=== PATIENT | female | born 1945 | race Caucasian/White ===

== ENCOUNTER 2020-06-12 13:46 | Outpatient (CLI) | payer MEDICARE, SELFPAY ==
--- NOTE | ~2020-06-12 | PE_ITS ---
EXAMINATION: PET skull to mid thigh DATE: 06/12/2020 15:42 INDICATION: Multiple pulmonary nodules. TECHNIQUE: Blood glucose level was 80 mg/dL. 9.329 mCi of 18-fluorodeoxyglucose (18-FDG) was administ ered i.v. Low dose computed tomography (CT) images were acquired from the base of the brain to the pr oximal thighs for attenuation correction and anatomic localization. Automated exposure control was em ployed. Dose-length product (DLP) was 234 mGy-cm. Positron emission tomography (PET) images were acqu ired in the same distribution. COMPARISON: None FINDINGS: Head/neck: There are no pathologically enlarged lymph nodes. Chest: There is severe emphysema. There is mild scarring at the lung apices without increased activit y. Calcified left lung nodules and calcified left hilar lymph nodes are consistent with old granuloma tous disease. There is a 7 mm nodule in right middle lobe without increased activity. There is a 5 mm nodule in right middle lobe without increased activity. There are two 5 mm nodules in right lower lo be without increased activity. There are nodules measuring up to 6 mm in left lower lobe without incr eased activity. No pleural effusion. The heart size is normal. There are coronary artery calcificatio ns. No pericardial effusion. There is mild chronic anterior wedging of multiple thoracic vertebral lucho dies. Abdomen/pelvis/proximal thighs: The liver, gallbladder, spleen, pancreas, adrenal glands, and kidneys are normal. There are no dilated loops of bowel. There is diverticulosis of the colon without eviden ce of diverticulitis. There is prominent fat in the inguinal canals that may be hernias. There are no pathologically enlarged lymph nodes. There is no free intraperitoneal fluid. There is internal fixat ion of proximal left femur. There is no osseous malignancy. IMPRESSION: 1. Pulmonary nodules measuring up to 7 mm without increased activity, probably benign. Noncontrast lo w-dose chest CT is recommended in 6 months. Reviewed, dictated and finalized at location A. [facility] IMPRESSION: 1. Pulmonary nodules measuring up to 7 mm without increased activity, probably benign. Noncontrast low-dose chest CT is recommended in 6 months.
[2020-06-12 14:23] LABS: Glucose Point of Care 80 (65-105)
== END 2020-06-12 13:47 | disposition home or self-care (01) ==
PROVIDERS: PCP Internal Medicine; Visit Provider Nurse Practitioner
DX: R91.8 Other nonspecific abnormal finding of lung field (principal)
CPT/HCPCS: 78815; A9552

== ENCOUNTER 2023-07-13 18:47 | Emergency (ER) | payer MEDICARE, SELFPAY ==
[2023-07-13] VITALS (7 sets, daily range): BP systolic 98–128; BP diastolic 54–86; PULSE 60–77; RESP 13–18; TEMP 37.3; O2SAT 92–97
[2023-07-13] MEDS: HYDROmorphone HCL INJ (*CRX) 1 MG/ML SYR IV PUSH (23:10)
[2023-07-13] MEDS: MAGNESIUM SULF 2 GM/WATER 50ML 2 GM/50 ML BAG IVPB (23:10)
--- NOTE | 2023-07-14 00:14 | ED.GENADULT ---
HPI - General Adult General Chief complaint: Unspecified Stated complaint: trigenimal neuralgia Time Seen by Provider: 07/13/23 22:40 History of Present Illness HPI narrative: Patient is a 8-year-old female presents emergency department chief complaint of right-sided facial pain. Patient reports she has prior history of trigeminal neuralgia and is currently on gabapentin as an outpatient. The patient states over the last several days she has had worsening pain and reports that she is followed by the [facility] Neurology group. Patient denies fever denies any other triggers Related Data Home Medications Medication Instructions Recorded Confirmed brimonidine 0.2 % eye drops 1 drp EACH EYE Q8H 08/29/22 carbamazepine 100 mg 100 mg PO Q12H 08/29/22 capsule,extended release [id number] dorzolamide 2 % eye drops 1 drp EACH EYE TID 08/29/22 furosemide 20 mg tablet 20 mg PO QAM 08/29/22 metoprolol succinate 25 mg 25 mg PO DAILY 08/29/22 tablet,extended release 24 hr omeprazole 20 mg capsule,delayed 20 mg PO DAILY 08/29/22 release ropinirole 0.5 mg tablet 0.5 mg PO BID 08/29/22 sacubitril 24 mg-valsartan 26 mg 1 tablet PO BID 08/29/22 tablet (Entresto) tramadol 50 mg tablet 50 mg PO Q6H PRN 08/29/22 trazodone 50 mg tablet 50 mg PO QHS PRN 08/29/22 Allergies Allergy/AdvReac Type Severity Reaction Status Date / Time [id number] Reductase Allergy Joint Pain Verified 08/29/22 09:03 Inhibitor Review of Systems Review of Systems: A 10 system review of systems was completed on the patient and is negative except for what is stated in the HPI. Nursing and ancillary documentation was reviewed. [facility] Social History Social History Smoking status: Never smoker Exam Narrative: GENERAL: Well-appearing, well-nourished, and in no acute distress. HEAD: Normocephalic, atraumatic. EYES: PERRLA and EOMI. ENT: Nares clear, no rhinorrhea or epistaxis. Mucous membranes moist. NECK: Supple. CHEST: Clear to auscultation. No respiratory distress. HEART: Regular rate and rhythm. No murmur heard. Normal peripheral pulses. ABDOMEN: Soft, nontender, nondistended, normal active bowel sounds. EXTREMITIES: Normal range of motion. No edema. SKIN: Warm, dry, no rash. NEURO: No focal deficits. Alert and oriented x3. PSYCH: Normal mood and affect. Course Vital Signs Vital signs: Vital Signs Temperature 37.3 C 07/13/23 18:49 Pulse Rate 77 07/13/23 18:49 Respiratory Rate 18 07/13/23 18:49 Blood Pressure 98/83 L 07/13/23 18:49 Pulse Oximetry 95 07/13/23 18:49 Oxygen Delivery Room Air 07/13/23 18:49 Temperature 37.3 C 07/13/23 18:49 Pulse Rate 68 07/13/23 23:58 Respiratory Rate 18 07/13/23 18:49 Blood Pressure 116/64 07/13/23 23:58 Pulse Oximetry 95 07/13/23 18:49 Oxygen Delivery Room Air 07/13/23 18:49 Medical Decision Making MDM Narrative Medical decision making narrative: Differential diagnosis includes chronic pain syndrome, trigeminal neuralgia pain, neuropathic pain The patient's pain was controlled in the emergency department as we discharged home to follow-up with her neurologist. Vital Signs Vital Signs: Vital Signs Temperature 37.3 C 07/13/23 18:49 Pulse Rate 77 07/13/23 18:49 Respiratory Rate 18 07/13/23 18:49 Blood Pressure 98/83 L 07/13/23 18:49 Pulse Oximetry 95 07/13/23 18:49 Oxygen Delivery Room Air 07/13/23 18:49 Temperature 37.3 C 07/13/23 18:49 Pulse Rate 68 07/13/23 23:58 Respiratory Rate 18 07/13/23 18:49 Blood Pressure 116/64 07/13/23 23:58 Pulse Oximetry 95 07/13/23 18:49 Oxygen Delivery Room Air 07/13/23 18:49 Discharge Plan Discharge Clinical Impression: Acute facial pain, [place] (trigeminal neuralgia) Patient Disposition: Home, Self-Care Condition: Stable Instructions: Antibiotic Form, Trigeminal Neuralgi
[2023-07-14 00:47] VITALS: BP 123/64; PULSE 69; RESP 15; O2SAT 92
[2023-07-14 00:53] VITALS: BP 112/78; PULSE 69
== END 2023-07-14 00:53 | disposition home or self-care (01) ==
PROVIDERS: Emergency Provider Emergency Medicine; PCP Internal Medicine
DX: G50.0 Trigeminal neuralgia (principal)
CPT/HCPCS: 96365; 96375; 99284; J1170; J2001; J3475

== ENCOUNTER 2024-10-18 14:13 | Outpatient (CLI) | payer MEDICARE, SELFPAY ==
--- NOTE | ~2024-10-18 | XR_ITS ---
Left Hand Technique: PA, oblique, and lateral views were obtained. Clinical History: Second MCP sprain Findings: No acute fracture or dislocation is seen. Osseous alignment is anatomic. There is mild dege nerative change of the first MCP joint. There is moderate degenerative change of the PIP joints. Ther e is mild degenerative change of the DIP joints.. Soft tissues are unremarkable. Impression: Polyarticular osteoarthritis, as detailed above. Reviewed, dictated and finalized at location M. Impression: Polyarticular osteoarthritis, as detailed above.
--- OUTSIDE RECORDS SUMMARY | 2024-10-18 15:30 | XMS_ITS | Continuity of Care Document ---
Author Organization [facility] Address [address] [place] [address] Phone Care Team Providers Care Import Clerk Name Role Phone Gabriel Cheng Unavailable Unavailable Procedures Procedure Date Eye Exam Established Pt Ophthalmoscopy, Subsequent Eye Exam Established Pt Ophthalmoscopy, Subsequent Fundus Photography W/ Report Eye Exam & Treatment Office/outpatient Visit, Est Eye Exam, New Patient Refraction Advance Directives Directive Yes / No Effective Date File Name No Information Encounters Encounter Description Practice Location Reason(s) For Visit Diagnoses Date Provider Providers Copied on Encounter [facility], [address] [place] [address] [address], [place], [place], [id number], [place] tel:[phone] [facility] [place][note 2] No Information 6-201 0 Skylar Rios. [address] [place], [address], [place]. tel:[phone] [facility], [address] [place] [address] [address], [place], [place], [id number], [place] tel:[phone] [facility] [place][note 2] No Information 2-201 0 Skylar Rios. [address] [place], [address], [place]. tel:[phone] Referring Provider: Gabriel Correia, [address] [place], [place], [facility]. tel:[phone] [facility], [address], [place], [place], [id number], [place] tel:[phone] [facility] [place][note 2] No Information Sep-0 8-201 0 Skylar Rios. [address] [place], [place], [facility], [place]. tel:[phone] Referring Provider: Wally rivas, [address] [place] [address], [facility]. tel:[phone] Office/outpat ient Visit, [facility] [place], [id number] [place] [address] [address], [place], [place], [id number], tel:[phone] [facility] [place][note 2] No Information Sep-0 5-201 0 Dakota Wally. [address] [place] [address], [facility], [place]. tel:[phone] [facility], [address] [place] [address] [address], [place], [place], [id number], [place] tel:[phone] [facility] [place][note 2] No Information -201 0 Krstannasamy Wally. [address] [place] [address], [facility], [place]. tel:[phone] Family History Family Member Type Diagnosis Age At Onset No Information Payers Payer name Insurance type Covered libertarian ID Authoriza [id number](s) Medicare [facility] [id number] Commercial [id number] Social History Type Description Quantity Date Captured Comments Sex Female Smoking Status No Information Chief Complaint And Reason For Visit No Information Reason For Referral Reason For Referral No Information History Of Present Illness Encounter Date Complaint History Of Prese nt Illness No Information Functional Status Date Functional Assessmen t No Information Instructions Date Instruction Additional Infor mation No Information Assessments Type Assessment Date No Information Patient Care Teams Name Effective Dates (start - stop) Status Members No Information
--- OUTSIDE RECORDS SUMMARY | 2024-10-18 15:31 | XMS_ITS | Encounter Summary ---
Author Organization [facility] Address [address] [facility] [place] [address] Phone Care Team Providers Care Carriage Setter Name Role Phone Yanet Felder MD Primary Care Provider [phone] Reason for Visit * Reason Onset Date Comments Med Refill 08/02/2024 Encounter Details Date Type Department Care Team (Late st Contact Info) Description 08/02/2024 Refill [place] [facility] [address] [facility] [address] [place] [address] Nichole Bolaños CMA [address] [facility] [address] [place] [address] Social History Tobacco Use Types Packs/Day Years Used Date Smoking Tobacco: Never Assessed Comments Unknown Sex and Gender Information Value Date Recorded Sex Assigned at Not on file Legal Sex Female 1:55 PM EDT Gender Identity Not on file Sexual Orientation Not on file documented as of this encounter Plan of Treatment Upcoming Encounters Date Type Department Care Team (Late st Contact Info) Description 01/31/2025 2:00 PM CDT Office Visit [place] [facility] [address] [facility] [address] [place] [id number] Steffen Alfredo DO [address] [place] [address] documented as of this encounter Visit Diagnoses Not on filedocumented in this encounter Care Teams Carriage Setter Relationship Specialty Start Date End Date Yanet Felder MD [address] [facility], [address] [place] [address] PCP - General Internal Medicine 03/06/23 documented as of this encounter
--- OUTSIDE RECORDS SUMMARY | 2024-10-18 15:31 | XMS_ITS | Clinical Summary ---
Author Organization [facility] Address [address] [place] [address] Care Team Providers Care Craft Artist Name Role Phone Thaddeus Felder MD Primary Care Provide r Eleonora Sparks MD Unavailable [phone] Aren Hayes MD Unavailable [phone] Allergies Active Allergy Reactions Criticality Noted Date Comments Rosuvastatin Hives Medium 01/04/2020 Medications traZODone (DESYREL) 50 mg tablet TK 1 T PO QHS. NO ALCOHOL OR DRIVING WHILE ON MEDICATION, for sleep 0 07/09/19 19 Active timolol (BETIMOL) 0.5 % ophthalmic solution Administer 1 drop into the right eye disassembler before breakfast Active latanoprost (XALATAN) 0.005 % ophthalmic solutionIndic ations:open angle glaucoma Administer 1 drop into the right eye nightly Active brimonidine (ALPHAGAN) 0.2 % ophthalmic solution brimonidine 0.2 % eye drops INSTILL 1 DROP INTO THE RIGHT EYE BID 12/09/19 20 Active clobetasoL (TEMOVATE) 0.05 % cream Active dorzolamide (TRUSOPT) 2 % ophthalmic solution INSTILL 1 DROP INTO THE RIGHT EYE TWICE DAILY 10/30/19 21 Active omeprazole (PriLOSEC) 20 mg capsule Active metoprolol XL (TOPROL-XL) 25 mg extended release tablet Take 0.5 tablets (12.5 mg total) by mouth daily 15 tablet 11/20/19 22 Active rOPINIRole (REQUIP) 0.5 mg tablet Take 1 tablet (0.5 mg total) by mouth nightly at bedtime 11/23/19 22 Active albuterol HFA (PROVENTIL HFA,VENTOLIN HFA,PROAIR HFA) 90 mcg/actuation inhaler Inhale 2 puffs every 6 (six) hours as needed for wheezing Active neomycin-poly myxin B-dexAMETHaso ne (MAXITROL) 3.5 mg/g-10,000 unit/g-0.1 % ointment 03/08/20 24 Active montelukast (SINGULAIR) 10 mg tablet Take 1 tablet (10 mg total) by mouth nightly 30 tablet 11 03/22/20 24 Active furosemide (LASIX) 20 mg tablet Take 1 tablet (20 mg total) by mouth daily for 3 days 3 tablet 04/21/20 24 Active oxyCODONE (ROXICODONE) 5 mg immediate release tablet TAKE 1 TABLET BY MOUTH EVERY DAY FOR 10 DAYS NEEDED 05/03/20 24 Active fexofenadine (GONZALEZ) 60 mg tablet Take 1 tablet (60 mg total) by mouth daily Active meloxicam (MOBIC) 7.5 mg tablet Take 1 tablet (7.5 mg total) by mouth daily 09/28/19 25 Active albuterol 2.5 mg /3 mL (0.083 %) nebulizer solutionIndic ations:Centri lobular emphysema (HCC) Take 3 mL by nebulization every 4 (four) hours as needed for wheezing or shortness of breath 75 mL 10/18/19 25 Active arformoteroL (Brovana) 15 mcg/2 mL nebulizer solutionIndic ations:Centri lobular emphysema (HCC) Take 2 mL (15 mcg total) by nebulization 2 (two) times a day 360 mL 10/18/19 25 026 Active revefenacin (Yupelri) 175 mcg/3 mL solution for nebulizationI ndications:Ce ntrilobular emphysema (HCC) Inhale 3 mL daily 90 mL 3 10/18/19 25 026 Active albuterol (PROVENTIL,VE NTOLIN) 2.5 mg /3 mL (0.083 %) nebulizer solution Inhale 3 mL every 4 (four) hours as needed 02/16/20 18 025 Discontinued(R eorder) ipratropium-a lbuteroL (DUO-NEB) 0.5-2.5 mg/3 mL nebulizer solution 025 Discontinued revefenacin (Yupelri) 175 mcg/3 mL solution for nebulizationI ndications:Ce ntrilobular emphysema (HCC) Inhale 3 mL daily 90 mL 3 09/30/19 25 025 Discontinued(R eorder) arformoteroL (Brovana) 15 mcg/2 mL nebulizer solutionIndic ations:Centri lobular emphysema (HCC) Take 2 mL (15 mcg total) by nebulization 2 (two) times a day 360 mL 3 09/30/19 025 Discontinued(R eorder) Active Problems Problem Noted Date Diagnosed Date Sensorineural hearing loss (SNHL) of both ears 1 07/30/2023 Assessment & Plan (05/29/2024 12:28 PM GAME SHOW HOST): Severe Hearing loss, hearing aids recommended Pneumonia of both lower lobes due to infectious organism 03/22/2024 Assessment & Plan (03/22/2024 3:29 PM CDT): There are concerns for aspiration pneumonia, clinically she has improved. I will follow her CT chest to resolution, ordered today Dysphagia 03/22/2024 Assessment & Plan (05/29/2024 12:28 PM GAME SHOW HOST): EGD referral placed Assessment & Plan (05/27/2024 1:40 PM GAME SHOW HOST): Recent chest imaging reveals concerns for aspiration. In addition she reports difficulty swallowing over the last several months MBS with no evidence of aspiration Unfortunately she did have some esophageal dysmotility as reported by SENIOR MECHANICAL ENGINEER. This could be a result of esophageal stricture. In addition it could be caused by her goiter. I have encouraged her to follow-up with primary and/or GI Assessment & Plan (03/22/2024 3:30 PM CDT): Recent chest imaging reveals concerns for aspiration. In addition she reports difficulty swallowing over the last several months I will check a modified barium swallow study Nicotine dependence, cigarettes, uncomplicated 1 Assessment & Plan (09/29/2024 3:44 PM CDT): - Smoking cessation counseling and techniques reviewed at length - Avoid triggers and use distraction techniques - Participate in support groups - Information given regarding [place] Tobacco Quit line: 2-567-MUCF-YES for free services - 5 minutes spent discussing cessation She declines NRT today She is not a candidate for LDCT screening Assessment & Plan (05/27/2024 1:39 PM GAME SHOW HOST): - Smoking cessation counseling and techniques reviewed at length - Avoid triggers and use distraction techniques - Participate in support groups - Information given regarding [place] Tobacco Quit line: 0-124-PPQV-YES for free services - 4 minutes spent discussing cessation She remains pre-contemplative at present. I have encouraged her to cut down Assessment & Plan (03/22/2024 3:32 PM CDT): - Smoking cessation counseling and techniques reviewed at length - Avoid triggers and use distraction techniques - Participate in support groups - Information given regarding [place] Tobacco Quit line: 1-717-NPVQ-YES for free services - 5 minutes spent discussing cessation She is pre-contemplative at present. Neuralgia 12/19/2021 Takotsubo cardiomyopathy 11/18/2021 Acute respiratory failure with hypoxia Chronic obstructive pulmonary disease 11/17/2021 Shortness of breath 11/17/2021 Trochanteric bursitis of left hip 09/24/2021 Low back pain 08/09/2021 Pain of left sacroiliac joint 08/09/2021 Coronavirus infection 06/28/2021 Myalgia 05/21/2021 Spinal enthesopathy 05/21/2021 Trigeminal neuralgia 11/22/2020 Assessment & Plan (05/21/2021 11:31 AM GAME SHOW HOST): Patient has had recent exacerbation and trigeminal nerve pain despite continued use of carbamazepine 100 mg t.i.d. with otherwise good tolerability and symptomatic efficacy. I will maintain her carbamazepine as dosed at 100 mg t.i.d. and has supplemental tramadol 50 mg t.i.d. p.r.n. for symptomatic exacerbation as it has historically worked well for her in past. She will follow-up in neurology clinic in 6 months. Assessment & Plan (11/22/2020 10:48 AM CDT): Patient presents with a 10+ day history of right iris facial lancinating pain in the distribution of the ophthalmic and maxillary divisions of the right trigeminal nerve. She has been placed on carbamazepine 100 mg b.i.d. with some lessening but not resolution of her symptoms. Carbamazepine increased to 200 mg t.i.d. led to untoward drowsiness and adverse effects. She reportedly has had a CT scan and MRI of the brain performed through [facility] which she was told both were normal. A request for those record reports will be pursued. I will increase her baseline carbamazepine 200 mg t.i.d. an effort to further reduce her nerve pain and hopefully not produce untoward sedation or adverse effects. I will see her back in 6 months time for reassessment on the adjusted dose. Bleeding into the skin 03/16/2020 Dizziness 06/29/2019 Glaucoma 06/29/2019 Leg edema 06/29/2019 Allergic rhinitis 12/07/2018 Bradycardia 12/03/2018 Atherosclerosis of aorta 11/17/2018 Hyperlipidemia 11/17/2018 Arteriosclerosis of coronary artery 10/29/2018 Chronic obstructive pulmonary disease 10/29/2018 Assessment & Plan (09/29/2024 3:43 PM CDT): Maintenance inhaled dual bronchodilator therapy has been largely unaffordable She filled out the paperwork for financial assistance but was denied She has tried and failed Spiriva, Anoro, and Bevespi. She has the best clinical benefit from Stiolto We have discussed nebulized dual bronchodilation and she agrees I have sent for a new nebulizer as versus greater than 5 years old I have also sent for Yupelri to be used once daily via nebulizer and Brovana to be used twice daily via nebulizer Albuterol as needed only, we have discussed indications for use We have discussed signs and symptoms that would require earlier evaluation or change to her plan of care Assessment & Plan (05/27/2024 1:38 PM GAME SHOW HOST): She will continue Stiolto 2 puffs daily I have given her weeks of samples and instructed her on use She filled out the paperwork for financial assistance but was denied She has tried and failed Spiriva, Anoro, and Bevespi. She has the best clinical benefit from Stiolto I will send an additional RX and anticipate that we may need to [place] Albuterol as needed only, we have discussed indications for use I will check old records for previous alpha-1 testing I have sent an order for an new nebulizer today We have discussed signs and symptoms that would require earlier evaluation or change to her plan of care Assessment & Plan (03/22/2024 3:30 PM CDT): She will continue Stiolto 2 puffs daily I have given her 6 weeks of samples and instructed her on use She was filled out the paperwork for financial assistance Albuterol as needed only, we have discussed indications for use I will check old records for previous alpha-1 testing Closed fracture of right distal radius 9 Overview (08/03/2018): Added automatically from request for surgery [id number] Thyroid nodule 03/31/2017 Encounters Date Type Department Care Team Description 09/29/2024 11:00 AM CDT Office Visit [facility] Pul[facility] at [address] [place] [address] Ann Lala, SPORTS ATTORNEY Centrilobular emphysema (HCC) (Primary Dx); Nicotine dependence, cigarettes, uncomplicated from Last 3 Months Immunizations Immunization Administration Dates Next Due Hep A, Adult 01/22/2000,07/17/1999 Influenza, Quadrivalent, Spl it, Preservative Free, Intramuscular 04/14/2019 Influenza, Trivalent, High D ose, Split, Preservative Free, Intramuscular 03/14/2020,04/07/2018,03/31/2017,04/09,03/27/2015 Influenza, Trivalent, IM (MDV) 04/11/2014,2012 Influenza, Unspecified 04/04/2021 Moderna SARS-CoV-2 Monovalen t Vaccination (12+ YRS) 09/04/2020,07/26/2020 Pneumococcal Conjugate PCV 13 05/07/2016 Pneumococcal Polysaccharide PPV23 06/24/2018 Surgical History Surgery Date Site/Laterality Comments HIP SURGERY Left 2015 EYE SURGERY 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 EYE SURGERY Right 2013 cataract CARDIAC CATHETERIZATION HERNIA REPAIR WRIST SURGERY Right fracture surgery, plate Medical History Medical History Date Comments Malignant neoplasm of unknown origin (HCC) Cancer, unknown Trigeminal neuralgia Thyroid nodule Glaucoma Nicotine dependence, cigarettes, uncomplicated 1 HLD (hyperlipidemia) DDD (degenerative disc disease), lumbar Takotsubo cardiomyopathy HFrEF (heart failure with reduced ejection fract ion) (HCC) CAD (coronary artery disease) Goiter COPD (chronic obstructive pulmonary disease) (HC C) Family History Medical History Relation Name Comments Heart attack Father Lung cancer Mother Relation Name Status Comments Father Mother Social History Tobacco Use Types Packs/Day Years Used Date Smoking Tobacco: Every Day Cigarettes 0.5 61.3 Started: 1964 Smokeless Tobacco: Never Alcohol Use Standard Drinks/Week Comments Yes 1 (1 standard drink = 0.6 oz pur e alcohol) AUDIT-C Answer Date Recorded Q1: How often do you have a drink containing alcohol? Never 06/13/2024 Q2: How many drinks containi ng alcohol do you have on a typical day when you are drinking? Patient does not drink Q3: How often do you have si x or more drinks on one occasion? Never 06/13/2024 Personal Safety Answer Date Recorded Have you ever been in or are you currently in a harmful physical or emotional relationship or is someone making you feel afraid or unsafe? Denies 06/17/2024 Comments No Sex and Gender Information Value Date Recorded Sex Assigned at Not on file Legal Sex Female 3:45 AM GAME SHOW HOST Gender Identity Not on file Sexual Orientation Not on file Obstetrics History Last Filed Vital Signs Vital Sign Reading Time Taken Comments Blood Pressure 101/62 09/29/2024 10:53 AM CDT Pulse 63 09/29/2024 10:53 AM CDT Temperature 36.4 C (97.5 F) 09/29/2024 10:53 AM CDT Respiratory Rate 18 09/29/2024 10:53 AM CDT Oxygen Saturation 91% 09/29/2024 10:53 AM CDT Inhaled Oxygen Concentration - - Weight 40.2 kg (88 lb 9.6 oz) 09/29/2024 10:53 A M CDT Height 162.6 cm (5' 4 ) 09/29/2024 10:53 AM CDT Body Mass Index 15.21 09/29/2024 10:53 AM CDT Plan of Treatment Health Maintenance Due Date Last Done Comments Depression Screening 1945 Osteoporosis Screening-Bone Density Scan 1944 DTaP/Tdap/Td Vaccine (1 - Tdap) 1955 Hepatitis B Screening 1962 Lung Cancer Screening 1994 Well Visit 65+ 2009 Fall Risk Assessment 11/18/2022 11/18/2021 Covid-19 Vaccine (2023-2 5 season) 2024 09/04/2020, 07/26/2020 Pneumococcal vaccine 65+ Completed 06/24/2018, 04/22 Zoster Vaccine Completed 06/27/2020, 03/14/2020 Influenza Vaccine Completed 05/04/2024, , 03/14/2020, Additional history exists Medical Devices Implanted Type Area Weekend Anchor Device Identifier Shelf Expiration Date Model / Serial / Lot Other - See Comments Other - see comments Left: Eye Description:Left eye prosthe sis [employer] A-5700.16/1 Aptus 2.5mm 16mm Hexadrive 7 Adaptive Wrist Radius Cortical - S0 - [id number] Implanted:Qty: 2 on 08/05/2018 by Peter Shipley MD at [facility] Screw Right: Radius [employer] A-5700.16 /1 / 0 / [employer] A-5400.15 Aptus 2mm 15mm Hand Cortical Screw Bone Titanium Blue - S0 - [id number] Implanted:Qty: 1 on 08/05/2018 by Peter Shipley MD at [facility] Screw Right: Radius [employer] A-5400.15 / 0 / [employer] A-5750.16 2.5mm 16mm Lock Cortical Screw Bone - S0 - [id number] Implanted:Qty: 3 on 08/05/2018 by Peter Shipley MD at [facility] Screw Right: Radius [employer] A-5750.16 / 0 / [employer] A-5750.12/1 Aptus Trilock 2.5mm 12mm Hexadrive 7 Adaptive Wrist Radius - S0 - [id number] Implanted:Qty: 2 on 08/05/2018 by Peter Shipley MD at [facility] Screw Right: Radius [employer] A-5750.12 /1 / 0 / [employer] A-5700.12 Aptus 2.5mm 12mm Cortical Screw Bone - S0 - [id number] Implanted:Qty: 3 on 08/05/2018 by Peter Shipley MD at [facility] Screw Right: Radius [employer] A-5700.12 / 0 / Angio-Seal Vip 6fr Closere Device [id number] - [id number] Implanted:Qty: 1 on 11/16/2021 by Terence Gray MD at [facility] [facility] 09/19/2022 [id number] / / [id number] Explanted Type Area Weekend Anchor Device Identifier Shelf Expiration Date Model / Serial / Lot [employer] A-5040.41/1 Aptus Mandeep 1.6mm 150mm Trocar Wire Fixation Nonsterile - S0 - [id number] Implanted:Qty: 1 Explanted:Qty: 1 on 08/05/2018 by Peter Shipley MD at [facility] Advanced Medicine Wire Right: Radius [employer] A-5040.41/1 / 0 / Insurance MEDICARE [facility] [place] [address] MEDICARE [facility] MEDICARE [facility] MEDICARE SUPPLEMENT Advance Directives For more information, please contact: [phone] * Full Code (Latest Code Status on File) Date Activated Date Inactivated Comments 06/17/2024 7:02 AM 06/17/2024 12:34 PM * Full Code Date Activated Date Inactivated Comments 06/17/2024 7:02 AM 06/17/2024 7:02 AM * Full Code Date Activated Date Inactivated Comments 11/16/2021 3:46 PM 11/18/2021 8:12 PM Care Teams Craft Artist Relationship Specialty Start Date End Date Thaddeus Felder MD [address] [facility] [address] [place] [address] PCP - General Internal Medicine 08/18/18 Eleonora Sparks MD [address] [place] [address] Fellow General Surgery 11/16/21 Aren Hayes MD [address] [place] [address] Consulting Physician Interventional Cardiology 11/18/21
--- OUTSIDE RECORDS SUMMARY | 2024-10-18 15:31 | XMS_ITS | Clinical Summary ---
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 Gender Identity Not on file Sexual Orientation Not on file Plan of Treatment Upcoming Encounters Date Type Department Care Team (Late st Contact Info) Description 10/26/2024 8:40 AM CDT Office Visit [facility] - [address], [address] [place] [address] Kerrie Martinez MD [address] [place] [address] Health Maintenance Due Date Last Done Comments DTaP, Tdap and Td Vaccines ( 1 - Tdap) 1964 Pneumococcal Vaccine: 50+ Ye ars (1 of 1 - PCV) 1994 Zoster Vaccines (1 of 2) 1994 Annual Medicare Wellness Visit 2009 Dexa Scan (General) 2009 RSV Immunization or 60+ Years (1 - 1-dose 75+ series) 2019 COVID-19 Vaccine (2023-2 5 season) 2024 Meningococcal B Vaccine Aged Out No l onger eligible based on patient's age to complete this topic Meningococcal Vaccine Aged Out No avi lloyd eligible based on patient's age to complete this topic RSV Immunizations Under 20 Months Aged Out No longer eligible based on patient's age to complete this topic Insurance MEDICARE
--- OUTSIDE RECORDS SUMMARY | 2024-10-18 15:31 | XMS_ITS | CONTINUITY OF CARE DOCUMENT ---
Author Name nyla redmond Address Unknown Organization [facility] Address [id number] [address] [place] [address] Phone [phone] Care Team Providers Care Gold Reclaimer Name Role Phone Deep Bauman MD Unavailable [phone] VERNON MORTENSEN MD Unavailable VERNON MORTENSEN MD Unavailable PROBLEMS Condition Status Date Provider Notes Abnormal electrocardiogram active Soila Philip MD CAD active Terence Gray MD Family history of sudden cardiac [SCD] active Soila Philip MD Tobacco use, quit active Yury Pickens COPD active Soila Philip MD Leg edema active Terence Gray MD Glaucoma active Terence Gray MD Bradycardia active Terence Gray MD Aortic atherosclerosis active Terence Mark D Dizziness active Terence Gray MD Hyperlipidemia active Yury Pickens Ecchymoses completed - Deep Bauman MD PAD - BLE with rest pain completed - Deep Bauman MD PAD - RLE with rest pain completed - Deep Bauman MD SARS-associated coronavirus active Soila Philip MD Trigeminal neuralgia active Soila tamayo MD Abnormal electrocardiogram active Soila Philip MD CHF, diastolic active Miguel Ahmedzai Hypotension active Soila Philip MD Headache, mixed active Bradley Aggarwal NP Cardiology examination completed 5 - Deep Bauman MD Neuropathy active Miguel Regan ENCOUNTERS Date Type Provider Location Encounter Diag nosis - In-person encounter Office Visit Deep Bauman MD [facility] EcchymosesPAD - BLE with rest painPAD - RLE with rest painCardiology examinationNeuropathy - In-person encounter Office Visit Deep Bauman MD [facility] - In-person encounter Office Visit Deep Bauman MD [facility] CHF, diastolic - In-person encounter Office Visit Soila Philip MD [facility] - In-person encounter Office Visit Soila Philip MD [facility] Headache, mixed - In-person encounter Office Visit Soila Philip MD [facility] - In-person encounter Office Visit Soila Philip MD [facility] - In-person encounter Office Visit Soila Philip MD [facility] - In-person encounter Office Visit Soila Philip MD [facility] - In-person encounter Office Visit Soila Philip MD [facility] - In-person encounter Office Visit Soila Philip MD [facility] - In-person encounter Office Visit Soila Philip MD [facility] Hypotension - In-person encounter Office Visit Soila Philip MD [facility] - In-person encounter Office Visit Soila Philip MD [facility] - In-person encounter Office Visit Soila Philip MD [facility] - In-person encounter Office Visit Soila Philip MD [facility] - In-person encounter Office Visit Soila Philip MD [facility] Abnormal electrocardiogramCHF, diastolic - In-person encounter Office Visit Soila Philip MD [facility] Trigeminal neuralgia - In-person encounter Office Visit Soila Philip MD [facility] SARS-associated coronavirus - In-person encounter Office Visit Soila Philip MD [facility] - In-person encounter Office Visit Soila Philip MD [facility] - In-person encounter Office Visit Soila Philip MD [facility] - In-person encounter Office Visit Soila Philip MD [facility] - In-person encounter Office Visit Terence Gray MD [facility] CADTobacco use, quitLeg edemaGlaucomaBradycardiaAortic atherosclerosisDizzinessHyperlipidemia - In-person encounter Office Visit Soila Philip MD [facility] - In-person encounter Office Visit Soila Philip MD [facility] Abnormal electrocardiogramFamily history of sudden cardiac [SCD]Tobacco use, quitCOPD VITAL SIGNS Date Observation Value Provider Body Mass Index (Ratio) 15.79 kg/m2 Jason Bauman MD blood pressure, diastolic 70 mm[Hg] An iyah Huslia blood pressure, systolic 104 mm[Hg] Cadence aguilera Huslia oxygen saturation, oximetry 94 % [facility] respiratory rate E&M 12 /min [facility] weight E&M 92 [lb_av] [facility] height E&M 64 [in_i] [facility] blood pressure, cuff size regular Jeni [facility] Body Mass Index (Ratio) 15.62 kg/m2 Jason Bauman MD pulse rate 60 /min Nile [facility] oxygen saturation, oximetry 95 % [facility] weight E&M 91 [lb_av] [facility] blood pressure, diastolic 71 mm[Hg] Jeni [facility]Four [facility] blood pressure, systolic 110 mm[Hg] Cadence bejaranoFour [facility] respiratory rate E&M 12 /min [facility] height E&M 64 [in_i] [facility] blood pressure, cuff size regular [facility] Body Mass Index (Ratio) 15.62 kg/m2 Jason Bauman MD blood pressure, diastolic 85 mm[Hg] Teresa rangela [facility] blood pressure, systolic 149 mm[Hg] Ary la [facility] oxygen saturation, oximetry 95 % Joi [facility] pulse rate 57 /min Joi [facility] blood pressure, cuff size regular Teresa yla [facility] weight E&M 91 [lb_av] Joi [facility] height E&M 64 [in_i] Joi [facility] Body Mass Index (Ratio) 16.13 kg/m2 Adore Philip MD blood pressure, diastolic -1 mm[Hg] Li nkLogic blood pressure, systolic 127 mm[Hg] Enedina kLogic blood pressure, diastolic 77 mm[Hg] Teresa awan Ruple blood pressure, systolic 127 mm[Hg] Ary ocampo Ruple blood pressure, cuff size regular Teresa awan Ruple oxygen saturation, oximetry 94 % Joi Ruple pulse rate 54 /min Joi Ruple weight E&M 94 [lb_av] Joi Ruple height E&M 64 [in_i] Joi [facility] Body Mass Index (Ratio) 15.10 kg/m2 Adore Philip MD blood pressure, cuff size regular Ke rri Gruenenfelder blood pressure, diastolic 60 mm[Hg] Ke rri Gruenenfelder blood pressure, systolic 114 mm[Hg] Gwendolyn ri Gruenenfelder oxygen saturation, oximetry 93 % Giselle Gruenenfelder respiratory rate E&M 12 /min Giselle G chetenenfelder pulse rate 67 /min Giselle Gruenenfe lder weight E&M 88 [lb_av] Giselle Gruenenfe lder height E&M 64 [in_i] Giselle Gruenenfe er Body Mass Index (Ratio) 16.30 kg/m2 Mp Long oxygen saturation, oximetry 96 % Guerita Shaw pulse rate 57 /min Guerita Shaw blood pressure, cuff size regular Fa nicky Shaw blood pressure, diastolic 75 mm[Hg] Fa ith Colin blood pressure, systolic 120 mm[Hg] Niels Colin respiratory rate E&M 18 /min Guerita Mark iller weight E&M 95 [lb_av] Guerita Blackwood height E&M 64 [in_i] Guerita Blackwood Body Mass Index (Ratio) 17.68 kg/m2 Adore Philip MD blood pressure, diastolic -1 mm[Hg] Sandra nkLog blood pressure, systolic 129 mm[Hg] Enedina og blood pressure, diastolic 75 mm[Hg] An carlee Reddy blood pressure, systolic 129 mm[Hg] Any belkis Reddy pulse rate 68 /min Marisela Reddy oxygen saturation, oximetry 90 % Marisela Reddy weight E&M 103 [lb_av] Marisela Reddy blood pressure, cuff size large An carlee Reddy height E&M 64 [in_i] Marisela Reddy Body Mass Index (Ratio) 17.51 kg/m2 Adore Philip MD blood pressure, cuff size regular Fa [facility] blood pressure, diastolic 69 mm[Hg] Fa [facility] blood pressure, systolic 101 mm[Hg] Niels [facility] oxygen saturation, oximetry 95 % [facility] respiratory rate E&M 15 /min Guerita Mark iller pulse rate 61 /min [facility] weight E&M 102 [lb_av] [facility] height E&M 64 [in_i] [facility] Body Mass Index (Ratio) 18.02 kg/m2 Grah am Yudith blood pressure, diastolic 66 mm[Hg] Li nkLogic blood pressure, systolic 111 mm[Hg] Enedina og oxygen saturation, oximetry 93 % Brittany Mitchell pulse rate 65 /min Brittany Mitchell respiratory rate E&M 18 /min Brittany Mitchell blood pressure, diastolic 66 mm[Hg] Teresa Mitchell blood pressure, systolic 111 mm[Hg] She pj Mitchell weight E&M 105 [lb_av] Brittany Mitchell blood pressure, cuff size regular kirit Mitchell height E&M 64 [in_i] Brittany Mitchell Body Mass Index (Ratio) 18.36 kg/m2 Adore Philip MD pulse rate 57 /min Brittany Mitchell respiratory rate E&M 20 /min Brittany Mitchell blood pressure, diastolic 57 mm[Hg] kirit Mitchell blood pressure, systolic 87 mm[Hg] She pj Mitchell weight E&M 107 [lb_av] Brittany Mitchell blood pressure, cuff size regular kirit Mitchell height E&M 64 [in_i] Brittany Mitchell Body Mass Index (Ratio) 18.71 kg/m2 Adore Philip MD blood pressure, diastolic 56 mm[Hg] Sandra nkLogcatracho blood pressure, systolic 93 mm[Hg] Enedina Merrillogcatracho blood pressure, diastolic 56 mm[Hg] St poncho Apple blood pressure, systolic 93 mm[Hg] Angel Apple oxygen saturation, oximetry 95 % Pamela Apple respiratory rate E&M 18 /min Pamela gale pulse rate 63 /min Pamela Apple weight E&M 109 [lb_av] Pameladaphne Apple height E&M 64 [in_i] Pamela Apple Body Mass Index (Ratio) 19.57 kg/m2 Adore Philip MD blood pressure, diastolic 60 mm[Hg] Sandra gudinoLogcatracho blood pressure, systolic 102 mm[Hg] Enedina Merrillogcatracho oxygen saturation, oximetry 95 % Giselle Torres respiratory rate E&M 14 /min Giselle mendozaelder pulse rate 65 /min Giselle Mary lder blood pressure, cuff size regular Ke rri Dougieuenejorgeelder blood pressure, diastolic 60 mm[Hg] Ke rri Dougieuenenfelder blood pressure, systolic 102 mm[Hg] Gwendolyn ri Johnathoner weight E&M 114 [lb_av] Giselle Jefferynejorgee lder height E&M 64 [in_i] Giselle Mary lder Body Mass Index (Ratio) 19.22 kg/m2 Adore Philip MD blood pressure, diastolic 72 mm[Hg] Ri aliza Simental blood pressure, systolic 99 mm[Hg] Bobby cris Simental blood pressure, cuff size regular Ri aliza Simental oxygen saturation, oximetry 91 % Chandni Simental respiratory rate E&M 14 /min Boogie Simental pulse rate 68 /min Chandni Bell son weight E&M 112 [lb_av] Chandni Bell son height E&M 64 [in_i] Chandni Bell son Body Mass Index (Ratio) 20.08 kg/m2 Kamaljit Wong blood pressure, cuff size small Mi aliza White blood pressure, diastolic 53 mm[Hg] Mi aliza White blood pressure, systolic 93 mm[Hg] Jeffry cris White Inhaled O2 2 L/min Marilee larry oxygen saturation, oximetry 96 % Marilee hWite pulse rate 70 /min Marilee larry respiratory rate E&M 16 /min Cherri White weight E&M 117 [lb_av] Marilee larry height E&M 64 [in_i] Marilee larry Body Mass Index (Ratio) 20.60 kg/m2 Adore Philip MD blood pressure, diastolic 60 mm[Hg] Ke rri Gruenenfelder blood pressure, systolic 120 mm[Hg] Ker ri Gruenenfelder blood pressure, cuff size regular Ke rri Gruenenfelder Inhaled O2 2 L/min Giselle Grdiananenfe lder oxygen saturation, oximetry 95 % Giselle Pinedanfelderendira respiratory rate E&M 16 /min Giselle G ruenenfelder pulse rate 48 /min Giselle Gruenenfe lder weight E&M 120 [lb_av] Giselle Gruenenfe lder height E&M 64 [in_i] Giselle Gruenenfe lder Body Mass Index (Ratio) 20.42 kg/m2 Adore Philip MD blood pressure, diastolic 54 mm[Hg] nkLogic blood pressure, systolic 92 mm[Hg] Enedina kLogic blood pressure, diastolic 54 mm[Hg] Sa ra Son blood pressure, systolic 92 mm[Hg] Wilder a Son oxygen saturation, oximetry 92 % Deena Son respiratory rate E&M 17 /min Deena Si ms pulse rate 71 /min Deena Son Inhaled O2 2 L/min Deena Son blood pressure, cuff size regular Sa ra Son weight E&M 119 [lb_av] Deena Son height E&M 64 [in_i] Deena Son Body Mass Index (Ratio) 20.42 kg/m2 Adore Philip MD blood pressure, diastolic 74 mm[Hg] Sandra nkLogcatracho blood pressure, systolic 133 mm[Hg] Enedina Merrillogcatracho blood pressure, diastolic 74 mm[Hg] Kay Chandler blood pressure, systolic 133 mm[Hg] Lacy Chandler respiratory rate E&M 16 /min Barby Chandler pulse rate 68 /min Carrie whyte weight E&M 119 [lb_av] Carrie whyte blood pressure, cuff size regular Kay Chandler height E&M 64 [in_i] Carrie whyte Body Mass Index (Ratio) 20.25 kg/m2 Adore Philip MD blood pressure, cuff size large Tr jhoana Smith blood pressure, diastolic 70 mm[Hg] Tr jhoana Smith blood pressure, systolic 118 mm[Hg] Try elida Smith oxygen saturation, oximetry 90 % Dwayne Smith respiratory rate E&M 16 /min Dwayne Smith pulse rate 78 /min Dwayne Smith weight E&M 118 [lb_av] Dwayne Smith height E&M 64 [in_i] Dwayne Smith Body Mass Index (Ratio) 19.91 kg/m2 Adore Philip MD blood pressure, diastolic 70 mm[Hg] Sandra gudinoLogcatracho blood pressure, systolic 110 mm[Hg] Enedina Merrillogcatracho blood pressure, cuff size regular Mack isty [place] blood pressure, diastolic 70 mm[Hg] Kr isty [place] blood pressure, systolic 110 mm[Hg] Macki strob Vadim weight E&M 116 [lb_av] Evelyn [place] pulse rate 67 /min Evelyn [place] oxygen saturation, oximetry 98 % Evelyn Fierro respiratory rate E&M 19 /min Evelyn Kohliby height E&M 64 [in_i] Evelyn Fierro Body Mass Index (Ratio) 20.25 kg/m2 Adore Philip MD blood pressure, cuff size regular Cy sindi Portillo blood pressure, diastolic 76 mm[Hg] Cy sindi Portillo blood pressure, systolic 122 mm[Hg] Cecille derrick Portillo pulse rate 66 /min Skyla jason oxygen saturation, oximetry 99 % Skyla Portillo respiratory rate E&M 16 /min Skyla Portillo weight E&M 118 [lb_av] Skyla Markelbel l height E&M 64 [in_i] Skyla Campbel l Body Mass Index (Ratio) 19.74 kg/m2 Adore Philip MD blood pressure, diastolic 66 mm[Hg] To nsha Fall blood pressure, systolic 126 mm[Hg] Ton sha Fall oxygen saturation, oximetry 96 % Tons Fall respiratory rate E&M 16 /min Tonsha Fall pulse rate 73 /min Tonsha Fall weight E&M 115 [lb_av] Tonsha Afll height E&M 64 [in_i] Tonsha Fall Body Mass Index (Ratio) 19.57 kg/m2 Adore Philip MD blood pressure, diastolic 66 mm[Hg] To nsha Fall blood pressure, systolic 121 mm[Hg] Ton sha Fall oxygen saturation, oximetry 96 % Tonsha Fall respiratory rate E&M 16 /min Tonsha Flal pulse rate 76 /min Tonsha Fall weight E&M 114 [lb_av] Tonsha Fall height E&M 64 [in_i] Tonsha Fall temperature site temporal Angeles Tank sley temperature E&M 97.7 [degF] Angeles Tanks jayro Body Mass Index (Ratio) 19.57 kg/m2 Abelardo Pickens pulse rate 62 /min Skyladerrick Patel l respiratory rate E&M 16 /min Skyladerrick Portillo oxygen saturation, oximetry 98 % Skyladerrick Portillo blood pressure, cuff size regular Cy nteliasa Portillo blood pressure, diastolic 70 mm[Hg] Cy nthia Portillo blood pressure, systolic 120 mm[Hg] Cecille derrick Portillo weight E&M 114 [lb_av] Skyla Markelbel l height E&M 64 [in_i] Skyla Campbel l Body Mass Index (Ratio) 16.99 kg/m2 dAore Philip MD blood pressure, diastolic 60 mm[Hg] Er ica Jose F-Francisco blood pressure, systolic 110 mm[Hg] Sita santosh Matson oxygen saturation, oximetry 94 % Wanda Matson pulse rate 48 /min Wandaalejandra Singh blood pressure, resting No Dawson a Dano weight E&M 99 [lb_av] Wandaalejandra Kohler- Francisco height E&M 64 [in_i] Wanda Jose F- Francisco Body Mass Index (Ratio) 16.03 kg/m2 Abelardo Brar blood pressure, diastolic 68 mm[Hg] Catarina Awad blood pressure, systolic 110 mm[Hg] eC Awad oxygen saturation, oximetry 95 % Sam Awad respiratory rate E&M 18 /min Kristy Awad pulse rate 55 /min Sam gerardo weight E&M 93.4 [lb_av] Sam gerardo height E&M 64 [in_i] Sam gerardo ALLERGIES No Known Drug Allergies RESULTS Date Observation Value Provider Reference Range Interpretation Location 9 triglyceride, serum, fasting 66 mg/dL [facility] 9 HDL cholesterol, serum 91 mg/dL [facility] 9 LDL cholesterol, serum 131 mg/dL [facility] 9 cholesterol, serum 235 mg/dL [facility] HISTORY OF MEDICATION USE Medication Status Instructions Dates Provider Indications Com ments metoprolol succinate 25 mg tablet extended release 24 hr active TAKE 1 TABLET BY MOUTH EVERY DAY 6 Joi Richards lovastatin 20 mg tablet completed Take 1 tablet by mouth once a day 3 - 1 Miguel Rioszagrisel furosemide 20 mg tablet active Take 1 tablet by mouth once a day 0 Miguel Rioszai Crestor 5 mg tablet completed Take 1 tablet by mouth once a day 7 - 0 Miguel Regan oxycodone-acetami nophen 5-325 mg tablet completed - 0 Joi Richards ropinirole 1 mg tablet active one tab at night Miguel Regan cephalexin 500 mg capsule completed 1 capsule by mouth four times a day - 0 Miguel Regan trazodone 50 mg tablet active 1 tablet by mouth every night at bedtime Bradley Aggarwal NP losartan 25 mg tablet completed TAKE 1 TABLET BY MOUTH EVERY DAY 4 - 0 Bradley Aggarwal NP metoprolol succinate 25 mg tablet extended release 24 hr completed TAKE 1 TABLET BY MOUTH EVERY DAY 6 - 3 Nile Bravo Nicorette 2 mg gum completed Chew 1 piece in mouth four times a day 9 - 0 Bradley Aggarwal NP furosemide 20 mg tablet completed TAKE 1 TABLET BY MOUTH TWICE DAILY 2 - 0 Bradley Aggarwal NP Entresto 24-26 mg tablet completed Take 1 tablet by mouth twice a day 7 - 4 Soila Philip MD metoprolol succinate 25 mg tablet extended release 24 hr completed Take 1 tablet by mouth once a day - 6 Zuleyka Meehan celecoxib 100 mg capsule completed - 0 Bradley Aggarwal NP carbamazepine 100 mg tablet extended release 12 hr completed TAKE 1 TABLET BY MOUTH EVERY 12 HOURS - 0 Bradley Aggarwal NP albuterol sulfate 90 mcg/actuation HFA aerosol inhaler active Evelyn Fierro tramadol 50 mg tablet completed Take 1 tablet by mouth once a day as needed 1 - 0 Joi Richards dorzolamide 2% drops active Use in eye twice a day 9 Tawanna Jackson RN brimonidine 0.2% drops active Use in eye twice a day 9 Tawanna Jackson RN ASPIRIN EC 81 MG ORAL TABLET DELAYED RELEASE completed ONE TAB. DAILY 4 - 8 Skyla Portillo ipratropium bromide 0.02% solution active twice a day Sam Awad Sudhir-Polycin HC 3.5-400-10,000 mg-unit/g-1% ointment active as directed Sam Awad TIMOLOL MALEATE 0.25 % OPHTHALMIC SOLUTION completed as directed - 7 Soila Philip MD latanoprost 0.005% drops active as directed Sam Awad montelukast 10 mg tablet active 1 tablet by mouth once a day Sam Awad TRAZODONE HCL TABLET completed 50 mg tab once daily - 1 Skyla Portillo OMEPRAZOLE 20 MG ORAL CAPSULE DELAYED RELEASE completed ONE TAB. DAILY - 4 Wanda Matson SOCIAL HISTORY Date Observation Value Provider Underweight yes Deep Bauman MD personal history of marijuana use no Miguel Regan drug use no Miguel Regan alcohol use no Miguel Regan smoking/tobacco cess ation, patient education and counseling yes Miguel Regan smoking, year quit 2018 Miguel floyd number of years as a smoker 39 a Miguel Regan smoking history, tot al pack/year 34 Miguel Pendletoni smoking history, tot al pack/day 1/2 pkg cigs a day Miguel Regan cigarette use yes Miguel Regan smoking status Current every day smoker R bennett Pendletongrisel Underweight yes Deep Bauman MD personal history of marijuana use no Nile Nacht drug use no Nile Nacht alcohol use no Nile Nacht smoking/tobacco cess ation, patient education and counseling yes Nile Nacht smoking, year quit 2018 Nile Nac ht number of years as a smoker 40 a Nile Nacht smoking history, tot al pack/year 35 Nile Nacht smoking history, tot al pack/day 1/2 pkg cigs a day Nile Nacht cigarette use yes Nile Nacht smoking status Current every day smoker J acob Nacht Underweight yes Deep Bauman MD personal history of marijuana use no Miguel Pendletongrisel drug use no Miguel Pendletongrisel alcohol use no Miguel Rioszagrisel smoking/tobacco cess ation, patient education and counseling yes Miguel Pendletongrisel smoking, year quit 2018 Miguel floyd number of years as a smoker 40 a Miguel Pendletongrisel smoking history, tot al pack/year 35 Miguel Pendletongrisel smoking history, tot al pack/day 1/2 pkg cigs a day Miguel Pendletongrisel cigarette use yes Miguel Pendletongrisel smoking status Current every day smoker Jyoti Regan Underweight yes Soila tamayo MD personal history of marijuana use no Soila Philip MD drug use no Soila tamayo MD alcohol use no Soila tamayo MD smoking/tobacco cess ation, patient education and counseling yes Soila Philip MD smoking, year quit 2018 Soila Philip MD number of years as a smoker 40 a Soila Philip MD smoking history, tot al pack/year 34 Soila Philip MD smoking history, tot al pack/day 1/2 pkg cigs a day Soila Philip MD cigarette use yes Soila magdaleno MD smoking status Current every day smoker S daniel Philip MD Underweight yes Soila tamayo MD personal history of marijuana use no Bradley Rayoreri SILVIA drug use no Veryana Bonareri POWDER CARRIER alcohol use no Veryana Bonareri POWDER CARRIER smoking/tobacco cess ation, patient education and counseling yes Lucitayana Bonareri POWDER CARRIER smoking, year quit 2018 Lucitayana Reciori POWDER CARRIER number of years as a smoker 40 a Lucitayana Bonareri POWDER CARRIER smoking history, tot al pack/year 34 Veryana Bonareri POWDER CARRIER smoking history, tot al pack/day 1/2 pkg cigs a day Verah Bonareri POWDER CARRIER cigarette use yes Verah Bonareri POWDER CARRIER smoking status Current every day smoker V boogie Femiri POWDER CARRIER Underweight yes Gabriel Long smoking/tobacco cess ation, patient education and counseling yes Guerita Shaw smoking, year quit 2019 Guerita jennings number of years as a smoker 39 a [facility] smoking history, tot al pack/year 35 [facility] smoking history, tot al pack/day 1/2 pkg cigs a day [facility] cigarette use yes [facility] smoking status Current every day smoker F titi Shaw Underweight yes Soila tamayo MD smoking/tobacco cess ation, patient education and counseling yes Marisela Blakely smoking, year quit 2018 Marisela Will iams number of years as a smoker 40 a Marisela Blakely smoking history, tot al pack/year 35 Marisela Blakely smoking history, tot al pack/day 1/2 pkg cigs a day Marisela Blakely cigarette use yes Marisela Blakely smoking status Current every day smoker A iraida Reddy Underweight yes Soila tamayo MD smoking/tobacco cess ation, patient education and counseling yes [facility] smoking, year quit 2018 [facility] number of years as a smoker 40 a [facility] smoking history, tot al pack/year 35 [facility] smoking history, tot al pack/day 1/2 pkg cigs a day [facility] cigarette use yes [facility] smoking status [facility] Tim Zurita Underweight yes Soila tamayo MD social history E&M S moking History: P atient currently smokes every day. Soila Philip MD social history reviewed E&M revi ewed - no changes required Soila Philip MD smoking history, tot al pack/day 1/2 pkg cigs a day Brittany Mitchell cigarette use yes Brittany Mitchell smoking status Current every day smoker S nataly Mitchell Underweight yes Soila tamayo MD social history E&M S moking History: P atient currently smokes every day. P atient has been counseled to quit. Soila Philip MD social history reviewed E&M revi ewed - no changes required Soila Philip MD smoking/tobacco cess ation, patient education and counseling yes Pamela Apple smoking, year quit 2019 Pamela Lit oh number of years as a smoker 40 a Pamela Zechariah smoking history, tot al pack/year 34 Pamela Apple smoking history, tot al pack/day 10 Pamela Zechariah cigarette use yes Pamela Zechariah smoking status Current every day smoker Josette feng Zechariah social history E&M S moking History: P atient currently smokes every day. P atient has been counseled to quit. Soila Philip MD social history reviewed E&M revi ewed - no changes required Soila Philip MD smoking/tobacco cess ation, patient education and counseling yes Soila Philip MD smoking, year quit 2018 Soila Philip MD number of years as a smoker 39 a Soila Philip MD smoking history, tot al pack/year 34 Soila Philip MD smoking history, tot al pack/day 10 Soila Philip MD cigarette use yes Soila magdaleno MD smoking status Current every day smoker S daniel Philip MD social history E&M S moking History: P atient currently smokes every day. P atient has been counseled to quit. Soila Philip MD social history reviewed E&M revi ewed - no changes required Soila Philip MD smoking/tobacco cess ation, patient education and counseling yes Chandni Simental smoking, year quit 2019 Chandni Simental number of years as a smoker 39 a Chandni Simental smoking history, tot al pack/year 35 Chandni Simental smoking history, tot al pack/day 10 Chandni Simental cigarette use yes Chandni johnson smoking status Current every day smoker R patty Simental social history E&M S moking History: P atariel currently smokes every day. P atariel has been counseled to quit. Soila Philip MD social history reviewed E&M revi ewed - no changes required Soila Philip MD smoking/tobacco cess ation, patient education and counseling yes Marilee White smoking, year quit 2018 Mariele White number of years as a smoker 40 a Marilee White smoking history, tot al pack/year 35 Marilee White smoking history, tot al pack/day 10 Marilee White cigarette use yes Marilee Mendoza diana smoking status Current every day smoker Jas White social history reviewed E&M revi ewed - no changes required Soila Philip MD social history reviewed E&M revi ewed - no changes required Soila Philip MD social history reviewed E&M revi ewed - no changes required Soila Philip MD smoking/tobacco cess ation, patient education and counseling yes Soila Philip MD social history E&M S moking History: P atariel currently smokes every day. P atariel has been counseled to quit. Soila Philip MD social history reviewed E&M revi ewed - no changes required Soila Philip MD smoking history, tot al pack/day 10 Dwayne Smith cigarette use yes Dwayne trejo smoking status Current every day smoker Hema Smith social history E&M S moking History: Chris mcgraw is a former smoker. Soila Philip MD social history reviewed E&M revi ewed - no changes required Soila Philip MD smoking, year quit 2018 Evelyn Bu sby number of years as a smoker 40 a Evelyn [place] smoking history, tot al pack/year 35 Evelyn [place] cigarette use yes Evelyn [place] smoking status Former smoker Evelyn Vadim social history E&M S moking History: Chris mcgraw is a former smoker. Soila Philip MD social history reviewed E&M revi ewed - no changes required Soila Philip MD smoking, year quit 2018 Skyla [place] number of years as a smoker 40 a Skyla Portillo smoking history, tot al pack/year 35 Skyla Bandar cigarette use yes Skyla padron smoking status Former smoker Skyla Markel ibanez smoking status Former smoker Soila blancas MD social history E&M S moking History: Chris mcgraw is a former smoker. Soila Philip MD social history reviewed E&M revi ewed - no changes required Soila Philip MD smoking, year quit 2019 Tonsha Mo ss number of years as a smoker 40 a Tonsha Fall smoking history, tot al pack/year 35 Tonsha Fall cigarette use yes Tonsha Fall social history E&M S moking History: Chris mcgraw is a former smoker. Soila Philip MD social history reviewed E&M revi ewed - no changes required Soila Philip MD smoking status Former smoker Soila blancas MD smoking, year quit 2019 Tonsha Mo ss number of years as a smoker 40 a Tonsha Fall smoking history, tot al pack/year 35 Tonsha Fall cigarette use yes Tonsha Fall Underweight no Yury Lundb erg smoking history, tot al pack/year 35 Yury Celio social history reviewed E&M revi ewed - no changes required Terence Gray MD social history E&M Smoking Histo ry: Chris mcgraw is a former smoker. Terence Gray MD smoking, year quit 2018 Skyla [place] number of years as a smoker 40 a Yury Celio cigarette use yes Skyla Pardeep padron smoking status Former smoker Skyla Markel ibanez Underweight yes Soila tamayo MD social history E&M S moking History: Chris mcgraw is a former smoker. Soila Philip MD smoking, year quit 2019 Wanda lundberg-Francisco number of years as a smoker 60 a Wanda Matson cigarette use yes Wanda Hooker smoking status Former smoker Wanda Ashwin on-Francisco social history reviewed E&M revi ewed - no changes required Wanda Matson Underweight yes Abelardo Plurad number of grandchildren Soila Philip MD social history reviewed E&M revi ewed - no changes required Soila Philip MD social history E&M S moking History: Chris mcgraw is a former smoker. Soila Philip MD number of years as a smoker 60 a Sam Awad smoking, year quit 2019 Sam Awad cigarette use yes Sam nicholas smoking status Former smoker Sam [facility] FUNCTIONAL STATUS Date Observation Value Provider HRA, CV Assess/Plan, Angina (inactive) Management Plan continue current therapy Nile Kimblehema HRA, CV Assess/Plan, Angina (inactive) Management Plan continue current therapy Miguel Pendletongrisel HRA, CV Assess/Plan, Angina (inactive) Management Plan continue current therapy Bradley Aggarwal NP HRA, CV Assess/Plan, Angina (inactive) Management Plan continue current therapy Soila Philip MD HRA, CV Assess/Plan, Angina (inactive) Management Plan continue current therapy Soila Philip MD HRA, CV Assess/Plan, Angina (inactive) Management Plan continue current therapy Soila Philip MD HRA, CV Assess/Plan, Angina (inactive) Management Plan continue current therapy Soila Philip MD HRA, CV Assess/Plan, Angina (inactive) Management Plan continue current therapy Soila Philip MD HRA, CV Assess/Plan, Angina (inactive) Management Plan continue current therapy Soila Philip MD HRA, CV Assess/Plan, Angina (inactive) Management Plan continue current therapy Soila Philip MD HRA, CV Assess/Plan, Angina (inactive) Management Plan continue current therapy Soila Philip MD HRA, CV Assess/Plan, Angina (inactive) Management Plan continue current therapy Soila Philip MD HRA, CV Assess/Plan, Angina (inactive) Management Plan continue current therapy Soila Philip MD HRA, CV Assess/Plan, Angina (inactive) Management Plan continue current therapy Soila Philip MD HRA, CV Assess/Plan, Angina (inactive) Management Plan continue current therapy Soila Philip MD HRA, CV Assess/Plan, Angina (inactive) Management Plan continue current therapy Soila Philip MD HRA, CV Assess/Plan, Angina (inactive) Management Plan continue current therapy Soila Philip MD HRA, CV Assess/Plan, Angina (inactive) Management Plan continue current therapy Soila Philip MD HRA, CV Assess/Plan, Angina (inactive) Management Plan continue current therapy Yury Pickens HRA, CV Assess/Plan, Angina (inactive) Management Plan continue current therapy Soila Philip MD FAMILY HISTORY Family Member Condition Father Family History of Co ronary Artery Disease: INSURANCE PROVIDERS Payer name Policy type / Coverage type [place] [employer] party ID [facility] [id number] [place] Medicare [id number] ADVANCE DIRECTIVES Name Date DISCUSSED - NO DECISION MADE TREATMENT PLAN Date Name Performer [id number],C, N EEDS TO BE ON A BB DESPITE BRADYCARDIA KUN Horner une 2019 H as seen optho with change but does not know the name of her new meds. Last EKG showed bradycardia. She states from time to time she is dizzy. This may be secondary to the Timolol and she will discuss alternative medications with her opthalmologist. February 27, 2023 dizziness may be realted to low BP, currently off entresto and losartan Soila Philip MD [id number],C, C heck PFTs. Conclusions: Although there is moderately severe airway obstruction and a diffusion defect suggesting emphysema, the absence of o verinflation indicates a concurrent restrictive process which may account for the diffusion defect. A clinical trial of bronchodilators may b e beneficial in view of the airway obstruction. P ulmonary Function Diagnosis: M oderately severe Obstructive Airways Disease S evere Diffusion Defect Soila Philip MD [id number],S,m ay be having issues with wound healing due to smoking 1/2 ppd Soila Philip MD [id number],C, H ad abnormal sensilase, has no open ulcers, will continue medical therapy October 24, 2022 L eft leg is healing, don't think she needs an angiogram. Soila Philip MD [id number],C, C onclusions: 1 . Normal left ventricular systolic function. Normal left ventricular size. Normal left ventricular wall t hickness. Normal left ventricular diastolic function. Normal E/E` 9.7. Left ventricular ejection f raction is estimated at 65 %. 2 . Normal right ventricular size. Normal right ventricular systolic function. 3 . There is non-specific thickening of the mitral valve leaflets. Mild mitral valve regurgitation. 4 . Normal appearing tricuspid valve leaflets. There is mild eccentric tricuspid regurgitation. IVC is d ilated with partial respiratory response, consistent with moderately elevated right atrial pressures. T he RA pressure is estimated at 10.0 mmHg. Estimated peak pulmonary artery systolic pressure is 3 9. November 20, 2021 H TAKATSUBO BASED ON CATH WILL NEED LIFEVEST PUT ON AND RECHECK ECHO IN A MONTH December 06, 2021 A dd entresto and lasix. January 17, 2022 C [place] echo for improvement of LVEF to d/c lifevest April 04, 2022 n o new issues, LVEF 55%, from echo 01/17/22 July 04, 2022 S he had an EF 0f 15% on EV gram that has now improved to 55% October 24, 2022 E KG unchanged compared to 07/04/22 February 27, 2023 n o new CP Soila Philip MD [id number],C,o ff of keeley arb, have to check EF in a few months Soila Philip MD [id number],C, M ed rx with abnormal sensilase. Conclusions: 11/2019 Sensilase R LE has moderately reduced PVR's and mildly reduced perfusion which should be adequate for wound healing L LE has moderately reduced PVR's and moderate to severely reduced perfusion which is inadequate for w ound healing J formerly [facility] 2019 06:20 PM EDT Cole Finch MD [facility] CONCLUSIONS: 1 . Mild atherosclerosis with normal arterial flow is noted in the lower extremities bilaterally above the level of the knee. 2 . 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 3 . Unable to obtain WILMER due to uncompressable arteries. E lectronically signed by Soila Philip MD on 07/14/2019 at 9:16 AM Soila Philip MD [id number],C,L ikely related to low BP 87/57 STOP Intresto switch to Losartan. Continue with RPM monitor daily. Soila Philip MD [id number],C, C onclusions: 1 . Normal left ventricular systolic function. Normal left ventricular size. Normal left ventricular wall t hickness. Normal left ventricular diastolic function. Normal E/E` 9.7. Left ventricular ejection f raction is estimated at 65 %. 2 . Normal right ventricular size. Normal right ventricular systolic function. 3 . There is non-specific thickening of the mitral valve leaflets. Mild mitral valve regurgitation. 4 . Normal appearing tricuspid valve leaflets. There is mild eccentric tricuspid regurgitation. IVC is d ilated with partial respiratory response, consistent with moderately elevated right atrial pressures. T he RA pressure is estimated at 10.0 mmHg. Estimated peak pulmonary artery systolic pressure is 3 9. November 20, 2021 H TAKATSUBO BASED ON CATH WILL NEED LIFEVEST PUT ON AND RECHECK ECHO IN A MONTH December 06, 2021 A dd entresto and lasix. January 17, 2022 C [place] echo for improvement of LVEF to d/c lifevest April 04, 2022 n o new issues, LVEF 55%, from echo 01/17/22 July 04, 2022 S he had an EF 0f 15% on EV gram that has now improved to 55% October 24, 2022 E KG unchanged compared to 07/04/22 Soila Philip MD [id number],C,S top Intresto switch to Losartan 25 daily Soila Philip MD [id number],C, P ending echo 01/03/22. Will see how she does with Entresto. January 17, 2022 T olerating entresto, echo showed EF 50%. OK to discontinue lifevest April 04, 2022 t olerating entresto, no CHF sxs. January 23, 2023 S witch back to Losartan 25 daily Soila Philip MD [id number],C, T he Patient was reencouraged to stop smoking. October 24, 2022 C ontinues to smoke. Soila Philip MD [id number],C, C onclusions: 1 . Normal left ventricular systolic function. Normal left ventricular size. Normal left ventricular wall t hickness. Normal left ventricular diastolic function. Normal E/E` 9.7. Left ventricular ejection f raction is estimated at 65 %. 2 . Normal right ventricular size. Normal right ventricular systolic function. 3 . There is non-specific thickening of the mitral valve leaflets. Mild mitral valve regurgitation. 4 . Normal appearing tricuspid valve leaflets. There is mild eccentric tricuspid regurgitation. IVC is d ilated with partial respiratory response, consistent with moderately elevated right atrial pressures. T he RA pressure is estimated at 10.0 mmHg. Estimated peak pulmonary artery systolic pressure is 3 9. November 20, 2021 H TAKATSUBO BASED ON CATH WILL NEED LIFEVEST PUT ON AND RECHECK ECHO IN A MONTH December 06, 2021 A dd entresto and lasix. January 17, 2022 C heck echo for improvement of LVEF to d/c lifevest April 04, 2022 n o new issues, LVEF 55%, from echo 01/17/22 July 04, 2022 S he had an EF 0f 15% on EV gram that has now improved to 55% October 24, 2022 E KG unchanged compared to 07/04/22 Soila Philip MD [id number],C, S epteer 2019 W ill check home sleep study. suspect R sided pressures elevated due to ALBERTO. December 07, 2019 S till has intermittent swelling; however, improved. Reviewed with her echo findings. PAP was 39 and there was no venous insufficiency noted. 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 Pt complains of leg swelling, worse at the end of the day and worse in the L leg. On exam, she has skin discoloration consistent with venous insufficiency (CEAP C4a). No open sores however she is tender. Pedal pulses are not palpable. Will obtain arterial and venous duplex and proceed according to the results. She could not tolerate support stockings. C EAP Clinical Classification C 0 : No visible or palpable signs of venous disease C1 : Telangiectasies or reticular veins C 2 : Varicose veins C 3 : Edema C 4a: Pigmentation or eczema C 4b: Lipodermatosclerosis or atrophie majo C 5 : Healed venous ulcer C 6 : Active venous ulcer March 22, 2021 n o new changes Soila Philip MD [id number],C, H ad abnormal sensilase, has no open ulcers, will continue medical therapy October 24, 2022 L eft leg is healing, don't think she needs an angiogram. Soila Philip MD [id number],C,D iscussion of benefits for remote patient monitoring took place. Patient gives consent for remote monitoring of physiologic parameters including, but not limited to, weight, blood pressure, pulse oximetry, respiratory flow rate. She has been running low BPs need to see where it is for med adjustment. Soila Philip MD [id number],S,T he Patient was reencouraged to stop smoking. Soila Philip MD [id number],C, N EEDS TO BE ON A BB DESPITE BRADYCARDIA KUN Horner une 2019 H as seen optho with change but does not know the name of her new meds. Last EKG showed bradycardia. She states from time to time she is dizzy. This may be secondary to the Timolol and she will discuss alternative medications with her opthalmologist. Soila Philip MD [id number],C, C onclusions: 1 . Normal left ventricular systolic function. Normal left ventricular size. Normal left ventricular wall t hickness. Normal left ventricular diastolic function. Normal E/E` 9.7. Left ventricular ejection f raction is estimated at 65 %. 2 . Normal right ventricular size. Normal right ventricular systolic function. 3 . There is non-specific thickening of the mitral valve leaflets. Mild mitral valve regurgitation. 4 . Normal appearing tricuspid valve leaflets. There is mild eccentric tricuspid regurgitation. IVC is d ilated with partial respiratory response, consistent with moderately elevated right atrial pressures. T he RA pressure is estimated at 10.0 mmHg. Estimated peak pulmonary artery systolic pressure is 3 9. November 20, 2021 H TAKATSUBO BASED ON CATH WILL NEED LIFEVEST PUT ON AND RECHECK ECHO IN A MONTH December 06, 2021 A dd entresto and lasix. January 17, 2022 C heck echo for improvement of LVEF to d/c lifevest April 04, 2022 n o new issues, LVEF 55%, from echo 01/17/22 July 04, 2022 S he had an EF 0f 15% on EV gram that has now improved to 55% Soila Philip MD [id number],C, C heck PFTs. Conclusions: Although there is moderately severe airway obstruction and a diffusion defect suggesting emphysema, the absence of o verinflation indicates a concurrent restrictive process which may account for the diffusion defect. A clinical trial of bronchodilators may b e beneficial in view of the airway obstruction. P ulmonary Function Diagnosis: M oderately severe Obstructive Airways Disease S evere Diffusion Defect Soila Philip MD [id number],C, H RANDOM BRUISING. NOT EXACTLY CLEAR WHY. ADVISED HER TO GET SEEN BY BREEDING MANAGER. POSSIBLY MAY HAVE DYSFUNCTIONAL PLATELETS OR HAS PENITENTIARY EFFECTS OF STEROID USAGE FROM PRIOR CORNEAL TRASNPLANT. June 28, 2021 N o new issues with bruising. Soila Philip MD [id number],C, C heck PFTs. Conclusions: Although there is moderately severe airway obstruction and a diffusion defect suggesting emphysema, the absence of o verinflation indicates a concurrent restrictive process which may account for the diffusion defect. A clinical trial of bronchodilators may b e beneficial in view of the airway obstruction. P ulmonary Function Diagnosis: M oderately severe Obstructive Airways Disease S evere Diffusion Defect Soila Philip MD [id number],C, P ending echo 01/03/22. Will see how she does with Entresto. January 17, 2022 T olerating entresto, echo showed EF 50%. OK to discontinue lifevest April 04, 2022 t olerating entresto, no CHF sxs. Soila Philip MD [id number],C, C onclusions: 1 . Normal left ventricular systolic function. Normal left ventricular size. Normal left ventricular wall t hickness. Normal left ventricular diastolic function. Normal E/E` 9.7. Left ventricular ejection f raction is estimated at 65 %. 2 . Normal right ventricular size. Normal right ventricular systolic function. 3 . There is non-specific thickening of the mitral valve leaflets. Mild mitral valve regurgitation. 4 . Normal appearing tricuspid valve leaflets. There is mild eccentric tricuspid regurgitation. IVC is d ilated with partial respiratory response, consistent with moderately elevated right atrial pressures. T he RA pressure is estimated at 10.0 mmHg. Estimated peak pulmonary artery systolic pressure is 3 9. November 20, 2021 H TAKATSUBO BASED ON CATH WILL NEED LIFEVEST PUT ON AND RECHECK ECHO IN A MONTH December 06, 2021 A dd entresto and lasix. January 17, 2022 C maria echo for improvement of LVEF to d/c lifevest April 04, 2022 n o new issues, LVEF 55%, from echo 01/17/22 Soila Philip MD [id number],C, S eptember 2019 W ill check home sleep study. suspect R sided pressures elevated due to ALBERTO. December 07, 2019 S [place] has intermittent swelling; however, improved. Reviewed with her echo findings. PAP was 39 and there was no venous insufficiency noted. 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 Pt complains of leg swelling, worse at the end of the day and worse in the L leg. On exam, she has skin discoloration consistent with venous insufficiency (CEAP C4a). No open sores however she is tender. Pedal pulses are not palpable. Will obtain arterial and venous duplex and proceed according to the results. She could not tolerate support stockings. C EAP Clinical Classification C 0 : No visible or palpable signs of venous disease C1 : Telangiectasies or reticular veins C 2 : Varicose veins C 3 : Edema C 4a: Pigmentation or eczema C 4b: Lipodermatosclerosis or atrophie majo C 5 : Healed venous ulcer C 6 : Active venous ulcer March 22, 2021 n o new changes Soila Philip MD [id number],S, h detention ppd. The Patient was reencouraged to stop smoking. Try nicorette gum Soila Philip MD [id number],C, P ending echo 01/03/22. Will see how she does with Entresto. January 17, 2022 T olerating entresto, echo showed EF 50%. OK to discontinue lifevest Soila Philip MD [id number],C, C onclusions: 1 . Normal left ventricular systolic function. Normal left ventricular size. Normal left ventricular wall t hickness. Normal left ventricular diastolic function. Normal E/E` 9.7. Left ventricular ejection f raction is estimated at 65 %. 2 . Normal right ventricular size. Normal right ventricular systolic function. 3 . There is non-specific thickening of the mitral valve leaflets. Mild mitral valve regurgitation. 4 . Normal appearing tricuspid valve leaflets. There is mild eccentric tricuspid regurgitation. IVC is d ilated with partial respiratory response, consistent with moderately elevated right atrial pressures. T he RA pressure is estimated at 10.0 mmHg. Estimated peak pulmonary artery systolic pressure is 3 9. November 20, 2021 H ELENA BASED ON CATH WILL NEED LIFEVEST PUT ON AND RECHECK ECHO IN A MONTH December 06, 2021 A dd entresto and lasix. January 17, 2022 C heck echo for improvement of LVEF to d/c lifevest Soila Philip MD [id number],C,P ending echo 01/03/22. Will see how she does with Entresto. Soila Philip MD [id number],C, C onclusions: 1 . Normal left ventricular systolic function. Normal left ventricular size. Normal left ventricular wall t hickness. Normal left ventricular diastolic function. Normal E/E` 9.7. Left ventricular ejection f raction is estimated at 65 %. 2 . Normal right ventricular size. Normal right ventricular systolic function. 3 . There is non-specific thickening of the mitral valve leaflets. Mild mitral valve regurgitation. 4 . Normal appearing tricuspid valve leaflets. There is mild eccentric tricuspid regurgitation. IVC is d ilated with partial respiratory response, consistent with moderately elevated right atrial pressures. T he RA pressure is estimated at 10.0 mmHg. Estimated peak pulmonary artery systolic pressure is 3 9. November 20, 2021 H TAKATSUBO BASED ON CATH WILL NEED LIFEVEST PUT ON AND RECHECK ECHO IN A MONTH December 06, 2021 A dd entresto and lasix. Soila Philip MD [id number],C,H ST CHANGES SUGGESTIVE OF DE AND HAD CATH DONE A TCNE ON 11/16 WITH STEPHAN Philip MD [id number],C,N EEDS TO BE ON A BB DESPITE BRADYCARDIA WIROMELIA Horner une 2019 H as seen optho with change but does not know the name of her new meds. Last EKG showed bradycardia. She states from time to time she is dizzy. This may be secondary to the Timolol and she will discuss alternative medications with her opthalmologist. Soila Philip MD [id number],C, C onclusions: 1 . Normal left ventricular systolic function. Normal left ventricular size. Normal left ventricular wall t hickness. Normal left ventricular diastolic function. Normal E/E` 9.7. Left ventricular ejection f raction is estimated at 65 %. 2 . Normal right ventricular size. Normal right ventricular systolic function. 3 . There is non-specific thickening of the mitral valve leaflets. Mild mitral valve regurgitation. 4 . Normal appearing tricuspid valve leaflets. There is mild eccentric tricuspid regurgitation. IVC is d ilated with partial respiratory response, consistent with moderately elevated right atrial pressures. T he RA pressure is estimated at 10.0 mmHg. Estimated peak pulmonary artery systolic pressure is 3 9. November 20, 2021 H TAKATSUBO BASED ON CATH WILL NEED LIFEVEST PUT ON AND RECHECK ECHO IN A MONTH Soila Philip MD [id number],C,O n gabapentin for her headaches, takes requip for her legs Soila Philip MD [id number],C, C onclusions: 1 . Normal left ventricular systolic function. Normal left ventricular size. Normal left ventricular wall t hickness. Normal left ventricular diastolic function. Normal E/E` 9.7. Left ventricular ejection f raction is estimated at 65 %. 2 . Normal right ventricular size. Normal right ventricular systolic function. 3 . There is non-specific thickening of the mitral valve leaflets. Mild mitral valve regurgitation. 4 . Normal appearing tricuspid valve leaflets. There is mild eccentric tricuspid regurgitation. IVC is d ilated with partial respiratory response, consistent with moderately elevated right atrial pressures. T he RA pressure is estimated at 10.0 mmHg. Estimated peak pulmonary artery systolic pressure is 3 9. Soila Philip MD [id number],C, S he had COVID in May. Incidental finding when she had showed up for headache. Will check echo to evaluate for any cardiac association. Echo 06/2021 C ONCLUSIONS: 1 . Normal left ventricular systolic function. Normal left ventricular size. Normal left ventricular wall thickness. There is E to A w ave reversal consistent with impaired LV relaxation. E/E': 8.0. Left ventricular ejection fraction is measured at 60 %. 2 . Normal right ventricular size. Normal right ventricular systolic function. 3 . There is trace physiologic mitral valve regurgitation. 4 . There is trace physiologic tricuspid valve regurgitation. 5 . There is mild pulmonic regurgitation. E lectronically Signed By: Soila Philip MD [id number],C,M ed rx with abnormal sensilase. Conclusions: 11/2019 Sensilase R LE has moderately reduced PVR's and mildly reduced perfusion which should be adequate for wound h ealing L LE has moderately reduced PVR's and moderate to severely reduced perfusion which is inadequate for w ound healing J formerly [facility] 2019 06:20 PM EDT Cole Finch MD [facility] CONCLUSIONS: 1 . Mild atherosclerosis with normal arterial flow is noted in the lower extremities bilaterally above the level of the knee. 2 . 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 3 . Unable to obtain WILMER due to uncompressable arteries. E lectronically signed by Soial Philip MD on 07/14/2019 at 9:16 AM Soila Philip MD [id number],C, C [facility] PFT[facility]. Conclusions: Although there is moderately severe airway obstruction and a diffusion defect suggesting emphysema, the absence of o verinflation indicates a concurrent restrictive process which may account for the diffusion defect. A clinical trial of bronchodilators may b e beneficial in view of the airway obstruction. P ulmonary Function Diagnosis: M oderately severe Obstructive Airways Disease S evere Diffusion Defect Soila Philip MD [id number],C, o n carbamazepine. Remains on tegretol for trigeminal neuralgia. Soila Philip MD [id number],C, C HOL: 235 (11/17/2018) LDL: 131 (11/17/2018) HDL: 91 (11/17/2018) T (11/17/2018) Currently not on any meds. Soila Philip MD [id number],C, H RANDOM BRUISING. NOT EXACTLY CLEAR WHY. ADVISED HER TO GET SEEN BY BREEDING MANAGER. POSSIBLY MAY HAVE DYSFUNCTIONAL PLATELETS OR HAS ON SITE PROPERTY MANAGER EFFECTS OF STEROID USAGE FROM PRIOR CORNEAL TRASNPLANT. June 28, 2021 N o new issues with bruising. Soila Philip MD [id number],C, C onclusions: 1 . Normal left ventricular systolic function. Normal left ventricular size. Normal left ventricular wall t hickness. Normal left ventricular diastolic function. Normal E/E` 9.7. Left ventricular ejection f raction is estimated at 65 %. 2 . Normal right ventricular size. Normal right ventricular systolic function. 3 . There is non-specific thickening of the mitral valve leaflets. Mild mitral valve regurgitation. 4 . Normal appearing tricuspid valve leaflets. There is mild eccentric tricuspid regurgitation. IVC is d ilated with partial respiratory response, consistent with moderately elevated right atrial pressures. T he RA pressure is estimated at 10.0 mmHg. Estimated peak pulmonary artery systolic pressure is 3 9. Soila Philip MD [id number],C, J une 2019 H as seen optho with change but does not know the name of her new meds. Last EKG showed bradycardia. She states from time to time she is dizzy. This may be secondary to the Timolol and she will discuss alternative medications with her opthalmologist. Soila Philip MD [id number],C,S he had COVID in May. Incidental finding when she had showed up for headache. Will check echo to evaluate for any cardiac association. Soila Philip MD [id number],C, C ONCLUSIONS: 1 . Mild atherosclerosis with normal arterial flow is noted in the lower extremities bilaterally above the level of the knee. 2 . 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 3 . Unable to obtain WILMER due to uncompressable arteries. E lectronically signed by Soila Philip MD on 07/14/2019 at 9:16 AM Soila Philip MD [id number],C, S eptember 2019 W ill check home sleep study. suspect R sided pressures elevated due to ALBERTO. December 07, 2019 S till has intermittent swelling; however, improved. Reviewed with her echo findings. PAP was 39 and there was no venous insufficiency noted. 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 Pt complains of leg swelling, worse at the end of the day and worse in the L leg. On exam, she has skin discoloration consistent with venous insufficiency (CEAP C4a). No open sores however she is tender. Pedal pulses are not palpable. Will obtain arterial and venous duplex and proceed according to the results. She could not tolerate support stockings. C EAP Clinical Classification C 0 : No visible or palpable signs of venous disease C1 : Telangiectasies or reticular veins C 2 : Varicose veins C 3 : Edema C 4a: Pigmentation or eczema C 4b: Lipodermatosclerosis or atrophie majo C 5 : Healed venous ulcer C 6 : Active venous ulcer March 22, 2021 n o new changes Soila Philip MD [id number],C,h bernardino ppd. The Patient was reencouraged to stop smoking. Soila Philip MD [id number],C,on carbamazep ine Soila Philip MD [id number],S, C onclusions: 1 . Normal left ventricular systolic function. Normal left ventricular size. Normal left ventricular wall t hickness. Normal left ventricular diastolic function. Normal E/E` 9.7. Left ventricular ejection f raction is estimated at 65 %. 2 . Normal right ventricular size. Normal right ventricular systolic function. 3 . There is non-specific thickening of the mitral valve leaflets. Mild mitral valve regurgitation. 4 . Normal appearing tricuspid valve leaflets. There is mild eccentric tricuspid regurgitation. IVC is d ilated with partial respiratory response, consistent with moderately elevated right atrial pressures. T he RA pressure is estimated at 10.0 mmHg. Estimated peak pulmonary artery systolic pressure is 3 9. Soila Philip MD [id number],C,H ad abnormal sensilase, has no open ulcers, will continue medical therapy Soila Philip MD [id number],S,C ONCLUSIONS: 1 . Mild atherosclerosis with normal arterial flow is noted in the lower extremities bilaterally above the level of the knee. 2 . 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 3 . Unable to obtain WILMER due to uncompressable arteries. E lectronically signed by Soila Philip MD on 07/14/2019 at 9:16 AM Soila Philip MD Cardiology:This visi t has been a part of the consistent, comprehensive, and ongoing management of the chronic medical condition(s) listed above for the patient. Deep Bauman MD Cardiology Deep Bauman MD Cardiology Deep Bauman MD Cardiology: T he following medications were removed from the medication list: Lovastatin 20 Mg Tablet (Lovastatin) ..... Take 1 tablet by mouth once a day Deep Bauman MD Cardiology Deep Bauman MD Cardiology:This visi t has been a part of the consistent, comprehensive, and ongoing management of the chronic medical condition(s) listed above for the patient. Deep Bauman MD Cardiology Nlie Bravo Cardiology Nile Bravo Cardiology Nile Bravo Cardiology:This visi t has been a part of the consistent, comprehensive, and ongoing management of the chronic medical condition(s) listed above for the patient. Nile Bravo Cardiology Nile Bravo Cardiology Nile Bravo Cardiology Miguel Pendleton Cardiology: H er updated medication list for this problem includes: Montelukast 10 Mg Tablet (Montelukast) ..... 1 tablet by mouth once a day Ipratropium Cheney 0.02% Solution (Ipratropium bromide) ..... Twice a day Albuterol Sulfate 90 Mcg/actuation Hfa Aerosol Inhaler (Albuterol sulfate) [facility]: H er updated medication list for this problem includes: Metoprolol Succinate 25 Mg Tablet Extended Release 24 Hr (Metoprolol succinate) ..... Take 1 tablet by mouth every day [facility] Cardiology: T he following medications were removed from the medication list: Crestor 5 Mg Tablet (Rosuvastatin) ..... Take 1 tablet by mouth once a day [facility] Cardiology: H er updated medication list for this problem includes: Furosemide 20 Mg Tablet (Furosemide) ..... Take 1 tablet by mouth once a day Metoprolol Succinate 25 Mg Tablet Extended Release 24 Hr (Metoprolol succinate) ..... Take 1 tablet by mouth every day [facility] Cardiology: E cho 05/29/23 C ONCLUSIONS: 1 . Normal left ventricular systolic function. Normal left ventricular size. Normal left ventricular wall thickness. There is E to A w ave reversal consistent with impaired LV relaxation. E/E': 7.7 Left ventricular ejection fraction is measured at 55 %. 2 . Normal right ventricular size. Normal right ventricular systolic function. 3 . The pulmonic valve is not well visualized. Normal pulmonic valve velocities by Doppler. There is mild pulmonic r egurgitation. 4 . No significant valvular abnormalities. Soila Philip MD Cardiology: Ling sifuentes PFTs. Conclusions: Although there is moderately severe airway obstruction and a diffusion defect suggesting emphysema, the absence of o verinflation indicates a concurrent restrictive process which may account for the diffusion defect. A clinical trial of bronchodilators may b e beneficial in view of the airway obstruction. P ulmonary Function Diagnosis: Moderately severe Obstructive Airways Disease Josette gonsalez Diffusion Defect Soila Philip MD Cardiology Soila Philip MD Cardiology: N EEDS TO BE ON A BB DESPITE BRADYCARDIA KUN ojeda 2019 H as seen optho with change but does not know the name of her new meds. Last EKG showed bradycardia. She states from time to time she is dizzy. This may be secondary to the Timolol and she will discuss alternative medications with her opthalmologist. February 27, 2023 d izziness may be realted to low BP, currently off entresto and losartan Soila Philip MD Cardiology: S ayantejayne 2019 W ill check home sleep study. suspect R sided pressures elevated due to ALBERTO. December 07, 2019 S till has intermittent swelling; however, improved. Reviewed with her echo findings. PAP was 39 and there was no venous insufficiency noted. 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 Pt complains of leg swelling, worse at the end of the day and worse in the L leg. On exam, she has skin discoloration consistent with venous insufficiency (CEAP C4a). No open sores however she is tender. Pedal pulses are not palpable. Will obtain arterial and venous duplex and proceed according to the results. She could not tolerate support stockings. C EAP Clinical Classification C 0 : No visible or palpable signs of venous disease C 1 : Telangiectasies or reticular veins C 2 : Varicose veins C 3 : Edema C 4a: Pigmentation or eczema C 4b: Lipodermatosclerosis or atrophie majo C 5 : Healed venous ulcer C 6 : Active venous ulcer March 22, 2021 n o new changes April 15, 2024 s he has pedal edema dorsem of foot bilateral, recommend she get compression stockings that covers her feet and toes, leg elevation recommended. Soila Philip MD Cardiology: C onclusions: 1 . Normal left ventricular systolic function. Normal left ventricular size. Normal left ventricular wall t hickness. Normal left ventricular diastolic function. Normal E/E` 9.7. Left ventricular ejection f raction is estimated at 65 %. 2 . Normal right ventricular size. Normal right ventricular systolic function. 3 . There is non-specific thickening of the mitral valve leaflets. Mild mitral valve regurgitation. 4 . Normal appearing tricuspid valve leaflets. There is mild eccentric tricuspid regurgitation. IVC is d ilated with partial respiratory response, consistent with moderately elevated right atrial pressures. T he RA pressure is estimated at 10.0 mmHg. Estimated peak pulmonary artery systolic pressure is 3 9. November 20, 2021 H TAKATSUBO BASED ON CATH WILL NEED LIFEVEST PUT ON AND RECHECK ECHO IN A MONTH December 06, 2021 A dd entresto and lasix. January 17, 2022 C heck echo for improvement of LVEF to d/c lifevest April 04, 2022 n o new issues, LVEF 55%, from echo 01/17/22 D ecember 2022 c heck echo for lvef w/ prior hx of chf systolic J anuary 2022 S he had an EF 0f 15% on EV gram that has now improved to 55% October 24, 2022 E KG unchanged compared to 07/04/22 February 27, 2023 n o new CP February 19, 2024 n o angina Sanjaya Bren Philip MD Cardiology:WAS SEEN BY CHRISTOPHER MAY BE HAVING NEUROPATHIC PAIN ON THE SCALP F ELT TO HAVE trigeminal neuralgia. She got flare up of neuralgic pain over the head but not typical for [place]. - d/c tegretol - will get CTH w/o 1 . No acute intracranial hemorrhage or midline shift. 2. Chronic microvascular ischemic type white-matter changes and additional f indings as above. -start venlafaxine 25 mg bid for neuropathic pain and headache - short course medrol dose isai - tramadol 50 mg tid for acute flare up of neuropathic pain Bradley Aggarwal NP Cardiology: s ymptoms have imprved w as seen by neurologist Robbie newman related to low BP 87/57 STOP Intresto switch to Losartan. Continue with RPM monitor daily. M arch 2023 B P today was 120/75. Currently only on metoprolol February 19, 2024 N o current symptoms. Bradley Aggarwal NP Cardiology: H as been getting meds for restless leg Bradley Aggarwal NP Cardiology: H x of aortic atherosclerosis and nonpalpable pedal pulses. Scheduling arterial duplex. T here are no open ulcers. Her concern regarding getting an ingrown toe nail removed, WOULD AVOID NAIL EVULSION IF FEASIBLE. SHE HAS COMPROMISED FLOW. WILL GET A SENSILASE DONE. CONCLUSIONS: 1 . Mild atherosclerosis with normal arterial flow is noted in the lower extremities bilaterally above the level of the knee. 2 . 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 3 . Unable to obtain WILMER due to uncompressable arteries. Bradley Jasen VEGA Cardiology: C urrently not on any meds. Bradley Rayoaaron VEGA Cardiology: C onclusions: 1 . Normal left ventricular systolic function. Normal left ventricular size. Normal left ventricular wall t hickness. Normal left ventricular diastolic function. Normal E/E` 9.7. Left ventricular ejection f raction is estimated at 65 %. 2 . Normal right ventricular size. Normal right ventricular systolic function. 3 . There is non-specific thickening of the mitral valve leaflets. Mild mitral valve regurgitation. 4 . Normal appearing tricuspid valve leaflets. There is mild eccentric tricuspid regurgitation. IVC is d ilated with partial respiratory response, consistent with moderately elevated right atrial pressures. T he RA pressure is estimated at 10.0 mmHg. Estimated peak pulmonary artery systolic pressure is 3 9. November 20, 2021 H TAKATSUBO BASED ON CATH WILL NEED LIFEVEST PUT ON AND RECHECK ECHO IN A MONTH December 06, 2021 A dd entresto and lasix. January 17, 2022 C heck echo for improvement of LVEF to d/c lifevest April 04, 2022 n o new issues, LVEF 55%, from echo 01/17/22 D ecember 2022 c heck echo for lvef w/ prior hx of chf systolic J anuary 2022 S he had an EF 0f 15% on EV gram that has now improved to 55% October 24, 2022 E KG unchanged compared to 07/04/22 February 27, 2023 n o new CP February 19, 2024 n o angina Bradley Rayoaaron VEGA Cardiology: E cho 05/29/23 C ONCLUSIONS: 1 . Normal left ventricular systolic function. Normal left ventricular size. Normal left ventricular wall thickness. There is E to A w ave reversal consistent with impaired LV relaxation. E/E': 7.7 Left ventricular ejection fraction is measured at 55 %. 2 . Normal right ventricular size. Normal right ventricular systolic function. 3 . The pulmonic valve is not well visualized. Normal pulmonic valve velocities by Doppler. There is mild pulmonic r egurgitation. 4 . No significant valvular abnormalities. Bradley Aggarwal POWDER CARRIER Cardiology: C onclusions: 1 . Normal left ventricular systolic function. Normal left ventricular size. Normal left ventricular wall t hickness. Normal left ventricular diastolic function. Normal E/E` 9.7. Left ventricular ejection f raction is estimated at 65 %. 2 . Normal right ventricular size. Normal right ventricular systolic function. 3 . There is non-specific thickening of the mitral valve leaflets. Mild mitral valve regurgitation. 4 . Normal appearing tricuspid valve leaflets. There is mild eccentric tricuspid regurgitation. IVC is d ilated with partial respiratory response, consistent with moderately elevated right atrial pressures. T he RA pressure is estimated at 10.0 mmHg. Estimated peak pulmonary artery systolic pressure is 3 9. November 20, 2021 H TAKATSUBO BASED ON CATH WILL NEED LIFEVEST PUT ON AND RECHECK ECHO IN A MONTH December 06, 2021 A dd entresto and lasix. January 17, 2022 C heck echo for improvement of LVEF to d/c lifevest April 04, 2022 n o new issues, LVEF 55%, from echo 01/17/22 D ecember 2022 c heck echo for lvef w/ prior hx of chf systolic J anuary 2022 S he had an EF 0f 15% on EV gram that has now improved to 55% October 24, 2022 E KG unchanged compared to 07/04/22 February 27, 2023 n o new CP Soila Philip MD Cardiology:Echo 05/29 CONCLUSIONS: 1 . Normal left ventricular systolic function. Normal left ventricular size. Normal left ventricular wall thickness. There is E to A w ave reversal consistent with impaired LV relaxation. E/E': 7.7 Left ventricular ejection fraction is measured at 55 %. 2 . Normal right ventricular size. Normal right ventricular systolic function. 3 . The pulmonic valve is not well visualized. Normal pulmonic valve velocities by Doppler. There is mild pulmonic r egurgitation. 4 . No significant valvular abnormalities. Soila Philip MD Cardiology:symptoms have imprved w as seen by neurologist Robbie newman related to low BP 87/57 STOP Intresto switch to Losartan. Continue with RPM monitor daily. M arch 2023 B P today was 120/75. Currently only on metoprolol Soila Philip MD Cardiology: O n gabapentin for her headaches, takes requip for her legs. Needs to see Neurologist. Recommend Dr. Alok Canales at [facility]. Suspect that there is interaction with these meds causing her sx M arch [address] scan at [facility], no acute findings. Seeing neuro Soila Philip MD Cardiology: Ling sifuentes PFTs. Conclusions: Although there is moderately severe airway obstruction and a diffusion defect suggesting emphysema, the absence of o verinflation indicates a concurrent restrictive process which may account for the diffusion defect. A clinical trial of bronchodilators may b e beneficial in view of the airway obstruction. P ulmonary Function Diagnosis: Moderately severe Obstructive Airways Disease S evere Diffusion Defect Soila Philip MD Cardiology: C onclusions: 1 . Normal left ventricular systolic function. Normal left ventricular size. Normal left ventricular wall t hickness. Normal left ventricular diastolic function. Normal E/E` 9.7. Left ventricular ejection f raction is estimated at 65 %. 2 . Normal right ventricular size. Normal right ventricular systolic function. 3 . There is non-specific thickening of the mitral valve leaflets. Mild mitral valve regurgitation. 4 . Normal appearing tricuspid valve leaflets. There is mild eccentric tricuspid regurgitation. IVC is d ilated with partial respiratory response, consistent with moderately elevated right atrial pressures. T he RA pressure is estimated at 10.0 mmHg. Estimated peak pulmonary artery systolic pressure is 3 9. November 20, 2021 H TAKATSUBO BASED ON CATH WILL NEED LIFEVEST PUT ON AND RECHECK ECHO IN A MONTH December 06, 2021 A dd entresto and lasix. January 17, 2022 Ling sifuentes echo for improvement of LVEF to d/c lifevest April 04, 2022 n o new issues, LVEF 55%, from echo 01/17/22 D ecember 2022 c heck echo for lvef w/ prior hx of chf systolic J anuary 2022 S he had an EF 0f 15% on EV gram that has now improved to 55% October 24, 2022 E KG unchanged compared to 07/04/22 February 27, 2023 n o new CP Soila Philip MD Cardiology:Has been getting meds for restless leg Soila Philip MD Cardiology: O n gabapentin for her headaches, takes requip for her legs. Needs to see Neurologist. Recommend Dr. Alok Canales at [facility]. Suspect that there is interaction with these meds causing her sx Soila Philip MD Cardiology: C onclusions: 1 . Normal left ventricular systolic function. Normal left ventricular size. Normal left ventricular wall t hickness. Normal left ventricular diastolic function. Normal E/E` 9.7. Left ventricular ejection f raction is estimated at 65 %. 2 . Normal right ventricular size. Normal right ventricular systolic function. 3 . There is non-specific thickening of the mitral valve leaflets. Mild mitral valve regurgitation. 4 . Normal appearing tricuspid valve leaflets. There is mild eccentric tricuspid regurgitation. IVC is d ilated with partial respiratory response, consistent with moderately elevated right atrial pressures. T he RA pressure is estimated at 10.0 mmHg. Estimated peak pulmonary artery systolic pressure is 3 9. November 20, 2021 H TAKATSUBO BASED ON CATH WILL NEED LIFEVEST PUT ON AND RECHECK ECHO IN A MONTH December 06, 2021 A dd entresto and lasix. January 17, 2022 C heck echo for improvement of LVEF to d/c lifevest April 04, 2022 n o new issues, LVEF 55%, from echo 01/17/22 D ecember 2022 c heck echo for lvef w/ prior hx of chf systolic J anuary 2022 S he had an EF 0f 15% on EV gram that has now improved to 55% October 24, 2022 E KG unchanged compared to 07/04/22 February 27, 2023 n o new CP Soila Philip MD Cardiology:bp 101/69 has RPM Edgar Philip MD Cardiology: o ff of keeley arb, have to check EF in a few months May 29, 2023 w iht loss of will get echo done to eval for takatsubo cmp Soila Philip MD Cardiology: N EEDS TO BE ON A BB DESPITE BRADYCARDIA WIROMELIA Horner une 2019 H as seen optho with change but does not know the name of her new meds. Last EKG showed bradycardia. She states from time to time she is dizzy. This may be secondary to the Timolol and she will discuss alternative medications with her opthalmologist. February 27, 2023 d izziness may be realted to low BP, currently off entresto and losartan Soila Philip MD Cardiology: C maria PFTs. Conclusions: Although there is moderately severe airway obstruction and a diffusion defect suggesting emphysema, the absence of o verinflation indicates a concurrent restrictive process which may account for the diffusion defect. A clinical trial of bronchodilators may b e beneficial in view of the airway obstruction. P ulmonary Function Diagnosis: Moderately severe Obstructive Airways Disease S evere Diffusion Defect Soila Philip MD Cardiology:may be calvillo ving issues with wound healing due to smoking 1/2 ppd Soila Philip MD Cardiology: H ad abnormal sensilase, has no open ulcers, will continue medical therapy October 24, 2022 L eft leg is healing, don't think she needs an angiogram. Soila Philip MD Cardiology: C onclusions: 1 . Normal left ventricular systolic function. Normal left ventricular size. Normal left ventricular wall t hickness. Normal left ventricular diastolic function. Normal E/E` 9.7. Left ventricular ejection f raction is estimated at 65 %. 2 . Normal right ventricular size. Normal right ventricular systolic function. 3 . There is non-specific thickening of the mitral valve leaflets. Mild mitral valve regurgitation. 4 . Normal appearing tricuspid valve leaflets. There is mild eccentric tricuspid regurgitation. IVC is d ilated with partial respiratory response, consistent with moderately elevated right atrial pressures. T he RA pressure is estimated at 10.0 mmHg. Estimated peak pulmonary artery systolic pressure is 3 9. November 20, 2021 H TAKATSUBO BASED ON CATH WILL NEED LIFEVEST PUT ON AND RECHECK ECHO IN A MONTH December 06, 2021 A dd entresto and lasix. January 17, 2022 C maria echo for improvement of LVEF to d/c lifevest April 04, 2022 n o new issues, LVEF 55%, from echo 01/17/22 July 04, 2022 S he had an EF 0f 15% on EV gram that has now improved to 55% October 24, 2022 E KG unchanged compared to 07/04/22 February 27, 2023 n o new CP Soila Philip MD Cardiology:off of ac e arb, have to check EF in a few months Soila Philip MD Cardiology: M ed rx with abnormal sensilase. Conclusions: 11/2019 Sensilase R LE has moderately reduced PVR's and mildly reduced perfusion which should be adequate for wound h ealing L LE has moderately reduced PVR's and moderate to severely reduced perfusion which is inadequate for w ound healing J formerly [facility] 2019 06:20 PM EDT Cole Finch MD [facility] CONCLUSIONS: 1 . Mild atherosclerosis with normal arterial flow is noted in the lower extremities bilaterally above the level of the knee. 2 . 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 3 . Unable to obtain WILMER due to uncompressable arteries. E lectronically signed by Soila Philpi MD on 07/14/2019 at 9:16 AM Soila Philip MD Cardiology:Likely re lated to low BP 87/57 STOP Intresto switch to Losartan. Continue with RPM monitor daily. Soila Philip MD Cardiology: C onclusions: 1 . Normal left ventricular systolic function. Normal left ventricular size. Normal left ventricular wall t hickness. Normal left ventricular diastolic function. Normal E/E` 9.7. Left ventricular ejection f raction is estimated at 65 %. 2 . Normal right ventricular size. Normal right ventricular systolic function. 3 . There is non-specific thickening of the mitral valve leaflets. Mild mitral valve regurgitation. 4 . Normal appearing tricuspid valve leaflets. There is mild eccentric tricuspid regurgitation. IVC is d ilated with partial respiratory response, consistent with moderately elevated right atrial pressures. T he RA pressure is estimated at 10.0 mmHg. Estimated peak pulmonary artery systolic pressure is 3 9. November 20, 2021 H TAKATSUBO BASED ON CATH WILL NEED LIFEVEST PUT ON AND RECHECK ECHO IN A MONTH December 06, 2021 A dd entresto and lasix. January 17, 2022 C heck echo for improvement of LVEF to d/c lifevest April 04, 2022 n o new issues, LVEF 55%, from echo 01/17/22 July 04, 2022 S he had an EF 0f 15% on EV gram that has now improved to 55% October 24, 2022 E KG unchanged compared to 07/04/22 Soila Philip MD Cardiology:Stop Intresto switch to Losartan 25 daily Soila Philip MD Cardiology: P ending echo 01/03/22. Will see how she does with Entresto. January 17, 2022 T olerating entresto, echo showed EF 50%. OK to discontinue lifevest April 04, 2022 tolerating entresto, no CHF sxs. January 23, 2023 S witch back to Losartan 25 daily Soila Philip MD Cardiology: T he Patient was reencouraged to stop smoking. October 24, 2022 C ontinues to smoke. Soila Philip MD Cardiology: C onclusions: 1 . Normal left ventricular systolic function. Normal left ventricular size. Normal left ventricular wall t hickness. Normal left ventricular diastolic function. Normal E/E` 9.7. Left ventricular ejection f raction is estimated at 65 %. 2 . Normal right ventricular size. Normal right ventricular systolic function. 3 . There is non-specific thickening of the mitral valve leaflets. Mild mitral valve regurgitation. 4 . Normal appearing tricuspid valve leaflets. There is mild eccentric tricuspid regurgitation. IVC is d ilated with partial respiratory response, consistent with moderately elevated right atrial pressures. T he RA pressure is estimated at 10.0 mmHg. Estimated peak pulmonary artery systolic pressure is 3 9. November 20, 2021 H TAKATSUBO BASED ON CATH WILL NEED LIFEVEST PUT ON AND RECHECK ECHO IN A MONTH December 06, 2021 A dd entresto and lasix. January 17, 2022 C heck echo for improvement of LVEF to d/c lifevest April 04, 2022 n o new issues, LVEF 55%, from echo 01/17/22 July 04, 2022 S he had an EF 0f 15% on EV gram that has now improved to 55% October 24, 2022 E KG unchanged compared to 07/04/22 Soila Philip MD Cardiology: S ayantejayne 2019 W ill check home sleep study. suspect R sided pressures elevated due to ALBERTO. December 07, 2019 S till has intermittent swelling; however, improved. Reviewed with her echo findings. PAP was 39 and there was no venous insufficiency noted. 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 Pt complains of leg swelling, worse at the end of the day and worse in the L leg. On exam, she has skin discoloration consistent with venous insufficiency (CEAP C4a). No open sores however she is tender. Pedal pulses are not palpable. Will obtain arterial and venous duplex and proceed according to the results. She could not tolerate support stockings. C EAP Clinical Classification C 0 : No visible or palpable signs of venous disease C 1 : Telangiectasies or reticular veins C 2 : Varicose veins C 3 : Edema C 4a: Pigmentation or eczema C 4b: Lipodermatosclerosis or atrophie majo C 5 : Healed venous ulcer C 6 : Active venous ulcer March 22, 2021 n o new changes Soila Philip MD Cardiology: H ad abnormal sensilase, has no open ulcers, will continue medical therapy October 24, 2022 L eft leg is healing, don't think she needs an angiogram. Soila Philip MD Cardiology:Discussio n of benefits for remote patient monitoring took place. Patient gives consent for remote monitoring of physiologic parameters including, but not limited to, weight, blood pressure, pulse oximetry, respiratory flow rate. She has been running low BPs need to see where it is for med adjustment. Soila Philip MD Cardiology:The Patie nt was reencouraged to stop smoking. Soila Philip MD Cardiology: N EEDS TO BE ON A BB DESPITE BRADYCARDIA KUN ojeda 2019 H as seen optho with change but does not know the name of her new meds. Last EKG showed bradycardia. She states from time to time she is dizzy. This may be secondary to the Timolol and she will discuss alternative medications with her opthalmologist. Soila Philip MD Cardiology: C onclusions: 1 . Normal left ventricular systolic function. Normal left ventricular size. Normal left ventricular wall t hickness. Normal left ventricular diastolic function. Normal E/E` 9.7. Left ventricular ejection f raction is estimated at 65 %. 2 . Normal right ventricular size. Normal right ventricular systolic function. 3 . There is non-specific thickening of the mitral valve leaflets. Mild mitral valve regurgitation. 4 . Normal appearing tricuspid valve leaflets. There is mild eccentric tricuspid regurgitation. IVC is d ilated with partial respiratory response, consistent with moderately elevated right atrial pressures. T he RA pressure is estimated at 10.0 mmHg. Estimated peak pulmonary artery systolic pressure is 3 9. November 20, 2021 H TAKATSUBO BASED ON CATH WILL NEED LIFEVEST PUT ON AND RECHECK ECHO IN A MONTH December 06, 2021 A dd entresto and lasix. January 17, 2022 C maria echo for improvement of LVEF to d/c lifevest April 04, 2022 n o new issues, LVEF 55%, from echo 01/17/22 July 04, 2022 S he had an EF 0f 15% on EV gram that has now improved to 55% Soila Philip MD Cardiology: C maria PFTs. Conclusions: Although there is moderately severe airway obstruction and a diffusion defect suggesting emphysema, the absence of o verinflation indicates a concurrent restrictive process which may account for the diffusion defect. A clinical trial of bronchodilators may b e beneficial in view of the airway obstruction. P ulmonary Function Diagnosis: Moderately severe Obstructive Airways Disease S evere Diffusion Defect Soila Philip MD Cardiology: H RANDOM BRUISING. NOT EXACTLY CLEAR WHY. ADVISED HER TO GET SEEN BY BREEDING MANAGER. POSSIBLY MAY HAVE DYSFUNCTIONAL PLATELETS OR HAS ON SITE PROPERTY MANAGER EFFECTS OF STEROID USAGE FROM PRIOR CORNEAL TRASNPLANT. June 28, 2021 N o new issues with bruising. Soila Philip MD Cardiology: C heck PFTs. Conclusions: Although there is moderately severe airway obstruction and a diffusion defect suggesting emphysema, the absence of o verinflation indicates a concurrent restrictive process which may account for the diffusion defect. A clinical trial of bronchodilators may b e beneficial in view of the airway obstruction. P ulmonary Function Diagnosis: Moderately severe Obstructive Airways Disease S evere Diffusion Defect Soila Philip MD Cardiology: P ending echo 01/03/22. Will see how she does with Entresto. January 17, 2022 T olerating entresto, echo showed EF 50%. OK to discontinue lifevest April 04, 2022 t olerating entresto, no CHF sxs. Soila Philip MD Cardiology: C onclusions: 1 . Normal left ventricular systolic function. Normal left ventricular size. Normal left ventricular wall t hickness. Normal left ventricular diastolic function. Normal E/E` 9.7. Left ventricular ejection f raction is estimated at 65 %. 2 . Normal right ventricular size. Normal right ventricular systolic function. 3 . There is non-specific thickening of the mitral valve leaflets. Mild mitral valve regurgitation. 4 . Normal appearing tricuspid valve leaflets. There is mild eccentric tricuspid regurgitation. IVC is d ilated with partial respiratory response, consistent with moderately elevated right atrial pressures. T he RA pressure is estimated at 10.0 mmHg. Estimated peak pulmonary artery systolic pressure is 3 9. November 20, 2021 H TAKATSUBO BASED ON CATH WILL NEED LIFEVEST PUT ON AND RECHECK ECHO IN A MONTH December 06, 2021 A dd entresto and lasix. January 17, 2022 C heck echo for improvement of LVEF to d/c lifevest April 04, 2022 n o new issues, LVEF 55%, from echo 01/17/22 Soila Philip MD Cardiology: S eptemberendira 2019 W ill check home sleep study. suspect R sided pressures elevated due to ALBERTO. December 07, 2019 S jamaica has intermittent swelling; however, improved. Reviewed with her echo findings. PAP was 39 and there was no venous insufficiency noted. 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 Pt complains of leg swelling, worse at the end of the day and worse in the L leg. On exam, she has skin discoloration consistent with venous insufficiency (CEAP C4a). No open sores however she is tender. Pedal pulses are not palpable. Will obtain arterial and venous duplex and proceed according to the results. She could not tolerate support stockings. C EAP Clinical Classification C 0 : No visible or palpable signs of venous disease C 1 : Telangiectasies or reticular veins C 2 : Varicose veins C 3 : Edema C 4a: Pigmentation or eczema C 4b: Lipodermatosclerosis or atrophie majo C 5 : Healed venous ulcer C 6 : Active venous ulcer March 22, 2021 n o new changes Soila Philip MD Cardiology: h bernardino ppd. The Patient was reencouraged to stop smoking. Try nicorette gum Soila Philip MD Cardiology: P ending echo 01/03/22. Will see how she does with Entresto. January 17, 2022 T olerating entresto, echo showed EF 50%. OK to discontinue lifevest Soila Philip MD Cardiology: C onclusions: 1 . Normal left ventricular systolic function. Normal left ventricular size. Normal left ventricular wall t hickness. Normal left ventricular diastolic function. Normal E/E` 9.7. Left ventricular ejection f raction is estimated at 65 %. 2 . Normal right ventricular size. Normal right ventricular systolic function. 3 . There is non-specific thickening of the mitral valve leaflets. Mild mitral valve regurgitation. 4 . Normal appearing tricuspid valve leaflets. There is mild eccentric tricuspid regurgitation. IVC is d ilated with partial respiratory response, consistent with moderately elevated right atrial pressures. T he RA pressure is estimated at 10.0 mmHg. Estimated peak pulmonary artery systolic pressure is 3 9. November 20, 2021 H TAKATSUBO BASED ON CATH WILL NEED LIFEVEST PUT ON AND RECHECK ECHO IN A MONTH December 06, 2021 A dd entresto and lasix. January 17, 2022 C maria echo for improvement of LVEF to d/c lifevest Soila Philip MD Cardiology:Pending e cho 01/03/22. Will see how she does with Entresto. Soila Philip MD Cardiology: C onclusions: 1 . Normal left ventricular systolic function. Normal left ventricular size. Normal left ventricular wall t hickness. Normal left ventricular diastolic function. Normal E/E` 9.7. Left ventricular ejection f raction is estimated at 65 %. 2 . Normal right ventricular size. Normal right ventricular systolic function. 3 . There is non-specific thickening of the mitral valve leaflets. Mild mitral valve regurgitation. 4 . Normal appearing tricuspid valve leaflets. There is mild eccentric tricuspid regurgitation. IVC is d ilated with partial respiratory response, consistent with moderately elevated right atrial pressures. T he RA pressure is estimated at 10.0 mmHg. Estimated peak pulmonary artery systolic pressure is 3 9. November 20, 2021 H TAKATSUBO BASED ON CATH WILL NEED LIFEVEST PUT ON AND RECHECK ECHO IN A MONTH December 06, 2021 A rose willetto and kim. Soila Philip MD Cardiology:HAS [facility] ANGES SUGGESTIVE OF DE AND HAD CATH DONE A TCNE ON 11/16 WITH STEPHAN Philip MD Cardiology:NEEDS TO BE ON A BB DESPITE BRADYCARDIA KUN Horner une 2019 H as seen optho with change but does not know the name of her new meds. Last EKG showed bradycardia. She states from time to time she is dizzy. This may be secondary to the Timolol and she will discuss alternative medications with her opthalmologist. Soila Philip MD Cardiology: C onclusions: 1 . Normal left ventricular systolic function. Normal left ventricular size. Normal left ventricular wall t hickness. Normal left ventricular diastolic function. Normal E/E` 9.7. Left ventricular ejection f raction is estimated at 65 %. 2 . Normal right ventricular size. Normal right ventricular systolic function. 3 . There is non-specific thickening of the mitral valve leaflets. Mild mitral valve regurgitation. 4 . Normal appearing tricuspid valve leaflets. There is mild eccentric tricuspid regurgitation. IVC is d ilated with partial respiratory response, consistent with moderately elevated right atrial pressures. T he RA pressure is estimated at 10.0 mmHg. Estimated peak pulmonary artery systolic pressure is 3 9. November 20, 2021 H TAKATSUBO BASED ON CATH WILL NEED LIFEVEST PUT ON AND RECHECK ECHO IN A MONTH Soila Philip MD Cardiology:On gabape ntin for her headaches, takes requip for her legs Soila Philip MD Cardiology: C onclusions: 1 . Normal left ventricular systolic function. Normal left ventricular size. Normal left ventricular wall t hickness. Normal left ventricular diastolic function. Normal E/E` 9.7. Left ventricular ejection f raction is estimated at 65 %. 2 . Normal right ventricular size. Normal right ventricular systolic function. 3 . There is non-specific thickening of the mitral valve leaflets. Mild mitral valve regurgitation. 4 . Normal appearing tricuspid valve leaflets. There is mild eccentric tricuspid regurgitation. IVC is d ilated with partial respiratory response, consistent with moderately elevated right atrial pressures. T he RA pressure is estimated at 10.0 mmHg. Estimated peak pulmonary artery systolic pressure is 3 9. Soila Philip MD Cardiology: S erlinda had COVID in May. Incidental finding when she had showed up for headache. Will check echo to evaluate for any cardiac association. Echo 06/2021 C ONCLUSIONS: 1 . Normal left ventricular systolic function. Normal left ventricular size. Normal left ventricular wall thickness. There is E to A w ave reversal consistent with impaired LV relaxation. E/E': 8.0. Left ventricular ejection fraction is measured at 60 %. 2 . Normal right ventricular size. Normal right ventricular systolic function. 3 . There is trace physiologic mitral valve regurgitation. 4. There is trace physiologic tricuspid valve regurgitation. 5 . There is mild pulmonic regurgitation. E lectronically Signed By: Soila Philip MD Cardiology:Med rx wi th abnormal sensilase. Conclusions: 11/2019 Sensilase R LE has moderately reduced PVR's and mildly reduced perfusion which should be adequate for wound h ealing LLE has moderately reduced PVR's and moderate to severely reduced perfusion which is inadequate for w ound healing J formerly [facility] 2019 06:20 PM EDT Cole Finch MD [facility] CONCLUSIONS: 1. Mild atherosclerosis with normal arterial flow is noted in the lower extremities bilaterally above the level of the knee. 2 . 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 3 . Unable to obtain WILMER due to uncompressable arteries. E lectronically signed by Soila Philip MD on 07/14/2019 at 9:16 AM Soila Philip MD Cardiology: C maria PFTs. Conclusions: Although there is moderately severe airway obstruction and a diffusion defect suggesting emphysema, the absence of o verinflation indicates a concurrent restrictive process which may account for the diffusion defect. A clinical trial of bronchodilators may b e beneficial in view of the airway obstruction. P ulmonary Function Diagnosis: Moderately severe Obstructive Airways Disease S evere Diffusion Defect Soila Philip MD Cardiology: o n carbamazepine. Remains on tegretol for trigeminal neuralgia. Soila Philip MD Cardiology: C HOL: 235 (11/17/2018) LDL: 131 (11/17/2018) HDL: 91 (11/17/2018) T (11/17/2018) Currently not on any meds. Soila Philip MD Cardiology: H RANDOM BRUISING. NOT EXACTLY CLEAR WHY. ADVISED HER TO GET SEEN BY BREEDING MANAGER. POSSIBLY MAY HAVE DYSFUNCTIONAL PLATELETS OR HAS ON SITE PROPERTY MANAGER EFFECTS OF STEROID USAGE FROM PRIOR CORNEAL TRASNPLANT. June 28, 2021 N o new issues with bruising. Soila Philip MD Cardiology: C onclusions: 1 . Normal left ventricular systolic function. Normal left ventricular size. Normal left ventricular wall t hickness. Normal left ventricular diastolic function. Normal E/E` 9.7. Left ventricular ejection f raction is estimated at 65 %. 2 . Normal right ventricular size. Normal right ventricular systolic function. 3 . There is non-specific thickening of the mitral valve leaflets. Mild mitral valve regurgitation. 4 . Normal appearing tricuspid valve leaflets. There is mild eccentric tricuspid regurgitation. IVC is d ilated with partial respiratory response, consistent with moderately elevated right atrial pressures. T he RA pressure is estimated at 10.0 mmHg. Estimated peak pulmonary artery systolic pressure is 3 9. Soila Philip MD Cardiology: J formerly [facility] 2019 H as seen optho with change but does not know the name of her new meds. Last EKG showed bradycardia. She states from time to time she is dizzy. This may be secondary to the Timolol and she will discuss alternative medications with her opthalmologist. Soila Philip MD Cardiology:She had C OVID in May. Incidental finding when she had showed up for headache. Will check echo to evaluate for any cardiac association. Soila Philip MD Cardiology: C ONCLUSIONS: 1 . Mild atherosclerosis with normal arterial flow is noted in the lower extremities bilaterally above the level of the knee. 2 . 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 3 . Unable to obtain WILMER due to uncompressable arteries. E lectronically signed by Soila Philip MD on 07/14/2019 at 9:16 AM Soila Philip MD Cardiology: S eptember 2019 W ill check home sleep study. suspect R sided pressures elevated due to ALBERTO. December 07, 2019 S till has intermittent swelling; however, improved. Reviewed with her echo findings. PAP was 39 and there was no venous insufficiency noted. 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 Pt complains of leg swelling, worse at the end of the day and worse in the L leg. On exam, she has skin discoloration consistent with venous insufficiency (CEAP C4a). No open sores however she is tender. Pedal pulses are not palpable. Will obtain arterial and venous duplex and proceed according to the results. She could not tolerate support stockings. C EAP Clinical Classification C 0 : No visible or palpable signs of venous disease C 1 : Telangiectasies or reticular veins C 2 : Varicose veins C 3 : Edema C 4a: Pigmentation or eczema C 4b: Lipodermatosclerosis or atrophie majo C 5 : Healed venous ulcer C 6 : Active venous ulcer March 22, 2021 n o new changes Soila Philip MD Cardiology:half ppd. The Patient was reencouraged to stop smoking. Soila Philip MD Cardiology:on carbamazepine Adore Philip MD Cardiology: C onclusions: 1 . Normal left ventricular systolic function. Normal left ventricular size. Normal left ventricular wall t hickness. Normal left ventricular diastolic function. Normal E/E` 9.7. Left ventricular ejection f raction is estimated at 65 %. 2 . Normal right ventricular size. Normal right ventricular systolic function. 3 . There is non-specific thickening of the mitral valve leaflets. Mild mitral valve regurgitation. 4 . Normal appearing tricuspid valve leaflets. There is mild eccentric tricuspid regurgitation. IVC is d ilated with partial respiratory response, consistent with moderately elevated right atrial pressures. T he RA pressure is estimated at 10.0 mmHg. Estimated peak pulmonary artery systolic pressure is 3 9. Soila Philip MD Cardiology:Had abnor mal sensilase, has no open ulcers, will continue medical therapy Soila Philip MD Cardiology:CONCLUSIO NS: 1 . Mild atherosclerosis with normal arterial flow is noted in the lower extremities bilaterally above the level of the knee. 2 . 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 3 . Unable to obtain WILMER due to uncompressable arteries. E lectronically signed by Soila Philip MD on 07/14/2019 at 9:16 AM Soila Philip MD Cardiology follow up : C HOL: 235 (11/17/2018) LDL: 131 (11/17/2018) HDL: 91 (11/17/2018) T (11/17/2018) started on cholesterol medicine by pcp Her updated medication list for this problem includes: Fenofibrate 145 Mg Oral Tablet (Fenofibrate) ..... Take 1 tab daily Soila Philip MD Cardiology follow up : H x of aortic atherosclerosis and nonpalpable pedal pulses. Scheduling arterial duplex. T here are no open ulcers. Her concern regarding getting an ingrown toe nail removed, WOULD AVOID NAIL EVULSION IF FEASIBLE. SHE HAS COMPROMISED FLOW. WILL GET A SENSILASE DONE. CONCLUSIONS: 1 . Mild atherosclerosis with normal arterial flow is noted in the lower extremities bilaterally above the level of the knee. 2 . 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 3 . Unable to obtain WILMER due to uncompressable arteries. Soila Philip MD Cardiology follow up :The Patient was reencouraged to stop smoking. Soila Philip MD Cardiology follow up :Conclusions: 1 . Normal left ventricular systolic function. Normal left ventricular size. Normal left ventricular wall t hickness. Normal left ventricular diastolic function. Normal E/E` 9.7. Left ventricular ejection f raction is estimated at 65 %. 2 . Normal right ventricular size. Normal right ventricular systolic function. 3 . There is non-specific thickening of the mitral valve leaflets. Mild mitral valve regurgitation. 4 . Normal appearing tricuspid valve leaflets. There is mild eccentric tricuspid regurgitation. IVC is d ilated with partial respiratory response, consistent with moderately elevated right atrial pressures. T he RA pressure is estimated at 10.0 mmHg. Estimated peak pulmonary artery systolic pressure is 3 9. Soila Philip MD Cardiology follow up : S nhi 2019 W ill check home sleep study. suspect R sided pressures elevated due to ALBERTO. December 07, 2019 S jamaica has intermittent swelling; however, improved. Reviewed with her echo findings. PAP was 39 and there was no venous insufficiency noted. 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 Pt complains of leg swelling, worse at the end of the day and worse in the L leg. On exam, she has skin discoloration consistent with venous insufficiency (CEAP C4a). No open sores however she is tender. Pedal pulses are not palpable. Will obtain arterial and venous duplex and proceed according to the results. She could not tolerate support stockings. C EAP Clinical Classification C 0 : No visible or palpable signs of venous disease C1 : Telangiectasies or reticular veins C 2 : Varicose veins C 3 : Edema C 4a: Pigmentation or eczema C 4b: Lipodermatosclerosis or atrophie majo C 5 : Healed venous ulcer C 6 : Active venous ulcer Soila Philip MD Cardiology follow up :Conclusions: R LE has moderately reduced PVR's and mildly reduced perfusion which should be adequate for wound h ealing L LE has moderately reduced PVR's and moderate to severely reduced perfusion which is inadequate for w ound healing J une 2019 06:20 PM EDT Cole Finch MD [facility] Soila Philip MD Cardiology:HAS RANDO M BRUISING. NOT EXACTLY CLEAR WHY. ADVISED HER TO GET SEEN BY BREEDING MANAGER. POSSIBLY MAY HAVE DYSFUNCTIONAL PLATELETS OR HAS PENITENTIARY EFFECTS OF STEROID USAGE FROM PRIOR CORNEAL TRASNPLANT. Soila Philip MD Cardiology:CHOL: 235 (11/17/2018) LDL: 131 (11/17/2018) HDL: 91 (11/17/2018) T (11/17/2018) Soila Philip MD Cardiology:Check PFT s. H er updated medication list for this problem includes: Ipratropium Cheney 0.02 % Inhalation Solution (Ipratropium bromide) ..... Twice daily Montelukast Sodium 10 Mg Oral Tablet (Montelukast sodium) ..... 1 tab once daily Soila Philip MD Cardiology:Still smokes. Solia Philip MD Cardiology:On multiple meds. Edgar Philip MD Cardiology: N o chest pain or SOB. Summary 1 . Normal myocardial perfusion imaging after vasodilator stress with Regadenoson. 2 . Normal left ventricular systolic function with a calculated ejection fraction of 79 (QGS)%. 3 . No obvious significant scintigraphic evidence of myocardial ischemia or scar. . ...................................................... ............Soila Philip MD November 17, 2018 5: Soila Philip MD Cardiology: S nhi 2019 W ill check home sleep study. suspect R sided pressures elevated due to ALBERTO. December 07, 2019 S till has intermittent swelling; however, improved. Reviewed with her echo findings. PAP was 39 and there was no venous insufficiency noted. 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 Pt complains of leg swelling, worse at the end of the day and worse in the L leg. On exam, she has skin discoloration consistent with venous insufficiency (CEAP C4a). No open sores however she is tender. Pedal pulses are not palpable. Will obtain arterial and venous duplex and proceed according to the results. She could not tolerate support stockings. C EAP Clinical Classification C 0 : No visible or palpable signs of venous disease C 1 : Telangiectasies or reticular veins C 2 : Varicose veins C 3 : Edema C 4a: Pigmentation or eczema C 4b: Lipodermatosclerosis or atrophie majo C 5 : Healed venous ulcer C 6 : Active venous ulcer Soila Philip MD Cardiology: H x of aortic atherosclerosis and nonpalpable pedal pulses. Scheduling arterial duplex. T here are no open ulcers. Her concern regarding getting an ingrown toe nail removed, WOULD AVOID NAIL EVULSION IF FEASIBLE. SHE HAS COMPROMISED FLOW. WILL GET A SENSILASE DONE. CONCLUSIONS: 1 . Mild atherosclerosis with normal arterial flow is noted in the lower extremities bilaterally above the level of the knee. 2 . 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 3 . Unable to obtain WILMER due to uncompressable arteries. Soila Philip MD Cardiology:December 07, 2019 H as seen optho with change but does not know the name of her new meds. Last EKG showed bradycardia. She states from time to time she is dizzy. This may be secondary to the Timolol and she will discuss alternative medications with her opthalmologist. Soila Philip MD Cardiology:<.5 ppd. A AA study 1 . No evidence of an aneurysm of the abdominal aorta and common iliac arteries. Plaque is d emonstrated throughout. C arotid C onclusions: 1 . Mild plaque with less than 50% stenosis of the internal carotid arteries bilaterally. 2 . Vertebral flow is antegrade bilaterally. Soila Philip MD Cardiology:December 07, 2019 S till has intermittent swelling; however, improved. Reviewed with her echo findings. PAP was 39 and there was no venous insufficiency noted. 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 Pt complains of leg swelling, worse at the end of the day and worse in the L leg. On exam, she has skin discoloration consistent with venous insufficiency (CEAP C4a). No open sores however she is tender. Pedal pulses are not palpable. Will obtain arterial and venous duplex and proceed according to the results. She could not tolerate support stockings. C EAP Clinical Classification C 0 : No visible or palpable signs of venous disease C 1 : Telangiectasies or reticular veins C 2 : Varicose veins C 3 : Edema C 4a: Pigmentation or eczema C 4b: Lipodermatosclerosis or atrophie majo C 5 : Healed venous ulcer C 6 : Active venous ulcer Soila Philip MD Cardiology: N o chest pain or SOB. Soila Philip MD Cardiology follow up :No chest p ain or SOB. Y[facility] Cardiology follow up :Last EKG showed bradycardia. She states from time to time she is dizzy. This may be secondary to the Timolol and she will discuss alternative medications with her opthalmologist. [facility] Cardiology follow up :Last EKG showed bradycardia. She states from time to time she is dizzy. This may be secondary to the Timolol and she will discuss alternative medications with her opthalmologist. [facility] Cardiology follow up :Hx of aortic atherosclerosis and nonpalpable pedal pulses. Scheduling arterial duplex. [facility] Cardiology follow up :Pt complains of leg swelling, worse at the end of the day and worse in the L leg. On exam, she has skin discoloration consistent with venous insufficiency (CEAP C4a). No open sores however she is tender. Pedal pulses are not palpable. Will obtain arterial and venous duplex and proceed according to the results. She could not tolerate support stockings. CEAP Clinical Classification C 0 : No visible or palpable signs of venous disease C 1 : Telangiectasies or reticular veins C 2 : Varicose veins C 3 : Edema C 4a: Pigmentation or eczema C 4b: Lipodermatosclerosis or atrophie majo C 5 : Healed venous ulcer C 6 : Active venous ulcer [facility] Cardiology:HDL: 91 T riglycerides: 66 L DL: 131 C holesterol: 235 Soila Philip MD Cardiology:Stress te st was negative. No need to pursue further workup. Soila Philip MD Cardiology:AAA study 1 . No evidence of an aneurysm of the abdominal aorta and common iliac arteries. Plaque is d emonstrated throughout. C arotid C onclusions: 1 . Mild plaque with less than 50% stenosis of the internal carotid arteries bilaterally. 2 . Vertebral flow is antegrade bilaterally. Soila Philip MD Cardiology:Stress nu clear Summary 1 . Normal myocardial perfusion imaging after vasodilator stress with Regadenoson. 2 . Normal left ventricular systolic function with a calculated ejection fraction of 79 (QGS)%. 3 . No obvious significant scintigraphic evidence of myocardial ischemia or scar. . ...................................................... ............Soila Philip MD November 17, 2018 5:16 PM Conclusions: 1 . Normal left ventricular systolic function. Normal left ventricular size. Normal left ventricular wall t hickness. Normal left ventricular diastolic function. Normal E/E` 9.7. Left ventricular ejection f raction is estimated at 65 %. 2 . Normal right ventricular size. Normal right ventricular systolic function. 3 . There is non-specific thickening of the mitral valve leaflets. Mild mitral valve regurgitation. 4 . Normal appearing tricuspid valve leaflets. There is mild eccentric tricuspid regurgitation. IVC is d ilated with partial respiratory response, consistent with moderately elevated right atrial pressures. T he RA pressure is estimated at 10.0 mmHg. Estimated peak pulmonary artery systolic pressure is 3 9. Soila Philip MD Cardiology:(see above> Soila Philip MD Cardiology:Abn. EKG. Plan for noninvasive risk stratification. L exiscan nuc, echo to eval LV function. A AA scan & carotid U/S. Soila Philip MD Date Name Arterial Duplex Bi-L ower EX LIPID PANEL COMPREHENSIVE METABO LIC PANEL, W/EGFR LIPID PANEL BASIC METABOLIC PANE L W/EGFR LIPID PANEL COMPREHENSIVE METABO LIC PANEL, W/EGFR Monitor - Telemetry (Mobile Cardiac) Carotid Duplex Bilat eral EKG Complete Echo EKG Complete Echo RPM (remote patient monitoring) Wearable Defibrillat or- LifeVest Complete Echo Complete Echo Complete Echo Sleep Study Home DLCO - 39904 FRC - 56029 FVC - 95726 Venous Doppler Bilat eral LE - Reflux Arterial Duplex Bi-L ower EX Carotid Duplex Bilat eral LIPID PANEL Aorta Duplex Ultraso und (AAA) Stress Regadenoson Complete Echo 57026 MOD 30-39min HISTORY OF PROCEDURES Procedure Date Procedure Name Provider Procedure Notes S tatus Complex e/m visit add on eDep Bauman MD completed Complex e/m visit add on Deep Bauman MD completed Complex e/m visit add on Deep Bauman MD completed Complex e/m visit add on Soila Philip MD completed EKG Soila Philip MD compl eted EKG Soila Philip MD compl eted EKG Soila Philip MD compl eted EKG Soila Philip MD compl eted EKG Soila Philip MD compl eted EKG Soila Philip MD compl eted EKG Soila Philip MD compl eted EKG Soila Philip MD compl eted EKG Soila Philip MD compl eted EKG Soila Philip MD compl eted EKG Soila Philip MD compl eted EKG Soila Philip MD compl eted EKG Soila Philip MD compl eted EKG Soila Philip MD compl eted EKG Soila Philip MD compl eted FVC / MVV with bronchodilator - 00687 Soila Philip MD completed BLOOD COUNT HEMOGLOBIN Soila Philip MD completed FRC - 95603 Soila Philip MD comp leted SpO2 w/o 6min walk/titration Soila Philip MD completed DLCO - 99341 Soila Philip MD com pleted FVC / MVV with bronchodilator - 51378 Soila Philip MD completed BLOOD COUNT HEMOGLOBIN Soila Philip MD completed FRC - 52898 Soila Philip MD comp leted SpO2 w/o 6min walk/titration Soila Philip MD completed DLCO - 83852 Soila Philip MD com pleted EKG Soila Philip MD compl eted EKG Soila Philip MD compl eted EKG Soila Philip MD compl eted Regadenoson, 4 units Soila Philip MD completed Cardiolite, 2 units Soila Philip MD completed SPECT Images Soila Philip MD com pleted Stress EKG Terence Gray MD completed
--- OUTSIDE RECORDS SUMMARY | 2024-10-18 15:31 | XMS_ITS | Referral Summary ---
Author Organization [facility] Address [address] [place] [address] Care Team Providers Care Funeral Location Manager Name Role Phone Thaddeus Felder MD Primary Care Provide r Eleonora Sparks MD Unavailable [phone] Aren Hayes MD Unavailable [phone] Encounters Date Type Department Care Team Description 09/29/2024 11:00 AM CDT Office Visit [facility] Pulmonary at [address] [place] [address] Ann Lala NP Centrilobular emphysema (HCC) (Primary Dx); Nicotine dependence, cigarettes, uncomplicated from Last 3 Months Allergies Active Allergy Reactions Criticality Noted Date Comments Rosuvastatin Hives Medium 01/04/2020 Medications traZODone (DESYREL) 50 mg tablet TK 1 T PO QHS. NO ALCOHOL OR DRIVING WHILE ON MEDICATION, for sleep 0 07/09/19 19 Active timolol (BETIMOL) 0.5 % ophthalmic solution Administer 1 drop into the right eye flexographic press plate setter before breakfast Active latanoprost (XALATAN) 0.005 % [...] wheezing or shortness of breath 75 mL 11 10/18/19 25 Active arformoteroL (Brovana) 15 mcg/2 mL nebulizer solutionIndic ations:Centri lobular emphysema (HCC) Take 2 mL (15 mcg total) by nebulization 2 (two) times a day 360 mL 3 10/18/19 25 026 Active revefenacin (Yupelri) 175 [...] times a day 360 mL 3 09/30/19 25 025 Discontinued(R eorder) Active Problems Problem Noted Date Diagnosed Date Sensorineural hearing loss (SNHL) of both ears 1 07/30/2023 Assessment & Plan (05/29/2024 12:28 PM WARDROBE MANAGER): Severe Hearing loss, hearing aids recommended Pneumonia of both lower lobes due to infectious organism 03/22/2024 Assessment & Plan (03/22/2024 3:29 PM CDT): There are concerns for aspiration pneumonia, clinically she has improved. I will follow her CT chest to resolution, ordered today Dysphagia 03/22/2024 Assessment & Plan (05/29/2024 12:28 PM WARDROBE MANAGER): EGD referral placed Assessment & Plan (05/27/2024 1:40 PM WARDROBE MANAGER): Recent chest imaging reveals concerns for aspiration. In addition she reports difficulty swallowing over the last several months MBS with no evidence of aspiration Unfortunately she did have some esophageal dysmotility as reported by CIGARETTE MAKING EXAMINER. This could be a result of esophageal [...] in support groups - Information given regarding [place] Tobacco Quit line: 0-572-BICN-YES for free services - 5 minutes spent discussing cessation She declines NRT today She is not a candidate for LDCT screening Assessment & Plan (05/27/2024 1:39 PM WARDROBE MANAGER): - Smoking cessation counseling and techniques reviewed at length - Avoid triggers and use distraction techniques - Participate in support groups - Information given regarding [place] Tobacco Quit line: 4-428-WRWN-YES for free services - 4 minutes spent discussing cessation She remains pre-contemplative at present. I have encouraged her to cut down Assessment & Plan (03/22/2024 3:32 PM CDT): - Smoking cessation counseling and techniques reviewed at length - Avoid triggers and use distraction techniques - Participate in support groups - Information given regarding [place] Tobacco Quit line: 9-462-MGZT-YES for free services - 5 minutes spent [...] 11/22/2020 Assessment & Plan (05/21/2021 11:31 AM WARDROBE MANAGER): Patient has had recent exacerbation and trigeminal [...] and MRI of the brain performed through [facility] which she was told both were normal. [...] care Assessment & Plan (05/27/2024 1:38 PM WARDROBE MANAGER): She will continue Stiolto 2 puffs daily [...] (08/03/2018): Added automatically from request for surgery [id number] Thyroid nodule 03/31/2017 Immunizations Immunization Administration Dates Next Due Hep A, Adult 01/22/2000,07/17/1999 Influenza, Quadrivalent, Spl it, Preservative Free, Intramuscular 04/14/2019 Influenza, Trivalent, High D ose, Split, Preservative Free, Intramuscular 03/14/2020,04/07/2018,03/31/2017,04/09,03/27/2015 Influenza, Trivalent, IM (MDV) 04/11/2014,2012 Influenza, Unspecified 04/04/2021 Moderna SARS-CoV-2 Monovalen t Vaccination (12+ YRS) 09/04/2020,07/26/2020 Pneumococcal Conjugate PCV 13 05/07/2016 Pneumococcal Polysaccharide PPV23 06/24/2018 Social History Tobacco Use Types Packs/Day Years [...] on file Legal Sex Female 3:45 AM WARDROBE MANAGER Gender Identity Not on file Sexual Orientation Not on file Last Filed Vital Signs Vital Sign Reading [...] 09/29/2024 10:53 AM CDT Plan of Treatment Not on file Medical Devices Implanted Type Area Post Acute Care Nurse Device Identifier Shelf Expiration Date Model / Serial / Lot Other - See Comments Other - see comments Left: Eye Description:Left eye prosthe sis [employer] A-5700.16/1 Aptus 2.5mm 16mm Hexadrive 7 Adaptive Wrist Radius Cortical - S0 - [id number] Implanted:Qty: 2 on 08/05/2018 by Peter Shipley MD at [facility] Screw Right: Radius [employer] A-5700.16 /1 / 0 / [employer] A-5400.15 Aptus 2mm 15mm Hand Cortical Screw Bone Titanium Blue - S0 - [id number] Implanted:Qty: 1 on 08/05/2018 by Peter Shipley MD at [facility] Screw Right: Radius [employer] A-5400.15 / 0 / [employer] A-5750.16 2.5mm 16mm Lock Cortical Screw Bone - S0 - [id number] Implanted:Qty: 3 on 08/05/2018 by Peter Shipley MD at [facility] Screw Right: Radius [employer] A-5750.16 / 0 / [employer] A-5750.12/1 Aptus Trilock 2.5mm 12mm Hexadrive 7 Adaptive Wrist Radius - S0 - [id number] Implanted:Qty: 2 on 08/05/2018 by Peter Shipley MD at [facility] Screw Right: Radius [employer] A-5750.12 /1 / 0 / [employer] A-5700.12 Aptus 2.5mm 12mm Cortical Screw Bone - S0 - [id number] Implanted:Qty: 3 on 08/05/2018 by Peter Shipley MD at [facility] Screw Right: Radius [employer] A-5700.12 / 0 / Angio-Seal Vip 6fr Closere Device [id number] - [id number] Implanted:Qty: 1 on 11/16/2021 by Terence Gray MD at [facility] 09/19/2022 [id number] / / [id number] Explanted Type Area Post Acute Care Nurse Device Identifier Shelf Expiration Date Model / Serial / Lot [employer] A-5040.41/1 Aptus Mandeep 1.6mm 150mm Trocar Wire Fixation Nonsterile - S0 - [id number] Implanted:Qty: 1 Explanted:Qty: 1 on 08/05/2018 by Peter Shipley MD at [facility] Wire Right: Radius [employer] A-5040.41/ 0 / Insurance MEDICARE [facility] MEDICARE [facility] MEDICARE [facility] MEDICARE SUPPLEMENT Advance Directives For more information, please contact: [phone] * Full Code (Latest Code Status on File) Date Activated Date Inactivated Comments 06/17/2024 7:02 AM 06/17/2024 12:34 PM * Full Code Date Activated Date Inactivated Comments 06/17/2024 7:02 AM 06/17/2024 7:02 AM * Full Code Date Activated Date Inactivated Comments 11/16/2021 3:46 PM 11/18/2021 8:12 PM Care Teams Funeral Location Manager Relationship Specialty Start Date End Date Thaddeus Felder MD [address] [facility] [address] [place] [id number] PCP - General Internal Medicine 08/18/18 Eleonora Sparks MD [address] [place] [address] Fellow General Surgery 11/16/21 Aren Hayes MD [address] [place] [address] Consulting Physician Interventional Cardiology 11/18/21
--- OUTSIDE RECORDS SUMMARY | 2024-10-18 15:31 | XMS_ITS | Clinical Summary ---
Author Organization [facility] Address [address] [place] [address] Care Team Providers Care Ela Teacher Name Role Phone Yanet Felder MD Primary Care Provider Dawson Mayer MD Unavailable [phone] Source Comments [facility],non-owned Affiliates and Associated Physician Practices is amultiple site organization consisting of ambulatory clinics and hospital sitesin [place], [place], [place] and [place]. This disclosure is being madepursuant to the Care Everywhere program and may not contain all information available regarding this patient. Last updated 18.[facility] Allergies No known active allergies Medications * Be aware that medications may not be up to date on this document. Alwaysverify current medications with the patient. albuterol (PROVENTIL;VENTOLIN ) (2.5 MG/3ML) 0.083% nebulizer solution Inhale 3 mL by mouth every 4 hours as needed 0 8 Active PROAIR HFA 108 (90 BASE) MCG/ACT inhaler Inhale 2 puffs by mouth 4 times daily as needed 3 8 Active fluticasone propionate (FLONASE) 50 MCG/ACT nasal spray Hamilton 1 spray into each nostril once daily 0 8 Active montelukast (SINGULAIR) 10 MG tablet Take 1 tablet by mouth once daily 3 8 Active timolol maleate (TIMOPTIC) 0.5 % ophthalmic solution Instill 1 drop into right eye once daily 9 8 Active traZODone (DESYREL) 50 MG tablet Take 1 tablet by mouth once daily 0 8 Active latanoprost (XALATAN) 0.005 % ophthalmic solution Instill 1 drop into right eye at bedtime Active neomycin-polymyxin- dexameth (MAXITROL) ophthalmic ointmentIndications :Simple chronic conjunctivitis of left eye APPLY 1/4 INCH IN LEFT EYE AT BEDTIME 3.5 g 9 Active Active Problems Problem Noted Date Diagnosed Date Blepharitis of lower eyelids of 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 Resolved Problems Problem Noted Date Diagnosed Date Resolved Date Simple chronic conjunctivitis 03/25/2018 04/23/2018 Social History Tobacco Use Types Packs/Day Years Used Date Smoking Tobacco: Every Day Cigarettes Smokeless Tobacco: Never Alcohol Use Standard Drinks/Week Comments No 0 (1 standard drink = 0.6 oz pur e alcohol) Comments Unknown Sex and Gender Information Value Date Recorded Sex Assigned at Not on file Legal Sex Female 2:23 PM CDT Gender Identity Not on file Sexual Orientation Not on file Plan of Treatment Health Maintenance Due Date Last Done Comments BONE DENSITY TESTING 1944 DTAP/TDAP/TD VACCINES (1 - Tdap) 1963 PNEUMOCOCCAL VACCINE 50+ (1 of 1 - PCV) 1994 ZOSTER VACCINE (1 of 2) 1994 Respiratory Syncytial Virus (RSV) Vaccine Pt: or over 60 yrs (1 - 1-dose 75+ series) 2019 COVID-19 VACCINE ( - 2023-2 5 season) 2024 DEPRESSION SCREENING 06/22/2024 INFLUENZA VACCINE (Season Ended) 2025 HEPATITIS B VACCINE Aged Out No longe r eligible based on patient's age to complete this topic HIB VACCINE Aged Out No longer eligi ble based on patient's age to complete this topic HPV VACCINE Aged Out No longer eligi ble based on patient's age to complete this topic MENINGOCOCCAL (Group B) VACC INE SHARED DECISION-MAKING Aged Out No longer eligibl e based on patient's age to complete this topic MENINGOCOCCAL GROUPS A/C/Y/W VACCINE Aged Out No longer eligible b ased on patient's age to complete this topic Insurance MEDICARE ANTH Care Teams Ela Teacher Relationship Specialty Start Date End Date Yanet Felder MD [address] [facility] [address] [place] [id number] PCP - General 03/25/18 Dawson Mayer MD [address] [place] [id number] Physician 04/23/18
--- OUTSIDE RECORDS SUMMARY | 2024-10-18 15:31 | XMS_ITS | Data Portability ---
Author Organization [place] [facility] [employer], Main Office Address [address] [place] [address] Care Team Providers Care Social Media Manager Name Role Phone VERNON FELDER Primary Care Provider [phone] VERNON FELDER Referring Provider LUCIO LOUIS Explosive Ordnance Disposal Manager CHRISTELLE LEE Explosive Ordnance Disposal Manager RADHA CEE Quality Facilitator [facility] Lab Asst COLLIN THORNE Orthopedic Surgeon ELEANOR DORADO Gallery Or Museum Technician JENNIFERHOMER SI Neurologist STEFFEN ALFREDO Boiler Repairman LEAH TRUONG Assurance Manager JONA MORALES Staff Certified Nurse Midwife Assessment Encounter Date Assessment Date Assessment LastModified by Organization Details LastModified Time 06/28/2024 06/28/2024 08/20/2022: Folate: WNL A1C 5.4 VIT D WNL B12 WNL TSH: WNL CMP: Gluc 64, GFR 55, TP 6.0, Glob 2.3 LDL 115 CBC: WNL 08/25/2022: Urine micro alb 60.5H 11/14/2022: A1C 5.7 Cr 1.30, GFR 40, TP 6.0, Glob 2.3 Chol 221, LDL 144 02/27/2023: A1C 5.7 Cr 1.14, GFR 46, TP 6.2L, Glob 2.4L<- more protein in diet with f/u with nephrology also LDL 129 H/H 11.3/34.8 07/01/2023: A1C 5.6 IPTH 96.2 Gluc 103, GFR 54, TP 6.2, Alb 2.3 Chol 219, LDL 132 WBC 4.1 07/08/2023: A1C 5.5 TP 6.2 09/25/2023: Chol 221, TG 447 12/30/2023: A1C 5.7 WBC 3.7L Na 127, Gluc 100, Ca 8.2, TP 5.7, glob 2.1 LDL 101 06/24/2024: Na 133 A1C 5.4 TSH <0.015L ALT/AST 40/48 WBC 3.4L 45 minutes spent with the patient, ER notes reviewed, chart updated, referrals provided alycia Not available 06/28/2024 14:56:36 08/23/2024 08/23/2024 08/20/2022: Folate: WNL A1C 5.4 VIT D WNL B12 WNL TSH: WNL CMP: Gluc 64, GFR 55, TP 6.0, Glob 2.3 LDL 115 CBC: WNL 08/25/2022: Urine micro alb 60.5H 11/14/2022: A1C 5.7 Cr 1.30, GFR 40, TP 6.0, Glob 2.3 Chol 221, LDL 144 02/27/2023: A1C 5.7 Cr 1.14, GFR 46, TP 6.2L, Glob 2.4L<- more protein in diet with f/u with nephrology also LDL 129 H/H 11.3/34.8 07/01/2023: A1C 5.6 IPTH 96.2 Gluc 103, GFR 54, TP 6.2, Alb 2.3 Chol 219, LDL 132 WBC 4.1 07/08/2023: A1C 5.5 TP 6.2 09/25/2023: Chol 221, TG 447 12/30/2023: A1C 5.7 WBC 3.7L Na 127, Gluc 100, Ca 8.2, TP 5.7, glob 2.1 LDL 101 06/24/2024: Na 133 A1C 5.4 TSH <0.015L ALT/AST 40/48 WBC 3.4L 08/18/2024: A1C 5.8 TSH <0.015L Hep panel : Neg WBC 3.5 GFR 57 US liver: 07/15/2024: neg 45 minutes spent with the patient, ER notes reviewed, chart updated, referrals provided alycia Not available 08/23/2024 12:11:53 Plan of Treatment Reminders Order Date Submit Date Provider Last Modified By Organization Details Last Modified Time Details Appointments Any 15 2024 01:15P Jas ocampo MD Not available Not available Not available Lab magnesium , serum or plasma [address] (Lab), [address] [place], [address], 08/23/2024 14:57:35 CMP, serum or plasma [address] (Lab), [address] [place], [address], 08/23/2024 14:58:12 vitamin B12 + folate, serum or blood [address] (Lab), [address] [place], [address], 08/23/2024 14:57:35 lipid panel, serum [address] (Lab), [address] [place], [address], 08/23/2024 14:57:34 CBC w/ auto diff [address] (Lab), [address] [place], [address], 08/23/2024 14:57:34 T4, free, serum [address] (Lab), [address] [place], [address], 08/23/2024 14:57:34 CMP, serum or plasma [address] (Lab), [address] [place], [address], 08/23/2024 14:57:35 TSH, serum or plasma [address] (Lab), [address] [place], [address], 08/23/2024 14:57:35 glycohemo globin, total, blood [address] (Lab), [address] [place], [address], 08/23/2024 14:57:33 microalbu min, urine [address] (Lab), [address] [place], [address], 08/23/2024 14:57:34 CBC w/ auto diff [address] (Lab), [address] [place], [address], 08/23/2024 14:58:11 vitamin B12 + folate, serum or blood [email or web address] (Lab), [address] [place], [address], 06/29/2024 09:40:56 magnesium , serum or plasma 2023 025 [facility] (Lab), [address] [place], [address], 08/18/2024 13:40:02 lipid panel, serum 2023 025 [facility] (Lab), [address] [place], [address], 08/18/2024 13:39:52 CBC w/ auto diff 2023 025 [facility] (Lab), [address] [place], [address], 08/18/2024 14:07:18 TSH, serum or plasma 2023 025 [facility] (Lab), [address] [place], [address], 08/18/2024 15:13:46 T4, free, serum 2023 025 [facility] (Lab), [address] [place], [address], 08/18/2024 15:13:56 CMP, serum or plasma 2023 025 [facility] (Lab), [address] [place], [address], 08/20/2024 16:22:04 glycohemo globin, total, blood 2023 025 [facility] (Lab), [address] [place], [address], 08/18/2024 14:31:35 microalbu min, urine 2023 025 [facility] (Lab), [address] [place], [address], 06/28/2024 16:42:56 CMP, serum or plasma 2023 025 [facility] (Lab), [address] [place], [address], 08/18/2024 13:39:57 CBC w/ auto diff 2023 025 [email or web address] (Lab), [address] [place], [address], 06/29/2024 09:40:56 hepatitis panel (A+B+C), acute, serum 2024 025 [facility] (Lab), [address] [place], [address], 08/18/2024 15:03:22 gamma-glu tamyl transfera se (ggt), serum 2024 025 [facility] (Lab), [address] [place], [address], 08/18/2024 13:45:12 Referral hand surgeon referral - Please call patient to schedule an appointme nt. Thank you. 2024 025 PATRIC Robertson MD, [address] [facility] [address], [place], [address], 10/04/2024 14:35:28 otolaryng ologist referral - Please call patient to schedule an appointme nt. Thank you 2024 025 [email or web address] Radha Cee MD, [address], [place], [address], 08/25/2024 15:23:03 nephrolog ist referral - Please call patient to schedule an appointme nt. Thank you. 2024 025 [place], [address], [address], [place], [address], 08/25/2024 15:44:52 cardiolog ist referral - Please call pt to schedule appt. Thank you 2024 025 [place], [address], [address], [place], [address], 08/25/2024 16:18:38 dermatolo gist referral - Please call patient to schedule an appointme nt. Thank you. 2024 025 [facility] ([facility]ermatology) , [address], [address], [place], [address], 08/25/2024 15:38:28 dermatolo gist referral - Please call patient to schedule. 2023 025 [email or web address] Lorena Aranda MD (Dermatology) , [address], [address], [place], [address], 06/29/2024 08:51:00 nephrolog ist referral 2023 025 [email or web address] [place], [address], [address], [place], [address], 06/29/2024 08:49:19 cardiolog ist referral - Please call pt to schedule appt. Thank you 2023 025 [email or web address] [place], [address], [address], [place], [address], 06/29/2024 08:49:18 Procedures None recorded. Surgeries None recorded. Imaging US, thyroid - Please call patient to schedule. 2024 025 [facility] ([facility]), [address] [place], [address], 09/02/2024 14:31:37 DEXA, axial skeleton - Please call patient to schedule. 2024 025 [facility] ([facility]), [address] [place], [address], 07/15/2024 14:09:32 US, liver - Please call patient to schedule. 2024 025 [facility] ([facility]), [address] [place], [address], 07/15/2024 14:24:49 Medication Orders meloxicam 7.5 mg tablet 2024 025 [id number], [address] [place], [place], [id number], 09/27/2024 14:49:10 tramadol 50 mg tablet 2024 025 [facility] #[id number], [address] [place], [place], [id number], 09/06/2024 18:52:57 Fosamax 70 mg tablet 2024 025 [facility] #10630, [address] [place], [place], [id number], 08/23/2024 14:58:56 Lyrica 25 mg capsule 2024 [facility]25 [facility] [facility], [address] [place], [place], [id number], 09/27/2024 10:26:49 tramadol 50 mg tablet 2024 025 [facility] #55665, [address] [place], [place], [id number], 06/30/2024 15:24:17 gabapenti n 100 mg capsule 2023 024 [facility]74, [address], [place], [id number], 08/23/2024 14:48:40 Patient TargetsNo targets recorded. Patient InstructionsNo instructions recorded. Reason for Referral Lab Asst Referral for Co ronary arteriosclerosis Please call pt to schedule appt. Thank you Referring Physician: Vernon Felder Internal Medicine, Encounter Date: 06/28/2024 Boiler Repairman Referral for Ch ronic kidney disease Referring Physician: Vernon Felder Internal Medicine, Encounter Date: 06/28/2024 School Superintendent Referral for E ruption Please call patient to schedule. Referring Physician: Vernon Felder Internal Medicine, Encounter Date: 06/28/2024 Lab Asst Referral for Co ronary arteriosclerosis Please call pt to schedule appt. Thank you Referring Physician: Vernon Felder Internal Medicine, Encounter Date: 08/23/2024 Boiler Repairman Referral for Ch ronic kidney disease Please call patient to schedule an appointment. Thank you. Referring Physician: Vernon Felder [facility] Medicine, Encounter Date: 08/23/2024 School Superintendent Referral for E ruption Please call patient to schedule an appointment. Thank you. Referring Physician: Reba Schwartz Medicine, Encounter Date: 08/23/2024 Quality Facilitator Referral fo r Mass of thyroid gland Please call patient to schedule an appointment. Thank you Referring Physician: Reba Schwartz Medicine, Encounter Date: 08/23/2024 Hand Surgeon Referral for Pa in of left hand Please call patient to schedule an appointment. Thank you. Referring Physician: Reba Schwartz Medicine, Encounter Date: 09/27/2024 Results Created Date Observation Date Name Description Value Unit Range Abnormal Flag Note LastModifiedBy Organization Detail LastModifiedTime 04/26/20 24 04/26/2024 CBC/C OMPLE TE BLD COUNT W/DIF F white blood cells 4.2 x10'3 /uL 4.2-10 .8 Not Available [facility] (Lab) [address] [place], [address], 04/26/2024 14:32:27 04/26/20 24 04/26/2024 CBC/C OMPLE TE BLD COUNT W/DIF F red blood cells 4.10 x10'6 /uL 3.80-5 .20 Not Available [facility] (Lab) [address] [place], [address], 04/26/2024 14:32:27 04/26/20 24 04/26/2024 CBC/C OMPLE TE BLD COUNT W/DIF F hemoglobin 13.1 g/dL 12.0-1 5.6 Not Available [facility] (Lab) [address] [place], [address], 04/26/2024 14:32:27 04/26/20 24 04/26/2024 CBC/C OMPLE TE BLD COUNT W/DIF F hematocrit 40.0 % 35.7-4 5.7 Not Available [facility] (Lab) [address] [place], [address], 04/26/2024 14:32:27 04/26/20 24 04/26/2024 CBC/C OMPLE TE BLD COUNT W/DIF F mean red cell volume 97.6 fL 82.0-9 9.0 Not Available [facility] (Lab) [address] [place], [address], 04/26/2024 14:32:27 04/26/20 24 04/26/2024 CBC/C OMPLE TE BLD COUNT W/DIF F mean red cell hemoglobin 32.0 pg 27.0-3 3.0 Not Available [facility] (Lab) [address] [place], [address], 04/26/2024 14:32:27 04/26/20 24 04/26/2024 CBC/C OMPLE TE BLD COUNT W/DIF F mean RBC HGB concentratio n 32.8 g/dL 31.0-3 6.0 Not Available [facility] (Lab) [address] [place], [address], 04/26/2024 14:32:27 04/26/20 24 04/26/2024 CBC/C OMPLE TE BLD COUNT W/DIF F red cell distribution width 14.0 % 11.8-1 5.5 Not Available [facility] (Lab) [address] [place], [address], 04/26/2024 14:32:27 04/26/20 24 04/26/2024 CBC/C OMPLE TE BLD COUNT W/DIF F platelets 165 x10'3 /uL 150-40 0 Not Available [facility] (Lab) [address] [place], [address], 04/26/2024 14:32:27 04/26/20 24 04/26/2024 CBC/C OMPLE TE BLD COUNT W/DIF F mean platelet volume 10.5 fL 9.0-12 .4 Not Available [facility] (Lab) [address] [place], [address], 04/26/2024 14:32:27 04/26/20 24 04/26/2024 CBC/C OMPLE TE BLD COUNT W/DIF F neutrophils 69.5 % 39.0-7 2.0 Not Available [facility] (Lab) [address] [place], [address], 04/26/2024 14:32:27 04/26/20 24 04/26/2024 CBC/C OMPLE TE BLD COUNT W/DIF F lymphocytes 17.5 % 16.0-4 7.0 Not Available [facility] (Lab) [address] [place], [address], 04/26/2024 14:32:27 04/26/20 24 04/26/2024 CBC/C OMPLE TE BLD COUNT W/DIF F monocytes 8.2 % 5.0-12 .0 Not Available [facility] (Lab) [address] [place], [address], 04/26/2024 14:32:27 04/26/20 24 04/26/2024 CBC/C OMPLE TE BLD COUNT W/DIF F eosinophils 3.4 % 1.0-7. 0 Not Available [facility] (Lab) [address] [place], [address], 04/26/2024 14:32:27 04/26/20 24 04/26/2024 CBC/C OMPLE TE BLD COUNT W/DIF F basophils 1.2 % 0.0-2. 0 Not Available [facility] (Lab) [address] [place], [address], 04/26/2024 14:32:27 04/26/20 24 04/26/2024 CBC/C OMPLE TE BLD COUNT W/DIF F immature granulocytes 0.2 % 0.00-0 .50 Not Available [facility] (Lab) [address] [place], [address], 04/26/2024 14:32:27 04/26/20 24 04/26/2024 CBC/C OMPLE TE BLD COUNT W/DIF F neutrophils, absolute count 2.90 x10'3 /uL 1.5-8. 0 Not Available [facility] (Lab) [address] [place], [address], 04/26/2024 14:32:27 04/26/20 24 04/26/2024 CBC/C OMPLE TE BLD COUNT W/DIF F lymphocytes, absolute count 0.73 x10'3 /uL 1.07-3 .43 low Not Available [facility] (Lab) [address] [place], [address], 04/26/2024 14:32:27 04/26/20 24 04/26/2024 CBC/C OMPLE TE BLD COUNT W/DIF F monocytes, absolute count 0.34 x10'3 /uL 0.29-0 .99 Not Available [facility] (Lab) [address] [place], [address], 04/26/2024 14:32:27 04/26/20 24 04/26/2024 CBC/C OMPLE TE BLD COUNT W/DIF F eosinophils, absolute count 0.14 x10'3 /uL 0.02-0 .53 Not Available [facility] (Lab) [address] [place], [address], 04/26/2024 14:32:27 04/26/20 24 04/26/2024 CBC/C OMPLE TE BLD COUNT W/DIF F basophils, absolute count 0.05 x10'3 /uL 0.01-0 .08 Not Available [facility] (Lab) [address] [place], [address], 04/26/2024 14:32:27 04/26/20 24 04/26/2024 CBC/C OMPLE TE BLD COUNT W/DIF F immature granulocytes ,absolute 0.01 x10'3 /uL 0.00-0 .05 Not Available [facility] (Lab) [address] [place], [address], 04/26/2024 14:32:27 04/26/20 24 04/26/2024 CBC/C OMPLE TE BLD COUNT W/DIF F nucleated red blood cells 0.0 % -0 Not Available [facility] (Lab) [address] [place], [address], 04/26/2024 14:32:27 04/26/20 24 04/26/2024 CBC/C OMPLE TE BLD COUNT W/DIF F NRBC# 0.00 x10'3 /uL Not Available [facility] (Lab) [address] [place], [address], 04/26/2024 14:32:27 04/26/20 24 04/26/2024 LIPID PANEL cholesterol 189 mg/dL 140-19 9 NIH RIGOBERTO NSUS RECOM MENDA TION FOR ELENA STERO L: ADULT CHILD LOW RISK: <200 <170 BORDE RLINE : <200- 239 ----- HIGH RISK: >240 >200 Not Available [facility] (Lab) [address] [place], [address], 04/26/2024 15:03:49 04/26/20 24 04/26/2024 LIPID PANEL triglyceride s 84 mg/dL 0-150 NIH RIGOBERTO NSUS REPOR T RECOM MENDA TION FOR TRIGL YCERI MARIELOS: ADULT CHILD LOW RISK: <150 ----- BODER LINE: 150-1 99 ----- HIGH RISK: >200 ----- Not Available [facility] (Lab) [address] [place], [address], 04/26/2024 15:03:49 04/26/20 24 04/26/2024 LIPID PANEL HDL cholesterol 83 mg/dL 40- Not Available [facility] (Lab) [address] [place], [address], 04/26/2024 15:03:49 04/26/20 24 04/26/2024 LIPID PANEL LDL cholesterol, calculated 89 mg/dL 0-130 NIH RIGOBERTO NSUS REPOR T RECOM MENDA TIONS FOR LDL: ADULT CHILD LOW RISK <130 <110 (OPTI MAL LDL) <100 ----- BORDE RLINE : 130-1 59 ----- HIGH RISK: >160 >130 A TRIGL YCERI DE RESUL T >400 INVAL IDATE S THE CALCU LATIO N FOR LDL FRACT IONAT ION - THE LDL RESUL T WILL NOT BE REPOR BISHOP. Not Available [facility] (Lab) [address] [place], [address], 04/26/2024 15:03:49 04/26/20 24 04/26/2024 MAGNE SIUM magnesium 2.0 mg/dL 1.6-2. 3 Not Available [facility] (Lab) [address] [place], [address], 04/26/2024 15:03:54 04/26/20 24 04/26/2024 COMPR EHENS HERMINIO METAB OLIC PANEL sodium 136 mmol/ L 137-14 5 low Not Available [facility] (Lab) [address] [place], [address], 04/26/2024 15:03:59 04/26/20 24 04/26/2024 COMPR EHENS HERMINIO METAB OLIC PANEL potassium 4.7 mmol/ L 3.5-5. 1 Not Available [facility] (Lab) [address] [place], [address], 04/26/2024 15:03:59 04/26/20 24 04/26/2024 COMPR EHENS HERMINIO METAB OLIC PANEL chloride 101 mmol/ L 98-107 Not Available [facility] (Lab) [address] [place], [address], 04/26/2024 15:03:59 04/26/20 24 04/26/2024 COMPR EHENS HERMINIO METAB OLIC PANEL carbon dioxide 30 mmol/ L 22-30 Not Available [facility] (Lab) [address] [place], [address], 04/26/2024 15:03:59 04/26/20 24 04/26/2024 COMPR EHENS HERMINIO METAB OLIC PANEL anion gap 9.7 mmol/ L 14-22 low Not Available [facility] (Lab) [address] [place], [address], 04/26/2024 15:03:59 04/26/20 24 04/26/2024 COMPR EHENS HERMINIO METAB OLIC PANEL glucose 90 mg/dL 70-99 Not Available [facility] (Lab) [address] [place], [address], 04/26/2024 15:03:59 04/26/20 24 04/26/2024 COMPR EHENS HERMINIO METAB OLIC PANEL BUN 15 mg/dL 8-19 Not Available [facility] (Lab) [address] [place], [address], 04/26/2024 15:03:59 04/26/20 24 04/26/2024 COMPR EHENS HERMINIO METAB OLIC PANEL creatinine 0.88 mg/dL 0.66-1 .25 Not Available [facility] (Lab) [address] [place], [address], 04/26/2024 15:03:59 04/26/20 24 04/26/2024 COMPR EHENS HERMINIO METAB OLIC PANEL GFR >60 Refer ence Range : [place] ge GFR Healt hy Adult : >60 mL/mi n/1.7 3 m2 Chron ic Kidne y Disea se: 15-60 mL/mi n/1.7 3 m2 Kidne y Failu re: <15/m L/min /1.73 m2 www.n iddk. nih.g ov The MDRD study equat ion has not been valid ated in child savana <18 years of age; pregn ant women ; the elder ly >85 years of age; or in some racia l or ethni c subgr oups, such as [facility] nics. Outsi de the valid ated irma eters , estim ated GFR is less accur ate, requi ring clini manny judgm ent on a case- by-ca se basis . Clini manny inter preta tion for other races and ages must be made by the clini maddie. The MDRD study equat ion has not been valid ated for the evalu ation of serum creat inine relat ed to nutri brooks l statu s or medic ation usage . For perso ns <18 years of age, a pedia tric GFR calcu lator is avail able on the NKF websi te: https ://cheo jackson.khanh hand.o tony/pr ofess ional s/kdo qi/gf r_cal culat or Not Available [facility] (Lab) [address] [place], [address], 04/26/2024 15:03:59 04/26/20 24 04/26/2024 COMPR EHENS HERMINIO METAB OLIC PANEL alkaline phosphatase 69 U/L 38-126 Not Available [facility] (Lab) [address] [place], [address], 04/26/2024 15:03:59 04/26/20 24 04/26/2024 COMPR EHENS HERMINIO METAB OLIC PANEL alanine aminotransfe rase 27 U/L 0-35 Not Available [facility] (Lab) [address] [place], [address], 04/26/2024 15:03:59 04/26/20 24 04/26/2024 COMPR EHENS HERMINIO METAB OLIC PANEL aspartate aminotransfe rase 40 U/L 15-37 high Not Available [facility] (Lab) [address] [place], [address], 04/26/2024 15:03:59 04/26/20 24 04/26/2024 COMPR EHENS HERMINIO METAB OLIC PANEL bilirubin, total 0.60 mg/dL 0.20-1 .30 Not Available [facility] (Lab) [address] [place], [address], 04/26/2024 15:03:59 04/26/20 24 04/26/2024 COMPR EHENS HERMINIO METAB OLIC PANEL calcium 8.9 mg/dL 8.4-10 .2 Not Available [facility] (Lab) [address] [place], [address], 04/26/2024 15:03:59 04/26/20 24 04/26/2024 COMPR EHENS HERMINIO METAB OLIC PANEL total protein 6.0 g/dL 6.3-8. 2 low Not Available [facility] (Lab) [address] [place], [address], 04/26/2024 15:03:59 04/26/20 24 04/26/2024 COMPR EHENS HERMINIO METAB OLIC PANEL albumin 4.0 g/dL 3.0-4. 4 Not Available [facility] (Lab) [address] [place], [address], 04/26/2024 15:03:59 04/26/20 24 04/26/2024 COMPR EHENS HERMINIO METAB OLIC PANEL globulin 2.0 g/dL 2.6-4. 2 low Not Available [facility] (Lab) [address] [place], [address], 04/26/2024 15:03:59 04/26/20 24 04/26/2024 COMPR EHENS HERMINIO METAB OLIC PANEL A/G ratio 2.0 ratio 1.0-2. 0 Not Available [facility] (Lab) [address] [place], [address], 04/26/2024 15:03:59 04/26/20 24 04/26/2024 T4 FREE free T4 1.11 NG/dL 0.78-2 .19 Not Available [facility] (Lab) [address] [place], [address], 04/26/2024 15:11:15 04/26/20 24 04/26/2024 TSH thyroid-stim ulating hormone 0.055 uIU/m L 0.465- 4.680 low Not Available [facility] (Lab) [address] [place], [address], 04/26/2024 15:33:25 04/26/20 24 04/26/2024 VITAM IN B12 (OLI JOANN ) vb12 509 pg/mL 239-93 1 Not Available [facility] (Lab) [address] [place], [address], 04/26/2024 16:07:32 04/26/20 24 04/26/2024 FOLAT E, SERUM /PLAS MA folate >20.0 NG/mL 2.76-2 0.0 Not Available [facility] (Lab) [address] [place], [address], 04/26/2024 16:07:38 04/26/20 24 04/26/2024 HEMOG LOBIN A1C HA1C 5.5 % 4.0-6. 0 Diabe kojo Scree lilliana Crite riana: <5.7% Consi stent with absen ce of diabe kojo 5.7-6 .4% Consi stent with incre ased risk for diabe kojo (pred iabet es) >OR=6 .5% Consi stent with diabe kojo REFER ENCE: Diabe kojo Care 2015, 39( ppl.1 ):s13 -s22 Not Available [facility] (Lab) [address] [place], [address], 04/26/2024 21:55:06 04/28/20 24 04/28/2024 MICRO ALBUM IN RANDO M URINE microalbumin , urine <6.0 mg/L 0.0-16 .6 DO NOT REPOR T Not Available [facility] (Lab) [address] [place], [address], 04/28/2024 13:43:17 06/24/19 25 06/24/2024 CBC/C OMPLE TE BLD COUNT W/DIF F white blood cells 3.4 x10'3 /uL 4.2-10 .8 low Not Available [facility] (Lab) [address] [place], [address], 06/24/2024 13:43:32 06/24/19 25 06/24/2024 CBC/C OMPLE TE BLD COUNT W/DIF F red blood cells 4.43 x10'6 /uL 3.80-5 .20 Not Available [facility] (Lab) [address] [place], [address], 06/24/2024 13:43:32 06/24/19 25 06/24/2024 CBC/C OMPLE TE BLD COUNT W/DIF F hemoglobin 14.2 g/dL 12.0-1 5.6 Not Available [facility] (Lab) [address] [place], [address], 06/24/2024 13:43:32 06/24/19 25 06/24/2024 CBC/C OMPLE TE BLD COUNT W/DIF F hematocrit 42.0 % 35.7-4 5.7 Not Available [facility] (Lab) [address] [place], [address], 06/24/2024 13:43:32 06/24/19 25 06/24/2024 CBC/C OMPLE TE BLD COUNT W/DIF F mean red cell volume 94.8 fL 82.0-9 9.0 Not Available [facility] (Lab) [address] [place], [address], 06/24/2024 13:43:32 06/24/19 25 06/24/2024 CBC/C OMPLE TE BLD COUNT W/DIF F mean red cell hemoglobin 32.1 pg 27.0-3 3.0 Not Available [facility] (Lab) [address] [place], [address], 06/24/2024 13:43:32 06/24/19 25 06/24/2024 CBC/C OMPLE TE BLD COUNT W/DIF F mean RBC HGB concentratio n 33.8 g/dL 31.0-3 6.0 Not Available [facility] (Lab) [address] [place], [address], 06/24/2024 13:43:32 06/24/19 25 06/24/2024 CBC/C OMPLE TE BLD COUNT W/DIF F red cell distribution width 12.8 % 11.8-1 5.5 Not Available [facility] (Lab) [address] [place], [address], 06/24/2024 13:43:32 06/24/19 25 06/24/2024 CBC/C OMPLE TE BLD COUNT W/DIF F platelets 170 x10'3 /uL 150-40 0 Not Available [facility] (Lab) [address] [place], [address], 06/24/2024 13:43:32 06/24/19 25 06/24/2024 CBC/C OMPLE TE BLD COUNT W/DIF F mean platelet volume 10.6 fL 9.0-12 .4 Not Available [facility] (Lab) [address] [place], [address], 06/24/2024 13:43:32 06/24/19 25 06/24/2024 CBC/C OMPLE TE BLD COUNT W/DIF F neutrophils, absolute count 2.33 x10'3 /uL 1.5-8. 0 Not Available [facility] (Lab) [address] [place], [address], 06/24/2024 13:43:32 06/24/19 25 06/24/2024 LIPID PANEL cholesterol 161 mg/dL 140-19 9 [facility] RIGOBERTO NSUS RECOM MENDA TION FOR ELENA STERO L: ADULT CHILD LOW RISK: <200 <170 BORDE RLINE : <200- 239 ----- HIGH RISK: >240 >200 Not Available [facility] (Lab) [address] [place], [address], 06/24/2024 14:01:32 06/24/19 25 06/24/2024 LIPID PANEL triglyceride s 68 mg/dL 0-150 [facility] RIGOBERTO NSUS REPOR T RECOM MENDA TION FOR TRIGL YCERI MARIELOS: ADULT CHILD LOW RISK: <150 ----- BODER LINE: 150-1 99 ----- HIGH RISK: >200 ----- Not Available [facility] (Lab) [address] [place], [address], 06/24/2024 14:01:32 06/24/19 25 06/24/2024 LIPID PANEL HDL cholesterol 102 mg/dL 40- Not Available [facility] (Lab) [address] [place], [address], 06/24/2024 14:01:32 06/24/19 25 06/24/2024 LIPID PANEL LDL cholesterol, calculated 45 mg/dL 0-130 NIH RIGOBERTO NSUS REPOR T RECOM MENDA TIONS FOR LDL: ADULT CHILD LOW RISK <130 <110 (OPTI MAL LDL) <100 ----- BORDE RLINE : 130-1 59 ----- HIGH RISK: >160 >130 A TRIGL YCERI DE RESUL T >400 INVAL IDATE S THE CALCU LATIO N FOR LDL FRACT IONAT ION - THE LDL RESUL T WILL NOT BE REPOR BISHOP. Not Available [facility] (Lab) [address] [place], [address], 06/24/2024 14:01:32 06/24/19 25 06/24/2024 COMP MET PANEL /LIVE R sodium 133 mmol/ L 137-14 5 low Not Available [facility] (Lab) [address] [place], [address], 06/24/2024 14:01:38 06/24/19 25 06/24/2024 COMP MET PANEL /LIVE R potassium 3.5 mmol/ L 3.5-5. 1 Not Available [facility] (Lab) [address] [place], [address], 06/24/2024 14:01:38 06/24/19 25 06/24/2024 COMP MET PANEL /LIVE R chloride 100 mmol/ L 98-107 Not Available [facility] (Lab) [address] [place], [address], 06/24/2024 14:01:38 06/24/19 25 06/24/2024 COMP MET PANEL /LIVE R carbon dioxide 31 mmol/ L 22-30 high Not Available [facility] (Lab) [address] [place], [address], 06/24/2024 14:01:38 06/24/19 25 06/24/2024 COMP MET PANEL /LIVE R anion gap 5.5 mmol/ L 14-22 low Not Available [facility] (Lab) [address] [place], [address], 06/24/2024 14:01:38 06/24/19 25 06/24/2024 COMP MET PANEL /LIVE R glucose 86 mg/dL 70-99 Not Available [facility] (Lab) [address] [place], [address], 06/24/2024 14:01:38 06/24/19 25 06/24/2024 COMP MET PANEL /LIVE R BUN 10 mg/dL 8-19 Not Available [facility] (Lab) [address] [place], [address], 06/24/2024 14:01:38 06/24/19 25 06/24/2024 COMP MET PANEL /LIVE R creatinine 0.83 mg/dL 0.66-1 .25 Not Available [facility] (Lab) [address] [place], [address], 06/24/2024 14:01:38 06/24/19 25 06/24/2024 COMP MET PANEL /LIVE R GFR >60 Refer ence Range : [place] ge GFR Healt hy Adult : >60 mL/mi n/1.7 3 m2 Chron ic Kidne y Disea se: 15-60 mL/mi n/1.7 3 m2 Kidne y Failu re: <15/m L/min /1.73 m2 www.n iddk. nih.g ov The MDRD study equat ion has not been valid ated in child savana <18 years of age; pregn ant women ; the elder ly >85 years of age; or in some racia l or ethni c subgr oups, such as Hispa nics. Outsi de the valid ated irma eters , estim ated GFR is less accur ate, requi ring clini manny judgm ent on a case- by-ca se basis . Clini manny inter preta tion for other races and ages must be made by the clini maddie. The MDRD study equat ion has not been valid ated for the evalu ation of serum creat inine relat ed to nutri brooks l statu s or medic ation usage . For perso ns <18 years of age, a pedia tric GFR calcu lator is avail able on the [facility] websi te: https ://cheo jackson.khanh hand.o rg/pr ofess ional s/kdo qi/gf r_cal culat or Not Available [facility] (Lab) [address] [place], [address], 06/24/2024 14:01:38 06/24/19 25 06/24/2024 COMP MET PANEL /LIVE R alkaline phosphatase 72 U/L 38-126 Not Available [facility] (Lab) [address] [place], [address], 06/24/2024 14:01:38 06/24/19 25 06/24/2024 COMP MET PANEL /LIVE R alanine aminotransfe rase 40 U/L 0-35 high Not Available [facility] (Lab) [address] [place], [address], 06/24/2024 14:01:38 06/24/19 25 06/24/2024 COMP MET PANEL /LIVE R aspartate aminotransfe rase 48 U/L 15-37 high Not Available [facility] (Lab) [address] [place], [address], 06/24/2024 14:01:38 06/24/19 25 06/24/2024 COMP MET PANEL /LIVE R bilirubin, total 0.80 mg/dL 0.20-1 .30 Not Available [facility] (Lab) [address] [place], [address], 06/24/2024 14:01:38 06/24/19 25 06/24/2024 COMP MET PANEL /LIVE R bilirubin, conjugated (direct) 0.00 mg/dL 0.00-0 .30 Not Available [facility] (Lab) [address] [place], [address], 06/24/2024 14:01:38 06/24/19 25 06/24/2024 COMP MET PANEL /LIVE R erasto farrarng. (indirect) 0.30 mg/dL 0.00-1 .1 Not Available [facility] (Lab) [address] [place], [address], 06/24/2024 14:01:38 06/24/19 25 06/24/2024 COMP MET PANEL /LIVE R calcium 8.9 mg/dL 8.4-10 .2 Not Available [facility] (Lab) [address] [place], [address], 06/24/2024 14:01:38 06/24/19 25 06/24/2024 COMP MET PANEL /LIVE R total protein 6.3 g/dL 6.3-8. 2 Not Available [facility] (Lab) [address] [place], [address], 06/24/2024 14:01:38 06/24/19 25 06/24/2024 COMP MET PANEL /LIVE R albumin 4.3 g/dL 3.0-4. 4 Not Available [facility] (Lab) [address] [place], [address], 06/24/2024 14:01:38 06/24/19 25 06/24/2024 COMP MET PANEL /LIVE R globulin 2.0 g/dL 2.6-4. 2 low Not Available [facility] (Lab) [address] [place], [address], 06/24/2024 14:01:38 06/24/19 25 06/24/2024 COMP MET PANEL /LIVE R A/G ratio 2.2 ratio 1.0-2. 0 high Not Available [facility] (Lab) [address] [place], [address], 06/24/2024 14:01:38 06/24/19 25 06/24/2024 MAGNE SIUM magnesium 2.0 mg/dL 1.6-2. 3 Not Available [facility] (Lab) [address] [place], [address], 06/24/2024 14:01:41 06/24/19 25 06/24/2024 HEMOG LOBIN A1C HA1C 5.4 % 4.0-6. 0 Diabe kojo Scree lilliana Crite riana: <5.7% Consi stent with absen ce of diabe kojo 5.7-6 .4% Consi stent with incre ased risk for diabe kojo (pred iabet es) >OR=6 .5% Consi stent with diabe kojo REFER ENCE: Diabe kojo Care 2015, 39(Elizabeth ppl.1 ):s13 -s22 Not Available [facility] (Lab) [address] [place], [address], 06/24/2024 14:02:17 06/24/19 25 06/24/2024 T4 FREE free T4 1.24 NG/dL 0.78-2 .19 Not Available [facility] (Lab) [address] [place], [address], 06/24/2024 14:15:47 06/24/19 25 06/24/2024 TSH W/REF GUDELIA FT4 TSH with reflex free T4 <0.015 uIU/m L 0.465- 4.680 low Not Available [facility] (Lab) [address] [place], [address], 06/24/2024 14:25:11 06/24/19 25 06/24/2024 VITAM IN B12 (OLI JOANN ) vb12 903 pg/mL 239-93 1 Not Available [facility] (Lab) [address] [place], [address], 06/24/2024 15:05:50 06/24/19 25 06/24/2024 FOLAT E, SERUM /PLAS MA folate >20.0 NG/mL 2.76-2 0.0 Not Available [facility] (Lab) [address] [place], [address], 06/24/2024 15:05:52 06/24/19 25 06/29/2024 TSH thyroid-stim ulating hormone <0.015 uIU/m L 0.465- 4.680 low Not Available [facility] (Lab) [address] [place], [address], 06/29/2024 08:54:25 06/28/1906/28/2024 MICRO ALBUM IN RANDO M URINE microalbumin , urine 17.0 mg/L 0.0-16 .6 high Not Available [facility] (Lab) [address] [place], [address], 06/28/2024 16:42:56 08/18/19 25 08/18/2024 LIPID PANEL cholesterol 188 mg/dL 140-19 9 NIH RIGOBERTO NSUS RECOM MENDA TION FOR ELENA STERO L: ADULT CHILD LOW RISK: <200 <170 BORDE RLINE : <200- 239 ----- HIGH RISK: >240 >200 Not Available [facility] (Lab) [address] [place], [address], 08/18/2024 13:39:52 08/18/19 25 08/18/2024 LIPID PANEL triglyceride s 86 mg/dL 0-150 NIH RIGOBERTO NSUS REPOR T RECOM MENDA TION FOR TRIGL YCERI AMRIELOS: ADULT CHILD LOW RISK: <150 ----- BODER LINE: 150-1 99 ----- HIGH RISK: >200 ----- Not Available [facility] (Lab) [address] [place], [address], 08/18/2024 13:39:52 08/18/19 25 08/18/2024 LIPID PANEL HDL cholesterol 84 mg/dL 40- Not Available [facility] (Lab) [address] [place], [address], 08/18/2024 13:39:52 08/18/1908/18/2024 LIPID PANEL LDL cholesterol, calculated 87 mg/dL 0-130 NIH RIGOBERTO NSUS REPOR T RECOM MENDA TIONS FOR LDL: ADULT CHILD LOW RISK <130 <110 (OPTI MAL LDL) <100 ----- BORDE RLINE : 130-1 59 ----- HIGH RISK: >160 >130 A TRIGL YCERI DE RESUL T >400 INVAL IDATE S THE CALCU LATIO N FOR LDL FRACT IONAT ION - THE LDL RESUL T WILL NOT BE REPOR BISHOP. Not Available [facility] (Lab) [address] [place], [address], 08/18/2024 13:39:52 08/18/19 25 08/18/2024 COMPR EHENS HERMINIO METAB OLIC PANEL sodium 136 mmol/ L 137-14 5 low Not Available [facility] (Lab) [address] [place], [address], 08/18/2024 13:39:57 08/18/19 25 08/18/2024 COMPR EHENS HERMINIO METAB OLIC PANEL potassium 3.6 mmol/ L 3.5-5. 1 Not Available [facility] (Lab) [address] [place], [address], 08/18/2024 13:39:57 08/18/19 25 08/18/2024 COMPR EHENS HERMINIO METAB OLIC PANEL chloride 106 mmol/ L 98-107 Not Available [facility] (Lab) [address] [place], [address], 08/18/2024 13:39:57 08/18/19 25 08/18/2024 COMPR EHENS HERMINIO METAB OLIC PANEL carbon dioxide 30 mmol/ L 22-30 Not Available [facility] (Lab) [address] [place], [address], 08/18/2024 13:39:57 08/18/19 25 08/18/2024 COMPR EHENS HERMINIO METAB OLIC PANEL anion gap 3.6 mmol/ L 14-22 low Not Available [facility] (Lab) [address] [place], [address], 08/18/2024 13:39:57 08/18/19 25 08/18/2024 COMPR EHENS HERMINIO METAB OLIC PANEL glucose 97 mg/dL 70-99 Not Available [facility] (Lab) [address] [place], [address], 08/18/2024 13:39:57 08/18/19 25 08/18/2024 COMPR EHENS HERMINIO METAB OLIC PANEL BUN 14 mg/dL 8-19 Not Available [facility] (Lab) [address] [place], [address], 08/18/2024 13:39:57 08/18/19 25 08/18/2024 COMPR EHENS HERMINIO METAB OLIC PANEL creatinine 0.94 mg/dL 0.66-1 .25 Not Available [facility] (Lab) [address] [place], [address], 08/18/2024 13:39:57 08/18/19 25 08/18/2024 COMPR EHENS HERMINIO METAB OLIC PANEL GFR 57 Refer ence Range : [place] ge GFR Healt hy Adult : >60 mL/mi n/1.7 3 m2 Chron ic Kidne y Disea se: 15-60 mL/mi n/1.7 3 m2 Kidne y Failu re: <15/m L/min /1.73 m2 www.n iddk. nih.g ov The MDRD study equat ion has not been valid ated in child savana <18 years of age; pregn ant women ; the elder ly >85 years of age; or in some racia l or ethni c subgr oups, such as Hispa nics. Outsi de the valid ated irma eters , estim ated GFR is less accur ate, requi ring clini manny judgm ent on a case- by-ca se basis . Clini manny inter preta tion for other races and ages must be made by the clini maddie. The MDRD study equat ion has not been valid ated for the evalu ation of serum creat inine relat ed to nutri brooks l statu s or medic ation usage . For perso ns <18 years of age, a pedia tric GFR calcu lator is avail able on the [facility] websi te: https :[email or web address] w.khanh soody.o rg/pr ofess ional s/kdo qi/gf r_cal culat or Not Available [facility] (Lab) [address] [place], [address], 08/18/2024 13:39:57 08/18/19 25 08/18/2024 COMPR EHENS HERMINIO METAB OLIC PANEL alkaline phosphatase 83 U/L 38-126 Not Available [facility] (Lab) [address] [place], [address], 08/18/2024 13:39:57 08/18/19 25 08/18/2024 COMPR EHENS HERMINIO METAB OLIC PANEL alanine aminotransfe rase 23 U/L 0-35 Not Available [facility] (Lab) [address] [place], [address], 08/18/2024 13:39:57 08/18/19 25 08/18/2024 COMPR EHENS HERMINIO METAB OLIC PANEL aspartate aminotransfe rase 36 U/L 15-37 Not Available [facility] (Lab) [address] [place], [address], 08/18/2024 13:39:57 08/18/19 25 08/18/2024 COMPR EHENS HERMINIO METAB OLIC PANEL bilirubin, total 0.50 mg/dL 0.20-1 .30 Not Available [facility] (Lab) [address] [place], [address], 08/18/2024 13:39:57 08/18/19 25 08/18/2024 COMPR EHENS HERMINIO METAB OLIC PANEL calcium 8.7 mg/dL 8.4-10 .2 Not Available [facility] (Lab) [address] [place], [address], 08/18/2024 13:39:57 08/18/19 25 08/18/2024 COMPR EHENS HERMINIO METAB OLIC PANEL total protein 5.9 g/dL 6.3-8. 2 low Not Available [facility] (Lab) [address] [place], [address], 08/18/2024 13:39:57 08/18/19 25 08/18/2024 COMPR EHENS HERMINIO METAB OLIC PANEL albumin 4.0 g/dL 3.0-4. 4 Not Available [facility] (Lab) [address] [place], [address], 08/18/2024 13:39:57 08/18/19 25 08/18/2024 COMPR EHENS HERMINIO METAB OLIC PANEL globulin 1.9 g/dL 2.6-4. 2 low Not Available [facility] (Lab) [address] [place], [address], 08/18/2024 13:39:57 08/18/19 25 08/18/2024 COMPR EHENS HERMINIO METAB OLIC PANEL A/G ratio 2.1 ratio 1.0-2. 0 high Not Available [facility] (Lab) [address] [place], [address], 08/18/2024 13:39:57 08/18/19 25 08/18/2024 MAGNE SIUM magnesium 1.7 mg/dL 1.6-2. 3 Not Available [facility] (Lab) [address] [place], [address], 08/18/2024 13:40:02 08/18/19 25 08/18/2024 GGT/G -GLUT AMYL TRANS FERAS E gamma-glutam yl transferase 36 U/L 12-43 Not Available [facility] (Lab) [address] [place], [address], 08/18/2024 13:45:12 08/18/19 25 08/18/2024 CBC/C OMPLE TE BLD COUNT W/DIF F white blood cells 3.5 x10'3 /uL 4.2-10 .8 low Not Available [facility] (Lab) [address] [facility], [address], 08/18/2024 14:07:18 08/18/19 25 08/18/2024 CBC/C OMPLE TE BLD COUNT W/DIF F red blood cells 4.06 x10'6 /uL 3.80-5 .20 Not Available [facility] (Lab) [address] [place], [address], 08/18/2024 14:07:18 08/18/19 25 08/18/2024 CBC/C OMPLE TE BLD COUNT W/DIF F hemoglobin 12.8 g/dL 12.0-1 5.6 Not Available [facility] (Lab) [address] [place], [address], 08/18/2024 14:07:18 08/18/19 25 08/18/2024 CBC/C OMPLE TE BLD COUNT W/DIF F hematocrit 39.2 % 35.7-4 5.7 Not Available [facility] (Lab) [address] [place], [address], 08/18/2024 14:07:18 08/18/19 25 08/18/2024 CBC/C OMPLE TE BLD COUNT W/DIF F mean red cell volume 96.6 fL 82.0-9 9.0 Not Available [facility] (Lab) [address] [place], [address], 08/18/2024 14:07:18 08/18/19 08/18/2024 CBC/C OMPLE TE BLD COUNT W/DIF F mean red cell hemoglobin 31.5 pg 27.0-3 3.0 Not Available [facility] (Lab) [address] [place], [address], 08/18/2024 14:07:18 08/18/19 25 08/18/2024 CBC/C OMPLE TE BLD COUNT W/DIF F mean RBC HGB concentratio n 32.7 g/dL 31.0-3 6.0 Not Available [facility] (Lab) [address] [facility], [address], 08/18/2024 14:07:18 08/18/1908/18/2024 CBC/C OMPLE TE BLD COUNT W/DIF F red cell distribution width 12.4 % 11.8-1 5.5 Not Available [facility] (Lab) [address] [place], [address], 08/18/2024 14:07:18 08/18/1908/18/2024 CBC/C OMPLE TE BLD COUNT W/DIF F platelets 165 x10'3 /uL 150-40 0 Not Available [facility] (Lab) [address] [place], [address], 08/18/2024 14:07:18 08/18/1908/18/2024 CBC/C OMPLE TE BLD COUNT W/DIF F mean platelet volume 10.5 fL 9.0-12 .4 Not Available [facility] (Lab) [address] [place], [address], 08/18/2024 14:07:18 08/18/1908/18/2024 CBC/C OMPLE TE BLD COUNT W/DIF F neutrophils 69.6 % 39.0-7 2.0 Not Available [facility] (Lab) [address] [place], [address], 08/18/2024 14:07:18 08/18/19 25 08/18/2024 CBC/C OMPLE TE BLD COUNT W/DIF F lymphocytes 15.6 % 16.0-4 7.0 low Not Available [facility] (Lab) [address] [place], [address], 08/18/2024 14:07:18 08/18/19 25 08/18/2024 CBC/C OMPLE TE BLD COUNT W/DIF F monocytes 8.8 % 5.0-12 .0 Not Available [facility] (Lab) [address] [place], [address], 08/18/2024 14:07:18 08/18/19 25 08/18/2024 CBC/C OMPLE TE BLD COUNT W/DIF F eosinophils 4.3 % 1.0-7. 0 Not Available [facility] (Lab) [address] [place], [address], 08/18/2024 14:07:18 08/18/19 25 08/18/2024 CBC/C OMPLE TE BLD COUNT W/DIF F basophils 1.4 % 0.0-2. 0 Not Available [facility] (Lab) [address] [place], [address], 08/18/2024 14:07:18 08/18/19 25 08/18/2024 CBC/C OMPLE TE BLD COUNT W/DIF F immature granulocytes 0.3 % 0.00-0 .50 Not Available [facility] (Lab) [address] [place], [address], 08/18/2024 14:07:18 08/18/1908/18/2024 CBC/C OMPLE TE BLD COUNT W/DIF F neutrophils, absolute count 2.45 x10'3 /uL 1.5-8. 0 Not Available [facility] (Lab) [address] [place], [address], 08/18/2024 14:07:18 08/18/19 25 08/18/2024 CBC/C OMPLE TE BLD COUNT W/DIF F lymphocytes, absolute count 0.55 x10'3 /uL 1.07-3 .43 low Not Available [facility] (Lab) [address] [place], [address], 08/18/2024 14:07:18 08/18/19 25 08/18/2024 CBC/C OMPLE TE BLD COUNT W/DIF F monocytes, absolute count 0.31 x10'3 /uL 0.29-0 .99 Not Available [facility] (Lab) [address] [place], [address], 08/18/2024 14:07:18 08/18/19 25 08/18/2024 CBC/C OMPLE TE BLD COUNT W/DIF F eosinophils, absolute count 0.15 x10'3 /uL 0.02-0 .53 Not Available [facility] (Lab) [address] [place], [address], 08/18/2024 14:07:18 08/18/19 25 08/18/2024 CBC/C OMPLE TE BLD COUNT W/DIF F basophils, absolute count 0.05 x10'3 /uL 0.01-0 .08 Not Available [facility] (Lab) [address] [place], [address], 08/18/2024 14:07:18 08/18/19 25 08/18/2024 CBC/C OMPLE TE BLD COUNT W/DIF F immature granulocytes ,absolute 0.01 x10'3 /uL 0.00-0 .05 Not Available [facility] (Lab) [address] [place], [address], 08/18/2024 14:07:18 08/18/19 25 08/18/2024 CBC/C OMPLE TE BLD COUNT W/DIF F nucleated red blood cells 0.0 % -0 Not Available [facility] (Lab) [address] [place], [address], 08/18/2024 14:07:18 08/18/19 25 08/18/2024 CBC/C OMPLE TE BLD COUNT W/DIF F NRBC# 0.00 x10'3 /uL Not Available [facility] (Lab) [address] [place], [address], 08/18/2024 14:07:18 08/18/19 25 08/18/2024 HEMOG LOBIN A1C HA1C 5.8 % 4.0-6. 0 Diabe kojo Scree lilliana Crite riana: <5.7% Consi stent with absen ce of diabe kojo 5.7-6 .4% Consi stent with incre ased risk for diabe kojo (pred iabet es) >OR=6 .5% Consi stent with diabe kojo REFER ENCE: Diabe kojo Care 2016, 39(Elizabeth ppl.1 ):s13 -s22 Not Available [facility] (Lab) [address] [place], [address], 08/18/2024 14:31:35 08/18/19 25 08/18/2024 HEPAT ITIS ACUTE PANEL hepatitis A IgM antibody NON-RE ACTIVE non-re active For sampl es repor bishop as Borde rline React herminio for HAV IgM, it is recom tien d a new speci men be obtai dalia in 2 weeks and retes bishop. Not Available [facility] (Lab) [address] [place], [address], 08/18/2024 15:03:48 08/18/19 25 08/18/2024 HEPAT ITIS ACUTE PANEL hepatitis A virus signal/cutof 0.01 0.00-0 .79 Not Available [facility] (Lab) [address] [place], [address], 08/18/2024 15:03:48 08/18/19 25 08/18/2024 HEPAT ITIS ACUTE PANEL hepatitis B core IgM antibody NON-RE ACTIVE non-re active Not Available [facility] (Lab) [address] [place], [address], 08/18/2024 15:03:48 08/18/19 25 08/18/2024 HEPAT ITIS ACUTE PANEL HBV core IgM signal/cutof f 0.05 0.00-1 .10 Not Available [facility] (Lab) [address] [place], [address], 08/18/2024 15:03:48 08/18/19 25 08/18/2024 HEPAT ITIS ACUTE PANEL hepatitis B surface antigen NON-RE ACTIVE non-re active All speci mens react herminio for Hepat itis B Surfa ce Antig en will refle x to refer ral lab confi rmato ry testi ng. Not Available [facility] (Lab) [address] [place], [address], 08/18/2024 15:03:48 08/18/19 25 08/18/2024 HEPAT ITIS ACUTE PANEL HBV surf.antigen signal/cutof f 0.10 0.00-0 .99 Not Available [facility] (Lab) [address] [place], [address], 08/18/2024 15:03:48 08/18/19 25 08/18/2024 HEPAT ITIS ACUTE PANEL hepatitis C antibody NON-RE ACTIVE non-re active All speci mens react herminio for Hepat itis C Virus antib dolly will refle x to PCR confi rmato ry testi ng. Pleas e allow 48-72 hours for resul ts. Not Available [facility] (Lab) [address] [place], [address], 08/18/2024 15:03:48 08/18/19 25 08/18/2024 HEPAT ITIS ACUTE PANEL hepatitis C virus signal/cutof 0.01 0.00-0 .99 Not Available [facility] (Lab) [address] [place], [address], 08/18/2024 15:03:48 08/18/19 25 08/18/2024 MICRO ALBUM IN RANDO M URINE microalbumin , urine 7.9 mg/L 0.0-16 .6 Not Available [facility] (Lab) [address] [place], [address], 08/18/2024 15:05:55 08/18/19 25 08/18/2024 TSH thyroid-stim ulating hormone <0.015 uIU/m L 0.465- 4.680 low Not Available [facility] (Lab) [address] [place], [address], 08/18/2024 15:13:46 08/18/19 25 08/18/2024 T4 FREE free T4 1.21 NG/dL 0.78-2 .19 Not Available [facility] (Lab) [address] [place], [address], 08/18/2024 15:13:56 08/18/19 25 08/19/2024 VITAM IN B12 (OLI JOANN ) vb12 840 pg/mL 239-93 1 Not Available [facility] (Lab) [address] [place], [address], 08/19/2024 15:26:04 08/18/19 25 08/19/2024 FOLAT E, SERUM /PLAS MA folate >20.0 NG/mL 2.76-2 0.0 Not Available [facility] (Lab) [address] [place], [address], 08/19/2024 21:08:55 07/10/19 25 07/08/2024 , deepak rodriguez, [facility] mity No observ ation record ed. [email or web address] [facility] [address], [place], [address], 07/11/2024 09:55:07 0107/08/2024 imagi ng/di rutos tic resul t No observ ation record ed. [facility] [address], [place], [address], 07/10/2024 15:53:18 07/15/19 25 07/15/2024 DEXA, axial skele ton [facility] [address] [id number] Patien t Name: JULIETTE SHEN Access ion #: [id number] Sex: F : 1944 9 Dictat ed By: Colin wall Attend ing Physic kristy: MYRON MERAZ Physic kristy: MYRON MERAZ Exam Date: 2024 11:19 AM Exam Name: XR DEXA-H IPS PELVIS SPINE Admitt ing Diagno sis(es ): INDICA TION: Screen ing for osteop orosis DEXA SCAN: BONE DENSIT Y REPORT : AP SPINE (L1-L4 ) : T Score: -1.3 RT FEMORA L NECK : T Score: -3.3 RT HIP TOTAL : T Score: -3.8 IMPRES ERIKA: 1. 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 It should be noted that the BMD at L1 is consis tent with osteop orosis . 2. Osteop orosis of the right hip. ------ ------ ------ ------ ------ ------ ------ ------ ----- *FRAX versio n 3.08. Fractu re probab ility calcul ated for an untrea bishop patien t. Fractu re probab ility may be lower if the patien t has receiv ed treatm ent. T-scor e: compar sandoval by bernardino butterfield deviat ion (SD) to a young adult popula tion, anna larry for sex and ethnic ity (used for postme nopaus al women and men >50 years) and classi fied by WHO criter ia. -1.0: normal <-1.0 to >-2.5: osteop enia Page 1 [facility] [address] [place] [address] [phone] Patien t Name: NARENDRA MONROE JULIETTE Access ion #: [id number] Sex: F : 1944 9 Dictat ed By: Colin wall Attend ing Physic kristy: MYRON Raymundo NAVYASMIN MCCRAY Ordergrisel ng Physic kristy: NAVMYRON CROWDER A Exam Date: 2024 11:19 AM Exam Name: XR DEXA-H IPS PELVIS SPINE Admitt ing Diagno sis(es ): -2.5: osteop orosis -2.5 plus fragil ity fractu re: severe osteop orosis Z-scor e: compar ed by SD to an age, sex, and ethnic ity popula tion (used for premen opausa l women, men <50 years, and childr en instea d of T-scor e WHO criter ia 4) <-2.0: below expect ed range/ low bone densit y for age, and a cause should be sought Electr onical ly Signed by: Colin wall at 2024 13:07: 02 PM Page 2 [email or web address] ([facility]) [address] [place], [address], 10/12/2024 08:48:33 07/15/19 25 07/15/2024 imagi ng/di agnos tic resul t No observ ation record ed. [facility] [address] [place], [address], 07/15/2024 14:12:00 07/15/19 25 07/15/2024 US, abdom en, [facility] ed [facility] [address] [place] [address] [phone] Patien t Name: VITALY SHENEN Access ion #: [id number] Sex: F : 1944 9 Dictat ed By: Colin wall Attend ing Physic kristy: AKHIL MYRON MCCRAY Orderi ng Physic kristy: AKHIL REYESMYRON LO Exam Date: 2024 10:31 AM Exam Name: US ABDOME N SINGLE ORGAN Admitt ing Diagno sis(es ): INDICA TION: elevat ed liver enzyme s TECHNI QUE: Multip le real-t owen sonogr aphic images were obtain ed of the right upper quadra nt. COMPAR SANDOVAL: None FINDIN GS: The liver demons trates homoge neous echote xture withou t focal mass lesion s. The liver measur es 12.9 cm longit udinal . There is no intrah epatic or extrah epatic ductal dilata tion. The common duct measur es 4.7 cm. The gallbl adder is withou t eviden ce of stone or sludge . The gallbl adder wall measur es 1.3 cm and is within normal limits . The right kidney measur es 10.1 cm. The right kidney is normal in contou r, size, and shape. The echoge nicity is normal . There is no hydron ephros is. The pancre as is not well visual ized due to overly ing bowel gas. IMPRES ERIKA: Unrema rkable right upper quadra nt ultras ound. Electr onical ly Signed by: Colin wall at 2024 13:09: 35 PM Page [email or web address] (Imaging) [address] [place], [address], 10/12/2024 08:48:34 07/15/1907/15/2024 US, liver No observ ation record ed. [email or web address] [place], [address], 10/12/2024 08:48:34 09/03/19 25 09/01/2024 US, head + neck, soft tissu e [facility] [address] [place], [place] [phone] Slivia garrido Name: JULITETE SHEN Access ion #: [id number] Sex: F : 1944 8 Locati on: RAD Attend ing Physic kristy: MYRON MERAZ Orderi ng Physic kristy: MYRON MERAZ A Exam Date: 025 12:07 PM Exam Name: US NECK HEAD SOFT TISSUE Admitt ing Diagno sis(es ): RADIOL OGY REPORT - FINAL EXAM: US NECK HEAD SOFT TISSUE HISTOR Y: nodule s 79-yea r-old female with thyroi d nodule s, follow -up. The patien hema has a histor y of right thyroi d FNA Novemb er 2017 with benign histop atholo gy. COMPAR SANDOVAL: Thyroi d ultras ound examin ation dated 2023. TECHNI QUE: Ultras ound examin ation of the thyroi d was perfor med. FINDIN GS: The right lobe of the thyroi d measur es 4.4 x 2.2 x 1.6 cm. The left lobe of the thyroi d measur es 3.3 x 1.2 x 1.0 cm. The thyroi d isthmu s measur es 2 mm AP. There is a 3 cm hetero geneou s isoech oic nodule in the right mid to lower thyroi d with a few small cystic areas, smooth margin s, wider than tall on all images , slight ly smalle r than that seen on the previo us ultras ound Page 1 of 2 [facility] Silvia garrido Name: JULIETTE SHEN Access ion #: [id number] Sex: F : 1944 8 Exam Date: 025 12:07 PM Exam Name: US NECK HEAD SOFT TISSUE Admitt ing Diagno sis(es ): examin ation. There is a solid hypoec hoic nodule in the left superi or to mid thyroi d, smooth margin s, wider than tall on all images , measur ing up to 6.[address] dimens ion. No suspic ious calcif icatio ns or abnorm al color Dopple r blood flow. There are athero sclero tic calcif icatio ns of the left CCA. 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 If contin ued ultras ound follow -up is clinic ally desire d, recomm end follow -up thyroi d ultras ound examin ation in 2-3 years. Create d and electr onical ly signed by: Colin wall MD Signed Date: 1:26 PM (CT) Dictat ed by: Colin wall MD DD: 1:26 PM (CT) DT: 1:26 PM (CT) Page 2 of [address] (Imaging) [address] [place], [address], 10/12/2024 08:48:35 09/03/1909/01/2024 US, thyro id No observ ation record ed. [email or web address] [place], [address], 10/12/2024 08:48:35 Result Notes None recorded. Problems Name Problem SNOMED Code Status Onset Date Resolution Date Notes Provider Name and Address Organization Details Recorded Time Inactive tuberculos is 19414467 Active 2020 Not Available [facility] 3 21:10:19 Spinal stenosis of lumbar region 78691879 Active 2021 Not Available [facility] 3 21:10:19 Herpes zoster 5977398 Active Not Available [facility] 3 21:10:20 Nicotine dependence 74017052 Active 2020 Not Available [facility] 3 21:10:20 Allergic rhinitis 82579511 Active 2018 Not Available [facility] 3 21:10:20 Osteoporos is 71816435 Active 2022 Not Available [facility] 3 21:10:20 Gastroesop hageal reflux disease without esophagiti s 876758632 Active 2022 Not Available [facility] 3 21:10:20 Glaucoma 50784111 Active 2022 Not Available [facility] 3 21:10:20 Hyperlipid emia 17206505 Active 2022 Not Available [facility] 3 21:10:20 Osteoarthr itis 162114190 Active 2022 Not Available [facility] 3 21:10:20 Trigeminal neuralgia 07217096 Active 2022 Not Available [facility] 3 21:10:20 Vertigo 775215916 Active 2022 Nettie dickinson, [place] [employer] [facility] [employer] [facility] 3 16:43:34 Mixed anxiety and depressive disorder 099029980 Active 2022 Nettie dickinson, [employer] [facility] 3 14:02:55 Dyspnea on exertion 05724229 Active 2023 Gilberto Bonds MD [address], [address], [place], [address] , [facility] [employer] [facility] 4 12:15:03 Smoker 37750758 Active 2023 Gilberto Bonds MD [address], [address], [place], [address] , [facility] [employer] [facility] 4 12:16:35 Solitary nodule of lung 186402169 Active 2023 Gilberto Bonds MD [address], [address], [place], [address] , [facility] [employer] [facility] [employer] [facility] 4 12:17:26 Moderate chronic obstructiv e pulmonary disease 284037278 Active 2023 Gilberto Bonds MD [address], [address], [place], [address] , [facility] 4 12:17:59 Chronic obstructiv e pulmonary disease 71699534 Active 2023 Vernon raymundo MD [address], [address], [place], [address] , [place] [facility] 4 16:35:29 Insomnia 041824443 Active 2023 Vernon raymundo MD [address], [address], [place], [address] , [place] [facility] 4 16:35:29 Atrophic vaginitis 01377812 Active 2023 Vernon raymundo MD [address], [address], [place], [address] , [facility] 4 16:35:29 Mass of thyroid gland 980856277 Active 2023 Vernon raymundo MD [address], [address], [place], [address] , [facility] 4 16:35:29 Coronary arterioscl erosis 50600703 Active 2023 Vernon raymundo MD [address], [address], [place], [address] , [facility] 4 16:35:29 Peripheral vascular disease 042004554 Active 2023 Vernon raymundo MD [address], [address], [place], [address] , [facility] 4 16:35:29 Eruption 542566941 Active 2023 Vernon raymundo MD [address], [address], [place], [address] , [facility] 4 16:35:30 Multiple nodules of lung 622592356 Active 2023 Vernon raymundo MD [address], [address], [place], [address] , [facility] 4 16:35:30 Macrocytos is 514145266 Active 2023 Vernon raymundo MD [address], [address], [place], [address] , [facility] 4 16:35:30 Restless legs 94420157 Active 2023 Vernon raymundo MD [address], [address], [place], [address] , [facility] 4 16:35:30 Right inguinal pain 4003179552225 9109 Active 2023 Vernon raymundo MD [address], [address], [place], [address] , [facility] 4 16:35:30 Cardiomyop athy 29129222 Active 2023 Vernon raymundo MD [address], [address], [place], [address] , [facility] 4 16:35:30 Hyperglyce moon 86673971 Active 2023 Vernon raymundo MD [address], [address], [place], [address] , [facility] 4 16:35:30 Hypoprotei nemia 9015723 Active 2023 Vernon raymundo MD [address], [address], [place], [address] , [facility] 4 16:35:30 Goiter 8730476 Active 2023 Vernon raymundo MD [address], [address], [place], [address] , [facility] 4 16:35:30 Low back pain 170085681 Active 2023 Vernon raymundo MD [address], [address], [place], [address] , [facility] 4 16:35:30 Chronic kidney disease 805425741 Active 2023 Vernon raymundo MD [address], [address], [place], [address] , [facility] 4 16:35:30 Anemia 790278591 Active 2023 Vernon raymundo MD [address], [address], [place], [address] , [facility] - [facility] 4 16:35:31 Hypomagnes emia 339211064 Active 2023 Vernon raymundo MD [address], [address], [place], [address] , [facility] - [facility] 4 16:35:31 Upper respirator y infection 70833416 Active 2023 Michelle Noyola MA null, [place] [facility] [place] [facility] 4 11:59:32 Thyroid nodule 685166472 Active 2023 Radha Cee MD [address], [address], [place], [address] , [facility] - [facility] 4 11:26:57 Acute sinusitis 03601184 Active 2023 GIBSON Calderon null, [place] [facility] [place] [facility] 4 16:28:36 Leukopenia 63117656 Active 2023 Vernon raymundo MD [address], [address], [place], [address] , [facility] - [facility] 4 14:27:53 Hyponatrem ia 36263059 Active 2023 Vernon raymundo MD [address], [address], [place], [address] , [facility] - [facility] 4 14:34:06 Open wound of left lower leg 9561734684854 9106 Active 2023 Vernon raymundo MD [address], [address], [place], [address] , [facility] 4 14:51:29 Xerostomia 75538379 Active 2023 Vernon raymundo MD [address], [address], [place], [address] , [facility] 4 14:53:50 Pain of left hip joint 0737930151178 00 Active 2023 Crystal dickinson, [facility] 4 14:01:20 Trochanter ic bursitis of left hip 1894699261372 03 Active 2023 NUNU Soriano [address], [address], [place], [address] , [facility] 4 14:17:32 Venous stasis ulcer with edema of left lower leg 4340234098541 9101 Active 2023 Christelle Lee DPM [address], [address], [place], [address] , [facility] 4 15:01:02 Venous stasis ulcer with edema of right lower leg 6825494804345 9106 Active 2023 Christelle Lee DPM [address], [address], [place], [address] , [facility] 4 15:01:10 Ankle pain 497428446 Active 2023 Christelle Lee DPM [address], [address], [place], [address] , [facility] 4 15:21:34 Peroneal tendinitis of right lower limb 5880434316847 09 Active 2023 Christelle Lee DPM [address], [address], [place], [address] , [facility] 4 15:21:51 Peripheral venous insufficie ncy 40919054 Active 2023 Christelle Lee DPM [address], [address], [place], [address] , [facility] 4 15:23:41 Headache 50059945 Active 2023 Vernon raymundo MD [address], [address], [place], [address] , [facility] 4 18:42:05 Pain in left foot 5293274441498 07 Active 2023 Vernon raymundo MD [address], [address], [place], [address] , [facility] 4 18:42:25 Edema of lower extremity 413641282 Active 2023 GIBSON Calderon null, [place] [facility] 4 18:29:27 Pain in right foot 0392128225414 07 Active 2023 Lucio Louis DPM [address], [address], [place], [address] , [facility] 4 09:13:38 Right foot neuritis 3146830108601 09 Active 2023 Lucio Louis DPM [address], [address], [place], [address] , [facility] 4 09:13:44 Neuropathy 100347319 Active 2023 GIBSON Frias null, [place] [facility] 4 13:02:32 Liver enzymes level above reference range 681242406 Active 2024 Vernon raymundo MD [address], [address], [place], [address] , [facility] 5 14:56:47 Pain of left hand 8633863572694 03 Active 2024 Vernon raymundo MD [address] [facility], [address], [place], [address] , [facility] [employer] [facility] [employer] 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 Procedures Surgical History Date Name Laterality Status Provider Name and Address Organization Details Recorded Time 05/11/20 24 Trigger Point Injection completed Lucio Louis DPM [address] [employer] [address], [place], [address], [facility] [employer] [facility] 05/12/2024 09:13:29 05/03/20 24 Medicare Wellness CPT Code, subsequent completed Parish Sands LPN [facility] [employer] [facility] 05/03/2024 08:52:49 01/20/20 24 Wound Care-Podiatry completed Brandi Vera RN [facility] [employer] [facility] 01/20/2024 12:01:58 01/06/20 24 Wound Care-Podiatry completed Brandi Vera RN [facility] [employer] [facility] 01/06/2024 16:57:53 03/04/20 23 Wound Care-Podiatry completed Elva Collier RN [facility] [employer] [facility] 03/04/2023 10:39:47 03/03/20 23 Medicare Wellness CPT Code, subsequent completed Alejandra Roper RN [facility] [employer] [facility] 03/03/2023 15:12:19 02/19/20 23 Wound Care-Podiatry completed Elva Collier RN [facility] [employer] [facility] 02/18/2023 11:25:43 02/12/20 23 Wound Care-Podiatry completed Elva Collier RN [facility] [employer] [facility] 02/11/2023 09:29:58 02/05/20 23 Wound Care-Podiatry completed Elva Collier RN [facility] [employer] [facility] 02/04/2023 12:33:33 01/22/20 23 Wound Care-Podiatry completed Elva Collier RN [facility] [employer] [facility] 01/21/2023 12:12:49 11/20/19 23 Wound Care-Podiatry completed Christelle Lee DPM [address], [address], [place], [address], [facility] [employer] [facility] 11/19/2022 11:53:32 11/13/19 23 Wound Care-Podiatry completed Christelle Lee DPM [address], [address], [place], [address], [facility] [employer] [facility] 11/12/2022 10:49:25 10/30/19 23 Wound Care-Podiatry completed Christelle Lee DPM [address], [address], [place], [address], [facility] [employer] [facility] 10/29/2022 11:33:18 06/28/19 23 Colonoscopy completed GIBSON Calderon [facility] [employer] [facility] 08/26/2022 14:30:37 11/17/19 22 Cardiac Cath completed Not Available Replaced by [facility] 023 00:43:48 10/29/19 22 Hernia Repair completed Not Available Replaced by [facility] 2022 00:43:48 08/05/19 19 Orthopedic Surgery completed Not Available Replaced by [facility] 08/20/2022 00:43:48 07/01/19 19 Most Recent Bone Density completed Not Available [facility] 08/20/2022 00:43:45 12/18/19 16 Treat thigh fracture completed Not Available [facility] 08/20/2022 00:43:48 08/06/19 14 total replacement of hip completed Not Available [facility] 08/20/2022 00:43:48 Eye Surgery completed Not Available [facility] 08/20/2022 00:43:48 Remove tonsils and adenoids completed Alyssa Elizabeth RN [place] [facility] 11/04/2023 10:52:52 Imaging Results Imaging Date Name Status LastModified by Traci finch Details LastModified Time 07/08/2024 US, duplex, arterial, lower extremity completed [email or web address] [facility] [address], [place], [address], 07/11/2024 09:55:07 07/08/2024 imaging/diagno stic result active [facility] [address], [place], [address], 07/10/2024 15:53:18 07/15/2024 DEXA, axial skeleton completed [address] (Imaging) [address] [place], [address], 10/12/2024 08:48:33 07/15/2024 imaging/diagno stic result active [facility] [address] [place], [address], 07/15/2024 14:12:00 07/15/2024 US, abdomen, limited completed [address] (Imaging) [address] [place], [address], 10/12/2024 08:48:34 07/15/2024 US, liver completed [email or web address] [place], [address], 10/12/2024 08:48:34 09/01/2024 US, head + neck, soft tissue completed [email or web address] (Imaging) [address] [place], [address], 10/12/2024 08:48:35 09/01/2024 US, thyroid completed [email or web address] [place], [address], 10/12/2024 08:48:35 Procedure Notes None recorded. Medical Equipment None Reported. Allergies Allergen ID Allergen Name Allergen Category Reaction Reaction Severity Criticality Documentation Date Start Date Code Code System Note Provider Name and Address Organization Details Recorded Time 587 rosuvasta tin medicatio n hives Not available Not available 08/20/2022 03323 2 RxNorm Not Available Replaced by [facility] 3 00:53:35 Medications Name Sig Start Date Stop Date Status Note LastModified by Organization Details LastModified Time amoxicill in 500 mg capsule TK 1 C PO 8 H TAT active Not Available Not Available No t Available latanopro st 0.005 % eye drops INSTILL 1 DROP IN RIGHT EYE AT BEDTIME DIRECTED active Not Available Not Available No t Available prednison e 10 mg tablet TAKE 1 TABLET BY MOUTH THREE TIMES DAILY FOR 3 DAYS THEN 1 TWICE DAILY FOR 2 DAYS THEN 1 DAILY FOR 1 DAY 08/05 completed Not Available Not Available Not Available doxycycli ne hyclate 100 mg capsule 05/03 completed Not Available Not Available Not Available cefuroxim e axetil 250 mg tablet TK 1 T PO BID 08/18 completed Not Available Not Available Not Available ropinirol e 1 mg tablet TAKE 1 TABLET BY MOUTH DAILY active Not Available Not Available No t Available nicotine 14 mg/24 hr daily transderm al patch Apply 1 patch every day by transder mal route as directed for 30 days. 08/27 completed Not Available Not Available Not Available ipratropi um 0.5 mg-albute rol 3 mg (2.5 mg base)/3 mL nebulizat ion soln USE 1 VIAL VIA NEBULIZE R FOUR TIMES DAILY active Not Available Not Available No t Available clindamyc in HCl 300 mg capsule TAKE 1 CAPSULE BY MOUTH EVERY 6 HOURS FOR 10 DAYS 10/29 completed Not Available Not Available Not Available albuterol sulfate 2.5 mg/3 mL (0.083 %) solution for nebulizat ion Use via neb every 4 hours as needed 02/12 completed Not Available Not Available Not Available trazodone 50 mg tablet TAKE 1 TABLET BY MOUTH EVERY NIGHT AT BEDTIME. NO DRIVING, ALCOHOL OR OTHER SEDATING MEDICATI ONS active Not Available Not Available No t Available cetirizin e 10 mg tablet Take 1 tablet every day by oral route as needed for 90 days. 01/08 completed Not Available Not Available Not Available azithromy macario 250 mg tablet TAKE 2 TABLETS (500 MG) BY ORAL ROUTE ONCE DAILY FOR 1 DAY THEN 1 TABLET (250 MG) BY ORAL ROUTE ONCE DAILY FOR 4 DAYS 12/30 completed Not Available Not Available Not Available nicotine (polacril ex) 2 mg gum CHEW 1 PIECE OF GUM BY MOUTH FOUR TIMES DAILY 11/25 completed Not Available Not Available Not Available tizanidin e 4 mg tablet Take 1 tablet every 8 hours by oral route. active Not Available Not Available No t Available fluconazo le 150 mg tablet TAKE 1 TABLET BY MOUTH EVERY DAY FOR 1 DAY 09/15 completed Not Available Not Available Not Available hydrocodo ne 5 mg-acetam inophen 325 mg tablet TAKE 1 TABLET BY MOUTH EVERY 4 HOURS NEEDED FOR PAIN 07/10 completed Not Available Not Available Not Available bacitraci n 500 unit/gram eye ointment 03/17 completed Not Available Not Available Not Available meperidin e 50 mg tablet TK ALL THREE TABLETS 1 AND HOUR BEFORE DENTAL TREATMEN T. A LIGHT MEAL AT YOUR REGULAR EATING INTERVAL IS SUGGESTE D active Not Available Not Available No t Available fluconazo le 200 mg tablet Take 1 tablet every day by oral route as directed for 10 days. active Not Available Not Available No t Available carbamaze pine ER 100 mg tablet,ex tended release,1 2 hr TAKE 1 TABLET BY MOUTH EVERY 12 HOURS 11/29 completed Not Available Not Available Not Available metronida zole 0.75 % (37.5 mg/5 gram) vaginal gel IVB X 5 DAYS 06/24 completed On clobetas ol Not Available Not Available Not Available ondansetr on HCl 4 mg tablet Take 1 tablet every day by oral route as needed. active Not Available Not Available No t Available bupivacai ne HCl 0.5 % (5 mg/mL) injection solution Take 20 mg by injectio n route. 09/15 completed Not Available Not Available Not Available prednison e 20 mg tablet TAKE 2 TABLETS BY MOUTH EVERY DAY FOR 5 DAYS 12/30 completed Not Available Not Available Not Available alendrona te 70 mg tablet TAKE 1 TABLET BY MOUTH EVERY WEEK active Not Available Not Available No t Available dexametha sone 6 mg tablet TAKE 1 TABLET BY MOUTH EVERY DAY 08/27 completed Not Available Not Available Not Available betametha sone, augmented 0.05 % topical cream apply twice a day to affected area active Not Available Not Available No t Available prednison e 5 mg tablet Take by oral route. 3tabs daily 10 days then 2 tabs daily 10 days active Not Available Not Available No t Available clobetaso l 0.05 % topical cream APPLY PEA-SIZE D AMOUNT TOPICALL Y TO AFFECTED AREA ONCE DAILY NEEDED active Not Available Not Available No t Available hydroxyzi ne pamoate 50 mg capsule TK ALL THREE CAPLETS PO 1 AND HOUR BEFORE DENTAL TREATMEN T active Not Available Not Available No t Available penicilli n V potassium 500 mg tablet TAKE 1 TABLET BY MOUTH 4 TIMES A DAY UNTIL FINISHED active Not Available Not Available No t Available potassium chloride ER 10 mEq tablet,ex tended release TAKE 1 TABLET BY MOUTH EVERY DAY FOR 5 DAYS 06/28 completed Not Available Not Available Not Available fexofenad ine 180 mg tablet Take 1 tablet every day by oral route for 6 days. active Not Available Not Available No t Available levofloxa macario 250 mg tablet active Not Available Not Available No t Available prochlorp erazine maleate 10 mg tablet active Not Available Not Available Not Available acyclovir 400 mg tablet active Not Available Not Available Not Available hydrocodo ne 10 mg-acetam inophen 325 mg tablet active Not Available Not Available Not Available peg-elect rolyte solution 420 gram oral solution MIX AND DRINK HALF OF MIXTURE AT 5PM ON 06/26/19 AND DRINK THE OTHER HALF AT 5AM 06/27/19 23 08/05 completed Not Available Not Available Not Available tramadol 50 mg tablet TAKE 1 TABLET BY MOUTH EVERY DAY NEEDED active Not Available Not Available No t Available triamcino lone acetonide 0.1 % topical cream APPLY TO THE AFFECTED AREA TWICE DAILY 11/29 completed Not Available Not Available Not Available amoxicill in 500 mg tablet Take 1 tablet every 8 hours by oral route for 7 days. 05/31 completed Not Available Not Available Not Available acyclovir 800 mg tablet Take 1 tablet 5 times a day by oral route for 7 days. active Not Available Not Available No t Available prednison e 10 mg tablets in a dose pack Take 1 tab by mouth, 3 times a day for 3 daysTake 1 tab by mouth 2 times a day for 2 daysTake 1 tab by mouth once a day for 1 day 08/05 completed Not Available Not Available Not Available meloxicam 7.5 mg tablet TAKE 1 TABLET BY MOUTH TWICE DAILY NEEDED active Not Available Not Available No t Available carbamaze pine 200 mg tablet Take 1 tablet 3 times a day by oral route. 11/29 completed Not Available Not Available Not Available oxycodone -acetamin ophen 5 mg-325 mg tablet TAKE 1 TABLET BY MOUTH EVERY 6 HOURS NEEDED FOR PAIN 05/03 completed Not Available Not Available Not Available alprazola m 0.25 mg tablet TAKE 1 TABLET BY MOUTH TWICE DAILY NEEDED 01/06 completed Not Available Not Available Not Available citalopra m 20 mg tablet 01/06 completed pt stopped taking Not Available Not Available Not Available lorazepam 0.5 mg tablet TAKE 1 TABLET BY MOUTH 30 MINS BEFORE MRI 11/29 completed Not Available Not Available Not Available Percocet 10 mg-325 mg tablet Take 1 tablet every 6 hours by oral route. 06/09 completed Not Available Not Available Not Available antipyrin e-benzoca ine 5.4 %-1.4 % ear drops INSTILL ONE DROP INTO AFFECTED EAR THREE TO FOUR TIMES A DAY active Not Available Not Available No t Available Kenalog 10 mg/mL suspensio n for injection Take 20 mg by injectio n route. 06/28 completed [facility]: [phone] 4-20 Not Available Not Available Not Available lorazepam 2 mg tablet TK ALL THREE TABLETS PO 1 AND HOUR BEFORE DENTAL TREATMEN T . active Not Available Not Available No t Available meclizine 25 mg tablet TAKE 1 TABLET BY MOUTH TWICE DAILY NEEDED 01/06 completed Not Available Not Available Not Available baclofen 10 mg tablet active Not Available Not Available Not Available torsemide 5 mg tablet Take 1 tablet every day by oral route for 90 days. active Not Available Not Available No t Available cephalexi n 500 mg capsule TAKE 1 CAPSULE BY MOUTH EVERY 6 HOURS FOR 7 DAYS 05/03 completed Not Available Not Available Not Available pantopraz ole 40 mg tablet,de layed release TAKE 1 TABLET BY MOUTH EVERY DAY active Not Available Not Available No t Available ropinirol e 0.5 mg tablet TAKE 1 TABLET BY MOUTH EVERY DAY AT BEDTIME 03/03 completed Not Available Not Available Not Available cevimelin e 30 mg capsule TAKE 1 CAPSULE BY MOUTH THREE TIMES DAILY 06/28 completed Not Available Not Available Not Available Gentle Laxative (bisacody l) 5 mg tablet,de layed release TAKE ALL 6 TABLETS BY MOUTH AT ONCE AT 8AM 06/26/19 23 08/26 completed Not Available Not Available Not Available Radha-D 12 Hour 60 mg-120 mg tablet,ex tended release TAKE ONE T PO BID active Not Available Not Available No t Available carbamaze pine 100 mg chewable tablet TK 1T PO TID 09/27 completed Not Available Not Available Not Available losartan 25 mg tablet TAKE 1 TABLET BY MOUTH EVERY DAY 03/03 completed Not Available Not Available Not Available brimonidi ne 0.2 % eye drops INSTILL 1 DROP IN RIGHT EYE TWICE DAILY active Not Available Not Available No t Available Xylocaine 20 mg/mL (2 %) injection solution Take 80 mg by injectio n route. active Not Available Not Available No t Available gabapenti n 300 mg capsule TAKE 1 CAPSULE BY MOUTH EVERY 8 HOURS 09/27 completed Not Available Not Available Not Available omeprazol e 20 mg capsule,d elayed release TAKE 1 CAPSULE BY MOUTH EVERY DAY NEEDED 2024 active Not Available Not Available Not Avai lable gentamici n 0.1 % topical cream APPLY A SMALL AMOUNT TO THE AFFECTED AREA THREE TIMES DAILY 01/08 completed Not Available Not Available Not Available diclofena c sodium 75 mg tablet,de layed release TAKE 1 TABLET BY MOUTH TWICE DAILY 06/28 completed Not Available Not Available Not Available cephalexi n 500 mg tablet Take 1 tablet every 6 hours by oral route for 7 days. 08/05 completed Not Available Not Available Not Available etodolac 400 mg tablet TK 1 T PO BID 08/18 completed Not Available Not Available Not Available monteluka st 10 mg tablet TAKE 1 TABLET BY MOUTH EVERY DAY active Not Available Not Available No t Available hydroxyzi ne HCl 25 mg tablet TAKE 1 TABLET BY MOUTH THREE TIMES DAILY NEEDED active Not Available Not Available No t Available furosemid e 20 mg tablet TAKE 1 TABLET BY MOUTH DAILY 09/[address] Alfredo Not Available Not Available Not Available gabapenti n 100 mg capsule TAKE 1 CAPSULE BY MOUTH THREE TIMES DAILY active Not Available Not Available No t Available metoprolo l succinate ER 25 mg tablet,ex tended release 24 hr TAKE 1 TABLET BY MOUTH EVERY DAY 08/23 completed Not Available Not Available Not Available clobetaso l 0.05 % topical ointment APPLY A THIN LAYER TO THE AFFECTED AREA(S) BY TOPICAL ROUTE 2 TIMES PER DAY active Not Available Not Available No t Available diazepam 10 mg tablet TAKE 1 TABLET BY MOUTH AT BEDTIME AND 1 TABLET BY MOUTH BEFORE APPOINTM ENT active Not Available Not Available No t Available ibuprofen 600 mg tablet active Not Available Not Available Not Available levofloxa macario 500 mg tablet TK 1 T PO Q 24 H 05/21 completed Not Available Not Available Not Available lovastati n 20 mg tablet 06/28 completed Not Available Not Available Not Available estradiol 0.01% (0.1 mg/gram) vaginal cream Insert 1 g into the vagina at bedtime x2 weeks, then 1 g into the vaginal twice a week thereaft er; may apply small amount of cream to outiside tissues on same dosing schedule as well 12/10 completed Not Available Not Available Not Available levofloxa macario 750 mg tablet TK 1 T PO ONCE D FOR 10 DAYS FOR INFECTIO US PROCESS 12/10 completed Not Available Not Available Not Available methylpre dnisolone 4 mg tablets in a dose pack FOLLOW PACKAGE DIRECTIO NS 12/30 completed Not Available Not Available Not Available albuterol sulfate HFA 90 mcg/actua tion aerosol inhaler INHALE 1 PUFF BY MOUTH EVERY 4 HOURS NEEDED active Not Available Not Available No t Available timolol maleate 0.5 % eye drops active Not Available Not Available Not Available celecoxib 100 mg capsule TAKE 1 CAPSULE BY MOUTH EVERY DAY NEEDED active Not Available Not Available No t Available fluticaso ne propionat e 50 mcg/actua tion nasal spray,segundo pension SHAKE LIQUID AND USE 1 SPRAY IN EACH NOSTRIL EVERY DAY 01/08 completed Not Available Not Available Not Available doxycycli ne hyclate 100 mg tablet TAKE 1 TABLET BY MOUTH EVERY DAY WITH FOOD 03/03 completed Not Available Not Available Not Available gentamici n 0.1 % topical ointment APPLY A SMALL AMOUNT TO THE AFFECTED AREA OF THE SKIN THREE TIMES DAILY 09/15 completed Not Available Not Available Not Available naproxen 500 mg tablet TAKE 1 TABLET BY MOUTH TWICE DAILY 09/15 completed Not Available Not Available Not Available diazepam 5 mg tablet TAKE 1 TABLET BY MOUTH 30 MINUTES BEFORE PROCEDUR E AND THEN UP TO TWICE DAILY NEEDED 08/26 completed Not Available Not Available Not Available amoxicill in 875 mg-potass ium clavulana te 125 mg tablet TAKE 1 TABLET BY MOUTH EVERY 12 HOURS FOR 5 DAYS 05/03 completed Not Available Not Available Not Available dorzolami de 2 % eye drops INSTILL 1 DROP INTO RIGHT EYE TWICE DAILY active Not Available Not Available No t Available amoxicill in 500 mg-potass ium clavulana te 125 mg tablet Take 1 tablet every 12 hours by oral route. active Not Available Not Available No t Available oxycodone 5 mg tablet Take 1 tablet every day by oral route as needed for 10 days. 06/28 completed Not Available Not Available Not Available neomycin 3.5 mg/g-poly myxin B 10,000 unit/g-de xameth 0.1 % eye oint APPLY A SMALL AMOUNT TO THE LEFT EYE TWICE A DAY active Not Available Not Available No t Available ezetimibe 10 mg tablet TAKE 1 TABLET BY MOUTH EVERY DAY 11/26 completed patient c/o muscle cramping /pain Not Available Not Available Not Available cyclobenz aprine 5 mg tablet Take 1 tablet 3 times a day by oral route. active Not Available Not Available No t Available Vigamox 0.5 % eye drops active Not Available Not Available Not Available Premarin 0.625 mg/gram vaginal cream Insert 1 g into the vagina at bedtime x 14 nights, then insert 1 g into the vagina at bedtime twice a week thereaft er. May also apply small amount of cream to outside tissues on same dosing schedule 08/20 completed Not Available Not Available Not Available rosuvasta tin 5 mg tablet TAKE 1 TABLET BY MOUTH DAILY 06/28 completed Not Available Not Available Not Available rosuvasta tin 20 mg tablet Take 1 tablet every day by oral route for 90 days. 02/19 completed Not Available Not Available Not Available Marcaine (PF) 0.5 % (5 mg/mL) injection solution Take 20 mg by injectio n route. 06/28 completed Not Available Not Available Not Available duloxetin e 30 mg capsule,d elayed release TAKE 1 CAPSULE BY MOUTH EVERY DAY 09/27 completed Not Available Not Available Not Available tizanidin e 4 mg capsule Take 1 capsule every day by oral route at bedtime for 20 days. active Not Available Not Available No t Available ibandrona te 150 mg tablet TAKE 1 TABLET BY MOUTH MONTHLY active Not Available Not Available No t Available Lyrica 25 mg capsule Take 1 capsule every day by oral route as needed for 30 days. 2024 active Not Available Not Available Not Avai lable prednison e take as directed 12/10 completed Not Available Not Available Not Available lidocaine (PF) 10 mg/mL (1 %) injection solution In office injectio n administ ered by the provider 08/27 completed [facility]: [phone] 12-06 Not Available Not Available Not Available lidocaine (PF) 5 mg/mL (0.5 %) injection solution Take 10 mg by injectio n route. 01/21 completed Not Available Not Available Not Available Advair HFA 115 mcg-21 mcg/actua tion aerosol inhaler active Not Available Not Available Not Available fenofibra te nanocryst allized 145 mg tablet Take 1 tablet every day by oral route. active Not Available Not Available No t Available Symbicort 160 mcg-4.5 mcg/actua tion HFA aerosol inhaler 08/06 completed Not Available Not Available Not Available Xyzal 5 mg tablet Take 1 tablet every day by oral route as needed. 11/29 completed Not Available Not Available Not Available Combigan 0.2 %-0.5 % eye drops active Not Available Not Available Not Available Voltaren 1 % topical gel active Not Available Not Available Not Available Durezol 0.05 % eye drops active Not Available Not Available No t Available Astepro 205.5 mcg (0.15 %) nasal spray active Not Available Not Available Not Available Senexon-S 8.6 mg-50 mg tablet active Not Available Not Available No t Available Prolia 60 mg/mL subcutane ous syringe Inject by subcutan eous route for 180 days. 01/08 completed Not Available Not Available Not Available Lumigan 0.01 % eye drops USE 1 DROP IN BOTH EYES [facility] 05/21 completed Not Available Not Available Not Available ropivacai ne (PF) 5 mg/mL (0.5 %) injection solution Take 20 mg by injectio n route. 03/03 completed [facility] [id number] 09-20 Not Available Not Available Not Available Chantix Starting Month Box 0.5 mg (11)-1 mg (42) tablets in dose pack as directed active Not Available Not Available No t Available Ilevro 0.3 % eye drops,segundo pension active Not Available Not Available Not Available Lotemax 0.5 % eye gel drops INSTILL 1 DROP IN THE LEFT EYE QID UNTIL DIRECTED UTHERWIS E 05/12 completed Not Available Not Available Not Available Spiriva Respimat 2.5 mcg/actua tion solution for inhalatio n Inhale 2 puffs every day by inhalati on route as directed for 30 days. 09/15 completed Not Available Not Available Not Available Stiolto Respimat 2.5 mcg-2.5 mcg/actua tion solution for inhalatio n Inhale 2 puffs every day by inhalati on route for 30 days. 06/28 completed Not Available Not Available Not Available Entresto 24 mg-26 mg tablet TAKE 1 TABLET BY MOUTH TWICE DAILY 03/03 completed Not Available Not Available Not Available Fluzone High-Dose 6027-8547 (PF) 180 mcg/0.5 mL intramusc ular syringe ADM 0.5ML IM UTD 02/17 completed Not Available Not Available Not Available Compact Space Chamber-L rg Mask USE DIRECTED 01/08 completed Not Available Not Available Not Available Shingrix (PF) 50 mcg/0.5 mL intramusc ular suspensio n, kit ADMINIST ER 0.5ML IN THE MUSCLE DIRECTED 08/20 completed Not Available Not Available Not Available Fluad Quad 8225-8079 (65yr up)(PF) 60 mcg (15 mcg x 4)/0.5mL IM syringe ADM 0.7ML IM UTD 08/20 completed Not Available Not Available Not Available Vitals Date Recorded Body height Body mass index (BMI) Body weight Heart rate Oxygen saturation Oxygen saturation in Arterial blood by Pulse oximetry Body temperature Provider Name and Address Organization Details Last Updated DateTime 4 162.56 cm 14.8 kg/m2 80185.9 4 g 60 /min 89 % 89 % 98.2 [degF] Jimbo Baez [facility] [employer] [facility] [employer] [facility] 4 09:31:43 Date Recorded Body height Oxygen saturation Oxygen saturation in Arterial blood by Pulse oximetry Body temperature Heart rate Body mass index (BMI) Body weight Provider Name and Address Organization Details Last Updated DateTime 4 162.56 cm 92 % 92 % 98.2 [degF] 72 /min 14.8 kg/m2 09517.9 4 g Jimbo Edenromae [facility] [employer] [facility] [employer] [facility] 4 13:01:46 Date Recorded Body height Provider Name an d Address Organization Details Last Updated DateTime 06/28/2024 162.56 cm Parish Sands LPN [facility] [employer] [facility] 06/28/2024 14:09:57 Date Recorded Body height Body mass index (BMI) Body weight Body temperature Heart rate Oxygen saturation Oxygen saturation in Arterial blood by Pulse oximetry Systolic blood pressure Diastolic blood pressure Provider Name and Address Organization Details Last Updated DateTime 5 162.56 cm 14.9 kg/m2 28529.5 4 g 97.9 [degF] 81 /min 96 % 96 % 108 mm[Hg] 60 mm[Hg] Tawanna Garay MA [facility] [employer] [facility] 5 14:24:36 Date Recorded Body height Body mass index (BMI) Body weight Body temperature Heart rate Systolic blood pressure Diastolic blood pressure Provider Name and Address Organization Details Last Updated DateTime 5 162.56 cm 14.8 kg/m2 02748.9 4 g 97.5 [degF] 84 /min 110 mm[Hg] 60 mm[Hg] Yara Del Rosario Breanne [facility] [employer] [facility] 5 14:32:54 Social History Question Answer Notes LastModified by Organization Details LastModified Time Tobacco Smoking Status Current Every Day Smoker quit 11/16/21, restarted 04/12 Not Available [employer] 08/20/2022 00:43:03 Do You Have An Advance Directive? Yes Patient To Bring Copy For Chart. [id number] Information not available 08/20/2022 What Is Your Level Of Alcohol Consumption? None Information not available 01/08/2023 Are You Blind Or Do You Have Difficulty Seeing? No MIGRATION.0301 [id number] Information not available 08/20/2022 What Is Your Level Of Caffeine Consumption? Moderate MIGRATION.0301 [id number] Information not available 08/20/2022 How Much Tobacco Do You Chew? None MIGRATION.0301 [id number] Information not available 08/20/2022 In The 14 Days Before Symptom Onset, Have You Had Close Contact With A Laboratory-conf irmed COVID-19 While That Case Was Ill? No MIGRATION.0301 [id number] Information not available 08/20/2022 In The 14 Days Before Symptom Onset, Have You Had Close Contact With A Person Who Is Under Investigation For COVID-19 While That Person Was Ill? No MIGRATION.0301 [id number] Information not available 08/20/2022 Are You Deaf Or Do You Have Serious Difficulty Hearing? No MIGRATION.0301 [id number] Information not available 08/20/2022 What Type Of Diet Are You Following? REGULAR MIGRATION.0301 [id number] Information not available 08/20/2022 Which Illicit Or Recreational Drugs Have You Used? None MIGRATION.0301 [id number] Information not available 08/20/2022 Do You Or Have You Ever Used E-cigarettes Or Vape? Never Used Electronic Cigarettes MIGRATION.0301 [id number] Information not available 08/20/2022 Do You Have An Electrostatic Air Filter? No Information not available 09/28/2023 What Is Your Occupation? [employer] MIGRATION.0301 [id number] Information not available 08/20/2022 Have There Been Any Changes To Your Family Or Social Situation? No MIGRATION.0301 [id number] Information not available 08/20/2022 What Is The Fluoride Status Of Your Home? Unknown MIGRATION.0301 [id number] Information not available 08/20/2022 Are There Any Guns Present In Your Home? Yes MIGRATION.0301 [id number] Information not available 08/20/2022 Do You Have A Humidifier? No Information not available 09/28/2023 Do You Use Insect Repellent Routinely? No MIGRATION.0301 [id number] Information not available 08/20/2022 Where Do You Live? SingleLevelHouse MIGRATION.0301 [id number] Information not available 08/20/2022 Do You Have A Medical Power Of Car Cooper? Yes MIGRATION.0301 [id number] Information not available 08/20/2022 Do You Have Moisture Problems In Your Home? No Information not available 09/28/2023 What Was The Date Of Your Most Recent Tobacco Screening? 09/27/2024 Information not available 09/27/2024 What Is Your Current Pack Years? 30ormorepackyears MIGRATION.0301 [id number] Information not available 08/20/2022 Have You Ever Been Counseled For Unhealthy Alcohol Use? No MIGRATION.0301 [id number] Information not available 08/20/2022 Do You Have Any Pets? Yes MIGRATION.0301 [id number] Information not available 08/20/2022 What Is Your Relationship Status? Information not available 07/02/2023 Do You Use Your Seat Belt Or Car Seat Routinely? Yes MIGRATION.0301 [id number] Information not available 08/20/2022 Do You Have Smoke And Carbon Monoxide Detectors In Your Home? Yes MIGRATION.0301 [id number] Information not available 08/20/2022 At What Age Did You Start Smoking Tobacco? 17 MIGRATION.0301 [id number] Information not available 08/20/2022 Are You Passively Exposed To Smoke? Yes MIGRATION.0301 [id number] Information not available 08/20/2022 Do You Or Have You Ever Used Smokeless Tobacco? Never Used Smokeless Tobacco MIGRATION.0301 [id number] Information not available 08/20/2022 Are There Any Smokers In Your House? No MIGRATION.0301 [id number] Information not available 08/20/2022 How Much Tobacco Do You Smoke? 0.5 PPD Information not available 01/08/2023 What Types Of Sporting Activities Do You Participate In? None MIGRATION.0301 [id number] Information not available 08/20/2022 Do You Feel Stressed (tense, Restless, Nervous, Or Anxious, Or Unable To Sleep At Night)? [id number] MIGRATION.0301 [id number] Information not available 08/20/2022 Do You Use Any Illicit Or Recreational Drugs? No MIGRATION.0301 [id number] Information not available 08/20/2022 Do You Use Sunscreen Routinely? Yes MIGRATION.0301 [id number] Information not available 08/20/2022 How Many Years Have You Smoked Tobacco? 58 MIGRATION.0301 [id number] Information not available 08/20/2022 Have You Recently Traveled Abroad? No MIGRATION.0301 [id number] Information not available 08/20/2022 Do You Have Any Dietary Restrictions? No MIGRATION.0301 [id number] Information not available 08/20/2022 Do You Or Have You Ever Used Any Other Forms Of Tobacco Or Nicotine? No MIGRATION.0301 [id number] Information not available 08/20/2022 Sex: Female Functional Status Question Answer Note LastModified by Organizat ion Details LastModified Time Do you have difficulty walking or climbing stairs? No MIGRATION.92038 [id number] Information not available 08/20/2022 Do you have transportation difficulties? No MIGRATION.03239 91385 Information not available 08/20/2022 Are you able to walk? YESWOREST MIGRATION.05249 86312 Information not available 08/20/2022 Do you have difficulty doing errands alone? No MIGRATION.74054 62867 Information not available 08/20/2022 Are you able to care for yourself? Yes MIGRATION.35301 73678 Information not available 08/20/2022 Do you have difficulty dressing or bathing? No MIGRATION.53683 03597 Information not available 08/20/2022 What is your exercise level? Occasional Patient stated she walks the dog when the weather is nice. MIGRATION.70515 [id number] Information not available 08/20/2022 Mental Status Question Answer Note LastModified by Organizat ion Details LastModified Time Do you have difficulty concentrating, remembering or making decisions? No [id number] Information not available 08/20/2022 Family History Relationship Description Onset Age of this Age Resolved Age Notes LastModified by Organization Details LastModified Time Father Myocardial infarction MIGRATION.985 [id number] Not available 08/20/2022 00:43:52 Mother Malignant neoplasm of lung MIGRATION.450 [id number] Not available 08/20/2022 00:43:52 Sister Malignant tumor of breast MIGRATION.[id number] Not available 08/20/2022 00:43:52 Notes:NO ENT Medical History Condition Response NERVE DISEASE Y BLINDNESS N RHEUMATIC FEVER N KIDNEY STONES N BLADDER PROBLEMS N MRSA N OTHER # 1 Y POLIO N LUNG DISEASE/DISORDER Y HISTORY OF DRUG ABUSE N RADIATION / CHEMOTHERAPY N COPD Y Other # 2 N BLOOD DISEASES N EAR OR HEARING PROBLEMS N MUMPS N SHINGLES N DEPRESSION (INCLUDING POST ) N BOWEL PROBLEMS N STROKE/TIA N ULCERS N BENIGN PROSTATIC HYPERPLASIA N MEASLES N HYPOTENSION N MYOCARDIAL INFARCTION N OBESITY N GERD/NAUSEA N ANEURYSM N URINARY/BLADDER/KIDNEY PROBLEMS N CORONARY ARTERY DISEASE (CAD) Y ADDICTION CONCERNS N Impotence N ENDOMETRIOSIS N USE OF BLOOD THINNERS N SKIN PROBLEMS Y GASTROINTESTINAL DISORDER N PARATHYROID DISEASE N PERIPHERAL VASCULAR DISEASE Y MUSCLE,JOINT OR BONE PROBLEMS N GASTROINTESTINAL BLEEDING N BLOOD CLOTS N ASTHMA N CATARACTS N ERECTILE DYSFUNCTION N VARICOSITIES N GI PROBLEMS N CHF N Low Testosterone N INFERTILITY N AIDS/HIV N FRACTURES N CHEMOTHERAPY / RADIATION N LIVER DISEASE N MALE HYPOGONADISM N HYPERTENSION N Deficiency Y TOURETTE'S N ANXIETY DISORDER N BLOOD TRANSFUSION N ANEMIA/BLOOD DISORDER N CHRONIC EAR INFECTIONS N BRONCHITIS N TUBERCULOSIS N GLAUCOMA Y FOOT PROBLEM N DIVERTICULITIS N SLEEP APNEA N CHICKENPOX N ALLERGIES/HAYFEVER N INFECTIOUS DISEASE N PROSTATE N HEART ARRHYTHMIA N INSOMNIA Y HIGH CHOLESTEROL / HYPERLIPIDEMIA Y EYE PROBLEMS N HYPERTHYROIDISM N EDEMA N CHRONIC PAIN SYNDROME N HYPOTHYROIDISM N CAROTID BLOCKAGE N CONSTIPATION N BACK / NECK PROBLEMS N ATHEROSCLEROSIS N BREAST PROBLEMS N DIALYSIS N ECZEMA N HISTORY WITH COMPLICATIONS WITH ANESTHES IA ? N OSTEOPOROSIS Y ARTHRITIS Y APPENDICITIS N DIABETES, TYPE N BAD TEETH N ENT Y SEASONAL ALLERGIES Y HEARTBURN / REFLUX Y AUTISM SPECTRUM DISORDER (ASD) N HEPATITIS / LIVER DISEASE N GOUT N SLEEP DISORDER N ALZHEIMER'S DISEASE N Brain Problems N DEMENTIA N HERPES N SEIZURES/EPILEPSY N HEADACHES/MIGRAINES Y VASCULAR DISEASE N PACEMAKER N Blood Disorder N DIZZINESS N HEART DISEASE/HEART PROBLEMS Y KIDNEY DISEASE N MULTIPLE SCLEROSIS N CANCER: SPECIFY N CARDIAC ARRHYTHMIA N ANESTHESIA COMPLICATIONS N ATRIAL FIBRILLATION N Gall Stones N PULMONARY EMBOLISM N AUTOIMMUNE DISEASE N Gynecological History Statement/Question Response How many live births 5 Date of Last Mammogram 07/05/2020 Date of Last Colonoscopy Date of LMP Most Recent Bone Density 07/01/2018 Date of Last Pap Current Control Method Menopause Obstetrics History GPAL:G 4 P 5 0 0 4 Type Value Multiple Births 1 Full Term 5 Induced 0 Spontaneous 0 Premature 0 Living 4 Ectopics 0 Total 4 Immunizations Vaccine Type Date Status Note Provider Nam mae and Address Organization Details Recorded Time SARS-COV-2 (COVID-19) vaccine, UNSPECIFIED 1 completed Parish Sands LPN null, [facility] 12/23/2023 14:06:41 SARS-COV-2 (COVID-19) vaccine, UNSPECIFIED 1 completed Parish Sands LPN null, [facility] 12/23/2023 14:06:41 Influenza, high-dose, trivalent, PF 0 completed Parish Sands LPN null, [facility] 12/23/2023 14:06:41 Influenza, high-dose, quadrivalent, PF 2 completed Not Available Replaced by [facility] 07/30/2023 03:20:22 Influenza, high-dose, quadrivalent, PF 1 completed Not Available Replaced by [facility] 07/30/2023 03:20:22 Influenza, split virus, quadrivalent, PF 9 completed Not Available Replaced by [facility] 07/30/2023 03:20:22 pneumococcal polysaccharide PPV23 9 completed Not Available [facility] 07/30/2023 03:20:22 Influenza, high-dose, trivalent, PF 8 completed Not Available [facility] 07/30/2023 03:20:22 Influenza, high-dose, trivalent, PF 7 completed Not Available Replaced by [facility] 07/30/2023 03:20:22 Pneumococcal conjugate PCV 13 6 completed Not Available Replaced by [facility] 07/30/2023 03:20:22 Influenza, high-dose, trivalent, PF 5 completed Not Available Replaced by [facility] 07/30/2023 03:20:22 Influenza, split virus, trivalent, preservative 4 completed SINCERE Charles, [facility] 12/23/2023 14:06:41 Influenza, split virus, trivalent, preservative 3 completed SINCERE Charles, [facility] 12/23/2023 14:06:41 zoster recombinant 1 completed SINCERE Charles, [facility] 12/23/2023 14:06:40 zoster recombinant 0 completed SINCERE Charles, [facility] 12/23/2023 14:06:40 COVID-19, mRNA, LNP-S, PF, 100 mcg/0.5mL dose or 50 mcg/0.25mL dose 1 completed Parish Sands LPN null, [facility] 12/23/2023 14:06:41 COVID-19, mRNA, LNP-S, PF, 100 mcg/0.5mL dose or 50 mcg/0.25mL dose 1 completed SINCERE Charles, [facility] 12/23/2023 14:06:41 Influenza, high-dose, trivalent, PF 6 completed Parish Sands LPN teena, [facility] 12/23/2023 14:06:41 Influenza, split virus, trivalent, PF 0 completed Parish Sands LPN null, [facility] 12/23/2023 14:06:41 Hep A, adult 0 completed SINCERE Charles, [facility] 12/23/2023 14:06:41 Hep A, adult 0 completed SINCERE Charles, [facility] 12/23/2023 14:06:41 Influenza, high-dose, quadrivalent, PF 3 completed Yara Del Rosario RMA null, [facility] 05/12/2023 10:54:27 Influenza, high-dose, trivalent, PF 4 completed Yara Del Rosario RMA null, [facility] 05/04/2024 10:51:35 Past Encounters Encounter ID Performer Location Encounter Start Date Encounter Closed Date Diagnosis/Indication Diagnosis SNOMED-CT Code Diagnosis ICD10 Code Diagnosis Note [id number] [facility] [address] [address] 08/20/2020 00:00:00 08/20/2020 13:09:33 [id number] [facility] Internal [facility] [place] [address] , [facility] [address] [place] [address] 09/06/2020 00:00:00 09/06/2020 17:16:13 [id number] [facility] [place] [address] [place] [address] 09/18/2020 00:00:00 09/18/2020 11:25:02 [id number] [facility] [place] [address] [place] [address] 09/27/2020 00:00:00 09/27/2020 14:22:12 [id number] [facility] [place] [address] [place] [address] 10/04/2020 00:00:00 10/04/2020 13:40:20 [id number] [facility] [place] [address] [place] [address] 11/01/2020 00:00:00 11/01/2020 11:56:55 [id number] [facility] [place] [address] [place] [address] 11/29/2020 00:00:00 11/29/2020 15:13:43 [id number] [facility] Internal [facility] [address] , [facility] [address] [place] [address] 12/13/2020 00:00:00 12/13/2020 16:42:43 [id number] [facility] [place] [address] [place] [address] 02/12/2021 00:00:00 02/12/2021 14:12:32 [id number] [facility] [place] [address] [place] [address] 03/21/2021 00:00:00 03/21/2021 14:21:51 [id number] [facility] [place] [address] [place] [address] [place] [address] 04/04/2021 00:00:00 04/15/2021 18:13:49 [id number] _GIULIANO_M IGRATION_ DEFAULT_1 _1 , 04/09/2021 00:00:00 04/09/2021 18:29:03 [id number] [facility] [place] [address] [place] [address] 07/02/2021 00:00:00 07/02/2021 14:23:11 [id number] [facility] ENT [place] [address] [place] [address] 07/11/2021 00:00:00 07/11/2021 15:29:45 [id number] [facility] Internal [facility] [address] [facility] [address] [place] [address] 08/01/2021 00:00:00 09/05/2021 18:05:18 [id number] [facility] [place] [address] [place] [address] 08/09/2021 00:00:00 08/09/2021 14:59:22 [id number] [facility] [place] [address] [place] [address] 08/20/2021 00:00:00 08/20/2021 14:06:48 [id number] [facility] Internal Med [facility] [address] [facility] [address] [place] [address] 08/27/2021 00:00:00 08/27/2021 11:17:30 [id number] [facility] [address] [facility] [facility] [address] [place] [address] 09/12/2021 00:00:00 09/12/2021 13:51:24 [id number] [facility] [place] [address] [place] [address] 09/24/2021 00:00:00 09/24/2021 16:18:45 [id number] [facility] General Surgery [address] [place] [address] [place] [address] 11/05/2021 00:00:00 11/05/2021 10:57:03 [id number] [facility] [place] [address] [place] [address] 11/05/2021 00:00:00 11/05/2021 13:51:06 [id number] [facility] [place] [address] , [facility] [address] [place] [address] 11/26/2021 00:00:00 11/26/2021 17:25:20 [id number] [facility] [place] [address] [place] [address] 12/10/2021 00:00:00 12/10/2021 15:59:15 [id number] [facility] [place] [address] [facility] [address] [place] [address] 01/21/2022 00:00:00 01/21/2022 12:57:02 [id number] [facility] [address] [place] [address] 03/17/2022 00:00:00 03/17/2022 17:31:51 [id number] [facility] [address] [place] [address] 03/24/2022 00:00:00 03/24/2022 18:02:09 [id number] [facility] [address] [place] [address] 04/14/2022 00:00:00 04/14/2022 16:57:40 [id number] [facility] [place] [address] [facility] [address] [place] [address] 04/22/2022 00:00:00 04/22/2022 13:26:48 [id number] [facility] [place] [address] [place] [address] 05/01/2022 00:00:00 05/01/2022 11:34:01 [id number] [facility] [place] [address] [place] [address] 05/29/2022 00:00:00 05/29/2022 11:27:18 [id number] [facility] [place] [address] [place] [address] 08/05/2022 00:00:00 08/05/2022 16:24:45 [id number] Vernon raymundo MD [facility] Internal Med [place] [address], [place] [address] [place] [address] 08/26/2022 14:23:24 08/26/2022 15:33:14 Screening - NAD [id number] Z13.9 C-scope: Cologuard 03/30/19: Neg, ordered 04/22/2022 Mammogram: 05/07/18, neg, get this [id number] /20/19: Neg/05/08 021: Neg 022: Neg PAP: Did see Marium Becker DIGITAL ADVISOR DEXA: 09/12/2020 : OPDEXA: 07/14/2022 : OP, declined prolia in the past Get yearly flu shotUTD on PCV #13 05/07/16, #23 06/24/18Ge t shingles vaccine and Tdap if not doneUTD on COVID 19 vaccine RTC in 3 monthsGet labsER if worseShe did verbalize her understand ing of the above Chronic ob structive pulmonary disease 29673815 J44.9 CT Chest 11/20/2020 She does see Jona Bartholomew DIGITAL ADVISOR On ipratropiu mOn montelukas tOn proair Atrophic vaginitis 39954 000 N95.2 On clobetazol does well On hydroxyzin e for itching Insomnia 677101899 G47.0 0 On trazodone 50mg daily, does well Gastroesop hageal reflux disease without esophagitis 916203490 K21.9 On omeprazole Take as neededDoes well on this Glaucoma 43316457 H40.9 L eye blindness is present On brimonidin [place] dorzolamid [place] latanopros t Sees Dr W[place] Mass of thyroid gland [address] scan neck 04/13/18, mass noted ENT Dr Cee 07/28/2019 US thyroid 07/23/2020 : ENT Ti Rads 4, f/u in 1-2 years TSH WNL 01/29/[address] Cee 07/11/2021 US thyroid 07/18/2021 , ordered 04/22/2022 Coronary arteriosclerosis 11521770 I25.10 01/17/2022 : ECHO: [facility] CT chest 11/15/2021 [facility] Dr Philip 10/09/2021 , next in [address] Philip 04/04/2022 , next in 3 months Hyperlipidemia 78140562 E78.5 Cannot tolerate the statin Get on zetia but does not want this yet, declines any meds, needs to see Dr Philip, could try nexlizet, or leqvio Get labs Peripheral vascular disease 295830067 I73.9 See [facility] Dr Philip Osteoarthritis 403287500 M19.90 Dr Noyola 11/01/2020 , f/u as needed Dr Noyola 03/21/2021 , trochantri c bursitis or R hip s/p injection Dr Noyola/Maya Thorne PA 08/09/2021 Dr Noyola 09/24/2021 , s/p injection, L hip, L SI joint Dr Noyola 12/10/2021 Dr Noyola 05/29/2022 MRI L Spine 06/03/2022 : Dr Noyola, is now referred to a neurologis t in [place] as per her history Eruption 296459024 R21 She states that the hydroxyzin e has not helpedShe does have a long standing history of itching and denies any new detergents or use of soaps or foodsAlso has a small raised slightly tender papule on the L dorsum of hand Refer to dermatolog y Osteoporosis 13532791 M8 1.0 On proliaDecl inesNeeds to do ca and vit dRepeat the DEXA Multiple n odules of lung 728689134 R91.8 S/p CT chest 11/20/2020 Jona Morales DIGITAL ADVISOR 02/12/2021 , next apt 08/20/2021 , she has now been referred to Dr Barry for ? latent TB Jona Morales DIGITAL ADVISOR 08/05/2022 , next 10/14/2022 Macrocytosis 560989808 D 75.89 Get B12 and folate levels Restless legs 53267066 G 25.81 On ropinirole All side effects explained to her Right inguinal pain [address] Light 09/12/2021 , post op 11/05/2021 Cardiomyopathy 09790291 I42.9 [facility] ER: 11/15/2021 : CTA angio, for SOBAirlift ed to CNE, s/p coronary angio, diagnosed with Takotsubo CMOn entrestoOn metoprolol ER 25mg 1/2 tab dailyOff the life vest and O2F/u with cardiology Hyperglycemia 45922197 R 73.9 Get labs Allergic rhinitis 905149 04 J30.9 Get on flonase, claritinAl so do dose of medrol dose pack, recently treated with Z-pack Trigeminal neuralgia 316 66994 G50.0 On carbamazep ine 100mg tid Has seen Dr Garcia and the pain is betterMRI brain 11/14/2020 : Neg Hypoproteinemia 5616625 E88.09 More protein in diet Goiter 2745055 E04.9 US head and neck 07/18/2022 Low back pain 560734809 M54.50 MRI L Spine 06/03/2022 : Dr Noyola [id number] Jona Morales, [facility] Pul[place]olo [facility] [place] [address] [place] [address] 10/14/2022 14:07:08 10/14/2022 15:39:31 Chronic obstructive pulmonary disease 36072999 J44.9 FEV1 44% predicted PBD.TLC 130% predicted. DLCO adjusted 74%.Will consider repeat this fall6 minute walk 11/24/18.S he did not require oxygen with activity after walking 600+ feet.ARDHA on room air WNL.We have discussed reportable signs and symptoms.C ontinue Spiriva Respimat 2.5 2 puffs dailyInstr ucted on techniqueR X sent todayRTO in 6 months and PRN for concerns. 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 Literature reviewed. Avoid triggers, support groups. Distractio n techniques Greater than 3 but less than 10 minutes spent discussing cessation. Declines NRT, she has gum already at home and has reactions to the patch Discussed Rx options if needed in the future. [id number] Christelle Lee DPM [facility] [address] [place] [address] 10/29/2022 10:06:48 10/29/2022 11:22:58 Stasis dermatitis of lower limb due to chronic peripheral venous hypertension 888722489 I87.399 bilateral lower legscontin ue with vascular recommenda tionmild compressio n applied left lower leg Skin eschar 961881551 R2 3.4 x3 left lower legwound care reviewed with the patientMon itor for worsening signs of infection at present seek medical attention immediatel yFollow-up in 2 weeks [id number] [facility] [address] [place] [address] 11/12/2022 10:21:08 11/12/2022 10:21:38 Stasis dermatitis of lower limb due to chronic peripheral venous hypertension 285506278 I87.399 bilateral lower legscontin ue with vascular recommenda tionmild compressio n applied left lower leg Skin eschar 624712382 R2 3.4 x1 left lower legwound care reviewed with the patientcon tinue gentamicin and nonstick bandages to prevent skin tearMonito r for worsening signs of infection at present seek medical attention immediatel yFollow-up in 1 week [id number] Christelle Lee DPM [facility] [address] [place] [address] 11/19/2022 11:31:04 11/19/2022 11:58:18 Skin eschar 211932750 R23.4 healedfoll ow-up as needed Stasis michelle matitis of lower limb due to chronic peripheral venous hypertension 575674802 I87.399 bilateral lower legscontin ue with vascular recommenda tioncontin ue mild compressio n to prevent recurrence of wounds and swelling [id number] Vernon raymundo MD [facility] Internal Med [facility] [address] [facility], [facility] [address] [place] [address] 11/25/2022 14:46:15 11/25/2022 16:13:15 Screening - NAD 899929618 Z13.9 C-scope: Cologuard 03/30/19: Neg, ordered 04/22/2022 Mammogram: 05/07/18, neg, get this [id number] /20/19: Neg/05/08 021: Neg 022: Neg 023: Neg PAP: Did see Marium Becker DIGITAL ADVISOR DEXA: 09/12/2020 : OPDEXA: 07/14/2022 : OP, declined prolia in the past Get yearly flu shotUTD on PCV #13 05/07/16, #23 06/24/18Ge t shingles vaccine and Tdap if not doneUTD on COVID 19 vaccine RTC in 3 monthsGet labsER if worseShe did verbalize her understand ing of the above Chronic ob structive pulmonary disease 39769353 J44.9 CT Chest 11/20/2020 She does see Jona Bartholomew DIGITAL ADVISOR On ipratropiu mOn montelukas tOn proair Atrophic vaginitis 26236 000 N95.2 On clobetazol does well On hydroxyzin e for itching Insomnia 035971218 G47.0 0 On trazodone 50mg daily, does well Gastroesop hageal reflux disease without esophagitis 215537148 K21.9 On omeprazole Take as neededDoes well on this Glaucoma 38646287 H40.9 L eye blindness is present On brimonidin [place] dorzolamid [place] latanopros t Sees Dr Mayer Mass of thyroid gland [address] scan neck 04/13/18, mass noted ENT Dr Cee 07/28/2019 US thyroid 07/23/2020 : ENT Ti Rads 4, f/u in 1-2 years TSH WNL 01/29/[address] Cee 07/11/2021 US thyroid 07/18/2021 , ordered 04/22/2022 Coronary arteriosclerosis 70752443 I25.10 01/17/2022 : ECHO: [facility] CT chest 11/15/2021 [facility] Dr Philip 10/09/2021 , next in [address] Philip 04/04/2022 , next in 3 months Hyperlipidemia 83807986 E78.5 Cannot tolerate the statin Get on zetia but does not want this yet, declines any meds, needs to see Dr Philip, could try nexlizet, or leqvio Get labs Peripheral vascular disease 011321395 I73.9 See [facility] Dr Philip Osteoarthritis 420459245 M19.90 Dr Noyola 11/01/2020 , f/u as needed Dr Noyola 03/21/2021 , trochantri c bursitis or R hip s/p injection Dr Noyola/Maya Thorne PA 08/09/2021 Dr Noyola 09/24/2021 , s/p injection, L hip, L SI joint Dr Noyola 12/10/2021 Dr Noyola 05/29/2022 MRI L Spine 06/03/2022 : Dr Noyola, is now referred to a neurologis t in [place] as per her history Eruption 851781252 R21 She states that the hydroxyzin e has not helpedShe does have a long standing history of itching and denies any new detergents or use of soaps or foodsAlso has a small raised slightly tender papule on the L dorsum of hand Refer to dermatolog y Osteoporosis 22938576 M8 1.0 On proliaDecl inesNeeds to do ca and vit dRepeat the DEXA Multiple n odules of lung 026851612 R91.8 S/p CT chest 11/20/2020 Jona Morales DIGITAL ADVISOR 02/12/2021 , next apt 08/20/2021 , she has now been referred to Dr Barry for ? latent TB Jona Morales DIGITAL ADVISOR 08/05/2022 , next 10/14/2022 Macrocytosis 065627349 D 75.89 Get B12 and folate levels Restless legs 13130070 G 25.81 On ropinirole All side effects explained to her Right inguinal pain [address] Light 09/12/2021 , post op 11/05/2021 Cardiomyopathy 20165445 I42.9 [facility] ER: 11/15/2021 : CTA angio, for SOBAirlift ed to CNE, s/p coronary angio, diagnosed with Takotsubo CM On entrestoOn metoprolol ER 25mg 1/2 tab dailyOf lasixOff the life vest and O2 F/u with cardiology Hyperglycemia 61030969 R 73.9 Get labsDeclin es meds, more diet and exercise is needed Allergic rhinitis 445431 04 J30.9 Get on flonase, claritinAl so do dose of medrol dose pack, recently treated with Z-pack Trigeminal neuralgia 316 23851 G50.0 On carbamazep ine 100mg tid Has seen Dr Garcia and the pain is betterMRI brain 11/14/2020 : Neg Hypoproteinemia 3218098 E88.09 More protein in diet Goiter 3315615 E04.9 US head and neck 07/18/2022 Low back pain 461378997 M54.50 MRI L Spine 06/03/2022 : Dr Noyola Chronic ki dney disease 276412244 N18.9 [id number] NUNU Soriano [facility] [place] 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 77353683 M48.062 Low back pain 931733506 M54.50 Pain of le ft hip joint 3350532017 55257 M25.552 Trochanter ic bursitis of left hip 4554386668 10526 M70.62 [id number] Christelle Lee DPM [facility] [address] [place] [address] 01/21/2023 11:30:22 01/21/2023 14:06:39 Ulcer of lower extremity 50743084 L97.212 rx dressing supplies - lucas, 4x4 gauze, and keeley wrapgentia n braxton applied today with mild compressio n dressingRx gentamicin ointment apply 3 times daily with mild compressio n dressingFo llow-up 2 weeks [id number] Christelle Lee DPM [facility] [address] [place] [address] 02/04/2023 11:28:51 02/04/2023 15:26:51 Ulcer of lower extremity 79375359 L97.212 Mild compressio n dressing applied with gentamicin ointment and gentianRx gentamicin ointment apply 3 times daily with mild compressio n dressingFo llow-up 2 weeks [id number] Christelle Lee DPM [facility] [address] [place] [address] 02/11/2023 09:20:48 02/11/2023 10:11:09 Ulcer of lower extremity 66644885 L97.212 Mild compressio n dressing applied with gentamicin ointment and gentianRx gentamicin ointment apply 3 times daily with mild compressio n dressingFo llow-up 1 week [id number] Christelle Lee DPM [facility] [address] [place] [address] 02/18/2023 10:27:12 02/18/2023 11:18:21 Ulcer of lower extremity 98361945 L97.212 Endoform with Mild compressio n dressing appliedRx gentamicin ointment apply 3 times daily with mild compressio n dressingFo llow-up 1 week [id number] Vernon raymundo MD [facility] Internal Med [facility] [address] [facility], [facility] [address] [place] [address] 03/03/2023 14:39:19 03/03/2023 16:12:56 Screening - NAD 034941492 Z13.9 C-scope: Cologuard 03/30/19: Neg, ordered 04/22/2022 Cologuard 05/08/2022 : +veC-scope : 06/27/2022 : Dr Truong Mammogram: 05/07/18, neg, get this [id number] /20/19: Neg 021: Neg 022: Neg 023: Neg PAP: Did see Marium Becker DIGITAL ADVISOR DEXA: 09/12/2020 : OPDEXA: 07/14/2022 : OP, declined prolia in the past Get yearly flu shotUTD on PCV #13 05/07/16, #23 06/24/18UT D shingles vaccineUTD Tdap about 1.5 years ago in 2020UTD on COVID 19 vaccineGet RSV vaccine RTC in 3 monthsGet labsER if worseShe did verbalize her understand ing of the above Chronic ob structive pulmonary disease 68916553 J44.9 CT Chest 11/20/2020 She does see Jona Bartholomew DIGITAL ADVISOR On ipratropiu mOn montelukas tOn proair Atrophic vaginitis 19898 000 N95.2 On clobetazol does well On hydroxyzin e for itching Insomnia 810442662 G47.0 0 On trazodone 50mg daily, does well Gastroesop hageal reflux disease without esophagitis 275040076 K21.9 On omeprazole Take as neededDoes well on this Glaucoma 14772828 H40.9 L eye blindness is present On brimonidin [place] dorzolamid [place] latanopros t Sees Dr Mayer Mass of thyroid gland [address] scan neck 04/13/18, mass noted ENT Dr Cee 07/28/2019 US thyroid 07/23/2020 : ENT Ti Rads 4, f/u in 1-2 years TSH WNL 01/29/[address] Cee 07/11/2021 US thyroid 07/18/2021 US thyroid 07/14/2022 , next in one year Coronary arteriosclerosis 56817345 I25.10 01/17/2022 : ECHO: [facility] CT chest 11/15/2021 [facility] Dr Philip 10/09/2021 , next in [address] Philip 04/04/2022 , next [place] [address] Philip 10/24/2022 Hyperlipidemia 89715810 E78.5 Cannot tolerate the statin Get on zetia but does not want this yet, declines any meds, needs to see Dr Philip, could try nexlizet, or leqvio Get labs Peripheral vascular disease 456363030 I73.9 See [facility] Dr Philip Osteoarthritis 627037952 M19.90 Dr Noyola 11/01/2020 , f/u as needed Dr Noyola 03/21/2021 , trochantri c bursitis or R hip s/p injection Dr Noyola/Maya Thorne PA 08/09/2021 Dr Noyola 09/24/2021 , s/p injection, L hip, L SI joint Dr Noyola 12/10/2021 Dr Noyola 05/29/2022 MRI L Spine 06/03/2022 : Dr Noyola, is now referred to a neurologis t in [place] as per her history Collin Thorne 01/08/2023 : Pain in L SI/R SI joint, LBP, Pain of L hip joint, s/p kenalog Eruption 445836133 R21 She states that the hydroxyzin e has not helpedShe does have a long standing history of itching and denies any new detergents or use of soaps or foodsAlso has a small raised slightly tender papule on the L dorsum of hand Refer to dermatolog y Osteoporosis 39064775 M8 1.0 On proliaDecl inesNeeds to do ca and vit d Multiple n odules of lung 512510557 R91.8 S/p CT chest 11/20/2020 Jona Morales DIGITAL ADVISOR 02/12/2021 , next apt 08/20/2021 , she has now been referred to Dr Barry for ? latent TB Jona Morales DIGITAL ADVISOR f/u 04/17/2023 Macrocytosis 290536021 D 75.89 Get B12 and folate levels Restless legs 50460588 G 25.81 On ropinirole 0.5mg daily, will increase to 1mg dailyAll side effects explained to her Right inguinal pain [address] Light 09/12/2021 , post op 11/05/2021 Cardiomyopathy 35750935 I42.9 [facility] ER: 11/15/2021 : CTA angio, for SOBAirlift ed to CNE, s/p coronary angio, diagnosed with Takotsubo CM Off entrestoOn metoprolol ER 25mg 1 tab dailyOn lasix 20mg bid, can do one daily 03/03/2023 Off the life vest and O2 F/u with cardiology Dr Philip Hyperglycemia 69412291 R 73.9 Get labsDeclin es meds, more diet and exercise is needed Allergic rhinitis 923931 04 J30.9 On flonase, claritin Trigeminal neuralgia 316 21842 G50.0 On carbamazep ine 100mg tid, but should be on bid as per neurology Dr Lucero 01/29/2023 , f/u in one year Has seen Dr Garcia and the pain is betterMRI brain 11/14/2020 : Neg Hypoproteinemia 1548256 E88.09 More protein in diet Goiter 7359020 E04.9 US head and neck 07/18/2022 Low back pain 871297243 M54.50 MRI L Spine 06/03/2022 : Dr Noyola Chronic ki dney disease 319740576 N18.9 See nephrology Screening mammography 24 302124 Z12.31 Anemia 715434777 D64.9 Can do more iron in diet or OTC iron Adult heal th examination 699860265 Z00.00 Screening for disorder 520776440 Z13.9 Hypomagnesemia 853351271 E83.42 [id number] Christelle Lee DPM [facility] [address] [place] [address] 03/04/2023 10:22:51 03/04/2023 10:59:08 Ulcer of lower extremity 87442706 L97.212 HealedChro sujit compressio n to prevent recurrence of swelling and woundFollo w-up as needed [id number] Jona Morales, CONCRETE BLOCK LAYER-BC [facility] [place] [address] [place] [address] 04/17/2023 11:38:35 04/17/2023 13:57:37 Chronic obstructive pulmonary disease 28290613 J44.9 FEV1 44% predicted PBD.TLC 130% predicted. DLCO adjusted 74%.Needs repeat, she would like to wait until Mart is improved6 minute walk 11/24/18.S he did not require oxygen with activity after walking 600+ feet.RADHA on room air WNL.We have discussed reportable signs and symptoms.S tart dual bronchodil ationSampl es of stiolto todayInstr ucted on techniqueR X to check costShe should follow up in 6 months Multiple n odules of lung 300668372 R91.[address] 08/2022 Inactive tuberculosis 11 386911 Z22.7 Has seen ID with workup Dyspnea on exertion 6084 5006 R06.09 Worse without maintenanc e medication Stiolto as above Nicotine dependence 5629 4008 Z87.891 Smoking cessation counseling and techniques reviewed at length. Literature reviewed. Avoid triggers, support groups. Distractio n techniques Greater than 3 but less than 10 minutes spent discussing cessation. Declines NRT, she has gum already at home and has reactions to the patch Discussed Rx options if needed in the future.REp eat CT 08/2023 [id number] Vernon raymundo MD [facility] [address] [facility], [facility] [address] [place] [address] 07/02/2023 14:57:11 07/02/2023 15:57:30 Screening - NAD 339332271 Z13.9 C-scope: Cologuard 03/30/19: Neg, ordered 04/22/2022 Cologuard 05/08/2022 : +veC-scope : 06/27/2022 : Dr Truong Mammogram: 05/07/18, neg, get this [id number] /20/19: Neg01//2 021: Neg07/18/ 022: Neg 023: Neg PAP: Did see Marium Becker DIGITAL ADVISOR DEXA: 09/12/2020 : OPDEXA: 07/14/2022 : OP, declined prolia in the past Get yearly flu shotUTD on PCV #13 05/07/16, #23 06/24/18UT D shingles vaccineUTD Tdap about 1.5 years ago in 2020UTD on COVID 19 vaccineGet RSV vaccine RTC in 3 monthsGet labsER if worseShe did verbalize her understand ing of the above Chronic ob structive pulmonary disease 76155088 J44.9 CT Chest 11/20/2020 She does see Jona Bartholomew DIGITAL ADVISOR On ipratropiu mOn montelukas tOn proairOn spirivaOn stialto Atrophic vaginitis 60352 000 N95.2 On clobetazol does well On hydroxyzin e for itching Insomnia 275716577 G47.0 0 On trazodone 50mg daily, does well Gastroesop hageal reflux disease without esophagitis 765055237 K21.9 On omeprazole Take as neededDoes well on this Glaucoma 68373108 H40.9 L eye blindness is present On brimonidin [place] dorzolamid [place] latanopros t Sees Dr Mayer Mass of thyroid gland [address] scan neck 04/13/18, mass noted ENT Dr Cee 07/28/2019 US thyroid 07/23/2020 : ENT Ti Rads 4, f/u in 1-2 years TSH WNL 01/29/[address] Cee 07/11/2021 US thyroid 07/18/2021 US thyroid 07/14/2022 , next in one year Coronary arteriosclerosis 18938553 I25.10 01/17/2022 : ECHO: [facility] CT chest 11/15/2021 [facility] Dr Philip 10/09/2021 , next [place] [address] Philip 04/04/2022 , next [place] [address] Philip 10/24/2022 Hyperlipidemia 23709865 E78.5 Cannot tolerate the statin Get on zetia but does not want this yet, declines any meds, needs to see Dr Philip, could try nexlizet, or leqvio Get labs Peripheral vascular disease 659777419 I73.9 See [facility] Dr Philip Osteoarthritis 184440986 M19.90 Dr Noyola 11/01/2020 , f/u as needed Dr Noyola 03/21/2021 , trochantri c bursitis or R hip s/p injection Dr Noyola/Maya Tohrne PA 08/09/2021 Dr Noyola 09/24/2021 , s/p injection, L hip, L SI joint Dr Noyola 12/10/2021 Dr Noyola 05/29/2022 MRI L Spine 06/03/2022 : Dr Noyola, is now referred to a neurologis t in [place] as per her history Collin Thorne 01/08/2023 : Pain in L SI/R SI joint, LBP, Pain of L hip joint, s/p kenalog Eruption 056315328 R21 She states that the hydroxyzin e has not helpedShe does have a long standing history of itching and denies any new detergents or use of soaps or foodsAlso has a small raised slightly tender papule on the L dorsum of hand Refer to dermatolog y Osteoporosis 01229306 M8 1.0 On proliaDecl inesNeeds to do ca and vit d Multiple n odules of lung 884276912 R91.8 S/p CT chest 11/20/2020 Jona Dai DIGITAL ADVISOR 02/12/2021 , next apt 08/20/2021 , she has now been referred to Dr Barry for ? latent TB Jona Dai DIGITAL ADVISOR f/u 04/17/2023 Macrocytosis 030276253 D 75.89 Get B12 and folate levels Restless legs 21070607 G 25.81 On ropinirole 0.5mg daily, will increase to 1mg dailyAll side effects explained to her Right inguinal pain [address] Light 09/12/2021 , post op 11/05/2021 Cardiomyopathy 28403682 I42.9 [facility] ER: 11/15/2021 : CTA angio, for SOBAirlift ed to CNE, s/p coronary angio, diagnosed with Takotsubo CM Off entrestoOn metoprolol ER 25mg 1 tab dailyOn lasix 20mg bid, can do one daily 03/03/2023 Off the life vest and O2 F/u with cardiology Dr Philip TTE ECHO: 05/29/2023 : Dr Philip, EF 55% Hyperglycemia 74457194 R 73.9 Get labsDeclin es meds, more diet and exercise is needed Allergic rhinitis 138102 04 J30.9 On flonase, claritin Trigeminal neuralgia 316 34713 G50.0 On carbamazep ine 100mg tid, but should be on bid as per neurology Dr Lucero 01/29/2023 , f/u in one year Has seen Dr Garcia and the pain is betterMRI brain 11/14/2020 : Neg Hypoproteinemia 0736769 E88.09 More protein in diet Goiter 4644009 E04.9 US head and neck 07/18/2022 Low back pain 757855505 M54.50 MRI L Spine 06/03/2022 : Dr Noyola Chronic ki dney disease 787321983 N18.9 See nephrology Screening mammography 24 513777 Z12.31 Anemia 236040106 D64.9 Can do more iron in diet or OTC iron Hypomagnesemia 237320498 E83.42 Get mag level [id number] NUNU Soriano [facility] [place] [address] [place] [address] 08/18/2023 09:46:01 08/18/2023 10:44:11 Pain in left sacroiliac joint 4784779410 1812825 M53.3 Pain in ri ght sacroiliac joint 5126978577 9399794 M53.3 Trochanter ic bursitis of left hip 5171135945 81630 M70.62 Pain of bi lateral hip joints 5055960636 5932204 M25.551 M25.212 [id number] Gilberto Bonds MD [facility] [place] [address] [address] 09/28/2023 10:38:29 09/29/2023 09:01:07 Dyspnea on exertion 55710647 R06.09 R05.3 T78.40XA D89.9 Smoker 06568355 F17.218 F17.219 Z87.891 Solitary n odule of lung 572430219 R91.1 Chronic ob structive pulmonary disease 71469289 J44.9 [id number] Vernon raymundo MD [facility] Internal [facility] [address] [address] 10/01/2023 10:39:23 10/01/2023 12:26:33 Screening - NAD 356935431 Z13.9 C-scope: Cologuard 03/30/19: Neg, ordered 04/22/2022 Cologuard 05/08/2022 : +veC-scope : 06/27/2022 : Dr Truong Mammogram: 05/07/18, neg, get this [id number] /20/19: Neg 021: Neg 022: Neg 023: Neg 024: Neg PAP: Did see Marium Becker DIGITAL ADVISOR DEXA: 09/12/2020 : OPDEXA: 07/14/2022 : OP, declined prolia in the past Get yearly flu shotUTD on PCV #13 05/07/16, #23 06/24/18UT D shingles vaccineUTD Tdap about 1.5 years ago in 2020UTD on COVID 19 vaccineGet RSV vaccine RTC in 3 monthsGet labsER if worseShe did verbalize her understand ing of the above 45 minutes spent with the patient Chronic ob structive pulmonary disease 96835205 J44.9 CT Chest 11/20/2020 CT chest 07/30/2023 : Mucus impaction? She does see Jona Bartholomew DIGITAL ADVISOR, did not want to keep her apts with Dr Bonds as he refused to give her HHNs On ipratropiu mOn montelukas tOn proairOn spirivaOn shiraalMarcos Bonds 09/28/2023 Has noted some cough, 10/01/2023 , will send for z-pack, may need MDP if not better, discussed in detail any alarming symptoms and to proceed to the ER if getting worse Atrophic vaginitis 09359 000 N95.2 On clobetazol does well On hydroxyzin e for itching Insomnia 888946372 G47.0 0 On trazodone 50mg daily, does well Gastroesop hageal reflux disease without esophagitis 565538621 K21.9 On omeprazole Takes as neededDoes well on this Glaucoma 94291039 H40.9 L eye blindness is present On brimonidin [place] dorzolamid [place] latanopros t Sees Dr Mayer Mass of thyroid gland [address] scan neck 04/13/18, mass noted ENT Dr Cee 07/28/2019 US thyroid 07/23/2020 : ENT Ti Rads 4, f/u in 1-2 yearsUS thyroid 07/20/2023 : Now should see ENT again TSH WNL 01/29/[address] Cee 07/11/2021 US thyroid 07/18/2021 US thyroid 07/14/2022 , next in one year Coronary arteriosclerosis 08447569 I25.10 01/17/2022 : ECHO: [facility] CT chest 11/15/2021 [facility] Dr Philip 10/09/2021 , next in [address] Philip 04/04/2022 , next in [address] Philip 10/24/2022 Hyperlipidemia 73551178 E78.5 Cannot tolerate the statin Get on zetia but does not want this yet, declines any meds, needs to see Dr Philip, could try nexlizet, or leqvio Get labs Peripheral vascular disease 508845283 I73.[address] Philip Osteoarthritis 802054421 M19.90 Dr Noyola 11/01/2020 , f/u as needed Dr Noyola 03/21/2021 , trochantri c bursitis or R hip s/p injection Dr Noyola/Maya Thorne PA 08/09/2021 Dr Noyola 09/24/2021 , s/p injection, L hip, L SI joint Dr Noyola 12/10/2021 Dr Noyola 05/29/2022 MRI L Spine 06/03/2022 : Dr Noyola, is now referred to a neurologis t in [place] as per her history Collin Thorne 01/08/2023 : Pain in L SI/R SI joint, LBP, Pain of L hip joint, s/p kenalog Eruption 126147989 R21 She states that the hydroxyzin e has not helpedShe does have a long standing history of itching and denies any new detergents or use of soaps or foodsAlso has a small raised slightly tender papule on the L dorsum of hand Refer to dermatolog y Osteoporosis 66420032 M8 1.0 On proliaDecl inesNeeds to do ca and vit d Multiple n odules of lung 655939803 R91.8 S/p CT chest 11/20/2020 Jona Morales DIGITAL ADVISOR 02/12/2021 , next apt 08/20/2021 , she has now been referred to Dr Barry for ? latent TB Jona Morales DIGITAL ADVISOR f/u 04/17/2023 Macrocytosis 867873648 D 75.89 Get B12 and folate levels Restless legs 95163638 G 25.81 On ropinirole 0.5mg daily, will increase to 1mg dailyAll side effects explained to her Right inguinal pain [address] Light 09/12/2021 , post op 11/05/2021 Cardiomyopathy 51311047 I42.9 [facility] ER: 11/15/2021 : CTA angio, for SOBAirlift ed to CNE, s/p coronary angio, diagnosed with Takotsubo CM Off entrestoOn metoprolol ER 25mg 1 tab dailyOn lasix 20mg bid, can do one daily 03/03/2023 Off the life vest and O2 F/u with cardiology Dr Philip TTE ECHO: 05/29/2023 : Dr Philip, EF 55% Hyperglycemia 71001572 R 73.9 Get labsDeclin es meds, more diet and exercise is needed Allergic rhinitis 523392 04 J30.9 On flonase, claritin Trigeminal neuralgia 316 65400 G50.0 On carbamazep ine 100mg tid, but should be on bid as per neurology Dr Lucero 01/29/2023 , f/u in one year Has seen Dr Garcia and the pain is betterMRI brain 11/14/2020 : Neg Hypoproteinemia 6591541 E88.09 More protein in diet Goiter 6234533 E04.9 US head and neck 07/18/2022 Low back pain 032437422 M54.50 MRI L Spine 06/03/2022 : Dr Gustafson es well now 10/01/2023 , no N/T or weakness in the LE Chronic ki dney disease 430294394 N18.9 See nephrology Anemia 600712465 D64.9 Can do more iron in diet or OTC iron Hypomagnesemia 609317351 E83.42 Get mag level 3774316 Radha Cee MD [facility] [place] [address] [place] [address] 11/04/2023 10:06:51 11/04/2023 13:24:36 Thyroid nodule 941493872 E04.1 [id number] Vernon raymundo MD [facility] Internal [facility] [address] [facility], [place] [address] [place] [address] 12/31/2023 14:00:49 12/31/2023 15:00:59 Screening - NAD 034680240 Z13.9 C-scope: Cologuard 03/30/19: Neg, ordered 04/22/2022 Cologuard 05/08/2022 : +veC-scope : 06/27/2022 : Dr Truong Mammogram: 05/07/18, neg, get this [id number] /20/19: Neg/05/08 021: Neg 022: Neg 023: Neg 024: Neg PAP: Did see Marium Becker DIGITAL ADVISOR DEXA: 09/12/2020 : OPDEXA: 07/14/2022 : OP, declined prolia in the past Get yearly flu shotUTD on PCV #13 05/07/16, #23 06/24/18UT D shingles vaccineUTD Tdap about 1.5 years ago in 2020UTD on COVID 19 vaccineGet RSV vaccine RTC in 3 monthsGet labsER if worseShe did verbalize her understand ing of the above 45 minutes spent with the patient Chronic ob structive pulmonary disease 45930819 J44.9 CT Chest 11/20/2020 CT chest 07/30/2023 : Mucus impaction? She does see Jona Bartholomew DIGITAL ADVISOR, did not want to keep her apts with Dr Bonds as he refused to give her HHNs On ipratropiu mOn montelukas tOn proairNot on spiriva Dr Bonds 09/28/2023 Has noted some cough, 10/01/2023 , will send for z-pack, may need MDP if not better, discussed in detail any alarming symptoms and to proceed to the ER if getting worse Dr Israel 12/10/2023 , given doxy PRN and started on stiolto Atrophic vaginitis 36663 000 N95.2 On clobetazol does well On hydroxyzin e for itching Insomnia 038030678 G47.0 0 On trazodone 50mg daily, does well Gastroesop hageal reflux disease without esophagitis 457167216 K21.9 On omeprazole Takes as neededDoes well on this Glaucoma 20092188 H40.9 L eye blindness is present On brimonidin [place] dorzolamid [place] latanopros t Sees Dr Mayer Mass of thyroid gland [address] scan neck 04/13/18, mass noted ENT Dr Cee 07/28/2019 US thyroid 07/23/2020 : ENT Ti Rads 4, f/u in 1-2 yearsUS thyroid 07/20/2023 : Now should see ENT again TSH WNL 01/29/[address] Cee 07/11/2021 US thyroid 07/18/2021 US thyroid 07/14/2022 , next in one year ENT Dr Cee 11/04/2023 , US thyroid in one year Coronary arteriosclerosis 46724899 I25.10 01/17/2022 : ECHO: [facility] CT chest 11/15/[address] Philip 10/09/2021 , next in [address] Philip 04/04/2022 , next [place] [address] Philip 10/24/2022 Hyperlipidemia 53336170 E78.5 Cannot tolerate the statin Get on zetia but does not want this yet, declines any meds, needs to see Dr Philip, could try nexlizet, or leqvio Get labs Peripheral vascular disease 373949516 I73.9 See [facility] Dr Philip Osteoarthritis 569001178 M19.90 Dr Noyola 11/01/2020 , f/u as needed Dr Noyola 03/21/2021 , trochantri c bursitis or R hip s/p injection Dr Noyola/Maya Thorne PA 08/09/2021 Dr Noyola 09/24/2021 , s/p injection, L hip, L SI joint Dr Noyola 12/10/2021 Dr Noyola 05/29/2022 MRI L Spine 06/03/2022 : Dr Noyola, is now referred to a neurologis t in [place] as per her history Collin Thorne 01/08/2023 : Pain in L SI/R SI joint, LBP, Pain of L hip joint, s/p kenalog Collin Thorne PA 08/18/2023 , next apt 01/07/2024 Eruption 980702955 R21 She states that the hydroxyzin e has not helpedShe does have a long standing history of itching and denies any new detergents or use of soaps or foodsAlso has a small raised slightly tender papule on the L dorsum of hand Refer to dermatolog y Osteoporosis 74003127 M8 1.0 On proliaDecl inesNeeds to do ca and vit d Multiple n odules of lung 186010998 R91.8 S/p CT chest 11/20/2020 Jona Noblerell DIGITAL ADVISOR 02/12/2021 , next apt 08/20/2021 , she has now been referred to Dr Barry for ? latent TB Jona Morales DIGITAL ADVISOR f/u 04/17/2023 Macrocytosis 960500970 D 75.89 MCV WNL 12/30/2023 Get B12 and folate levels Restless legs 77559263 G 25.81 On ropinirole 0.5mg daily, will increase to 1mg dailyAll side effects explained to her Right inguinal pain [address] Light 09/12/2021 , post op 11/05/2021 Cardiomyopathy 20432931 I42.9 [facility] ER: 11/15/2021 : CTA angio, for SOBAirlift ed to CNE, s/p coronary angio, diagnosed with Takotsubo CM Off entrestoOn metoprolol ER 25mg 1 tab dailyOn lasix 20mg bid, can do one daily 03/03/2023 Off the life vest and O2 F/u with cardiology Dr Philip TTE ECHO: 05/29/2023 : Dr Philip, EF 55% Hyperglycemia 50997148 R 73.9 Get labsDeclin es meds, more diet and exercise is needed Allergic rhinitis 496971 04 J30.9 On flonase, claritin Trigeminal neuralgia 316 75559 G50.0 On carbamazep ine 100mg tid, but should be on bid as per neurology Dr Lucero 01/29/2023 , f/u in one year Has seen Dr Garcia and the pain is betterMRI brain 11/14/2020 : Neg Hypoproteinemia 3089612 E88.09 More protein in diet Goiter 4052830 E04.9 US head and neck 07/18/2022 Low back pain 301888444 M54.50 MRI L Spine 06/03/2022 : Dr Gustafson es well now 10/01/2023 , no N/T or weakness in the LE Chronic ki dney disease 407626148 N18.9 See nephrology Anemia 886020486 D64.9 Can do more iron in diet or OTC iron Hypomagnesemia 444520732 E83.42 Get mag level Leukopenia 94833532 D72. 819 Repeat the CBC in 2 weeks again, may need to see hematology if low WBC Hyponatremia 59127036 E8 7.[address] Peter garrido the CMP Open wound of left lower leg 4426198107 6063799 S81.802A Xerostomia 54645958 R68. 2 States that none of the OTC mouth washes/rin ses have worked, she has used Biotene/AC T etcWill start on Cevimeline , all side effects explained to her, notify if any side effects occur, she verbalized her understand ing of the above [id number] Christelle Lee DPM [facility] [address] [place] [address] 01/06/2024 16:16:12 01/07/2024 15:15:06 Venous stasis ulcer with edema of left lower leg 8553168986 5657352 L97.929 daily dressingsr ecommend compressio n- Tubigrip dispensedk eep area clean and dryfollow- up one-week Venous sta sis ulcer with edema of right lower leg 6948731221 5904085 L97.919 times 1as above [id number] NUNU Soriano [facility] [place] [address] [place] [address] 01/07/2024 13:42:00 01/07/2024 14:21:57 Pain of left hip joint 1999973712 18842 M25.552 Trochanter ic bursitis of left hip 9868395719 08369 M70.62 [id number] Christelle Lee DPM [facility] [address] [place] [address] 01/20/2024 11:16:36 01/20/2024 12:51:31 Venous stasis ulcer with edema of left lower leg 0128731378 5323929 L97.929 Healedreco mmend chronic compressio n to reduce recurrence of wounds and to protect lower legs due to thin skinFollow -up as needed Venous sta sis ulcer with edema of right lower leg 5528760998 7780855 L97.919 as above [id number] Christelle Lee DPM [facility] [place] [address], [address] [place] [address] 02/23/2024 14:15:15 03/07/2024 14:00:11 Ankle pain 889894422 M25.579 right lateral anklefoot and ankle x-rays are neg for acute fracture Peroneal t endinitis of right lower limb 4485082452 86403 M76.71 tendon pain lateral anklerice therapyace wrap applied to the ankleno strenuous activities Peripheral venous insufficiency 33077175 I87.2 bilateral legsrecomm end mild compressio n sport socks daily [id number] Vernon raymundo MD [facility] Internal Med [facility] [address] [facility] [address] [place] [address] 03/03/2024 09:22:46 03/03/2024 09:59:22 Headache 50470706 R51.9 [facility] ER: 02/18/2024 [facility] ER: 02/18/2024 Addendum: 03/03/2024 :CT Head: 03/03/2024 : Neg, patient notified Pain in left foot 655631 9324 35436 M79.672 [facility] ER: 02/18/2024 [facility] ER: 02/18/2024 Trauma, dropped box of candy, skin tear, also noted to have headacheUS LE: Neg for DVTCelluli tis, treated with keflexAlso treated with morphine and zofranRene wed the oxycodone in VERY limited quantities as per her request 03/03/2024 , needs to keep apt with orthoShe is not at all happy with care from podiatry Dr Lee, so refer to Dr Ruelas Addendum: 03/03/2024 :Xray: Neg: Patient notified [id number] Vernon raymundo MD [facility] Internal Med [facility] [address] [facility] [address] [place] [address] 05/03/2024 11:46:07 05/03/2024 12:57:05 Headache 20299593 R51.9 [facility] ER: 02/18/2024 [facility] ER: 02/18/2024 Addendum: 03/03/2024 :CT Head: 03/03/2024 : Neg, patient notified Pain in left foot 245058 3758 25668 M79.672 [facility] ER: 02/18/2024 [facility] ER: 02/18/2024 Trauma, dropped box of candy, skin tear, also noted to have headacheUS LE: Neg for DVTCelluli tis, treated with keflexAlso treated with morphine and zofranRene wed the oxycodone in VERY limited quantities as per her request 03/03/2024 , needs to keep apt with orthoShe is not at all happy with care from podiatry Dr Lee, so refer to Dr Ruelas Addendum: 03/03/2024 :Xray: Neg: Patient notifiedAl so referred to Dr Louis as she does not want to see Dr Izaguirre e would like to get on oxycodone and this was renewed in very limited quantities 05/03/2024 Screening - NAD 05747311 3 Z13.9 C-scope: Cologuard 03/30/19: Neg, ordered 04/22/2022 Cologuard 05/08/2022 : +veC-scope : 06/27/2022 : Dr Truong Mammogram: 05/07/18, neg, get this /20/19: Neg01// 021: Neg07/18/ 022: Neg 023: Neg 024: Neg PAP: Did see Marium Becker DIGITAL ADVISOR DEXA: 09/12/2020 : OPDEXA: 07/14/2022 : OP, declined prolia in the past Get yearly flu shotUTD on PCV #13 05/07/16, #23 06/24/18UT D shingles vaccineUTD Tdap about 1.5 years ago in 2020UTD on COVID 19 vaccineGet RSV vaccine RTC in 3 monthsGet labsER if worseShe did verbalize her understand ing of the above Chronic ob structive pulmonary disease 49755279 J44.9 CT Chest 11/20/2020 CT chest 07/30/2023 : Mucus impaction? She does see Jona Bartholomew DIGITAL ADVISOR, did not want to keep her apts with Dr Bonds as he refused to give her HHNs On ipratropiu mOn montelukas tOn proairNot on spiriva Dr Bonds 09/28/2023 Has noted some cough, 10/01/2023 , will send for z-pack, may need MDP if not better, discussed in detail any alarming symptoms and to proceed to the ER if getting worse Dr Israel 12/10/2023 , given doxy PRN and started on stiolto Atrophic vaginitis 44981 000 N95.2 On clobetazol does well On hydroxyzin e for itching Insomnia 923652674 G47.0 0 On trazodone 50mg daily, does well Gastroesop hageal reflux disease without esophagitis 442675090 K21.9 On omeprazole Takes as neededDoes well on this Glaucoma 51917298 H40.9 L eye blindness is present On brimonidin [place] dorzolamid [place] latanopros t Sees Dr Mayer Mass of thyroid gland [address] scan neck 04/13/18, mass noted ENT Dr Cee 07/28/2019 US thyroid 07/23/2020 : ENT Ti Rads 4, f/u in 1-2 yearsUS thyroid 07/20/2023 : Now should see ENT again TSH WNL 01/29/[address] Cee 07/11/2021 US thyroid 07/18/2021 US thyroid 07/14/2022 , next in one year ENT Dr Cee 11/04/2023 , US thyroid in one year Coronary arteriosclerosis 13805723 I25.10 01/17/2022 : ECHO: [facility] CT chest 11/15/2021 [facility] Dr Philip 10/09/2021 , next [facility] [address] Philip 04/04/2022 , next [place] [address] Philip 10/24/[address] Philip 04/15/2024 , was referred to Dr Lee, then seen in the ER on 04/21/2024 S/p ER [place] ER: for SOB, treated with augmentinS /p ER [place] 04/21/2024 for LE swelling and treated with lasix, see case on 04/28/2024 Hyperlipidemia 30653368 E78.5 Now on rosuvastat in 5mg daily Dr Philip Get on zetia but does not want this yet, declines any meds, needs to see Dr Philip, could try nexlizet, or leqvio Get labs Peripheral vascular disease 500279234 I73.9 See [facility] Dr [place] Osteoarthritis 143439547 M19.90 Dr Noyola 11/01/2020 , f/u as needed Dr Noyola 03/21/2021 , trochantri c bursitis or R hip s/p injection Dr Noyola/Maya EDDY 08/09/2021 Dr Noyola 09/24/2021 , s/p injection, L hip, L SI joint Dr Noyola 12/10/2021 Dr Noyola 05/29/2022 MRI L Spine 06/03/2022 : Dr Noyola, is now referred to a neurologis t in [place] as per her history Collin Thorne 01/08/2023 : Pain in L SI/R SI joint, LBP, Pain of L hip joint, s/p kenalog Collin EDDY 01/07/2024 Has been on oxycodone in the past, wants to renew, will renew 05/03/2024 Eruption [id number] R21 She states that the hydroxyzin e has not helpedShe does have a long standing history of itching and denies any new detergents or use of soaps or foodsAlso has a small raised slightly tender papule on the L dorsum of hand Refer to dermatolog y Osteoporosis 19631270 M8 1.0 On proliaDecl inesNeeds to do ca and vit d Multiple n odules of lung 306620634 R91.8 S/p CT chest 11/20/2020 Jona Morales DIGITAL ADVISOR 02/12/2021 , next apt 08/20/2021 , she has now been referred to Dr Barry for ? latent TB Jona Morales DIGITAL ADVISOR f/u 04/17/2023 Macrocytosis 614014519 D 75.89 MCV WNL 12/30/2023 Get B12 and folate levels Restless legs 45506459 G 25.81 On ropinirole 0.5mg daily, will increase to 1mg dailyAll side effects explained to her Right inguinal pain [address] Light 09/12/2021 , post op 11/05/2021 Cardiomyopathy 14986412 I42.9 [facility] ER: 11/15/2021 : CTA angio, for SOBAirlift ed to CNE, s/p coronary angio, diagnosed with Takotsubo CM Off entrestoOn metoprolol ER 25mg 1 tab dailyOn lasix 20mg bid, can do one daily 03/03/2023 On KOff the life vest and O2 F/u with cardiology Dr Philip, but now referred to Dr Bauman [facility] as per her request 05/03/2024 [facility] ECHO: 05/29/2023 : Dr Philip, EF 55% Hyperglycemia 33013264 R 73.9 Get labsDeclin es meds, more diet and exercise is needed Allergic rhinitis 569280 04 J30.9 On flonase, claritin Trigeminal neuralgia 316 71932 G50.0 On carbamazep ine 100mg tid, but should be on bid as per neurology Dr Lucero 01/29/2023 , f/u in one year Has seen Dr Garcia and the pain is betterMRI brain 11/14/2020 : Neg Dr Lucero 03/10/2024 , f/u PRN Hypoproteinemia 5442751 E88.09 More protein in diet Goiter 3111766 E04.9 US head and neck 07/18/2022 Low back pain 136542615 M54.50 MRI L Spine 06/03/2022 : Dr Gustafson es well now 10/01/2023 , no N/T or weakness in the LE Chronic ki dney disease 755354292 N18.9 See nephrology Anemia 780525049 D64.9 Can do more iron in diet or OTC iron Hypomagnesemia 781342992 E83.42 Get mag level Leukopenia 08573404 D72. 819 Repeat may need to see hematology if low WBC Hyponatremia 42093888 E8 7.[address] Peter garrido the CMP Open wound of left lower leg 9104607383 0170254 S81.802A Dr Lee 02/23/2024 , next apt 06/02/2024 , change to Dr Louis Xerostomia 33977904 R68. 2 States that none of the OTC mouth washes/rin ses have worked, she has used Biotene/AC T etcOn Cevimeline , all side effects explained to her, notify if any side effects occur, she verbalized her understand ing of the above Adult heal th examination 990918237 Z00.00 Screening for disorder 326645092 Z13.9 Administra tion of influenza vaccine 78570314 Z23 [id number] Lucio Louis DPM [facility] [place] [address] [place] [address] 1 05/11/2024 09:22:23 05/12/2024 16:39:48 Pain in right foot 1956554666 27792 M79.671 Right foot neuritis 2924 481580 22997 G57.81 Edema of l ower extremity 151172876 R60.0 [id number] Lucio Louis DPM [facility] Podiat[facility] [place] [address] [address] [place] [address] 1 05/17/2024 12:23:26 05/18/2024 13:55:44 Neuropathy 778592138 G62.9 [id number] Vernon raymundo MD [facility] Internal Med [facility] [address] [place] [address] 1 06/28/2024 13:55:37 06/28/2024 15:04:35 Headache 71663754 R51.9 [facility] ER: 02/18/2024 [facility] ER: 02/18/2024 Addendum: 03/03/2024 :CT Head: 03/03/2024 : Neg, patient notified OV 06/28/2024 : Resolved, notify if any symptoms occur Pain in left foot 160374 1943 67008 M79.672 [facility] ER: 02/18/2024 [facility] ER: 02/18/2024 Trauma, dropped box of candy, skin tear, also noted to have headacheUS LE: Neg for DVTCelluli tis, treated with keflexAlso treated with morphine and zofranRene wed the oxycodone in VERY limited quantities as per her request 03/03/2024 , needs to keep apt with orthoShe is not at all happy with care from podiatry Dr Lee, so refer to Dr Ruelas Addendum: 03/03/2024 :Xray: Neg: Patient notifiedAl so referred to Dr Louis as she does not want to see Dr LeeSh e would like to get on oxycodone and this was renewed in very limited quantities 05/03/2024 OV 06/28/2024 : Does well now Screening - NAD 48221921 3 Z13.9 C-scope: Cologuard 03/30/19: Neg, ordered 04/22/2022 Cologuard 05/08/2022 : +veC-scope : 06/27/2022 : Dr Truong Mammogram: 05/07/18, neg, get this [id number] /20/19: Neg01// 021: Neg 022: Neg 023: Neg 024: NegNo more mammogram 06/28/2024 PAP: Did see Marium Becker DIGITAL ADVISOR DEXA: 09/12/2020 : OPDEXA: 07/14/2022 : OP, declined prolia in the past Get yearly flu shotUTD on PCV #13 05/07/16, #23 06/24/18UT D shingles vaccineUTD Tdap about 1.5 years ago in 2020UTD on COVID 19 vaccineUTD on RSV vaccine RTC in 3 monthsGet labsER if worseShe did verbalize her understand ing of the above Chronic ob structive pulmonary disease 78075060 J44.9 CT Chest 11/20/2020 CT chest 07/30/2023 : Mucus impaction? She does see Jona Bartholomew DIGITAL ADVISOR, did not want to keep her apts with Dr Bonds as he refused to give her HHNs On ipratropiu mOn montelukas tOn proairNot on stiolto, has been given samples in the pastNot on spiriva Dr Bonds 09/28/2023 Has noted some cough, 10/01/2023 , will send for z-pack, may need MDP if not better, discussed in detail any alarming symptoms and to proceed to the ER if getting worse Dr Israel 12/10/2023 , given doxy PRN and started on stioltoNow sees Jona Morales DIGITAL ADVISOR in 09/2024, is s/p EGD on 06/17/2024 , Dr Laguna Atrophic vaginitis 95703 000 N95.2 On clobetazol does well On hydroxyzin e for itching Insomnia 677108730 G47.0 0 On trazodone 50mg daily, does well Gastroesop hageal reflux disease without esophagitis 393521522 K21.9 On omeprazole Takes as neededDoes well on thisS/p EGD Dr Laguna on 06/17/2024 Glaucoma 59822468 H40.9 L eye blindness is present On brimonidin [place] dorzolamid [place] latanopros tOn neomycin eye drop Sees Dr Mayer, f/u on 07/14/2024 Mass of thyroid gland [address] scan neck 04/13/18, mass noted ENT Dr Cee 07/28/2019 US thyroid 07/23/2020 : ENT Ti Rads 4, f/u in 1-2 yearsUS thyroid 07/20/2023 : Now should see ENT again TSH WNL 01/29/[address] Cee 07/11/2021 US thyroid 07/18/2021 US thyroid 07/14/2022 , next in one year ENT Dr Cee 11/04/2023 , US thyroid in one yearUS thyroid 06/28/2024 ordered Coronary arteriosclerosis 37774630 I25.10 01/17/2022 : ECHO: [facility] CT chest 11/15/2021 [facility] Dr Philip 10/09/2021 , next [place] [address] [place] 04/04/2022 , next [place] [address] Philip 10/24/2022 [facility] Dr Philip 04/15/2024 , was referred to Dr Lee, then seen in the ER on 04/21/2024 S/p ER El ER: for SOB, treated with augmentinS /p ER [place] 04/21/2024 for LE swelling and treated with lasix, see case on 04/28/2024 [address] Bauman [facility] Hyperlipidemia 23190257 E78.5 Not on rosuvastat in 5mg daily Dr Philip Does not want and labs are WNL 06/24/2024 Get labs Peripheral vascular disease 014278279 I73.9 See [facility] Dr Bauman [facility] Osteoarthritis 153444492 M19.90 Dr Noyola 11/01/2020 , f/u as needed Dr Noyola 03/21/2021 , trochantri c bursitis or R hip s/p injection Dr Noyola/Maya EDDY 08/09/2021 Dr Noyola 09/24/2021 , s/p injection, L hip, L SI joint Dr Noyola 12/10/2021 Dr Noyola 05/29/2022 MRI L Spine 06/03/2022 : Dr Noyola, is now referred to a neurologis t in [place] as per her history Collin Thorne 01/08/2023 : Pain in L SI/R SI joint, LBP, Pain of L hip joint, s/p kenalog Collin EDDY 01/07/2024 Has been on oxycodone in the past, wants to renew, will renew 05/03/2024 OV 06/28/2024 :On tramadol 50mg daily as neededAdde ndum 06/30/2024 : RenewedNot on oxycodone, takes very sparingly and OK to renew as needed 06/28/2023 Eruption 308022647 R21 She states that the hydroxyzin e has not helpedShe does have a long standing history of itching and denies any new detergents or use of soaps or foodsAlso has a small raised slightly tender papule on the L dorsum of hand Refer to dermatolog y Osteoporosis 97689024 M8 1.0 On prolia last 01/08/2023 DeclinesNe eds to do ca and vit d Multiple n odules of lung 978999449 R91.8 S/p CT chest 11/20/2020 Jona Morales DIGITAL ADVISOR 02/12/2021 , next apt 08/20/2021 , she has now been referred to Dr Barry for ? latent TB Jona Morales DIGITAL ADVISOR f/u 04/17/2023 Macrocytosis 656047434 D 75.89 MCV WNL 12/30/2023 Get B12 and folate levels Restless legs 57450957 G 25.81 On ropinirole 1mg dailyAlso on gabapentin All side effects explained to her Right inguinal pain [address] Light 09/12/2021 , post op 11/05/2021 Cardiomyopathy 63468748 I42.9 [facility] ER: 11/15/2021 : CTA angio, for SOBAirlift ed to CNE, s/p coronary angio, diagnosed with Takotsubo CM Off entrestoOf f metoprolol ER 25mg 1 tab daily, as per her history 06/28/2024 , states that Dr Mitul ROMERO told her to stop takingOn lasix 20mg bid, can do one daily 03/03/2023 On KOff the life vest and O2 F/u with cardiology Dr Philip, but now referred to Dr Mitul ROMERO as per her request 05/03/2024 TTE ECHO: 05/29/2023 : Dr Philip, EF 55% Hyperglycemia 94488832 R 73.9 Get labsDeclin es meds, more diet and exercise is needed Allergic rhinitis 368504 04 J30.9 On claritin, montelukas tNot on flonase Trigeminal neuralgia 316 37625 G50.0 On carbamazep ine 100mg tid, but should be on bid as per neurology Dr Lucero 01/29/2023 , f/u in one year Has seen Dr Garcia and the pain is betterMRI brain 11/14/2020 : Neg Dr Lucero 03/10/2024 , f/u PRN OV 06/28/2024 :Does well, not taking the carbazepin e Hypoproteinemia 1161523 E88.09 More protein in diet Goiter 0772565 E04.9 US head and neck 07/18/2022 Low back pain 256010905 M54.50 MRI L Spine 06/03/2022 : Dr Gustafson es well now 10/01/2023 , no N/T or weakness in the LE Chronic ki dney disease 786904164 N18.9 See nephrology Anemia 953884323 D64.9 Can do more iron in diet or OTC iron Hypomagnesemia 673614054 E83.42 Get mag level Leukopenia 89082159 D72. 819 Repeat may need to see hematology if low WBC Hyponatremia 00614350 E8 7.[address] Peter garrido the CMP Open wound of left lower leg 7343551252 8209297 S81.802A Dr Lee 02/23/2024 , next apt 06/02/2024 , change to Dr Louis OV 06/28/2024 : No more apts healed Xerostomia 77945094 R68. 2 States that none of the OTC mouth washes/rin ses have worked, she has used Biotene/AC T etcOn Cevimeline , all side effects explained to her, notify if any side effects occur, she verbalized her understand ing of the above Screening for osteoporosis 061611805 Z13.820 Liver enzy mes level above reference range 448087495 R74.01 Get labs and US liver [id number] Vernon raymundo MD [facility] Internal Med [facility] [address] [facility], [facility] [address] [place] [address] 08/23/2024 14:17:34 08/23/2024 15:01:25 Headache 97416748 R51.9 [facility] ER: 02/18/2024 [facility] ER: 02/18/2024 Addendum: 03/03/2024 :CT Head: 03/03/2024 : Neg, patient notified OV 06/28/2024 : Resolved, notify if any symptoms occur Pain in left foot 197219 6696 85170 M79.672 [facility] ER: 02/18/2024 [facility] ER: 02/18/2024 Trauma, dropped box of candy, skin tear, also noted to have headacheUS LE: Neg for DVTCelluli tis, treated with keflexAlso treated with morphine and zofranRene wed the oxycodone in VERY limited quantities as per her request 03/03/2024 , needs to keep apt with orthoShe is not at all happy with care from podiatry Dr Lee, so refer to Dr Ruelas Addendum: 03/03/2024 :Xray: Neg: Patient notifiedAl so referred to Dr Louis as she does not want to see Dr Izaguirre e would like to get on oxycodone and this was renewed in very limited quantities 05/03/2024 OV 06/28/2024 : Does well now Screening - NAD 96549240 3 Z13.9 C-scope: Cologuard 03/30/19: Neg, ordered 04/22/2022 Cologuard 05/08/2022 : +veC-scope : 06/27/2022 : Dr Truong Mammogram: 05/07/18, neg, get this /20/19: Neg 021: Neg 022: Neg 023: Neg 024: NegNo more mammogram 06/28/2024 PAP: Did see Marium Becker DIGITAL ADVISOR DEXA: 09/12/2020 : OPDEXA: 07/14/2022 : OP, declined prolia in the pastDEXA: 07/15/2023 : OP, cannot do prolia, d/t cost, will do fosamax Get yearly flu shotUTD on PCV #13 05/07/16, #23 06/24/18UT D shingles vaccineUTD Tdap about 1.5 years ago in 2020UTD on COVID 19 vaccineUTD on RSV vaccine RTC in 3 monthsGet labsER if worseShe did verbalize her understand ing of the above Chronic ob structive pulmonary disease 49016727 J44.9 CT Chest 11/20/2020 CT chest 07/30/2023 : Mucus impaction? She does see Jona Bartholomew DIGITAL ADVISOR, did not want to keep her apts with Dr Bonds as he refused to give her HHNs On ipratropiu mOn montelukas tOn proairNot on stiolto, has been given samples in the pastNot on spiriva Dr Bonds 09/28/2023 Has noted some cough, 10/01/2023 , will send for z-pack, may need MDP if not better, discussed in detail any alarming symptoms and to proceed to the ER if getting worse Dr Israel 12/10/2023 , given doxy PRN and started on stioltoNow sees Jona Morales DIGITAL ADVISOR in 09/2024, is s/p EGD on 06/17/2024 , Dr Laguna Atrophic vaginitis 72773 000 N95.2 On clobetazol does well On hydroxyzin e for itching Insomnia 460482905 G47.0 0 On trazodone 50mg daily, does well Gastroesop hageal reflux disease without esophagitis 268266988 K21.9 On omeprazole Takes as neededDoes well on thisS/p EGD Dr Laguna on 06/17/2024 Glaucoma 15738929 H40.9 L eye blindness is present On brimonidin [place] dorzolamid [place] latanopros tOn neomycin eye drop Sees Dr Mayer Mass of thyroid gland [address] scan neck 04/13/18, mass noted ENT Dr Cee 07/28/2019 US thyroid 07/23/2020 : ENT Ti Rads 4, f/u in 1-2 yearsUS thyroid 07/20/2023 : Now should see ENT again TSH WNL 01/29/[address] Cee 07/11/2021 US thyroid 07/18/2021 US thyroid 07/14/2022 , next in one year ENT Dr Cee 11/04/2023 , US thyroid in one yearUS thyroid 06/28/2024 ordered Coronary arteriosclerosis 62630575 I25.10 01/17/2022 : ECHO: [facility] CT chest 11/15/2021 [facility] Dr Philip 10/09/2021 , next [place] [address] [place] 04/04/2022 , next in [address] Philip 10/24/2022 [facility] Dr Philip 04/15/2024 , was referred to Dr Lee, then seen in the ER on 04/21/2024 S/p ER El ER: for SOB, treated with augmentinS /p ER [place] 04/21/2024 for LE swelling and treated with lasix, see case on 04/28/2024 Does need to see Dr Bauman [facility] Dr Bauman 06/13/2024 , told to stop metoprolol , and start on lovastatin 20mg daily Hyperlipidemia 28138142 E78.5 Not on rosuvastat in 5mg daily Dr Greco not want and labs are WNL 06/24/2024 Get labs Peripheral vascular disease 687302444 I73.9 See [facility] Dr Bauman [facility] Osteoarthritis 665592630 M19.90 Dr Noyola 11/01/2020 , f/u as needed Dr Noyola 03/21/2021 , trochantri c bursitis or R hip s/p injection Dr Noyola/Maya Thorne PA 08/09/2021 Dr Noyola 09/24/2021 , s/p injection, L hip, L SI joint Dr Noyola 12/10/2021 Dr Noyola 05/29/2022 MRI L Spine 06/03/2022 : Dr Noyola, is now referred to a neurologis t in [place] as per her history Collin Thorne 01/08/2023 : Pain in L SI/R SI joint, LBP, Pain of L hip joint, s/p kenalog Collin Thorne PA 01/07/2024 Has been on oxycodone in the past, wants to renew, will renew 05/03/2024 OV 06/28/2024 :On tramadol 50mg daily as neededAdde ndum 06/30/2024 : RenewedNot on oxycodone, takes very sparingly and OK to renew as needed 06/28/2023 OV 08/23/2024 :Does wellWishes to get oxycodone as she has pain from her restless legs, will d/c gabapentin , ropinorole , start on lyrica Eruption 686053422 R21 She states that the hydroxyzin e has not helpedShe does have a long standing history of itching and denies any new detergents or use of soaps or foodsAlso has a small raised slightly tender papule on the L dorsum of hand Refer to dermatolog y Osteoporosis 77443636 M8 1.0 On prolia last 01/08/2023 DeclinesCa n do fosamax, all side effects explained, and the way to take it 08/23/2024 Needs to do ca and vit d Multiple n odules of lung 887444470 R91.8 S/p CT chest 11/20/2020 Jona Morales DIGITAL ADVISOR 02/12/2021 , next apt 08/20/2021 , she has now been referred to Dr Barry for ? latent TB Jona Morales DIGITAL ADVISOR f/u 04/17/2023 Macrocytosis 618479682 D 75.89 MCV WNL 12/30/2023 Get B12 and folate levels Restless legs 11402268 G 25.81 Stop ropinirole 1mg dailyStop the gabapentin Get on Lyrica 25mg daily, all side effects explainedA ll side effects explained to her Addendum: 09/06/2024 : Sees cases the Lyrica not helpedWant s tramadol Right inguinal pain [address] Light 09/12/2021 , post op 11/05/2021 Cardiomyopathy 27980847 I42.9 [facility] ER: 11/15/2021 : CTA angio, for SOBAirlift ed to CNE, s/p coronary angio, diagnosed with Takotsubo CM Off entrestoOf f metoprolol ER 25mg 1 tab daily, as per her history 06/28/2024 , states that Dr Mitul ARCHER told her to stop takingOn lasix 20mg bid, can do one daily 03/03/2023 On KOff the life vest and O2 F/u with cardiology Dr Philip, but now referred to Dr Mitul ROMERO as per her request 05/03/2024 TTE ECHO: 05/29/2023 : Dr Philip, EF 55% Hyperglycemia 11534974 R 73.9 Get labsDeclin es meds, more diet and exercise is needed Allergic rhinitis 677308 04 J30.9 On claritin, montelukas tNot on flonase Trigeminal neuralgia 316 81826 G50.0 On carbamazep ine 100mg tid, but should be on bid as per neurology Dr Lucero 01/29/2023 , f/u in one year Has seen Dr Garcia and the pain is betterMRI brain 11/14/2020 : Neg Dr Lucero 03/10/2024 , f/u PRN Does well, not taking the carbazepin e Hypoproteinemia 3167004 E88.09 More protein in diet Goiter 8831215 E04.9 US head and neck 07/18/2022 Low back pain 756625458 M54.50 MRI L Spine 06/03/2022 : Dr Gustafson es well now 10/01/2023 , no N/T or weakness in the LE Chronic ki dney disease 709378695 N18.9 See nephrology Anemia 799645922 D64.9 Can do more iron in diet or OTC iron Hypomagnesemia 598307704 E83.42 Get mag level Leukopenia 80882836 D72. 819 Repeat may need to see hematology if low WBC Hyponatremia 01299983 E8 7.[address] Peter garrido the CMP Open wound of left lower leg 6265774750 0152504 S81.802A Dr Lee 02/23/2024 , next apt 06/02/2024 , change to Dr Treva PARIS 06/28/2024 : No more apts healed Xerostomia 14657918 R68. 2 States that none of the OTC mouth washes/rin ses have worked, she has used Biotene/AC T etcOn Cevimeline , all side effects explained to her, notify if any side effects occur, she verbalized her understand ing of the above [id number] Vernon raymundo MD [facility] Internal Med [address] [facility], [address] [place] [address] 09/27/2024 14:22:54 09/27/2024 14:49:28 Pain of left hand 9821892226 36350 M79.642 Get on meloxicam 7.5mg po bid as needed PRNAlso get a referral to hand surgery Health Concerns Section Related Observation LastModified by Organization Detai ls LastModified Time None Recorded Concern Status LastModified by Organization Details LastModified Time None Recorded Advance Directives Directive Y: Patient to bring copy for chart. Payers Encounter Date Sequence Insurance Name Policy Number Policy Yap Covered Member ID Yap Member ID Guarantor Name 05/11/2024 1 [place] Juliette Allison [id number] Juliette Allison 05/11/2024 2 [place] [id number] Juliette Allison [id number] Juliette Allison 05/17/2024 1 [place] Juliette Allison [id number] Juliette Allison 05/17/2024 2 [place] [id number] Juliette Allison [id number] Juliette Allison 06/28/2024 1 [place] Juliette Allison [id number] Juliette Allison 06/28/2024 2 [place] [id number] Juliette Allison [id number] Juliette Allison 08/23/2024 1 [place] Juliette Allison [id number] Juliette Allison 08/23/2024 2 [place] [id number] Juliette Allison [id number] Juliette Allison 09/27/2024 1 [place] Juliette Allison [id number] Juliette Allison 09/27/2024 2 [place] [id number] Juliette Allison [id number] Juliette Allison Notes Date Note Type Note Provider Name and Address Organization Details Recorded Time 05/11/2024 text/html Pt c/o pain and swelling in LE's silvia x 2 mos. Pt's ankles swollen, painful silvia. No hx of trauma Lucio Louis DPM [address] [facility], [address], [place], [address], [employer] 05/12/2024 09:13:57 05/17/2024 text/html Neuropathic pain Rt unrelieved by previous injection. Lucio Louis DPM [address], [place], [address], [employer] 05/18/2024 12:06:37 06/28/2024 text/html Here to serena Castano Hx:COPDGlaucomaInsomni aChronic painL hip fractureReview social family and surgical historyShe is here to discuss the aboveShe is concerned about the swelling in her neckShe states that she takes the vicodin 'rarely' OV 09/21/18:Here for her routine aptShe states that she is doing well at this timeShe states that she did fall d/t her bathrobe and broke her R wrist and has had to have surgery, but is doing very wellShe also has OP but does not want 'fosamax', is doing exercises for this OV 12/21/18:Here for her routine aptShe feels Alexandria did do the labs on 11/17/18 and is here to review theseShe also did see [facility] and has done more testing such as stress testOV 03/24/19:Minesh for her routine aptShe did do the labsStill has some sinus congestionDid see Marium VEGA and was given steroids and antibioticsHas not been taking her flonaseOV 06/28/2019:Here for her routine aptShe does have some LE edema and rednessOtherwise she is doing very wellShe did do labs OV 01/11/2020:Here for her routine aptShe states that she did do the labsShe also has some R lower abd swelling but no pain, she feels that she may have pulled a muscle when she moved, she is concerned that she could have a herniaShe also has seen pulmonaryOV 05/31/2020:Tele visit, she is agreeable to do this visitShe is doing wellNo new labsShe is doing well, and her COVID 19 is negativeOV 09/06/2020:Here for her routine aptShe feels Alexandria is here for her MWVOV 12/13/2020:Here for her routine aptShe feels very wellNo recent labsShe did see Dr Noyola and Jona Morales NPShe has also seen Dr Garcia for her trigeminal neuralgiaOV 04/04/2021:Here for her routine aptShe is doing wellShe did do the labs on 01/29/2021 OV 08/27/2021:Here for her routine aptShe is doing wellHas noted intermittent restless legs, feels that her legs 'jerk' all the time especially at bedtimeAlso has noted intermittent R inguinal area bulge and pain, none today, feels this occurs with doing heavy household work, concerned it could be a herniaLabs done on 07/18/2021 OV 11/26/2021:Here for her routine apt, she was recently admitted to E for chest pain, s/p cath, s/p veanDiagnosed with Taksubo CM and is now on life vest and O2She did c/o some bruising in the R groin and is now to get another ECHOOV 01/21/2022:Here for her routine apt, she is doing wellShe did do the labs on 2OV 04/22/2022:Here for her f/u apt, she is c/o a slight cough, no fevers or chills, no chest pain or wheezing or SOBShe did do the labs on 04/16/2022 OV 08/26/2022:Here for her f/u apt, she is doing well OV 11/25/2022:Here for her f/u apt, she feels well, she did do the labs OV 03/03/2023: Here for her f/u apt, she did do the labs and feels well today, is also here for her MWV OV 07/02/2023: Here for her routine apt, she is doing well today OV 10/01/2023: Here for her f/u apt, she feels that her chest congestion is not gone away, still a little SOB and some cough, she would like to get on an antibiotic, she also wants to discuss her apt with Dr Bonds, he has decided not to give her any HHN, she is now going to see Jona Morales OV 12/31/2023: Here for her f/u apt, she is doing well today, concerns for dry mouth, states it gets very dry especially in the am, she would like to get on medications for this, she has also noted a wound on the L LE, it happened with a tire hit her L leg about a month ago in a golfing area, she did go to the but no treatment was provided OV 03/03/2024: Here for her ER f/u, was seen in the ER at [facility] and then [facility] for leg pain and headaches, she still has the L foot pain and the headaches, states that she was given the 'percocet' and it does help, she would now like to see a different neurologist OV 05/03/2024: Here for her f/u apt, she states that she was seen in the ER and was told to see podiatry, states that the lasix provided to her by this office has helped but her silvia feet still hurt, she also want to get a refill of her oxycodone, states that she does not abuse this, but needs to take this as her feet hurt the 'whole day', she also does not want to see Dr Philip OV 06/28/2024: Here for her f/u apt, she feels well today Vernon Felder MD [address] [facility], [address], [place], [address], [facility] [employer] 07/18/2024 14:24:01 08/23/2024 text/html Here to salmaya hutchins Yamilet Hx:COPDGlaucomaInsomni aChronic painL hip fractureReview social family and surgical historyShe is here to discuss the aboveShe is concerned about the swelling in her neckShe states that she takes the vicodin 'rarely' OV 09/21/18:Here for her routine aptShe states that she is doing well at this timeShe states that she did fall d/t her bathrobe and broke her R wrist and has had to have surgery, but is doing very wellShe also has OP but does not want 'fosamax', is doing exercises for this OV 12/21/18:Here for her routine aptShe feels Alexandria did do the labs on 11/17/18 and is here to review theseShe also did see [facility] and has done more testing such as stress testOV 03/24/19:Minesh for her routine aptShe did do the labsStill has some sinus congestionDid see Marium VEGA and was given steroids and antibioticsHas not been taking her flonaseOV 06/28/2019:Here for her routine aptShe does have some LE edema and rednessOtherwise she is doing very wellShe did do labsOV 01/11/2020:Here for her routine aptShe states that she did do the labsShe also has some R lower abd swelling but no pain, she feels that she may have pulled a muscle when she moved, she is concerned that she could have a herniaShe also has seen pulmonaryOV 05/31/2020:Tele visit, she is agreeable to do this visitShe is doing wellNo new labsShe is doing well, and her COVID 19 is negativeOV 09/06/2020:Here for her routine aptShe feels Alexandria is here for her MWVOV 12/13/2020:Here for her routine aptShe feels very wellNo recent labsShe did see Dr Noyola and Jona Morales NPShe has also seen Dr Garcia for her trigeminal neuralgiaOV 04/04/2021:Here for her routine aptShe is doing Alexandria did do the labs on 01/29/2021 OV 08/27/2021:Here for her routine aptShe is doing wellHas noted intermittent restless legs, feels that her legs 'jerk' all the time especially at bedtimeAlso has noted intermittent R inguinal area bulge and pain, none today, feels this occurs with doing heavy household work, concerned it could be a herniaLabs done on 07/18/2021 OV 11/26/2021:Here for her routine apt, she was recently admitted to [facility] for chest pain, s/p cath, s/p veanDiagnosed with Geraldo ARGUELLO and is now on life vest and O2She did c/o some bruising in the R groin and is now to get another ECHOOV 01/21/2022:Here for her routine apt, she is doing wellSerlinda did do the labs on 01/17/2022V 04/22/2022:Here for her f/u apt, she is c/o a slight cough, no fevers or chills, no chest pain or wheezing or SOBShe did do the labs on 04/16/2022 OV 08/26/2022:Here for her f/u apt, she is doing well OV 11/25/2022:Here for her f/u apt, she feels well, she did do the labs OV 03/03/2023: Here for her f/u apt, she did do the labs and feels well today, is also here for her MWV OV 07/02/2023: Here for her routine apt, she is doing well today OV 10/01/2023: Here for her f/u apt, she feels that her chest congestion is not gone away, still a little SOB and some cough, she would like to get on an antibiotic, she also wants to discuss her apt with Dr Bonds, he has decided not to give her any HHN, she is now going to see Jona Morales OV 12/31/2023: Here for her f/u apt, she is doing well today, concerns for dry mouth, states it gets very dry especially in the am, she would like to get on medications for this, she has also noted a wound on the L LE, it happened with a tire hit her L leg about a month ago in a golfing area, she did go to the but no treatment was provided OV 03/03/2024: Here for her ER f/u, was seen in the ER at [facility] and then [facility] for leg pain and headaches, she still has the L foot pain and the headaches, states that she was given the 'percocet' and it does help, she would now like to see a different neurologist OV 05/03/2024: Here for her f/u apt, she states that she was seen in the ER and was told to see podiatry, states that the lasix provided to her by this office has helped but her silvia feet still hurt, she also want to get a refill of her oxycodone, states that she does not abuse this, but needs to take this as her feet hurt the 'whole day', she also does not want to see Dr Philip OV 06/28/2024: Here for her f/u apt, she feels well today OV 08/23/2024: Here for f/u apt, she feels well, she did do the labs Vernon Felder MD [address] [place] [address], [address] [place] [address], [place], [address], [facility] [employer] 09/27/2024 10:27:19 09/27/2024 text/html Here to serena Castano Hx:COPDGlaucomaInsomni aChronic painL hip fractureReview social family and surgical historyShe is here to discuss the aboveShe is concerned about the swelling in her neckShe states that she takes the vicodin 'rarely' OV 09/21/18:Here for her routine aptShe states that she is doing well at this timeShe states that she did fall d/t her bathrobe and broke her R wrist and has had to have surgery, but is doing very wellShe also has OP but does not want 'fosamax', is doing exercises for this OV 12/21/18:Here for her routine aptShe feels Alexandria did do the labs on 11/17/18 and is here to review theseShe also did see [facility] and has done more testing such as stress testOV 03/24/19:Minesh for her routine aptShe did do the labsStill has some sinus congestionDid see Marium VEGA and was given steroids and antibioticsHas not been taking her flonaseOV 06/28/2019:Here for her routine aptShe does have some LE edema and rednessOtherwise she is doing very wellShe did do labsOV 01/11/2020:Here for her routine aptShe states that she did do the labsShe also has some R lower abd swelling but no pain, she feels that she may have pulled a muscle when she moved, she is concerned that she could have a herniaShe also has seen pulmonaryOV 05/31/2020:Tele visit, she is agreeable to do this visitShe is doing wellNo new labsShe is doing well, and her COVID 19 is negativeOV 09/06/2020:Here for her routine aptShe feels wellShe is here for her MWVOV 12/13/2020:Here for her routine aptShe feels very wellNo recent labsShe did see Dr Noyola and Jona Morales NPShe has also seen Dr Garcia for her trigeminal neuralgiaOV 04/04/2021:Here for her routine aptShe is doing wellShe did do the labs on 01/29/2021 OV 08/27/2021:Here for her routine aptShe is doing wellHas noted intermittent restless legs, feels that her legs 'jerk' all the time especially at bedtimeAlso has noted intermittent R inguinal area bulge and pain, none today, feels this occurs with doing heavy household work, concerned it could be a herniaLabs done on 07/18/2021 OV 11/26/2021:Here for her routine apt, she was recently admitted to [facility] for chest pain, s/p cath, s/p veanDiagnosed with Taksubo CM and is now on life vest and O2She did c/o some bruising in the R groin and is now to get another ECHOOV 01/21/2022:Here for her routine apt, she is doing wellShe did do the labs on 2OV 04/22/2022:Here for her f/u apt, she is c/o a slight cough, no fevers or chills, no chest pain or wheezing or SOBShe did do the labs on 04/16/2022 OV 08/26/2022:Here for her f/u apt, she is doing well OV 11/25/2022:Here for her f/u apt, she feels well, she did do the labs OV 03/03/2023: Here for her f/u apt, she did do the labs and feels well today, is also here for her MWV OV 07/02/2023: Here for her routine apt, she is doing well today OV 10/01/2023: Here for her f/u apt, she feels that her chest congestion is not gone away, still a little SOB and some cough, she would like to get on an antibiotic, she also wants to discuss her apt with Dr Bonds, he has decided not to give her any HHN, she is now going to see Jona Morales OV 12/31/2023: Here for her f/u apt, she is doing well today, concerns for dry mouth, states it gets very dry especially in the am, she would like to get on medications for this, she has also noted a wound on the L LE, it happened with a tire hit her L leg about a month ago in a golfing area, she did go to the but no treatment was provided OV 03/03/2024: Here for her ER f/u, was seen in the ER at [facility] and then [facility] for leg pain and headaches, she still has the L foot pain and the headaches, states that she was given the 'percocet' and it does help, she would now like to see a different neurologist OV 05/03/2024: Here for her f/u apt, she states that she was seen in the ER and was told to see podiatry, states that the lasix provided to her by this office has helped but her silvia feet still hurt, she also want to get a refill of her oxycodone, states that she does not abuse this, but needs to take this as her feet hurt the 'whole day', she also does not want to see Dr Philip OV 06/28/2024: Here for her f/u apt, she feels well today OV 08/23/2024: Here for f/u apt, she feels well, she did do the labs OV 09/27/2024: Here with c/o L hand pain, noted to have swelling, she is L HD, no acute trauma, feels it is 'arthritis' Vernon Felder MD [address] [facility], [facility] [address], [place], [address], [place] [facility] 09/27/2024 14:55:25 OBGyn Episode No OBEpisode recorded.
--- OUTSIDE RECORDS SUMMARY | 2024-10-18 15:31 | XMS_ITS | Clinical Summary ---
Author Organization [facility] Facility Address [address] [place] [address] Care Team Providers Care State Game Warden Name Role Phone Yanet Felder MD Primary Care Provider [phone] Medications citalopram (CeleXA) 20 MG tablet Take 1 tablet (20 mg total) by mouth 1 (one) time each day 90 tablet 1 09/22/2023 Active torsemide (DEMADEX) 5 MG tablet Take 1 tablet (5 mg total) by mouth 1 (one) time each day in the morning 90 tablet 1 08/02/2024 Active Encounters Date Type Department Care Team Description 09/27/2024 3:45 PM CDT [facility] [employer] [facility] [address] [phone] Steffen Alfredo DO Stage 3 chronic kidney disease, not otherwise specified (HCC) (Primary Dx); Hyponatremia; Other emphysema (HCC); Dilated cardiomyopathy (HCC); Coronary artery disease due to calcified coronary lesion; Peripheral vascular disease (HCC); Pure hypercholesterolemia, not otherwise specified; Tobacco use 09/19/2024 Documentation Only [facility], [address] [phone] Steffen Alfredo DO 09/19/2024 Documentation Only [facility], [address] [phone] Steffen Alfredo DO 08/26/2024 Documentation Only [facility] [address] [address] Steffen Alfredo DO 08/02/2024 12:30 PM 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 [facility] [address] [phone] Steffen Alfredo DO Stage 3 chronic kidney disease, not otherwise specified (HCC) (Primary Dx); Hyponatremia; Other emphysema (HCC); Dilated cardiomyopathy (HCC); Coronary artery disease due to calcified coronary lesion; Peripheral vascular disease (HCC); Pure hypercholesterolemia, not otherwise specified; Tobacco use 08/02/2024 Refill [facility] [address] [phone] Nichole Bolaños CMA 08/01/2024 Documentation Only [address] [phone] Steffen Alfredo DO from Last 3 Months Social History Tobacco Use Types Packs/Day Years Used Date Smoking Tobacco: Never Assessed Comments Unknown Sex and Gender Information Value Date Recorded Sex Assigned at Not on file Legal Sex Female 1:55 PM EDT Gender Identity Not on file Sexual Orientation Not on file Last Filed Vital Signs Vital Sign Reading Time Taken Comments Blood Pressure 100/50 09/27/2024 2:10 PM CDT Pulse 66 09/27/2024 2:10 PM CDT Temperature 36.7 C (98 F) 09/27/2024 2:10 PM CDT Respiratory Rate 18 09/27/2024 2:10 PM CDT Oxygen Saturation 99% 09/27/2024 2:10 PM CDT Inhaled Oxygen Concentration - - Weight 39.1 kg (86 lb 1.6 oz) 09/27/2024 2:10 PM CDT Height - - Body Mass Index - - Plan of Treatment Upcoming Encounters Date Type Department Care Team (Late st Contact Info) Description 01/31/2025 2:00 PM CDT [facility] [address] [phone] Steffen Alfredo, [address] 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
== END 2024-10-18 14:14 | disposition home or self-care (01) ==
PROVIDERS: PCP Internal Medicine; Visit Provider Plastic Surgery
DX: S63.659A Sprain of metacarpophalangeal joint of unspecified finger, initial encounter (principal); X58.XXXA Exposure to other specified factors, initial encounter; M19.042 Primary osteoarthritis, left hand
CPT/HCPCS: 73130

== ENCOUNTER 2025-05-11 11:21 | Emergency (ER) | payer MEDICARE, SELFPAY ==
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
--- OUTSIDE RECORDS SUMMARY | 2025-03-02 05:30 | XMS_ITS ---
Author Organization [facility], [facility] Address [address] [address] Care Team Providers Care Nurse Practitioner Per Diem Name Role Phone Yanet Felder Primary Care Provider UnaAdan Sams Unavailable [phone] Encounters Encounter Location Date Provider Diagnosis [facility] [address] [facility] [address] [place] [address] 03/02/2025 Adan Birch PLAN OF TREATMENT Next Appt Details Provider Name:Adan Moreira ot, 05/25/2025 10:10:00 AM, [address], [facility] [address], [place], [address],
--- OUTSIDE RECORDS SUMMARY | 2025-03-09 03:50 | XMS_ITS ---
Author Organization [facility] Address [address] [place] [address] Care Team Providers Care Visualization Developer Name Role Phone Maximebelkis Maria Rsteve Primary Care Provider Adan Thomas Unavailable [phone] ALLERGIES No Known Allergies REASON FOR REFERRAL Reason DIAGNOSES: spinal st enosis, HNP, radiculopathy, facet DJD 3 times per week for 3 weeks eval and treat, exercise, modalities per therapist's discretion; HEP Referral Organization [facility] Referring Provider First Name Adan Referring Provider Last Name Eyal Referring Provider Speciality Orthopedic Surgery Referred Provider Specialty Physical The rapy Referral Priority Routine REASON FOR VISIT MRI results MEDICATIONS Medication SIG (Take, Route, Frequency, Duration) Notes Start Date End Date Status traMADol HCl Active Montelukast Sodium A ctive traZODone HCl Active Meloxicam Not-Taking Gabapentin 100 MG 1 tablet Orally at bedtime x 3 days then increase to 1 tablet twice daily if drowsiness does not occur for 30 days 02/15/2025 Active Albuterol Active Ramipril Active Gabapentin DUPLICATE ENTRY Act cha PROBLEMS Problem Type ICD Code Onset Dates Problem Status W/U Status Risk SNOMED Code Notes Problem Facet degeneration of lumbar region (M47.816) Active confirmed Lumbosacral spondylosis without myelopathy ([id number]) Problem Scoliosis (M41.9) Active confirmed Scol iosis (332462567) Problem 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) Active confirmed Radiculopathy d ue to lumbar intervertebral disc disorder ([id number]) Problem Cervical pain (M54.2) Active confirmed Cervical pain (85817780) VITAL SIGNS BMI 14.59 kg/m2 03/09/2025 Height 64 in 03/09/2025 Weight 85 lbs 03/09/2025 PROCEDURES Procedure Date Ordered Date Performed Result Body Sit e Lumbar Transforaminal Epidur al Steroid Injection 03/09/2025 03/16/2025 medicare/[facility] Encounters Encounter Location Date Provider Diagnosis [facility] [address] [place] [address] 03/09/2025 Adan Birch Lumbar stenosis with neurogenic claudication M48.062 ; Facet degeneration of lumbar region M47.816 ; Scoliosis M41.9 ; Other intervertebral disc degeneration, lumbar region with lower extremity pain only M51.361 ; Intervertebral disc disorder with radiculopathy of lumbar region M51.16 ; Other low back pain M54.59 and Cervical pain M54.2 ASSESSMENTS Encounter Date Diagnosis Assessment Notes Treatment Notes Treatment Clinical Notes Section Notes 03/09/2025 Lumbar stenosis with neurogenic claudication (ICD-10 - M48.062) <b>IMPRESSION:</b > Back pain Neck pain Peripheral neuropathy Degenerative disc disease Scoliosis Facet DJD Spinal stenosis HNP Radiculopathy <b>PLAN:</b> With further questioning, the patient informs me the majority of her aches/pains today involve the L. leg. Based on her back and LLE complaints and evidence of neural compression with radiculopathy, it is my recommendation she continue on Tramadol, Tylenol and Gabapentin. I recommend that she increase her Gabapentin to TID. She will undergo a L. L3-4 TF-WATSON to moderate her complaints. She will start outpatient PT. We will see her back in the office in 4 weeks. [facility]clm 03/09/2025 Facet degeneration of lumbar region (ICD-10 - M47.816) <b>IMPRESSION:</b > Back pain Neck pain Peripheral neuropathy Degenerative disc disease Scoliosis Facet DJD Spinal stenosis HNP Radiculopathy <b>PLAN:</b> With further questioning, the patient informs me the majority of her aches/pains today involve the L. leg. Based on her back and LLE complaints and evidence of neural compression with radiculopathy, it is my recommendation she continue on Tramadol, Tylenol and Gabapentin. I recommend that she increase her Gabapentin to TID. She will undergo a L. L3-4 TF-WATSON to moderate her complaints. She will start outpatient PT. We will see her back in the office in 4 weeks. [facility] 03/09/2025 Scoliosis (ICD-10 - M41.9) <b>IMPRESSION:</b > Back pain Neck pain Peripheral neuropathy Degenerative disc disease Scoliosis Facet DJD Spinal stenosis HNP Radiculopathy <b>PLAN:</b> With further questioning, the patient informs me the majority of her aches/pains today involve the L. leg. Based on her back and LLE complaints and evidence of neural compression with radiculopathy, it is my recommendation she continue on Tramadol, Tylenol and Gabapentin. I recommend that she increase her Gabapentin to TID. She will undergo a L. L3-4 TF-WATSON to moderate her complaints. She will start outpatient PT. We will see her back in the office in 4 weeks. [facility] 03/09/2025 Other intervertebral disc degeneration, lumbar region with lower extremity pain only (ICD-10 - M51.361) <b>IMPRESSION:</b > Back pain Neck pain Peripheral neuropathy Degenerative disc disease Scoliosis Facet DJD Spinal stenosis HNP Radiculopathy <b>PLAN:</b> With further questioning, the patient informs me the majority of her aches/pains today involve the L. leg. Based on her back and LLE complaints and evidence of neural compression with radiculopathy, it is my recommendation she continue on Tramadol, Tylenol and Gabapentin. I recommend that she increase her Gabapentin to TID. She will undergo a L. L3-4 TF-WATSON to moderate her complaints. She will start outpatient PT. We will see her back in the office in 4 weeks. [facility] 03/09/2025 Intervertebral disc disorder with radiculopathy of lumbar region (ICD-10 - M51.16) <b>IMPRESSION:</b > Back pain Neck pain Peripheral neuropathy Degenerative disc disease Scoliosis Facet DJD Spinal stenosis HNP Radiculopathy <b>PLAN:</b> With further questioning, the patient informs me the majority of her aches/pains today involve the L. leg. Based on her back and LLE complaints and evidence of neural compression with radiculopathy, it is my recommendation she continue on Tramadol, Tylenol and Gabapentin. I recommend that she increase her Gabapentin to TID. She will undergo a L. L3-4 TF-WATSON to moderate her complaints. She will start outpatient PT. We will see her back in the office in 4 weeks. [facility]/cl 03/09/2025 Other low back pain (ICD-10 - M54.59) <b>IMPRESSION:</b > Back pain Neck pain Peripheral neuropathy Degenerative disc disease Scoliosis Facet DJD Spinal stenosis HNP Radiculopathy <b>PLAN:</b> With further questioning, the patient informs me the majority of her aches/pains today involve the L. leg. Based on her back and LLE complaints and evidence of neural compression with radiculopathy, it is my recommendation she continue on Tramadol, Tylenol and Gabapentin. I recommend that she increase her Gabapentin to TID. She will undergo a L. L3-4 TF-WATSON to moderate her complaints. She will start outpatient PT. We will see her back in the office in 4 weeks. [facility]/cl 03/09/2025 Cervical pain (ICD-10 - M54.2) <b>IMPRESSION:</b > Back pain Neck pain Peripheral neuropathy Degenerative disc disease Scoliosis Facet DJD Spinal stenosis HNP Radiculopathy <b>PLAN:</b> With further questioning, the patient informs me the majority of her aches/pains today involve the L. leg. Based on her back and LLE complaints and evidence of neural compression with radiculopathy, it is my recommendation she continue on Tramadol, Tylenol and Gabapentin. I recommend that she increase her Gabapentin to TID. She will undergo a L. L3-4 TF-WATSON to moderate her complaints. She will start outpatient PT. We will see her back in the office in 4 weeks. [facility]clm PLAN OF TREATMENT Referrals Referral Date Details DIAGNOSES: spinal st enosis, HNP, radiculopathy, facet DJD 3 times per week for 3 weeks eval and treat, exercise, modalities per therapist's discretion; HEP Next Appt Details Provider Name:Adan Dubon Lillie ot, 05/25/2025 10:10:00 AM, [address], [address], [place], [address], Progress Notes * Examination Category Sub-Category Detail Notes Category Not es General Examination GENERAL: Patient is a lert [...] evidence of exces sive bruising or bleeding MRI Imaging Studies MRI L-sp ine reveals evidence of multilevel degeneration through the L-spine with disc desiccation, disc degeneration and facet DJD at all levels. L2-3 mild canal narrowing associated with facet and ligamentum flavum hypertrophy, foraminal stenosis. L3-4 large left posterolateral foraminal herniation with facet and ligamentum flavum hypertrophy resulting in severe stenosis. L4-5 facet and ligamentum flavum hypertrophy and disc protrusion with canal stenosis, thecal sac measurement 8.4 mm x 6.76 mm. 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 L5-S1 disc desiccation and degeneration, but no significant neural compression. History and Physical Notes * HPI (History of Present Illness) Category Sub-Category Detail Notes Category Not es Lower back Juliette Allison presents for re-evaluation today, 03/09/2025. She was previously diagnosed with neck and back pain, peripheral neuropathy, disc degeneration, scoliosis and facet DJD. She presents with complaints of lower lumbar back pain with radiation into the LLE greater than RLE. She was told to increase her dosage of Gabapentin, but she did not. She is not using Meloxicam. She uses Tramadol for pain control. Consultation Request Notes Referral Date Referring Provider Referred Provider Not es 03/09/2025 Adan Birch , DIAGNOSES: s marisela stenosis, HNP, radiculopathy, facet DJD 3 times per week for 3 weeks eval and treat, exercise, modalities per therapist's discretion; HEP
--- OUTSIDE RECORDS SUMMARY | 2025-04-06 05:30 | XMS_ITS ---
Author Organization [facility] Address [address] [place] [address] Care Team Providers Care Thermal Intelligence Analyst Name Role Phone Jaxon Felderbelkis Primary Care Provider Adan Thomas Unavailable [phone] ALLERGIES No Known Allergies REASON FOR VISIT f/u after L3-4 TF-WATSON and PT MEDICATIONS Medication SIG (Take, Route, Frequency, Duration) Notes Start Date End Date Status Albuterol Active Ramipril Active Gabapentin DUPLICATE ENTRY Act cha Gabapentin 100 MG 1 tablet Orally at bedtime x 3 days then increase to 1 tablet twice daily if drowsiness does not occur for 30 days 02/15/2025 Active Meloxicam Not-Taking Montelukast Sodium A ctive traMADol HCl 50 MG 1 tablet as needed for pain every 4-6 hrs for 7 days 04/06/2025 Active traZODone HCl Active VITAL SIGNS BMI 14.59 kg/m2 04/06/2025 Height 64 in 04/06/2025 Weight 85 lbs 04/06/2025 Encounters Encounter Location Date Provider Diagnosis [facility] [address] [place] [address] 04/06/2025 Adan Birch PLAN OF TREATMENT Medication Medication Name Sig Start Date Stop Date Notes traMADol HCl 50 MG 1 tablet as needed f or pain every 4-6 hrs for 7 days 04/06/2025 Next Appt Details Provider Name:Adan Moreira ot, 05/25/2025 10:10:00 AM, [address], [address], [place], [address],
[2025-05-11 11:23] VITALS: BP 119/69; PULSE 80; RESP 18; TEMP 36.4; O2SAT 99
[2025-05-11 11:56] VITALS: BP 126/72; PULSE 76; RESP 18; O2SAT 99
--- NOTE | 2025-05-11 13:27 | ED.GENADULT ---
HPI - General Adult General Chief complaint: Extremity Problem,Nontraumatic Stated complaint: cellulitis to right foot not improving Time Seen by Provider: 05/11/25 12:46 History of Present Illness HPI narrative: 80-year-old female presented to the emergency department for evaluation for persistent cellulitis of the right foot. Patient was started on a course of cephalexin by her primary care physician and patient states that the cellulitis had been involving the entire right foot and up the right leg but not only is a focal area on the anterior right lower leg and not involving the foot. Patient did complete her antibiotics yesterday. Patient was referred by her primary care physician for potential IV antibiotics. Patient denies any fevers at home denies any associated nausea vomiting denies any generalized fatigue Related Data Home Medications ?Medication ?Instructions ?Recorded ?Confirmed ?Last Taken ?Type brimonidine 0.2 % eye drops 1 drp EACH EYE Q8H 08/29/22 05/31/24 Unknown History carbamazepine 100 mg 100 mg PO Q12H 08/29/22 05/31/24 Unknown History capsule,extended release [id number] dorzolamide 2 % eye drops 1 drp EACH EYE TID 08/29/22 05/31/24 Unknown History metoprolol succinate 25 mg 25 mg PO DAILY 08/29/22 05/31/24 Unknown History tablet,extended release 24 hr omeprazole 20 mg capsule,delayed 20 mg PO DAILY 08/29/22 05/31/24 Unknown History release ropinirole 0.5 mg tablet 0.5 mg PO BID 08/29/22 05/31/24 Unknown History tramadol 50 mg tablet 50 mg PO Q6H PRN 08/29/22 05/31/24 Unknown History trazodone 50 mg tablet 50 mg PO QHS PRN 08/29/22 05/31/24 Unknown History montelukast 10 mg tablet mg PO 03/24/24 05/31/24 Unknown History rosuvastatin 5 mg tablet mg PO 03/24/24 05/31/24 Unknown History oxycodone 5 mg capsule 5 mg PO DAILY PRN 05/31/24 05/31/24 Unknown History Allergies Allergy/AdvReac Type Severity Reaction Status Date / Time [id number] Reductase Allergy Joint Pain Verified 05/11/25 11:27 Inhibitor Review of Systems Review of Systems: All systems reviewed & are unremarkable except as noted in HPI and below PMFSH Past Medical History Medical History (Updated 05/11/25 @ 14:34 by Kel Chicas MD) Hearing loss Bilateral impacted cerumen Surgical History Surgical History Hx of tonsillectomy Social History Social History Smoking status: Current every day smoker Tobacco type: cigarettes Second hand tobacco smoke exposure: Yes Alcohol intake: former Substance use: never Substance use type: does not use Do You Feel Safe in your Home?: Yes Lack of Transportation: YES Lack of Food: Never True Current Housing: I Have Housing Concerned About Future Housing: No Difficulty Paying Gas/Electric Bills: No Difficulty Paying for Meds: YES Currently Unemployed: No Education: High School Diploma/GED Difficulty w/ Childcare or Family Care: No Living arrangements: alone Additional living arrangements comments: Occupation/Education: retired Additional occupation/education comments: [employer] Gender identity (if verbalized by the patient): Female Exam Narrative: APPEARANCE: Well appearing, no pain, no distress, well-nourished. HEAD: normocephalic, atraumatic. EYES: PERRLA/EOMI, conjunctivae clear. NOSE: Normal no drainage EARS:TMS clear with good light reflex. THROAT: Pharynx clear, no exudate. NECK: Supple. No adenopathy, no masses. RESPIRATORY: Airway patent, respirations nonlabored. Clear to auscultation bilaterally, no rales, rhonchi, wheezing. CARDIOVASCULAR: Regular rate and rhythm without murmurs rubs or gallops. ABDOMINAL: Soft, nontender, nondistended, normal bowel sounds MUSCULOSKELETAL: Moves all extremities. Strength/ROM intact, No edema, No calf tenderness. NEURO: Alert. Cranial nerves II through XII intact. Good gait. Good coordination SKIN: Area of cellulitis on right anterior uriostegui not involving the foot Course Vital Signs Vital signs: Vital Signs Temperature 97.6 F 05/11/25 11:23 Pulse Rate 80 05/11/25 11:23 Respiratory Rate 18 05/11/25 11:23 Blood Pressure 119/69 05/11/25 11:23 Pulse Oximetry 99 05/11/25 11:23 Oxygen Delivery Room Air 05/11/25 11:23 Temperature 97.6 F 05/11/25 11:23 Pulse Rate 76 05/11/25 11:56 Respiratory Rate 18 05/11/25 11:56 Blood Pressure 126/72 05/11/25 11:56 Pulse Oximetry 99 05/11/25 11:56 Oxygen Delivery Room Air 05/11/25 11:56 Medical Decision Making MDM Narrative Medical decision making narrative: 80-year-old female present to the emergency department for evaluation for persistent cellulitis. Patient denies any coughs colds fevers generalized weakness nausea vomiting or diarrhea. Patient is not ill appearing. Patient does feel the cellulitis is improving but has not fully resolved. I did discuss IV antibiotics and admission with patient and patient strongly prefers to be discharged home. Patient be treated with a dose of IV clindamycin. Patient was well-appearing at time of discharge. Differential Diagnosis Differential Diagnosis: Cellulitis, erysipelas, DVT Vital Signs Vital Signs: Vital Signs Temperature 97.6 F 05/11/25 11:23 Pulse Rate 80 05/11/25 11:23 Respiratory Rate 18 05/11/25 11:23 Blood Pressure 119/69 05/11/25 11:23 Pulse Oximetry 99 05/11/25 11:23 Oxygen Delivery Room Air 05/11/25 11:23 Temperature 97.6 F 05/11/25 11:23 Pulse Rate 76 05/11/25 11:56 Respiratory Rate 18 05/11/25 11:56 Blood Pressure 126/72 05/11/25 11:56 Pulse Oximetry 99 05/11/25 11:56 Oxygen Delivery Room Air 05/11/25 11:56 Lab Data Lab results reviewed: Yes I reviewed the patient's lab results. 05/11/25 13:48 05/11/25 13:48 Labs: Lab Results 05/11/25 Range/Units 13:48 WBC 3.9 L (4.5-10.0) K/mm3 RBC 4.23 (4.2-5.4) M/mm3 Hgb 13.2 (12.0-15.0) g/dL Hct 40.4 (37.0-47.0) % MCV 95.5 (80-100) fl MCH 31.2 (26-34) pg MCHC 32.7 (32-36) g/dl RDW 12.7 (11.5-14.5) % Plt Count 236 (150-375) k/mm3 MPV 9.5 (7.4-10.4) fl Immature Gran % (Auto) 0.5 (0-0.5) % Neut % (Auto) 68.4 (45.5-73.1) % Lymph % (Auto) 16.5 L (18.3-44.2) % [place] % (Auto) 9.5 H (2.6-8.5) % Eos % (Auto) 4.1 (0-4.4) % Baso % (Auto) 1.0 (0.2-1.2) % Lymph # (Auto) 0.64 L (0.9-3.2) K/mm3 [place] # (Auto) 0.4 (0.1-0.6) K/mm3 Eos # (Auto) 0.2 (0-0.3) K/mm3 Baso # (Auto) 0.0 (0.0-0.1) K/mm3 Abs Immat Gran (auto) 0.02 (0.00-0.031) K/mm3 Absolute Neuts (auto) 2.7 (1.3-6.7) K/mm3 Absolute Nucleated RBC 0.000 (0.0-0.012) K/mm3 Nucleated RBC % 0.0 (0.0-0.2) % ESR 20 (0-20) mm/hr Sodium 135 L (137-145) mmol/L Potassium 3.9 (3.4-5.0) mmol/L Chloride 101 (98-107) mmol/L Carbon Dioxide 33 H (22-30) mmol/L Anion Gap 1 L (4-12) mmol/L BUN 10 (7-17) mg/dL Creatinine 0.81 (0.7-1.0) mg/dL Estim Creat Clear Calc 30 ml/min Estimated GFR > 60 (59 - ) Glucose 78 (65-110) mg/dL Lactic Acid 0.9 (0.7-2.0) mmol/L Calcium 9.2 (8.4-10.2) mg/dL Total Bilirubin 0.6 (0.2-1.3) mg/dL AST 31 (14-36) U/L ALT 20 (6-35) U/L Alkaline Phosphatase 74 (38-126) U/L C-Reactive Protein 1.0 (<1.0) mg/dL Total Protein 6.7 (6.3-8.2) g/dL Albumin 3.9 (3.5-5.1) g/dL Discharge Plan Discharge Clinical Impression: Cellulitis Patient Disposition: Home Condition: Stable Instructions: Antibiotic Form, Cellulitis (ED) Additional Instructions: Antibiotics as directed until completed. Take a probiotic while you are on clindamycin. Continue the probiotic for at least 2 weeks after finishing the antibiotics. Have close follow-up with your primary care physician. If you have any worsening symptoms then please call or return to the emergency department. Patient Language: Kyrgyz Prescriptions: New clindamycin HCl [Cleocin HCl] 300 mg capsule 300 mg PO Q6H 7 Days Qty: 28 0RF No Action trazodone 50 mg tablet 50 mg PO QHS PRN omeprazole 20 mg capsule,delayed release(DR/EC) 20 mg PO DAILY metoprolol succinate 25 mg tablet extended release 24 hr 25 mg PO DAILY carbamazepine 100 mg capsule, ER multiphase 12 hr 100 mg PO Q12H tramadol 50 mg tablet 50 mg PO Q6H PRN ropinirole 0.5 mg tablet 0.5 mg PO BID dorzolamide 2 % drops 1 drp EACH EYE TID brimonidine 0.2 % drops 1 drp EACH EYE Q8H montelukast 10 mg tablet PO rosuvastatin 5 mg tablet PO oxycodone 5 mg capsule 5 mg PO DAILY PRN diclofenac sodium 75 mg tablet,delayed release (DR/EC) See Rx Instructions .ROUTE .COMPLEX Qty: 60 0RF Dose Instruction: TAKE 1 TABLET BY MOUTH TWICE DAILY Rx Instructions: TAKE 1 TABLET BY MOUTH TWICE DAILY Follow-up/Referrals: Bradford,MD Yanet [Primary Care Provider, Unknown]
[2025-05-11] MEDS: CLINDAMYCIN 600 MG/D5W 50 ML 600 MG/50 ML PIGGYBACK 100 MG IVPB (13:48)
[2025-05-11 14:00] LABS: Hematocrit 40.4 % (37.0-47.0); Hemoglobin 13.2 g/dL (12.0-15.0); Immature Granulocyte Percent A 0.5 % (0-0.5); Lymphocytes Absolute Auto 0.64 K/mm3 (0.9-3.2); Mean Corpuscular HGB Conc 32.7 g/dl (32-36); Mean Corpuscular Hemoglobin 31.2 pg (26-34); Mean Corpuscular Volume 95.5 fl (80-100); Nucleated Red Blood Cells Absolute Auto 0.000 K/mm3 (0.0-0.012); Nucleated Red Blood Cells Perc 0.0 % (0.0-0.2); Platelet Count Result 236 k/mm3 (150-375); Red Blood Count 4.23 M/mm3 (4.2-5.4); White Blood Count 3.9 K/mm3 (4.5-10.0)
[2025-05-11 14:18] LABS: Alanine Aminotransferase 20 U/L (6-35); Albumin Level 3.9 g/dL (3.5-5.1); Alkaline Phosphatase 74 U/L (38-126); Anion Gap 1 mmol/L (4-12); Aspartate Amino Transferase 31 U/L (14-36); Bilirubin,Total 0.6 mg/dL (0.2-1.3); Blood Urea Nitrogen 10 mg/dL (7-17); CRP 1.0 mg/dL (<1.0); Calcium 9.2 mg/dL (8.4-10.2); Carbon Dioxide 33 mmol/L (22-30); Chloride 101 mmol/L (98-107); Estimated CRCL calculation 30 ml/min; Estimated Glomerular Filt Rate > 60; Glucose 78 mg/dL (65-110); Potassium 3.9 mmol/L (3.4-5.0); Sodium 135 mmol/L (137-145); Total Protein 6.7 g/dL (6.3-8.2)
--- OUTSIDE RECORDS SUMMARY | 2025-05-11 15:32 | XMS_ITS | Patient Health Record ---
Author Organization [facility] Address [address] [place] [address] Care Team Providers Care Management Professor Name Role Phone MaximebelkisJaxonbelkis Primary Care Provider Adan Thomas Unavailable [phone] ALLERGIES No Known Allergies RESULTS Component Value [...] PM Interpretation: Performing Lab: Notes/Report: REASON FOR REFERRAL Reason DIAGNOSES: spinal st enosis, HNP, radiculopathy, facet DJD 3 times per week for 3 weeks eval and treat, exercise, modalities per therapist's discretion; HEP Referral Organization [facility] Referring Provider First Name Adan Referring Provider Last Name Eyal Referring Provider Speciality Orthopedic Surgery Referred Provider Specialty Physical The rapy Referral Priority Routine MEDICATIONS Medication SIG (Take, Route, Frequency, Duration) Notes Start Date End Date Status Albuterol Active Ramipril Active Gabapentin DUPLICATE ENTRY Act cha Montelukast Sodium A ctive traMADol HCl 50 MG 1 tablet as needed for pain every 4-6 hrs for 7 days 04/06/2025 Active traZODone HCl Active Gabapentin 100 MG 1 tablet Orally at bedtime x 3 days then increase to 1 tablet twice daily if drowsiness does not occur for 30 days 02/15/2025 Active Meloxicam Not-Taking PROBLEMS Problem Type ICD Code Onset Dates Problem Status W/U Status Risk SNOMED Code Notes Problem Lumbar stenosis with neurogenic claudication (M48.062) Active confirmed Neurogenic claudication (652706493) Problem Facet degeneration of lumbar region (M47.816) Active confirmed Lumbosacral spondylosis without myelopathy (26866531) Problem Scoliosis (M41.9) Active confirmed Scol iosis (537809668) Problem 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) Active confirmed Radiculopathy d ue to lumbar intervertebral disc disorder (685043274525152) Problem Cervical pain (M54.2) Active confirmed Cervical pain (58337007) VITAL SIGNS Height 64 in 04/06/2025 Weight 85 lbs 04/06/2025 BMI 14.59 kg/m2 04/06/2025 PROCEDURES Procedure Date Ordered Date Performed Result Body Sit e Lumbar Transforaminal Epidur al Steroid Injection 03/09/2025 03/16/2025 medicare/[facility] health care Encounters Encounter Location Date Provider Diagnosis [facility], [address] [address] 02/15/2025 Adan Birhc Disc disease, degenerative, cervical M50.30 ; Peripheral neuropathy G62.9 ; Scoliosis M41.9 ; Facet degeneration of lumbar region M47.816 ; Cervical pain M54.2 and Other low back pain M54.59 [facility], [address] [address] 04/06/2025 Adan Birch [facility], [address] [address] 03/02/2025 Adan Birch [facility], [address] [address] 03/09/2025 Adan Birch Lumbar stenosis with neurogenic [...] will make further recommendations at that time. [facility]/ami 03/09/2025 Lumbar stenosis with neurogenic claudication (ICD-10 - M48.062) <b>IMPRESSION:</b> Back pain Neck pain Peripheral neuropathy [...] back in the office in 4 weeks. [facility]/ami 03/09/2025 Facet degeneration of lumbar region (ICD-10 [...] back in the office in 4 weeks. [facility]/clm 02/15/2025 Peripheral neuropathy (ICD-10 - G62.9) <b>IMPRESSION:</b> [...] will make further recommendations at that time. [facility]/clm 03/09/2025 Scoliosis (ICD-10 - M41.9) <b>IMPRESSION:</b> Back pain [...] back in the office in 4 weeks. [facility] 02/15/2025 Scoliosis (ICD-10 - M41.9) <b>IMPRESSION:</b> Back [...] will make further recommendations at that time. [facility]/cl 03/09/2025 Other intervertebral disc degeneration, lumbar region with lower extremity pain only (ICD-10 - M51.361) <b>IMPRESSION:</b> Back pain Neck pain Peripheral neuropathy [...] back in the office in 4 weeks. [facility]/cl 02/15/2025 Facet degeneration of lumbar region (ICD-10 [...] will make further recommendations at that time. [facility]/ami 03/09/2025 Intervertebral disc disorder with radiculopathy of lumbar region (ICD-10 - M51.16) <b>IMPRESSION:</b> Back pain Neck pain Peripheral neuropathy [...] back in the office in 4 weeks. [facility]/ami 02/15/2025 Cervical pain (ICD-10 - M54.2) <b>IMPRESSION:</b> [...] will make further recommendations at that time. [facility] 03/09/2025 Other low back pain (ICD-10 - [...] back in the office in 4 weeks. [facility] 02/15/2025 Other low back pain (ICD-10 - [...] will make further recommendations at that time. [facility]/clm 03/09/2025 Cervical pain (ICD-10 - M54.2) <b>IMPRESSION:</b> Back [...] back in the office in 4 weeks. [facility]/cl PLAN OF TREATMENT Next Appt Details Provider Name:Adan Moreira ot, 05/25/2025 10:10:00 AM, [address], [address], [place], [address], Insurance Providers Payer Name Payer Address Payer Phone Subscriber Number Group Number Insured Name Patient Relationship to Insured Coverage Start Date Coverage End Date Medicare [place] [address] [address] [place] [phone] [id number] Juliette Allison Self - patient is the insured [place] [employer] Secondary [address] [place] [address] [id number] Juliette Allison Self - patient is the insured MEDICAL (GENERAL) HISTORY Medical History History ICD Code COPD Peripheral neuropathy RLS Tobacco dependency Denies h/o emotional/psychiatric disorde r Denies h/o drug/chemical dependency Surgical History Surgery Date(Month/Year) Hip Wrist
--- OUTSIDE RECORDS SUMMARY | 2025-05-11 15:32 | XMS_ITS | Clinical Summary ---
Author Organization [facility] Address [address] [place] [address] Care Team Providers Care Road Supervisor Name Role Phone Yanet Felder MD Primary Care Provider [phone] Medications citalopram (CeleXA) 20 MG tablet Take 1 tablet (20 mg total) by mouth 1 (one) time each day 90 tablet 1 09/22/2023 Active torsemide (DEMADEX) 5 MG tablet TAKE 1 TABLET(5 MG) BY MOUTH 1 TIME EACH DAY IN THE MORNING 90 tablet 1 02/09/2025 Active Encounters Date Type Department Care Team Description 04/04/2025 3:15 PM CDT Office Visit [facility] [place], [facility] [address] [phone] Steffen Alfredo DO Stage 3 chronic kidney disease, not otherwise specified (HCC) (Primary Dx); Hyponatremia; Other emphysema (HCC); Dilated cardiomyopathy (HCC); Coronary artery disease due to calcified coronary lesion; Peripheral vascular disease (HCC); Pure hypercholesterolemia, not otherwise specified; Tobacco use 04/03/2025 Documentation Only [employer] [facility] [place], [address] [address] Steffen Alfredo DO 04/03/2025 Documentation Only [employer] [facility] [place], [address] [phone] Steffen Alfredo DO 03/01/2025 Documentation Only [facility] [address] [facility] [address] [place] [phone] Steffen Alfredo DO 02/09/2025 Refill [facility] [address] [facility] [address] [place] [address] Steffen Alfredo DO from Last 3 Months Social History Tobacco Use Types Packs/Day Years Used Date Smoking Tobacco: Never Assessed Comments Unknown Sex and Gender Information Value Date Recorded Sex Assigned at Not on file Legal Sex Female 1:55 PM EDT Gender Identity Not on file Sexual Orientation Not on file Last Filed Vital Signs Vital Sign Reading Time Taken Comments Blood Pressure 118/80 04/04/2025 2:40 PM CDT Pulse 53 04/04/2025 2:40 PM CDT Temperature 36.1 C (97 F) 04/04/2025 2:40 PM CDT Respiratory Rate 18 04/04/2025 2:40 PM CDT Oxygen Saturation 99% 04/04/2025 2:40 PM CDT Inhaled Oxygen Concentration - - Weight 40.1 kg (88 lb 4.8 oz) 04/04/2025 2:40 PM CDT Height - - Body Mass Index - - Plan of Treatment Upcoming Encounters Date Type Department Care Team (Late st Contact Info) Description 07/11/2025 2:15 PM SNOW 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 Office Visit [facility] [address] [facility] [address] [place] [address] Steffen Alfredo DO [address] [facility] [address] [place] [address] Health Maintenance Due Date Last Done Comments Influenza Vaccine (#1) 2025 4, 04/04/2021, 03/14/2020, Additional history exists Pneumococcal Vaccine: 50+ Years Completed 06/24/2018, 05/07/2016 Hepatitis B Vaccine Aged Out No longe r eligible based on patient's age to complete this topic Insurance Medicare [facility] Advance Directives Documents on File Type Date Recorded Patient Companion Caregiver Expl anation Advance Care Planning 05/20/2023 10:[address] Supervisor Relationship Specialty Start Date End Date Yanet Felder MD [address] [facility] [address] [place] [address] PCP - General Internal Medicine 03/06/23
== END 2025-05-11 14:57 | disposition home or self-care (01) ==
PROVIDERS: Emergency Provider Emergency Medicine; PCP Internal Medicine
DX: L03.115 Cellulitis of right lower limb (principal); F17.210 Nicotine dependence, cigarettes, uncomplicated
CPT/HCPCS: 36415; 80053; 83605; 85025; 85652; 86140; 96365; 99284

== ENCOUNTER 2025-05-23 07:55 | Outpatient (CLI) | payer MEDICARE, SELFPAY ==
--- OUTSIDE RECORDS SUMMARY | 2025-05-23 08:01 | XMS_ITS | Continuity of Care Document ---
Author Organization [place] - [facility] [employer], [facility] Address [address] [place] [address] Care Team Providers Care Train Driver Name Role Phone YANET MORTENSEN Primary Care Provider YANET MORTENSEN Referring Provider [phone] LUCIO TILLEY Gas Operations Analyst NILE BUSH Gas Operations Analyst RADHA CEE Disbursing Officer SEYMOUR PHILIP Microfiche Camera Operator COLLIN THORNE Orthopedic Surgeon ELEANOR DORADO Die Maintenance JENNIFER, HOMER SI Neurologist ALESSANDRO BULLARD Picker LEAH TRUONG Optimization Consultant [phone] ANN LALA Antiquer Assessment Encounter Date Assessment Date Assessment LastModified by Organization Details LastModified Time 03/29/2025 03/29/2025 This note is dictated and transcribed by [employer]. Rn Clinical Resource variances may occur. Despite proofreading, typographical errors may occur. Occasional wrong-word or 'narrw-v-ozsa' substitutions may have occurred due to the inherent limitations of voice recording. Read the chart carefully and recognize, using context, where substitutions have occurred. [email or web address] Not available 03/29/2025 17:19:33 Plan of Treatment Reminders Order Date Submit Date Provider Last Modified By Organization Details Last Modified Time Details Appointments Establish ed Patient 15 2024 08:15A M Nile Bush DPM Not available Not available Not available Any 15 2024 11:00A M Yanet ocampo MD Not available Not available Not available Lab None recorded. Referral None recorded. Procedures None recorded. Surgeries None recorded. Imaging None recorded. Medication Orders lidocaine 4 % topical cream 2024 025 [id number], [address] [place], [place], [id number], 03/29/2025 17:21:12 Patient TargetsNo targets recorded. Patient InstructionsNo instructions recorded. Reason for Referral None Reported. Problems Name Problem SNOMED Code Status Onset Date Resolution Date Notes Provider Name and Address Organization Details Recorded Time Herpes zoster 1929441 Active Not Available [facility] 3 21:10:20 Allergic rhinitis 59308530 Active 2018 Not Available [facility] 3 21:10:20 Nicotine dependence 33678141 Active 2020 Not Available [facility] 3 21:10:20 Inactive tuberculos is 24941569 Active 2020 Not Available [facility] 3 21:10:19 Spinal stenosis of lumbar region 30546785 Active 2021 Not Available [facility] 3 21:10:19 Osteoporos is 83604307 Active 2022 Yanet tamayo MD [address] [facility], [facility] [address], [place], [address] , [place] [facility] [employer] [facility] 5 18:14:40 Gastroesop hageal reflux disease without esophagiti s 308338191 Active 2022 Not Available [facility] 3 21:10:20 Glaucoma 63093744 Active 2022 Not Available [facility] 3 21:10:20 Hyperlipid emia 96390991 Active 2022 Not Available [facility] 3 21:10:20 Osteoarthr itis 659328511 Active 2022 Yanet tamayo MD [address], [place], [address] , [facility] 5 18:15:06 Trigeminal neuralgia 03311433 Active 2022 Not Available [facility] 3 21:10:20 Vertigo 798724389 Active 2022 Nettie dickinson, [facility] 3 16:43:34 Mixed anxiety and depressive disorder 155870999 Active 2022 Nettie dickinson, [facility] 3 14:02:55 Dyspnea on exertion 13951573 Active 2023 Gilberto Bonds MD [address], [address], [place], [address] , [facility] 4 12:15:03 Smoker 97814516 Active 2023 Gilberto Bonds MD [address], [address], [place], [address] , [facility] 4 12:16:35 Solitary nodule of lung 136427945 Active 2023 Gilberto Bonds MD [address], [address], [place], [address] , [facility] 4 12:17:26 Moderate chronic obstructiv e pulmonary disease 298996578 Active 2023 Gilberto Bonds MD [address], [address], [place], [address] , [facility] 4 12:17:59 Chronic obstructiv e pulmonary disease 78017367 Active 2023 Yanet tamayo MD [address], [place], [address] , [facility] 4 16:35:29 Insomnia 149837926 Active 2023 Yanet tamayo MD [address], [place], [address] , [place] [facility] 5 14:38:47 Atrophic vaginitis 65343167 Active 2023 Yanet tamayo MD [address], [place], [address] , [place] [facility] 4 16:35:29 Mass of thyroid gland 189772262 Active 2023 Yanet tamayo MD [address], [place], [address] , [place] [facility] 4 16:35:29 Coronary arterioscl erosis 65621379 Active 2023 Yanet tamayo MD [address], [address], [place], [address] , [place] [facility] 4 16:35:29 Peripheral vascular disease 314563865 Active 2023 Yanet tamayo MD [address], [place], [address] , [place] [facility] 4 16:35:29 Eruption 174193537 Active 2023 Yanet tamayo MD [address], [address], [place], [address] , [place] [facility] 4 16:35:30 Multiple nodules of lung 269998355 Active 2023 Yanet tamayo MD [address], [address], [place], [address] , [place] [facility] 4 16:35:30 Macrocytos is 968703514 Active 2023 Yanet tamayo MD [address], [address], [place], [address] , [place] [facility] 4 16:35:30 Restless legs syndrome 63139773 Active 2023 Yanet tamayo MD [address], [place], [address] , [facility] 4 16:35:30 Right inguinal pain 7034365765351 9109 Active 2023 Yanet tamayo MD [address], [place], [address] , [facility] 4 16:35:30 Cardiomyop athy 94834868 Active 2023 Yanet tamayo MD [address], [address], [place], [address] , [facility] 4 16:35:30 Hyperglyce moon 05984386 Active 2023 Yanet tamayo MD [address], [address], [place], [address] , [facility] 4 16:35:30 Hypoprotei nemia 6652292 Active 2023 Yanet tamayo MD [address], [address], [place], [address] , [facility] 4 16:35:30 Goiter 8108235 Active 2023 Yanet tamayo MD [address], [address], [place], [address] , [facility] 4 16:35:30 Low back pain 242673672 Active 2023 Yanet tamayo MD [address], [address], [place], [address] , [facility] 5 18:14:08 Chronic kidney disease 600886417 Active 2023 Yanet tamayo MD [address], [place], [address] , [facility] 4 16:35:30 Anemia 546465813 Active 2023 Yanet tamayo MD [address], [place], [address] , [facility] 4 16:35:31 Hypomagnes emia 273085636 Active 2023 Yanet tamayo MD [address], [place], [address] , [facility] 4 16:35:31 Upper respirator y infection 50410755 Active 2023 Michelle Noyola MA null, [place] - [facility] 4 11:59:32 Thyroid nodule 874213434 Active 2023 Radha Cee MD [address], [address], [place], [address] , [facility] 4 11:26:57 Acute sinusitis 29772194 Active 2023 Yara Del Rosario [facility] null, [facility] 4 16:28:36 Leukopenia 89888660 Active 2023 Yanet tamayo MD [address], [address], [place], [address] , [facility] 4 14:27:53 Hyponatrem ia 31752008 Active 2023 Yanet tamayo MD [address], [address], [place], [address] , [facility] 4 14:34:06 Open wound of left lower leg 5644613909639 9106 Active 2023 Yanet tamayo MD [address], [address], [place], [address] , [facility] 4 14:51:29 Xerostomia 92375924 Active 2023 Yanet tamayo MD [address], [address], [place], [address] , [facility] 4 14:53:50 Pain of left hip joint 2078795697341 00 Active 2023 Crystal Shaikh teena, [facility] 4 14:01:20 Trochanter ic bursitis of left hip 4869569451734 03 Active 2023 NUNU Soriano [address], [address], [place], [address] , [facility] 4 14:17:32 Venous stasis ulcer with edema of left lower leg 7919395792463 9101 Active 2023 Nile Bush DPM [address], [place], [address] , [facility] 4 15:01:02 Venous stasis ulcer with edema of right lower leg 2167581490440 9106 Active 2023 Nile Bush DPM [address], [place], [address] , [facility] 4 15:01:10 Ankle pain 387540360 Active 2023 Nile Bush DPM [address], [address], [place], [address] , [facility] 4 15:21:34 Peroneal tendinitis of right lower limb 2641361232728 09 Active 2023 Nile Bush DPM [address], [place], [address] , [facility] 5 16:45:38 Peripheral venous insufficie ncy 22377620 Active 2023 Nile Bush DPM [address], [address], [place], [address] , [facility] 4 15:23:41 Headache 81866138 Active 2023 Yanet tamayo MD [address], [address], [place], [address] , [facility] 4 18:42:05 Pain in left foot 8169632046372 07 Active 2023 Yanet tamayo MD [address], [address], [place], [address] , [facility] 4 18:42:25 Edema of lower extremity 901708851 Active 2023 GIBSON Calderon, [facility] 4 18:29:27 Pain in right foot 1369895173113 07 Active 2023 Yanet tamayo MD [address], [address], [place], [address] , [facility] 5 10:24:24 Right foot neuritis 8500035451628 09 Active 2023 Lucio Tilley DPM [address], [address], [place], [address] , [facility] 4 09:13:44 Neuropathy 854536558 Active 2023 GIBSON Frias, [facility] 4 13:02:32 Liver enzymes level above reference range 600180254 Active 2024 Yanet tamayo MD [address], [address], [place], [address] , [facility] 5 14:56:47 Pain of left hand 5056326278123 03 Active 2024 Yanet tamayo MD [address], [address], [place], [address] , [facility] 5 14:33:49 Sensorineu ral hearing loss of bilateral ears 647063807 Active 2024 Alyssa Elizabeth RN null, [place] [facility] 5 12:17:36 Pain of ear 307516392 Active 2024 RADHIKA Carter [address], [address], [place], [address] , [facility] 5 12:45:23 Impacted cerumen in left ear 6754053459056 101 Active 2024 RADHIKA Carter [address], [address], [place], [address] , [facility] 5 12:47:06 Eczema of external auditory canal 51152314 Active 2024 Alyssa Elizabeth RN null, [facility] 5 10:50:53 Hemorrhagi c otitis externa 16824120 Active 2024 Radha Cee MD [address], [address], [place], [address] , [facility] 5 15:46:12 Dysfunctio n of bilateral eustachian tubes 5642764009925 100 Active 2024 Alyssa Elizabeth RN null, [facility] 5 15:31:49 Otitis externa 6947384 Active 2024 Radha Cee MD [address], [address], [place], [address] , [facility] 5 14:10:11 Postmenopa usal osteoporos is 023022435 Active 2024 GIBSON Calderon null, [place] - [facility] 5 10:46:35 Chronic pain 67805924 Active 2024 Yanet tamayo MD [address], [address], [place], [address] , [facility] 5 18:40:04 Chronic low back pain 531042992 Active 2024 Yanet tamayo MD [address], [address], [place], [address] , [facility] 5 18:41:44 Injury of foot 209233501 Active 2024 Yara Miguel Ángel GIBSON null, [place] [facility] 5 15:46:04 Open wound of left foot 9995859298317 9105 Active 2024 Nile Bush DPM [address], [address], [place], [address] , [facility] 5 17:20:07 Spinal stenosis in cervical region 55636650 Active 2024 Yara Miguel Ángel GIBSON null, [place] [facility] 5 11:12:43 Peroneal tendinitis of left lower limb 5136288484484 07 Active 2024 Nile Bush DPM [address], [address], [place], [address] , [facility] 5 16:45:30 Wound pain 963348395 Active 2024 Nile Bush DPM [address], [place], [address] , [facility] 5 16:45:56 Injury of right leg 7658558692745 9102 Active 2024 Nile Bush DPM [address], [address], [place], [address] , [facility] 5 14:14:25 Open wound 080294742 Active 2024 Yanet tamayo MD [address], [address], [place], [address] , [facility] 5 14:24:51 Notes:Medical History: Globa l brain atrophy Anxiety/Depression Right trigeminal neuralgia Vertigo L>R hearing loss Glaucoma Rhinitis Bilateral thyroid nodules Nicotine use Mod COPD 4 mm RML pulmonary nodule Bilateral Bochdalek hernias Mild NC Hypertension EF 55% Hyperlipidemia Hiatal hernia with GILDA Granulomatous disease (chest, liver, spleen) B12 deficiency RLS Herpes zoster Thoracic DDD Lumbar spondylosis/stenosis Hip osteoporosis Procedure History: Tonsillectomy 1948, 1953 Left corneal transplants 1957, 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 Procedures Surgical History Date Name Laterality Status Provider Name and Address Organization Details Recorded Time 03/29/20 25 Wound Care-Podiatry completed Brandi Vera RN MA [employer] 03/29/2025 17:15:30 03/15/20 25 Wound Care-Podiatry completed Brandi Vera RN [employer] 03/15/2025 12:15:28 03/01/20 25 Wound Care-Podiatry completed Nile Bush DPM [address], [address], [place], [address], [employer] 03/06/2025 09:27:34 02/23/20 25 Wound Care-Podiatry completed Nile Bush DPM [address], [address], [place], [address], [employer] 02/22/2025 12:32:43 02/16/20 25 Wound Care-Podiatry completed Brandi Vera RN MA [employer] 02/15/2025 17:42:38 02/02/20 25 Wound Care-Podiatry completed Nile Bush DPM [address], [place], [address], [employer] 02/01/2025 11:02:00 05/11/20 24 Trigger Point Injection completed Lucio Tilley DPM [address], [address], [place], [address], [email or web address] [facility] [employer] 05/12/2024 09:13:29 05/03/20 24 Medicare Wellness CPT Code, subsequent completed Parish Sands LPN [place] [facility] [employer] 05/03/2024 08:52:49 01/20/20 24 Wound Care-Podiatry completed Brandi Vera RN [facility] [employer] [facility] 01/20/2024 12:01:58 01/06/20 24 Wound Care-Podiatry completed Brandi Vera RN [facility] [employer] [facility] 01/06/2024 16:57:53 03/04/20 23 Wound Care-Podiatry completed Elva Collier RN [facility] [employer] [facility] 03/04/2023 10:39:47 03/03/20 23 Medicare Wellness CPT Code, subsequent completed Alejandra Roper RN [facility] [employer] [facility] 03/03/2023 15:12:19 02/19/20 23 Wound Care-Podiatry completed Elva Collier RN [facility] [employer] [facility] 02/18/2023 11:25:43 02/12/20 23 Wound Care-Podiatry completed Elva Collier RN [facility] [employer] [facility] 02/11/2023 09:29:58 02/05/20 23 Wound Care-Podiatry completed Elva Collier RN [facility] [employer] [facility] 02/04/2023 12:33:33 01/22/20 23 Wound Care-Podiatry completed Elva Collier RN [facility] [employer] [facility] 01/21/2023 12:12:49 11/20/19 23 Wound Care-Podiatry completed Nile Bush DPM [address], [place], [address], [facility] [employer] [facility] 11/19/2022 11:53:32 11/13/19 23 Wound Care-Podiatry completed Nile Bush DPM [address], [place], [address], [facility] [employer] [facility] 11/12/2022 10:49:25 10/30/19 23 Wound Care-Podiatry completed Nile Bush DPM [address], [place], [address], [facility] [employer] [facility] 10/29/2022 11:33:18 06/28/19 23 Colonoscopy completed GIBSON Calderon MA [employer] 08/26/2022 14:30:37 11/17/19 22 Cardiac Cath completed Not Available [facility] 023 00:43:48 10/29/19 22 Hernia Repair completed Not Available [facility] 2022 00:43:48 08/05/19 19 Orthopedic Surgery completed Not Available [facility] 08/20/2022 00:43:48 07/01/19 19 Most Recent Bone Density completed Not Available [facility] 08/20/2022 00:43:45 12/18/19 16 Treat thigh fracture completed Not Available [facility] 08/20/2022 00:43:48 08/06/19 14 total replacement of hip completed Not Available [facility] 08/20/2022 00:43:48 Eye Surgery completed Not Available [facility] 08/20/2022 00:43:48 Remove tonsils and adenoids completed Alyssa Elizabeth RN [facility] [employer] 11/04/2023 10:52:52 Imaging Results None recorded. Procedure Notes None recorded. Medical Equipment None Reported. Allergies Allergen ID Allergen Name Allergen Category Reaction Reaction Severity Criticality Documentation Date Start Date Code Code System Note Provider Name and Address Organization Details Recorded Time 587 rosuvasta tin medicatio n hives Not available Not available 08/20/2022 39257 2 RxNorm Not Available [facility] 00:53:35 Medications Name Sig Start Date Stop Date Status Note LastModified by Organization Details LastModified Time amoxicill in 500 mg capsule TAKE 1 CAPSULE BY MOUTH EVERY 8 HOURS. 05/04 completed Not Available Not Available Not Available latanopro st 0.005 % eye drops INSTILL 1 DROP IN RIGHT EYE AT BEDTIME active Not Available Not Available No t [...] Available ropinirol e 1 mg tablet TAKE 2 TABLET BY MOUTH DAILY active Not Available Not Available No t Available nicotine 14 mg/24 hr daily transderm al patch Apply 1 patch every day by transder mal route as directed for 30 days. 08/27 completed Not Available Not Available Not Available ipratropi um 0.5 mg-albute rol 3 mg (2.5 mg base)/3 mL nebulizat ion soln INHALE 1 VIAL VIA NEBULIZE R FOUR TIMES DAILY active Not Available Not Available No t Available clindamyc in HCl 300 mg capsule TAKE 1 CAPSULE BY MOUTH EVERY 6 HOURS FOR 7 DAYS active Not Available Not Available No t Available albuterol sulfate 2.5 mg/3 mL (0.083 %) solution for nebulizat ion USE 3 ML VIA NEBULIZE R EVERY 4 HOURS NEEDED FOR WHEEZING OR SHORTNES S OF BREATH active Not Available Not Available No t Available trazodone 50 mg tablet TAKE 1 [...] Not Available Not Available Not Available lidocaine 5 % topical cream Apply 3 applicat ions every day by topical route as needed for 30 days, for wound pain. 2024 active Not Available Not Available Not Avai lable nicotine (polacril ex) 2 mg gum CHEW [...] Available Not Available Not Available cephalexi n 250 mg capsule Take 1 capsule 3 times a day by oral route for 7 days. 05/18 completed Not Available Not Available Not Available [...] BY MOUTH EVERY DAY FOR 5 DAYS active Not Available Not Available No t Available alendrona te 70 mg tablet TAKE [...] clobetaso l 0.05 % topical cream APPLY TO THE AFFETCED AREA NEEDED active Not Available Not Available No [...] HALF OF MIXTURE AT 5PM ON 06/26/19 23 AND DRINK THE OTHER HALF AT 5AM 06/27/19 23 08/05 completed Not Available Not Available Not Available tramadol 50 mg tablet TAKE 1 TABLET BY MOUTH EVERY 4 TO 6 HOURS FOR 7 DAYS NEEDED FOR PAIN active Not Available Not Available No t Available triamcino lone acetonide 0.1 % topical cream APPLY TO THE AFFECTED AREA TWICE DAILY active Not Available Not Available No t Available amoxicill in 500 mg tablet Take [...] Available Not Available meloxicam 7.5 mg tablet Take 1 tablet twice a day by oral route as needed for 15 days. 02/10 completed Not Available Not Available Not Available carbamaze pine 200 mg tablet Take [...] mg by injectio n route. 06/28 completed [facility]: [id number] 20 Not Available Not Available Not Available lorazepam 2 mg tablet TK ALL THREE TABLETS PO 1 AND HOUR BEFORE DENTAL TREATMEN T . active Not Available Not Available No t Available meclizine 25 mg tablet TAKE 1 TABLET BY MOUTH TWICE DAILY NEEDED 01/06 completed Not Available Not Available Not Available baclofen 10 mg tablet Take 1 tablet 3 times a day by oral route. active Not Available Not Available No t Available torsemide 5 mg tablet Take 1 tablet every day by oral route for 90 days. active Not Available Not Available No t Available cephalexi n 500 mg capsule TAKE 1 CAPSULE BY MOUTH EVERY 8 HOURS FOR 10 DAYS 02/28 completed Not Available Not Available Not Available [...] Not Available Not Available No t Available gentian braxton 2 % topical solution Apply 1 applicat ion every day by topical route as directed , for applied to wound bed daily with dressing s left foot. 2024 active Not Available Not Available Not Avai lable Xylocaine 20 mg/mL (2 %) injection solution [...] MOUTH DAILY 09/[address] Bullard Not Available Not Available Not Available gabapenti n 100 mg capsule TAKE 1 CAPSULE BY MOUTH DAILY AT NIGHT active Not Available Not Available No t Available metoprolo l succinate ER 25 mg tablet,ex tended release 24 hr TAKE 1 TABLET BY MOUTH EVERY DAY active Not Available Not Available No t Available clobetaso l 0.05 % topical ointment [...] nasal spray,segundo pension SHAKE LIQUID AND USE 2 SPRAYS IN EACH NOSTRIL EVERY DAY active Not Available Not Available No t Available doxycycli ne hyclate 100 mg tablet TAKE 1 TABLET BY MOUTH EVERY DAY WITH FOOD 03/03 completed Not Available Not Available Not Available gentamici n 0.1 % topical ointment APPLY A SMALL AMOUNT TO THE AFFECTED AREA ON LEG AND FOOT THREE TIMES DAILY active Not Available Not Available No t Available naproxen 500 mg tablet TAKE 1 TABLET BY MOUTH TWICE DAILY 09/15 completed Not Available Not Available Not Available mometason e 0.1 % topical cream APPLY THIN LAYER TOPICALL Y TO THE AFFECTED AREA DAILY active Not Available Not Available No t Available diazepam 5 mg tablet TAKE 1 TABLET BY MOUTH 30 MINUTES BEFORE PROCEDUR E AND THEN UP TO TWICE DAILY NEEDED active Not Available Not Available No t Available amoxicill in 875 mg-potass ium clavulana [...] % eye oint APPLY A SMALL AMOUNT INTO THE LEFT EYE AT BEDTIME active Not Available Not Available No t [...] completed Not Available Not Available Not Available Ciprodex 0.3 %-0.1 % ear drops,segundo pension INSTILL 4 DROPS INTO AFFECTED EAR(S) BY OTIC ROUTE 2 TIMES PER DAY FOR 7 DAYS 12/07 completed Not Available Not Available Not Available [...] TAKE 1 CAPSULE BY MOUTH EVERY DAY 04/08 /2024 completed Not Available Not Available Not Available [...] oral route as needed for 30 days. 11/22 completed Not Available Not Available Not Available prednison e take as directed 12/10 completed Not Available Not Available Not Available lidocaine (PF) 10 mg/mL (1 %) injection solution In office injectio n administ ered by the provider 08/27 completed [facility]: 0409-427 6-17 Not Available Not Available Not Available lidocaine [...] Not Available Not Available No t Available arformote rol 15 mcg/2 mL solution for nebulizat ion TAKE 2 ML VIA NEBULIZE R TWICE DAILY active Not Available Not Available [...] drops USE 1 DROP IN BOTH EYES [facility] 05/21 completed Not Available Not Available Not Available ropivacai ne (PF) 5 mg/mL (0.5 %) injection solution Take 20 mg by injectio n route. 03/03 completed [facility] 49978-08 09-20 Not Available Not Available Not Available [...] Available Not Available Not Available Fluzone High-Dose 0092-3076 (PF) 180 mcg/0.5 mL intramusc ular syringe ADM 0.5ML IM UTD 02/17 completed Not Available Not Available Not Available Compact Space Chamber-L rg Mask USE DIRECTED 01/08 completed Not Available Not Available Not Available Shingrix (PF) 50 mcg/0.5 mL intramusc ular suspensio n, kit ADMINIST ER 0.5ML IN THE MUSCLE DIRECTED 08/20 completed Not Available Not Available Not Available Yupelri 175 mcg/3 mL solution for nebulizat ion USE 3 ML VIA NEBULIZE R DAILY active Not Available Not Available No t Available Voltaren Arthritis Pain 1 % topical gel APPLY 2 GRAMS TO THE AFFECTED AREA(S) fifth metatars al base BY TOPICAL ROUTE 4 TIMES PER DAY 2024 active Not Available Not Available Not Avai lable Fluad Quad (65yr up)(PF) 60 mcg (15 mcg x 4)/0.5mL IM syringe ADM 0.7ML IM UTD 08/20 completed Not Available Not Available Not Available AsperFlex (lidocain e) 4 % topical cream APPLY 1 APPLICAT ION 3 TIMES A DAY TOPICALL Y NEEDED FOR 30 DAYS FOR WOUND PAIN FOOT active Not Available Not Available No t Available Vitals Date Recorded Body height Body temperature Respiratory rate Oxygen saturation Heart rate Systolic And Diastolic Provider Name and Address Organization Details Last Updated DateTime 162.56 cm 97.4 [degF] 16 /min 95 % 77 /min 111/48 mm[Hg] Brandi Vera RN MA [employer] [facility] [employer] 16:49:47 Social History Question Answer Notes LastModified by Organization Details LastModified Time Tobacco Smoking Status Current Every Day Smoker LANDON Palacios, [employer] 02/28/2025 14:33:48 Do You Have An Advance Directive? Yes Patient To Bring Copy For Chart. MIGRATION.0301 [id number] Information not available 08/20/2022 Are You Blind Or Do You Have Difficulty Seeing? No MIGRATION.030 223918 Information not available 08/20/2022 What Is Your Level Of Caffeine Consumption? Moderate MIGRATION.0301 [id number] Information not available 08/20/2022 How Much Tobacco Do You Chew? None MIGRATION.030 457463 Information not available 08/20/2022 In The 14 Days Before Symptom Onset, Have You Had Close Contact With A Laboratory-confi rmed COVID-19 While That Case Was Ill? No MIGRATION.030 [id number] Information not available 08/20/2022 In The 14 Days Before Symptom Onset, Have You Had Close Contact With A Person Who Is Under Investigation For COVID-19 While That Person Was Ill? No MIGRATION.0301 [id number] Information not available 08/20/2022 Are You Deaf Or Do You Have Serious Difficulty Hearing? No MIGRATION.0301 595487 Information not available 08/20/2022 What Type Of Diet Are You Following? REGULAR MIGRATION.0301 638101 Information not available 08/20/2022 Which Illicit Or Recreational Drugs Have You Used? None MIGRATION.0301 486153 Information not available 08/20/2022 Do You Have An Electrostatic Air Filter? No Information not available 09/28/2023 Have There Been Any Changes To Your Family Or Social Situation? No MIGRATION.0301 850777 Information not available 08/20/2022 What Is The Fluoride Status Of Your Home? Unknown MIGRATION.0301 723896 Information not available 08/20/2022 Are There Any Guns Present In Your Home? Yes MIGRATION.0301 980877 Information not available 08/20/2022 Do You Have A Humidifier? No Information not available 09/28/2023 Do You Use Insect Repellent Routinely? No MIGRATION.0301 649076 Information not available 08/20/2022 Where Do You Live? [place]House MIGRATION.0301 337890 Information not available 08/20/2022 Do You Have A Medical Power Of Buckle Gluer? Yes MIGRATION.0301 731365 Information not available 08/20/2022 Do You Have Moisture Problems In Your Home? No Information not available 09/28/2023 What Was The Date Of Your Most Recent Tobacco Screening? 05/04/2025 Information not available 05/04/2025 What Is Your Current Pack Years? 30ormorepackyears MIGRATION.0301 921363 Information not available 08/20/2022 Have You Ever Been Counseled For Unhealthy Alcohol Use? No MIGRATION.0301 535712 Information not available 08/20/2022 Do You Have Any Pets? Yes MIGRATION.0301 744248 Information not available 08/20/2022 What Is Your Relationship Status? [email or web address] Information not available 07/02/2023 Do You Use Your Seat Belt Or Car Seat Routinely? Yes MIGRATION.0301 700131 Information not available 08/20/2022 Do You Have Smoke And Carbon Monoxide Detectors In Your Home? Yes MIGRATION.0301 764108 Information not available 08/20/2022 At What Age Did You Start Smoking Tobacco? 17 MIGRATION.0301 498111 Information not available 08/20/2022 Are You Passively Exposed To Smoke? Yes MIGRATION.0301 433053 Information not available 08/20/2022 Are There Any Smokers In Your House? No MIGRATION.0301 675898 Information not available 08/20/2022 How Much Tobacco Do You Smoke? 0.5 PPD Information not available 01/08/2023 What Types Of Sporting Activities Do You Participate In? None MIGRATION.0301 276799 Information not available 08/20/2022 Do You Use Sunscreen Routinely? Yes MIGRATION.0301 880110 Information not available 08/20/2022 How Many Years Have You Smoked Tobacco? 58 MIGRATION.0301 768681 Information not available 08/20/2022 Have You Recently Traveled Abroad? No MIGRATION.0301 643440 Information not available 08/20/2022 Do You Have Difficulty Walking Or Climbing Stairs? No MIGRATION.0301 549728 Information not available 08/20/2022 Do You Have Any Dietary Restrictions? No MIGRATION.0301 726032 Information not available 08/20/2022 Sex: Female Functional Status Question Answer Note LastModified by [employer] ion Details LastModified Time Do you or have you ever used smokeless tobacco? Never used smokeless tobacco MIGRATION.38976 54278 Information not available 08/20/2022 Are you currently employed? No Information not available 11/22/2024 Have you been exposed to chemicals or toxins? Not that aware of Information not available 09/28/2023 Do you have transportation difficulties? No MIGRATION.21702 47282 Information not available 08/20/2022 Are you able to care for yourself independently? Yes MIGRATION.18800 16397 Information not available 08/20/2022 Do you have difficulty dressing, bathing, grooming, or toileting? No MIGRATION.46259 18279 Information not available 08/20/2022 Do you or have you ever used e-cigarettes or vape? Never used electronic cigarettes MIGRATION.69264 43855 Information not available 08/20/2022 What is your exercise level? Occasional Patient stated she walks the dog when the weather is nice. MIGRATION.61738 15617 Information not available 08/20/2022 Do you use any illicit or recreational drugs? No MIGRATION.25699 43582 Information not available 08/20/2022 Do you or have you ever used any other forms of tobacco or nicotine? No MIGRATION.72010 28875 Information not available 08/20/2022 What is your level of alcohol consumption? None Information not available 01/08/2023 Are you able to walk independently without assistance or assistive devices? YESWOREST MIGRATION.60499 73234 Information not available 08/20/2022 Do you have difficulty doing errands alone? No MIGRATION.38234 25236 Information not available 08/20/2022 What is your occupation? [employer] MIGRATION.09107 62881 Information not available 08/20/2022 Mental Status Question Answer Note LastModified by Organizat ion Details LastModified Time Do you feel stressed (tense, restless, nervous, or anxious, or unable to sleep at night)? [id number] MIGRATION.39968005 26 Information not available 08/20/2022 Do you have difficulty concentrating, remembering or making decisions? No MIGRATION.45106764 26 Information not available 08/20/2022 Family History Relationship Description Onset Age of this Age Resolved Age Notes LastModified by Organization Details LastModified Time Father Myocardial infarction MIGRATION.399 [id number] Not available 08/20/2022 00:43:52 Mother Malignant neoplasm of lung MIGRATION.518 1070993 Not available 08/20/2022 00:43:52 Sister Malignant neoplasm of breast MIGRATION.980 [id number] Not available 08/20/2022 00:43:52 Notes:NO ENT Medical History Condition Response NERVE DISEASE Y BLINDNESS N RHEUMATIC FEVER N KIDNEY STONES N BLADDER PROBLEMS N MRSA N OTHER # 1 Y POLIO N LUNG DISEASE/DISORDER Y HISTORY OF DRUG ABUSE N RADIATION / CHEMOTHERAPY N COPD Y Other # 2 N BLOOD DISEASES N EAR OR HEARING PROBLEMS Y MUMPS N SHINGLES N BOWEL PROBLEMS N DEPRESSION (INCLUDING POST ) N STROKE/TIA N ULCERS N BENIGN PROSTATIC HYPERPLASIA N MEASLES N HYPOTENSION N MYOCARDIAL INFARCTION N OBESITY N GERD/NAUSEA N ANEURYSM N URINARY/BLADDER/KIDNEY PROBLEMS N CORONARY ARTERY DISEASE (CAD) Y ADDICTION CONCERNS N ENDOMETRIOSIS N Impotence N USE OF BLOOD THINNERS N SKIN [...] GLAUCOMA Y FOOT PROBLEM N DIVERTICULITIS N CHICKENPOX N SLEEP APNEA N ALLERGIES/HAYFEVER N INFECTIOUS DISEASE N HEART ARRHYTHMIA N PROSTATE N INSOMNIA Y HIGH CHOLESTEROL / HYPERLIPIDEMIA Y HYPERTHYROIDISM N EYE PROBLEMS N EDEMA N CHRONIC PAIN SYNDROME N [...] N ALZHEIMER'S DISEASE N Brain Problems N HERPES N DEMENTIA N HEADACHES/MIGRAINES Y SEIZURES/EPILEPSY N VASCULAR DISEASE N PACEMAKER N Blood Disorder N DIZZINESS N HEART DISEASE/HEART PROBLEMS Y KIDNEY DISEASE N MULTIPLE SCLEROSIS N CARDIAC ARRHYTHMIA N CANCER: SPECIFY N ANESTHESIA COMPLICATIONS N ATRIAL FIBRILLATION N [...] Vaccine Type Date Status Note Provider Nam e and Address Organization Details Recorded Time SARS-COV-2 (COVID-19) vaccine, UNSPECIFIED 1 completed SINCERE Charles [facility] [employer] [facility] 12/23/2023 14:06:41 SARS-COV-2 (COVID-19) vaccine, UNSPECIFIED 1 completed SINCERE Charles MA [employer] [facility] [employer] [facility] 12/23/2023 14:06:41 Influenza, high-dose, trivalent, PF 0 completed SINCERE Charles [employer] [facility] [employer] 12/23/2023 14:06:41 Influenza, high-dose, quadrivalent, PF 2 completed Not Available [facility] 07/30/2023 03:20:22 Influenza, high-dose, quadrivalent, PF 1 completed Not Available [facility] 07/30/2023 03:20:22 Influenza, split virus, quadrivalent, PF 9 completed Not Available [facility] 07/30/2023 03:20:22 pneumococcal polysaccharide PPV23 9 completed Not Available [facility] 07/30/2023 03:20:22 Influenza, high-dose, trivalent, PF 8 completed Not Available [facility] 07/30/2023 03:20:22 Influenza, high-dose, trivalent, PF 7 completed Not Available [facility] 07/30/2023 03:20:22 Pneumococcal conjugate PCV 13 6 completed Not Available [facility] 07/30/2023 03:20:22 Influenza, high-dose, trivalent, PF 5 completed Not Available [facility] 07/30/2023 03:20:22 Influenza, split virus, trivalent, preservative 4 completed SINCERE Charles, [facility] 12/23/2023 14:06:41 Influenza, split virus, trivalent, preservative 3 completed SINCERE Charles, [facility] 12/23/2023 14:06:41 zoster recombinant 1 completed Parish Sands LPN null, [facility] 12/23/2023 14:06:40 zoster recombinant 0 completed SINCERE hCarles, [facility] 12/23/2023 14:06:40 COVID-19, mRNA, LNP-S, PF, 100 mcg/0.5mL dose or 50 mcg/0.25mL dose 1 completed SINCERE Charles, [facility] 12/23/2023 14:06:41 COVID-19, mRNA, LNP-S, PF, 100 mcg/0.5mL dose or 50 mcg/0.25mL dose 1 completed SINCERE Charles, [facility] 12/23/2023 14:06:41 Influenza, high-dose, trivalent, PF 6 completed SINCERE Charles, [facility] 12/23/2023 14:06:41 Influenza, split virus, trivalent, PF 0 completed SINCERE Charles, [facility] 12/23/2023 14:06:41 Hep A, adult 0 completed SINCERE Charles, [facility] 12/23/2023 14:06:41 Hep A, adult 0 completed SINCERE Charles, [facility] 12/23/2023 14:06:41 RSV, bivalent, protein subunit RSVpreF, diluent reconstituted, 0.5 mL, PF 3 completed Yara Del Rosario RMA teena, [facility] 01/23/2025 15:45:12 Influenza, high-dose, quadrivalent, PF 3 completed Yara Del Rosario RMA teena, [facility] 05/12/2023 10:54:27 Influenza, high-dose, trivalent, PF 4 completed Yara Del Rosario RMA teena, [facility] 05/04/2024 10:51:35 Past Encounters Encounter ID Performer Location Encounter Start Date Encounter Closed Date Diagnosis/Indication Diagnosis SNOMED-CT Code Diagnosis ICD10 Code Diagnosis IMO Codes Diagnosis Note [id number] Yanet tamayo MD [facility] Internal Med [facility] [address] [facility], [facility] [address] [place] [address] 02/28/2025 14:22:55 02/28/2025 15:35:13 Headache 69865890 R51.9 [facility] ER: 02/18/2024 [facility] ER: 02/18/2024 Addendum: 03/03/2024 :CT Head: 03/03/2024 : Neg, patient notified OV 06/28/2024 : Resolved, notify if any symptoms occur Pain in left foot 600135 [id number] 70618 M79.672 [facility] ER: 02/18/2024 [facility] ER: 02/18/2024 Trauma, dropped box of candy, skin tear, also noted to have headacheUS LE: Neg for DVTCelluli tis, treated with keflexAlso treated with morphine and zofranRene wed the oxycodone in VERY limited quantities as per her request 03/03/2024 , needs to keep apt with orthoShe is not at all happy with care from podiatry Dr Bush, so refer to Dr Ruelas Addendum: 03/03/2024 :Xray: Neg: Patient notifiedAl so referred to Dr Tilley as she does not want to see Dr Izaguirre e would like to get on oxycodone and this was renewed in very limited quantities 05/03/2024 OV 06/28/2024 : Does well now Screening - NAD [id number] 3 Z13.9 C-scope: Cologuard 03/30/19: Neg, ordered 04/22/2022 Cologuard 05/08/2022 : +veC-scope : 06/27/2022 : Dr Truong Mammogram: 05/07/18, neg, get this /20/19: Neg01// 021: Neg07/18/ 022: Neg 023: Neg 024: NegNo more mammogram 06/28/2024 PAP: Did see Marium Becker [employer] DEXA: 09/12/2020 : OPDEXA: 07/14/2022 : OP, declined prolia in the pastDEXA: 07/15/2023 : OP, cannot do prolia, d/t cost, will do fosamax, also do ca and vit d Get yearly flu shotUTD on PCV #13 05/07/16, #23 06/24/18UT D shingles vaccineUTD Tdap about 1.5 years ago in 2020UTD on COVID 19 vaccineUTD on RSV vaccine RTC in 3 monthsGet labsER if worseShe did verbalize her understand ing of the above Chronic ob structive pulmonary disease 82377859 J44.9 CT Chest 11/20/2020 CT chest 07/30/2023 : Mucus impaction? She does see Ann Bartholomew [employer], did not want to keep her apts with Dr Bonds as he refused to give her HHNs On ipratropiu mOn montelukas tOn proair renewed as per her request 11/22/2024 Not on stiolto, has been given samples in the pastNot on spiriva Dr Bonds 09/28/2023 Has noted some cough, 10/01/2023 , will send for z-pack, may need MDP if not better, discussed in detail any alarming symptoms and to proceed to the ER if getting worse Dr Israel 12/10/2023 , given doxy PRN and started on stioltoNow sees Ann Lala [employer] in 09/2024, is s/p EGD on 06/17/2024 , Dr Jase Lala [employer] 09/29/2024 Atrophic vaginitis 30417 000 N95.2 On clobetazol does well On hydroxyzin e for itching Insomnia 464503949 G47.0 0 10172152 On trazodone 50mg daily, does well Gastroesop hageal reflux disease without esophagitis 140832245 K21.9 On omeprazole Takes as neededDoes well on thisS/p EGD Dr Laguna on 06/17/2024 Glaucoma 24476171 H40.9 L eye blindness is present On brimonidin [place] dorzolamid [place] latanopros tOn neomycin eye drop Sees Dr Mayer Mass of thyroid gland [address] scan neck 04/13/18, mass noted ENT Dr Cee 07/28/2019 US thyroid 07/23/2020 : ENT Ti Rads 4, f/u in 1-2 yearsUS thyroid 07/20/2023 : Now should see ENT again TSH WNL 01/29/[address] Cee 07/11/2021 US thyroid 07/18/2021 US thyroid 07/14/2022 , next in one year ENT Dr Cee 11/04/2023 , US thyroid in one yearUS thyroid 06/28/2024 ordered US thyroid 09/01/2024 , next in 2 years Coronary arteriosclerosis 68743866 I25.10 01/17/2022 : ECHO: [facility] CT chest 11/15/[address] Philip 10/09/2021 , next [place] [address] Philip 04/04/2022 , next [place] [address] Philip 10/24/20[address] [facility] [address] Philip 04/15/2024 , was referred to Dr Bush, then seen in the ER on 04/21/2024 S/p ER El ER: for SOB, treated with augmentinS /p ER Dennys 04/21/2024 for LE swelling and treated with lasix, see case on 04/28/2024 [address] Bauman [facility] Dr Bauman 06/13/2024 , told to stop metoprolol , and start on lovastatin 20mg daily Get a referral to Dr Bauman [facility] 02/28/2025 Hyperlipidemia 55998596 E78.5 Not on rosuvastat in 5mg daily Dr Greco not want and labs are WNL 06/24/2024 Get labs Peripheral vascular disease 197992601 I73.9 See [facility] Dr Bauman [facility] Osteoarthritis 658784151 M19.90 Dr Noyola 11/01/2020 , f/u as needed Dr Noyola 03/21/2021 , trochantri c bursitis or R hip s/p injection Dr Noyola/Josette EDDY 08/09/2021 Dr Noyola 09/24/2021 , s/p injection, L hip, L SI joint Dr Noyola 12/10/2021 Dr Noyola 05/29/2022 MRI L Spine 06/03/2022 : Dr Noyola, is now referred to a neurologis t in [place] as per her history Collin Thorne 01/08/2023 [...] gabapentin , ropinorole , start on lyrica OV 11/22/2024 :On meloxicam take very sparingly! Now on tramadolNo t to take Lyrica Eruption 478182151 R21 She states that the hydroxyzin e has not helpedShe does have a long standing history of itching and denies any new detergents or use of soaps or foodsAlso has a small raised slightly tender papule on the L dorsum of hand Refer to dermatolog y Osteoporosis 03378023 M8 1.0 On prolia last 01/08/2023 DeclinesCa n do fosamax, all side effects explained, and the way to take it 08/23/2024 Needs to do ca and vit d Multiple n odules of lung 865432276 R91.8 S/p CT chest 11/20/2020 Ann Dai [employer] 02/12/2021 , next apt 08/20/2021 , she has now been referred to Dr Barry for ? latent TB Ann Lala [employer] f/u 04/17/2023 Ann Lala [employer] 09/29/2024 Macrocytosis 912189274 D 75.89 MCV WNL 12/30/2023 Get B12 and folate levels Restless l egs syndrome 97880364 G25.81 Stop ropinirole 1mg dailyStop the gabapentin Get on Lyrica 25mg daily, all side effects explainedA ll side effects explained to her Addendum: 09/06/2024 : Sees cases the Lyrica not helpedWant s tramadol OV 11/22/2024 :On tramadolIs on ropinirole Is to see Dr Martinez 12/13/2024 , is to get MRI OV 02/28/2025 :Did see Dr Nixon to get a MRI LS spine Right inguinal pain [id number] Light 09/12/2021 , post op 11/05/2021 Cardiomyopathy 64448471 I42.9 [facility] ER: 11/15/2021 : CTA angio, for SOBAirlift [...] 05/29/2023 : Dr Philip, EF 55% Hyperglycemia 85142134 R 73.9 Get labsDeclin es meds, more diet and exercise is needed Allergic rhinitis 203485 04 J30.9 On claritin, montelukas tNot on flonase Trigeminal neuralgia 316 45650 G50.0 On carbamazep ine 100mg tid, but should be on bid as per neurology Dr Lucero 01/29/2023 , f/u in one year Has seen Dr Garcia and the pain is betterMRI brain 11/14/2020 : Neg Dr Lucero 03/10/2024 , f/u PRN Does well, not taking the carbazepin e Hypoproteinemia 3507882 E88.09 More protein in diet Goiter 8792264 E04.9 US head and neck 07/18/2022 Low back pain 156620092 M54.50 MRI L Spine 06/03/2022 : Dr Gustafson es well now 10/01/2023 , no N/T or weakness in the LE Dr Birch and now is to get a MRI LS Spine 03/02/2025 Chronic ki dney disease 856874819 N18.9 See nephrology Anemia 367433103 D64.9 Can do more iron in diet or OTC ironH/H is stable 11/18/2024 Hypomagnesemia 103023874 E83.42 Mag 11/18/2024 : 2.0 WNL Leukopenia 30839580 D72. 819 Low WBC and mildly low PLTNeeds to see Dr Shay declines any referrals at this timeGet labs Hyponatremia 23113489 E8 7.[address] Peter garrido the CMP Open wound of left lower leg [id number] 2327666 S81.802A Dr Bush 02/23/2024 , next apt 06/02/2024 , change to Dr Treva [place] 06/28/2024 : No more apts healed Xerostomia 06039839 R68. 2 States that none of the OTC mouth washes/rin ses have worked, she has used Biotene/AC T etcOn Cevimeline , all side effects explained to her, notify if any side effects occur, she verbalized her understand ing of the above Pain of left hand 400839 8717 91008 M79.642 Get on meloxicam 7.5mg po bid as needed PRNAlso get a referral to hand surgery S/p Xray 10/18/2024 : Dr Robertson : OAIs on OT Hemorrhagi c otitis externa 89467450 H60.322 81527744 On mometasone cream L ear ache with visible bleed on the EACNeeds a refill on the cipro dex as the medication did not stay in, will refill and use a cotton ball to plug the EACIf not better, notify and then refer to ENT as she states that Dr Cee 'blew her off' Open wound 946867073 T14 .8XXA [address] Bush 03/01/2025 This is for silvia LE wounds [id number] KIMMIE [facility] [address] [place] [address] 03/01/2025 15:42:38 03/06/2025 09:37:52 Open wound of left foot [id number] 4850878 S91.302D 4667761 Healed with mild maceration Injury of right leg [id number] [id number] S81.801A [id number] secondary to biopsycont inue daily wound caremonito r for signs of infection at present seek medical attention immediatel yrecommend mild compressio n to the wound areafollow -up 2 weeks Wound pain [id number] T14 .8XXA [id number] left foot dorsallyco ntinue current therapy [id number] Nile Bush DPM [facility] [address] [place] [address] 03/15/2025 10:54:04 03/15/2025 16:38:47 Open wound of left foot [id number] S91.302D [id number] Healed with mild maceration Injury of right leg 1186 [id number] S81.801D [id number] secondary to biopsystab le with escharcont inue daily wound caremonito r for signs of infection at present seek medical attention immediatel yrecommend mild compressio n to the wound areafollow -up 2 weeks if not healed [id number] Nile Bush DPM [facility] [address] [place] [address] 03/29/2025 16:17:22 03/29/2025 17:44:40 Open wound of left foot [id number] S91.302A [id number] Secondary to injurycont inue gentian braxton and dry dressingke ep clean and covered at all timesfollo w-up in 2 weeks Wound pain [id number] T14 .8XXA [id number] left foot dorsallyco ntinue current therapy Health Concerns Section Related Observation LastModified by Organization Detai ls LastModified Time None Recorded Concern Status LastModified by Organization Details LastModified Time None Recorded Payers Encounter Date Sequence Insurance Name Policy Number Policy Yap Covered Member ID Yap Member ID Guarantor Name 03/29/2025 1 [place] Juliette Allison [id number] Juliette Allison 03/29/2025 2 [place] [id number] Juliette Allison [id number] Juliette Allison Notes Date Note Type Note Provider Name and Address Organization Details Recorded Time 03/29/2025 text/html . Patient is 80-year-old female she returns the office with an open wound to the left dorsal foot she states that she was opening a door to let her dogs out and she ran the door over the top of her foot causing a open wound secondary to skin tear. Patient states she has been self treating the area for a couple days she continues to have some discomfort to the wound bed she states that she has been placed on amoxicillin by her primary care. Patient states there has been some swelling to the foot she denies any fever, chills, nausea vomiting. Nile Bush DPM [address], [facility] [address], [place], [address], [place] [facility] 03/29/2025 17:23:18 OBGyn Episode No OBEpisode recorded.
--- OUTSIDE RECORDS SUMMARY | 2025-05-23 08:01 | XMS_ITS | Continuity of Care Document ---
Author Organization [place] [facility] [place], [facility] Internal Med [address] Address [address] [facility] [place] [address] Care Team Providers Care Tube Splicer Name Role Phone YANET FELDER Primary Care Provider [phone] YANET FELDER Referring Provider [phone] LUCIO TILLEY Bobtail Driver [phone] NILE BUSH Bobtail Driver RADHA CEE Building Maintenance Technician SEYMOUR PHILIP Continuous Process Machine Operator COLLIN THORNE Orthopedic Surgeon ELEANOR DORADO Leg Breaker JENNIFER, HOMER SI Neurologist ALESSANDRO BULLARD Travertine Installer LEAH TRUONG Instrument Technician Apprentice ANN LALA Bottling Room Worker Assessment Encounter Date Assessment Date Assessment LastModified by Organization Details LastModified Time 02/28/2025 02/28/2025 08/20/2022: Folate: WNL A1C 5.4 VIT D [...] 3.5 GFR 57 US liver: 07/15/2024: neg 11/18/2024: Micro alb urine 34.8 TSH 0.399L, FT4 1.24 TP 6.1L, glob 2.0L Chol 203, LDL 102 WBC 3.1 02/23/2025: A1C 5.4 Urine micro alb 21.3 TSH 0.222L, FT4 1.26 BUN 20, GFR 46, TP 6.1L H/H 12.9/39.7 45 minutes spent with the patient from 1.30pm till 2.15pm , ER notes reviewed, chart updated, referrals provided [email or web address] Not available 02/28/2025 15:20:42 Plan of Treatment Reminders Order Date Submit Date Provider Last Modified By Organization Details Last Modified Time Details Appointments Establish ed Patient 15 2024 08:15A Jas Bush DPM Not available Not available Not available Any 15 2024 11:00A Jas ocampo MD Not available Not available Not available Lab vitamin B12 + folate, serum or blood 2024 025 [email or web address] [facility] (Lab), [address] [place], [address], 02/28/2025 15:35:02 lipid panel, serum [address] (Lab), [address] [place], [address], 02/28/2025 15:35:01 CBC w/ auto diff [address] (Lab), [address] [place], [address], 02/28/2025 15:35:02 CMP, serum or plasma [address] (Lab), [address] [place], [address], 02/28/2025 15:35:02 TSH, serum or plasma [address] (Lab), [address] [place], [address], 02/28/2025 15:35:03 glycohemo globin, total, blood [address] (Lab), [address] [place], [address], 02/28/2025 15:35:01 microalbu min, urine [address] (Lab), [address] [place], [address], 02/28/2025 15:35:01 CMP, serum or plasma [address] (Lab), [address] [place], [address], 02/28/2025 15:35:02 Referral otolaryng ologist referral - Additiona l note: Patient can't wear hearing aids due to ears being clogged. 2024 025 PATRIC Perez MD, [address] [facility] , [address], [place], [address], 05/01/2025 15:19:38 dermatolo gist referral - Please call patient to schedule an appointme nt. Thank you. 2024 025 PATRIC Aranda MD (Dermatology) , [address] [facility] , [address], [place], [address], 03/01/2025 10:20:31 nephrolog ist referral - Please call patient to schedule an appointme nt. Thank you. 2024 [place], [address], [address], [place], [address], 03/01/2025 10:28:42 cardiolog ist referral - Please call pt to schedule appt. Thank you 2024 025 [place], [address], [address], [place], [address], 03/01/2025 10:53:20 Procedures None recorded. Surgeries None recorded. Imaging None recorded. Medication Orders None recorded. Patient TargetsNo targets recorded. Patient InstructionsNo instructions recorded. Reason for Referral Continuous Process Machine Operator Referral for Co ronary arteriosclerosis Please call pt to schedule appt. Thank you Referring Physician: Yanet Felder, Internal Medicine, Encounter Date: 02/28/2025 Travertine Installer Referral for Ch ronic kidney disease Please call patient to schedule an appointment. Thank you. Referring Physician: Yanet Felder, Internal Medicine, Encounter Date: 02/28/2025 Pulley Mortiser Operator Referral for E ruption Please call patient to schedule an appointment. Thank you. Referring Physician: Yanet Felder Internal Medicine, Encounter Date: 02/28/2025 Building Maintenance Technician Referral fo r Mass of thyroid gland Additional note: Patient can't wear hearing aids due to ears being clogged. Referring Physician: Yanet Felder, Internal Medicine, Encounter Date: 02/28/2025 Results Created Date Observation Date Name Description Value Unit Range Abnormal Flag Note LastModifiedBy Organization Detail LastModifiedTime 02/23/20 25 02/22/2025 CULTU RE WOUND /TISS UE+GR .STAI N [email or web address] ===== ===== ===== ===== ===== ===== ===== ===== ===== ===== ===== ===== ===== ===== ===== ===== ===== ===== ===== ===== ===== ===== ===== ===== Speci men NO.: [id number] Exam Statu s: Final Proce dure: CULTU RE WOUND /TISS UE+GR .STAI N ===== ===== ===== ===== ===== ===== ===== ===== ===== ===== ===== ===== ===== ===== ===== ===== ===== ===== ===== ===== ===== ===== ===== ===== Iso/R esult : 01 Staph yloco ccus aureu s Antim icrob ic/Do se TERRY Syste terry Urine __ ___ ___ Ampic illin <=2 ABDIEL Cipro floxa macario <=1 S Dapto mycin <=1 S Eryth romyc in <=0.2 5 S Genta micin <=4 S Bioty pe 04908 3 Beta- Lacta alexandria P Thymi dine- Depen den P Amp/S ulbac crowe <=8/4 S Amox/ K Clav <=4/2 S Azith romyc in <=2 S Ceftr iaxon e <=8 S Clind amyci n <=0.5 S Cefaz delfin <=8 S Cefta rolin e <=0.5 S Levof loxac in <=1 S Linez olid 4 S Merop enem <=4 S Penic illin 8 ABDIEL Pip/T azo <=4 S Trime th/Elizabeth lfa <=0.5 /9.5 S Tetra cycli ne <=4 S Oxaci llin <=0.2 5 S Rifam pin <=1 S Vanco mycin 1 S Nitro furan toin <=32 Not Available [facility] ([facility]) [address] [place], [address], 02/25/2025 07:33:14 Result Notes None recorded. Problems Name Problem SNOMED Code Status Onset Date Resolution Date Notes Provider Name and Address Organization Details Recorded Time Herpes zoster 8391212 Active Not Available [facility] 3 21:10:20 Allergic rhinitis 72491028 Active 2018 Not Available [facility] 3 21:10:20 Nicotine dependence 73429299 Active 2020 Not Available [facility] 3 21:10:20 Inactive tuberculos is 68097699 Active 2020 Not Available [facility] 3 21:10:19 Spinal stenosis of lumbar region 79590225 Active 2021 Not Available [facility] 3 21:10:19 Osteoporos is 66912293 Active 2022 Yanet tamayo MD [address] [facility], [facility] [address], [place], [address] , [facility] [employer] [facility] 5 18:14:40 Gastroesop hageal reflux disease without esophagiti s 933980238 Active 2022 Not Available [facility] 3 21:10:20 Glaucoma 84528427 Active 2022 Not Available [facility] 3 21:10:20 Hyperlipid emia 84851032 Active 2022 Not Available [facility] 3 21:10:20 Osteoarthr itis 321328653 Active 2022 Yanet tamayo MD [address], [address], [place], [address] , [facility] [employer] 5 18:15:06 Trigeminal neuralgia 13207275 Active 2022 Not Available [facility] 3 21:10:20 Vertigo 998244617 Active 2022 Nettie dickinson, [facility] 3 16:43:34 Mixed anxiety and depressive disorder 780193237 Active 2022 Nettie dickinson, [facility] 3 14:02:55 Dyspnea on exertion 81915695 Active 2023 Gilberto Bonds MD [address], [address], [place], [address] , [facility] 4 12:15:03 Smoker 91886727 Active 2023 Gilberto Bonds MD [address], [address], [place], [address] , [facility] 4 12:16:35 Solitary nodule of lung 540023061 Active 2023 Gilberto Bonds MD [address], [address], [place], [address] , [facility] 4 12:17:26 Moderate chronic obstructiv e pulmonary disease 026991912 Active 2023 Gilberto Bonds MD [address], [address], [place], [address] , [facility] 4 12:17:59 Chronic obstructiv e pulmonary disease 81132032 Active 2023 Yanet tamayo MD [address], [address], [place], [address] , [place] [facility] 4 16:35:29 Insomnia 312952260 Active 2023 Yanet tamayo MD [address], [address], [place], [address] , [place] [facility] 5 14:38:47 Atrophic vaginitis 77155940 Active 2023 Yanet tamayo MD [address], [address], [place], [address] , [place] [facility] 4 16:35:29 Mass of thyroid gland 260195040 Active 2023 Yanet tamayo MD [address], [address], [place], [address] , [place] [facility] 4 16:35:29 Coronary arterioscl erosis 75770862 Active 2023 Yanet tamayo MD [address], [address], [place], [address] , [facility] 4 16:35:29 Peripheral vascular disease 767498470 Active 2023 Yanet tamayo MD [address], [address], [place], [address] , [place] [facility] 4 16:35:29 Eruption 475601076 Active 2023 Yanet tamayo MD [address], [address], [place], [address] , [place] [facility] 4 16:35:30 Multiple nodules of lung 908509437 Active 2023 Yanet tamayo MD [address], [address], [place], [address] , [place] [facility] 4 16:35:30 Macrocytos is 932077985 Active 2023 Yanet tamayo MD [address], [address], [place], [address] , [facility] [employer] [facility] [employer] [facility] 4 16:35:30 Restless legs syndrome 70211129 Active 2023 Yanet tamayo MD [address], [address], [place], [address] , [employer] [facility] [employer] [facility] 4 16:35:30 Right inguinal pain 8459629151243 9109 Active 2023 Yanet tamayo MD [address], [address], [place], [address] , [facility] [employer] [facility] [employer] [facility] 4 16:35:30 Cardiomyop athy 15486336 Active 2023 Yanet tamayo MD [address], [address], [place], [address] , [employer] [facility] [employer] [facility] 4 16:35:30 Hyperglyce moon 85126591 Active 2023 Yanet tamayo MD [address], [address], [place], [address] , [employer] [facility] [employer] [facility] 4 16:35:30 Hypoprotei nemia 2443011 Active 2023 Yanet tamayo MD [address], [address], [place], [address] , [facility] [employer] [facility] [employer] [facility] 4 16:35:30 Goiter 9475202 Active 2023 Yanet tamayo MD [address], [address], [place], [address] , [facility] [employer] [facility] [employer] [facility] 4 16:35:30 Low back pain 735200403 Active 2023 Yanet tamayo MD [address], [address], [place], [address] , [facility] 5 18:14:08 Chronic kidney disease 977809272 Active 2023 Yanet tamayo MD [address], [address], [place], [address] , [facility] 4 16:35:30 Anemia 504115653 Active 2023 Yanet tamayo MD [address], [address], [place], [address] , [facility] 4 16:35:31 Hypomagnes emia 276530917 Active 2023 Yanet tamayo MD [address], [address], [place], [address] , [facility] 4 16:35:31 Upper respirator y infection 46811924 Active 2023 Michelle Noyola MA null, [place] [facility] 4 11:59:32 Thyroid nodule 831113654 Active 2023 Radha Cee MD [address], [address], [place], [address] , [facility] 4 11:26:57 Acute sinusitis 09847063 Active 2023 GIBSON Calderon null, [place] - [facility] 4 16:28:36 Leukopenia 48846524 Active 2023 Yanet tamayo MD [address], [address], [place], [address] , [facility] 4 14:27:53 Hyponatrem ia 68663751 Active 2023 Yanet tamayo MD [address], [address], [place], [address] , [facility] 4 14:34:06 Open wound of left lower leg 3424448025428 9106 Active 2023 Yanet tamayo MD [address], [address], [place], [address] , [facility] 4 14:51:29 Xerostomia 38373742 Active 2023 Yanet tamayo MD [address], [address], [place], [address] , [facility] 4 14:53:50 Pain of left hip joint 7407580232027 00 Active 2023 Crystal Shaikh teena, [place] - [facility] 4 14:01:20 Trochanter ic bursitis of left hip 8060942843251 03 Active 2023 NUNU Soriano [address], [address], [place], [address] , [facility] 4 14:17:32 Venous stasis ulcer with edema of left lower leg 1307815034260 9101 Active 2023 Nile Bush DPM [address], [address], [place], [address] , [facility] 4 15:01:02 Venous stasis ulcer with edema of right lower leg 4804415659382 9106 Active 2023 Nile Bush DPM [address], [address], [place], [address] , [facility] 4 15:01:10 Ankle pain 550365635 Active 2023 Nile Bush DPM [address], [address], [place], [address] , [facility] 4 15:21:34 Peroneal tendinitis of right lower limb 2571135619161 09 Active 2023 Nile Bush DPM [address], [address], [place], [address] , [facility] 5 16:45:38 Peripheral venous insufficie ncy 50607941 Active 2023 Nile Bush DPM [address], [address], [place], [address] , [facility] 4 15:23:41 Headache 06982769 Active 2023 Yanet tamayo MD [address], [address], [place], [address] , [facility] 4 18:42:05 Pain in left foot 9422442467359 07 Active 2023 Yanet tamayo MD [address], [address], [place], [address] , [facility] 4 18:42:25 Edema of lower extremity 897434844 Active 2023 GIBSON Calderon null, [place] [facility] 4 18:29:27 Pain in right foot 1525968853589 07 Active 2023 Yanet tamayo MD [address], [address], [place], [address] , [facility] 5 10:24:24 Right foot neuritis 4357557141682 09 Active 2023 Lucio Tilley DPM [address], [address], [place], [address] , [facility] 4 09:13:44 Neuropathy 123158237 Active 2023 GIBSON Frias, [place] - [facility] 4 13:02:32 Liver enzymes level above reference range 976317937 Active 2024 Yanet tamayo MD [address], [address], [place], [address] , [place] [facility] 5 14:56:47 Pain of left hand 3273075437155 03 Active 2024 Yanet tamayo MD [address], [address], [place], [address] , [facility] 5 14:33:49 Sensorineu ral hearing loss of bilateral ears 098641391 Active 2024 Alyssa Elizabeth RN null, [place] [facility] 5 12:17:36 Pain of ear 683195423 Active 2024 RADHIKA Carter [address], [address], [place], [address] , [facility] 5 12:45:23 Impacted cerumen in left ear 9174139505428 101 Active 2024 RADHIKA Carter [address], [address], [place], [address] , [facility] 5 12:47:06 Eczema of external auditory canal 48739462 Active 2024 Alyssa Elizabteh RN null, [facility] 5 10:50:53 Hemorrhagi c otitis externa 59805638 Active 2024 Radha Cee MD [address], [address], [place], [address] , [facility] 5 15:46:12 Dysfunctio n of bilateral eustachian tubes 0816831034422 100 Active 2024 Alyssa Elizabeth RN null, [facility] 5 15:31:49 Otitis externa 7412492 Active 2024 Radha Cee MD [address], [address], [place], [address] , [facility] 5 14:10:11 Postmenopa usal osteoporos is 788433911 Active 2024 GIBSON Calderon null, [place] [facility] 5 10:46:35 Chronic pain 73242459 Active 2024 Yanet tamayo MD [address], [address], [place], [address] , [facility] 5 18:40:04 Chronic low back pain 006595046 Active 2024 Yanet tamayo MD [address], [address], [place], [address] , [facility] 5 18:41:44 Injury of foot 084880278 Active 2024 Yara Del Rosario RMBreanne null, PA - [facility] 5 15:46:04 Open wound of left foot 6074526690408 9105 Active 2024 Nile Bush DPM [address], [address], [place], [address] , [facility] 5 17:20:07 Spinal stenosis in cervical region 66245289 Active 2024 Yara Del Rosario RMBreanne null, [facility] 5 11:12:43 Peroneal tendinitis of left lower limb 8914265659165 07 Active 2024 Nile Bush DPM [address], [address], [place], [address] , [facility] 5 16:45:30 Wound pain 642349117 Active 2024 Nile Bush DPM [address], [address], [place], [address] , [facility] 5 16:45:56 Injury of right leg 7199527893645 9102 Active 2024 Nile Bush DPM [address], [address], [place], [address] , [facility] 5 14:14:25 Open wound 468735128 Active 2024 Yanet tamayo MD [address], [address], [place], [address] , [facility] [employer] [facility] [employer] [facility] 14:24:51 Notes:Medical History: Globa l brain atrophy Anxiety/Depression Right trigeminal neuralgia Vertigo L>R hearing loss Glaucoma Rhinitis Bilateral thyroid nodules Nicotine use Mod COPD 4 mm RML pulmonary nodule Bilateral Bochdalek hernias Mild OH Hypertension EF 55% Hyperlipidemia Hiatal hernia with GILDA Granulomatous disease (chest, liver, spleen) B12 deficiency RLS Herpes zoster Thoracic DDD Lumbar spondylosis/stenosis Hip osteoporosis Procedure History: Tonsillectomy 1948, 1953 Left corneal transplants 1957, 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 Procedures Surgical History Date Name Laterality Status Provider Name and Address Organization Details Recorded Time 03/29/20 25 Wound Care-Podiatry completed Brandi Vera RN [facility] [employer] 03/29/2025 17:15:30 03/15/20 25 Wound Care-Podiatry completed Brandi Vera RN [facility] [employer] 03/15/2025 12:15:28 03/01/20 25 Wound Care-Podiatry completed Nile Bush DPM [address], [place], [address], [facility] [employer] [facility] [employer] [facility] 03/06/2025 09:27:34 02/23/20 25 Wound Care-Podiatry completed Nile Bush DPM [address], [place], [address], [facility] [employer] [facility] [employer] [facility] 02/22/2025 12:32:43 02/16/20 25 Wound Care-Podiatry completed Brandi Vera RN [facility] [employer] 02/15/2025 17:42:38 02/02/20 25 Wound Care-Podiatry completed Nile Bush DPM [address], [place], [address], [facility] [employer] [facility] [employer] [facility] 02/01/2025 11:02:00 05/11/20 24 Trigger Point Injection completed Lucio Tilley DPM [address], [place], [address], [facility] [employer] [facility] 05/12/2024 09:13:29 05/03/20 Medicare Wellness CPT Code, subsequent completed Parish Sands LPN [facility] [employer] [facility] 05/03/2024 08:52:49 01/20/20 24 Wound Care-Podiatry completed Brandi Vera RN [facility] [employer] [facility] 01/20/2024 12:01:58 01/06/20 24 Wound Care-Podiatry completed Brandi Vera RN [facility] [employer] [facility] 01/06/2024 16:57:53 03/04/20 23 Wound Care-Podiatry completed Elva Collier RN [facility] [employer] [facility] 03/04/2023 10:39:47 03/03/20 Medicare Wellness CPT Code, subsequent completed Alejandra Roper RN [facility] [employer] [facility] 03/03/2023 15:12:19 02/19/20 23 Wound Care-Podiatry completed Elva Collier RN [facility] [employer] [facility] 02/18/2023 11:25:43 02/12/20 23 Wound Care-Podiatry completed Elva Collier RN [facility] [employer] [facility] 02/11/2023 09:29:58 02/05/20 23 Wound Care-Podiatry completed Elva Collier RN [facility] [employer] [facility] 02/04/2023 12:33:33 01/22/20 23 Wound Care-Podiatry completed Elva Collier RN [facility] [employer] [facility] 01/21/2023 12:12:49 11/20/19 23 Wound Care-Podiatry completed Nile Bush DPM [address], [address], [place], [address], [facility] [employer] [facility] 11/19/2022 11:53:32 11/13/19 23 Wound Care-Podiatry completed Nile Bush DPM [address], [address], [place], [address], [facility] [employer] [facility] 11/12/2022 10:49:25 10/30/19 23 Wound Care-Podiatry completed Nile Bush DPM [address] [facility] [facility] [address], [place], [address], [facility] [employer] 10/29/2022 11:33:18 06/28/19 23 Colonoscopy completed GIBSON Calderon [employer] 08/26/2022 14:30:37 11/17/19 22 Cardiac Cath completed Not Available [facility] 023 00:43:48 10/29/19 22 Hernia Repair completed Not Available [facility] 2022 00:43:48 08/05/19 19 Orthopedic Surgery completed Not Available [facility] 08/20/2022 00:43:48 07/01/19 19 Most Recent Bone Density completed Not Available [facility] 08/20/2022 00:43:45 12/18/19 16 Treat thigh fracture completed Not Available [facility] 08/20/2022 00:43:48 08/06/19 14 total replacement of hip completed Not Available [facility] 08/20/2022 00:43:48 Eye Surgery completed Not Available [facility] 08/20/2022 00:43:48 Remove tonsils and adenoids completed Alyssa Elizabeth RN PA [employer] [facility] [employer] 11/04/2023 10:52:52 Imaging Results None recorded. Procedure Notes None recorded. Medical Equipment None Reported. Allergies Allergen ID Allergen Name Allergen Category Reaction Reaction Severity Criticality Documentation Date Start Date Code Code System Note Provider Name and Address Organization Details Recorded Time 587 rosuvasta tin medicatio n hives Not available Not available 08/20/2022 62023 2 RxNorm Not Available [facility] 00:53:35 Medications Name Sig Start Date Stop [...] mg by injectio n route. 06/28 completed [facility]: [id number] [id number] Not Available Not Available Not Available lorazepam [...] administ ered by the provider 08/27 completed [facility]: [id number] 6-17 Not Available Not Available Not [...] drops USE 1 DROP IN BOTH EYES QHS 05/21 completed Not Available Not Available Not Available ropivacai ne (PF) 5 mg/mL (0.5 %) injection solution Take 20 mg by injectio n route. 03/03 completed [facility] 72517-39 09-20 Not Available Not Available Not Available [...] Available Not Available Not Available Fluzone High-Dose (PF) 180 mcg/0.5 mL intramusc ular syringe [...] mass index (BMI) Body weight Body temperature Systolic And Diastolic Provider Name and Address Organization Details Last Updated DateTime 02/28/2025 162.56 cm 14.6 kg/m2 14603.3 5 g 97 [degF] 100/62 mm[Hg] Tawanna Garay MA [facility] [employer] 14:51:30 Date Recorded Body height Body temperature Respiratory rate Oxygen saturation Heart rate Systolic And Diastolic Provider Name and Address Organization Details Last Updated DateTime 162.56 cm 97.9 [degF] 16 /min 97 % 69 /min 98/49 mm[Hg] Brandi Vera RN [facility] [employer] 16:14:26 Date Recorded Body height Heart rate Respiratory rate Body temperature Oxygen saturation Systolic And Diastolic Provider Name and Address Organization Details Last Updated DateTime 162.56 cm 64 /min 16 /min 98.9 [degF] 98 % 98/51 mm[Hg] Brandi Vera RN [facility] [employer] 11:38:38 Social History Question Answer Notes LastModified by Organization Details LastModified Time Tobacco Smoking Status Current Every Day Smoker Tawanna Garay MA [facility], [employer] [facility] [employer] 02/28/2025 14:33:48 Do You Have An Advance Directive? Yes Patient To Bring Copy For Chart. MIGRATION.0301 [id number] Information not available 08/20/2022 Are You Blind Or Do You Have Difficulty Seeing? No MIGRATION.0301 886377 Information not available 08/20/2022 What Is Your Level Of Caffeine Consumption? Moderate MIGRATION.0301 522250 Information not available 08/20/2022 How Much Tobacco Do You Chew? None MIGRATION.0301 461316 Information not available 08/20/2022 In The 14 Days Before Symptom Onset, Have You Had Close Contact With A Laboratory-confi rmed COVID-19 While That Case Was Ill? No MIGRATION.0301 934558 Information not available 08/20/2022 In The 14 Days Before Symptom Onset, Have You Had Close Contact With A Person Who Is Under Investigation For COVID-19 While That Person Was Ill? No MIGRATION.0301 818107 Information not available 08/20/2022 Are You Deaf Or Do You Have Serious Difficulty Hearing? No MIGRATION.0301 237791 Information not available 08/20/2022 What Type Of Diet Are You Following? REGULAR MIGRATION.0301 876878 Information not available 08/20/2022 Which Illicit Or Recreational Drugs Have You Used? None MIGRATION.0301 082801 Information not available 08/20/2022 Do You Have An Electrostatic Air Filter? No Information not available 09/28/2023 Have There Been Any Changes To Your Family Or Social Situation? No MIGRATION.0301 924930 Information not available 08/20/2022 What Is The Fluoride Status Of Your Home? Unknown MIGRATION.0301 829335 Information not available 08/20/2022 Are There Any Guns Present In Your Home? Yes MIGRATION.0301 716284 Information not available 08/20/2022 Do You Have A Humidifier? No Information not available 09/28/2023 Do You Use Insect Repellent Routinely? No MIGRATION.0301 854814 Information not available 08/20/2022 Where Do You Live? [place]House MIGRATION.0301 067633 Information not available 08/20/2022 Do You Have A Medical Power Of Voice Network Administrator? Yes MIGRATION.0301 435546 Information not available 08/20/2022 Do You Have Moisture Problems In Your Home? No Information not available 09/28/2023 What Was The Date Of Your Most Recent Tobacco Screening? 05/04/2025 Information not available 05/04/2025 What Is Your Current Pack Years? 30ormorepackyears MIGRATION.0301 143457 Information not available 08/20/2022 Have You Ever Been Counseled For Unhealthy Alcohol Use? No MIGRATION.0301 072695 Information not available 08/20/2022 Do You Have Any Pets? Yes MIGRATION.0301 793442 Information not available 08/20/2022 What Is Your Relationship Status? [email or web address] Information not available 07/02/2023 Do You Use Your Seat Belt Or Car Seat Routinely? Yes MIGRATION.0301 767263 Information not available 08/20/2022 Do You Have Smoke And Carbon Monoxide Detectors In Your Home? Yes MIGRATION.0301 966755 Information not available 08/20/2022 At What Age Did You Start Smoking Tobacco? 17 MIGRATION.0301 444303 Information not available 08/20/2022 Are You Passively Exposed To Smoke? Yes MIGRATION.0301 698886 Information not available 08/20/2022 Are There Any Smokers In Your House? No MIGRATION.0301 140679 Information not available 08/20/2022 How Much Tobacco Do You Smoke? 0.5 PPD Information not available 01/08/2023 What Types Of Sporting Activities Do You Participate In? None MIGRATION.0301 941560 Information not available 08/20/2022 Do You Use Sunscreen Routinely? Yes MIGRATION.0301 571048 Information not available 08/20/2022 How Many Years Have You Smoked Tobacco? 58 MIGRATION.0301 637996 Information not available 08/20/2022 Have You Recently Traveled Abroad? No MIGRATION.0301 379398 Information not available 08/20/2022 Do You Have Difficulty Walking Or Climbing Stairs? No MIGRATION.0301 360245 Information not available 08/20/2022 Do You Have Any Dietary Restrictions? No MIGRATION.0301 552381 Information not available 08/20/2022 Sex: Female Functional Status Question Answer Note LastModified by Organizat ion Details LastModified Time Do you or have you ever used smokeless tobacco? Never used smokeless tobacco MIGRATION.06754 80414 Information not available 08/20/2022 Are you currently employed? No Information not available 11/22/2024 Have you been exposed to chemicals or toxins? Not that aware of Information not available 09/28/2023 Do you have transportation difficulties? No MIGRATION.53287 35303 Information not available 08/20/2022 Are you able to care for yourself independently? Yes MIGRATION.17890 17710 Information not available 08/20/2022 Do you have difficulty dressing, bathing, grooming, or toileting? No MIGRATION.25659 60983 Information not available 08/20/2022 Do you or have you ever used e-cigarettes or vape? Never used electronic cigarettes MIGRATION.29626 96040 Information not available 08/20/2022 What is your exercise level? Occasional Patient stated she walks the dog when the weather is nice. MIGRATION.02695 41088 Information not available 08/20/2022 Do you use any illicit or recreational drugs? No MIGRATION.25685 74199 Information not available 08/20/2022 Do you or have you ever used any other forms of tobacco or nicotine? No MIGRATION.07127 08337 Information not available 08/20/2022 What is your level of alcohol consumption? None Information not available 01/08/2023 Are you able to walk independently without assistance or assistive devices? YESWOREST MIGRATION.10507 34799 Information not available 08/20/2022 Do you have difficulty doing errands alone? No MIGRATION.38237 10091 Information not available 08/20/2022 What is your occupation? [employer] MIGRATION.37751 87323 Information not available 08/20/2022 Mental Status Question Answer Note LastModified by Organizat ion Details LastModified Time Do you feel stressed (tense, restless, nervous, or anxious, or unable to sleep at night)? AA97749-2 MIGRATION.37689910 26 Information not available 08/20/2022 Do you have difficulty concentrating, remembering or making decisions? No MIGRATION.78792673 26 Information not available 08/20/2022 Family History Relationship Description Onset Age of this Age Resolved Age Notes LastModified by Organization Details LastModified Time Father Myocardial infarction MIGRATION.033 [id number] Not available 08/20/2022 00:43:52 Mother Malignant neoplasm of lung MIGRATION.468 1999478 Not available 08/20/2022 00:43:52 Sister Malignant neoplasm of breast MIGRATION.666 8893831 Not available 08/20/2022 00:43:52 Notes:NO ENT Medical [...] SARS-COV-2 (COVID-19) vaccine, UNSPECIFIED 1 completed SINCERE Charles, [facility] 12/23/2023 14:06:41 SARS-COV-2 (COVID-19) vaccine, UNSPECIFIED 1 completed SINCERE Charles, [facility] 12/23/2023 14:06:41 Influenza, high-dose, trivalent, PF 0 completed SINCERE Charles, [facility] 12/23/2023 14:06:41 Influenza, high-dose, quadrivalent, PF 2 completed Not Available [facility] 07/30/2023 03:20:22 Influenza, high-dose, quadrivalent, PF 1 completed Not Available [facility] 07/30/2023 03:20:22 Influenza, split virus, quadrivalent, PF 9 completed Not Available [facility] 07/30/2023 03:20:22 pneumococcal polysaccharide PPV23 9 completed Not Available [facility] 07/30/2023 03:20:22 Influenza, high-dose, trivalent, PF 8 completed Not Available [facility] 07/30/2023 03:20:22 Influenza, high-dose, trivalent, PF 7 completed Not Available [facility] 07/30/2023 03:20:22 Pneumococcal conjugate PCV 13 6 completed Not Available [facility] 07/30/2023 03:20:22 Influenza, high-dose, trivalent, PF 5 completed Not Available [facility] 07/30/2023 03:20:22 Influenza, split virus, trivalent, preservative [...] or 50 mcg/0.25mL dose 1 [facility] 14:06:41 Influenza, high-dose, trivalent, PF 6 [facility]23 14:06:41 Influenza, split virus, trivalent, PF 0 completed [place] [facility] [facility] 14:06:41 Hep A, adult 0 completed [facility] 12/23/2023 14:06:41 Hep A, adult 0 [facility] 12/23/2023 14:06:41 RSV, bivalent, protein subunit RSVpreF, diluent reconstituted, 0.5 mL, PF 3 completed Yara Del Rosario RMA null, [facility] 01/23/2025 15:45:12 Influenza, high-dose, quadrivalent, PF 3 completed Yara Del Rosario RMA null, [facility] 05/12/2023 10:54:27 Influenza, high-dose, trivalent, PF 4 completed Yara Del Rosario RMA null, [facility] 05/04/2024 10:51:35 Past Encounters Encounter ID Performer Location Encounter Start Date Encounter Closed Date Diagnosis/Indication Diagnosis SNOMED-CT Code Diagnosis ICD10 Code Diagnosis IMO Codes Diagnosis Note [id number] Nile Bush DPM [facility] [address] [place] [address] 02/01/2025 10:06:44 02/01/2025 13:44:02 Open wound of left foot 8497523204 0330966 S91.302A 9183949 offloading at all timeskeep area clean and dry dailyDress ings dailyMonit or for signs of infection for worsened seek medical attention immediatel yfollow-up 2 weeks [id number] Nile Bush DPM [facility] [address] [place] [address] 02/15/2025 15:52:38 02/16/2025 10:26:58 Peroneal tendinitis of right lower limb 9560050330 95630 M76.71 3093117 tendon pain lateral anklerice therapyace wrap applied to the ankleno strenuous activities Wound pain 683056198 T14 .8XXA 69009069 left foot dorsallyap ply with dressings Open wound of left foot 1906602790 1041807 S91.302D 9077373 offloading at all timeskeep area clean and dry dailyDress ings dailyMonit or for signs of infection for worsened seek medical attention immediatel yfollow-up 2 weeks [id number] Nile Bush DPM [facility] [address] [place] [address] 02/22/2025 10:14:01 02/22/2025 16:33:44 Wound pain 101351523 T14.8XXA 44802841 left foot dorsallyco ntinue current therapy Open wound of left foot 8751773595 5243315 S91.302D 5101673 offloading at all timeskeep area clean and dry dailyDress ings dailyMonit or for signs of infection for worsened seek medical attention immediatel yfollow-up 2 weeks Injury of right leg 1186 444010 4577075 S81.801A 72711057 secondary to biopsyoffl oadingWoun d care dailyApply gentamicin [id number] Murtuza Bahrainwal a, MD [facility] [address] [facility], [address] [place] [address] 02/28/2025 14:22:55 02/28/2025 15:35:13 Headache 65759417 R51.9 [facility] ER: 02/18/2024 [facility] ER: 02/18/2024 Addendum: 03/03/2024 :CT Head: 03/03/2024 : Neg, patient notified OV 06/28/2024 : Resolved, notify if any symptoms occur Pain in left foot 194927 3062 21356 M79.672 [facility] ER: 02/18/2024 [facility] ER: 02/18/2024 Trauma, dropped box of [...] she does not want to see Dr BushSh e would like to get on oxycodone and this was renewed in very limited quantities 05/03/2024 OV 06/28/2024 : Does well now Screening - NAD 14753145 3 Z13.9 C-scope: Cologuard 03/30/19: Neg, ordered 04/22/2022 Cologuard 05/08/2022 : +veC-scope : 06/27/2022 : Dr Truong Mammogram: 05/07/18, neg, get this [id number] /20/19: Neg 021: Neg 022: Neg 023: Neg 024: NegNo more mammogram 06/28/2024 PAP: Did see Marium Becker [employer] DEXA: 09/12/2020 : OPDEXA: 07/14/2022 : OP, [...] the above Chronic ob structive pulmonary disease 72386443 J44.9 CT Chest 11/20/2020 CT chest 07/30/2023 : Mucus impaction? She does see Ann Bartholomew [employer] C[employer] WORKER, did not want to keep her apts [...] and started on stioltoNow sees Ann Lala [employer] CARE WORKER in 09/2024, is s/p EGD on 06/17/2024 , Dr Jase Lala [employer] 09/29/2024 Atrophic vaginitis 71365 000 N95.2 On clobetazol does well On hydroxyzin e for itching Insomnia 134436347 G47.0 0 79183192 On trazodone 50mg daily, does well Gastroesop hageal reflux disease without esophagitis 417873603 K21.9 On omeprazole Takes as neededDoes well on thisS/p EGD Dr Laguna on 06/17/2024 Glaucoma 04285146 H40.9 L eye blindness is present On brimonidin [place] dorzolamid [place] latanopros tOn neomycin eye drop Sees Dr Mayer Mass of thyroid gland [address] scan neck 04/13/18, mass noted [...] , next in 2 years Coronary arteriosclerosis 54096620 I25.10 01/17/2022 : ECHO: [facility] CT chest 11/15/2021 [facility] Dr Philip 10/09/2021 , next in [address] Philip 04/04/2022 , next in [address] Philip 10/24/2022 [facility] Dr Philip 04/15/2024 , was referred to Dr Bush, then seen in the ER on 04/21/2024 S/p ER [facility]: for SOB, treated with augmentinS /p ER Dennys 04/21/2024 for LE swelling and treated with lasix, see case on 04/28/[address]24 [address] Bauman [facility] Dr Bauman 06/13/2024 , told to stop metoprolol , and start on lovastatin 20mg daily Get a referral to Dr Bauman ANUPAMA 02/28/2025 Hyperlipidemia 62867726 E78.5 Not on rosuvastat in 5mg daily Dr Greco not want and labs are WNL 06/24/2024 Get labs Peripheral vascular disease 111724608 I73.9 See [facility] Dr Bauman [facility] Osteoarthritis 810665121 M19.90 Dr Noyola 11/01/2020 , f/u as needed Dr Noyola 03/21/2021 , trochantri c bursitis or R hip s/p injection Dr Noyola/Josette Thorne PA 08/09/2021 Dr Noyola 09/24/2021 , [...] on tramadolNo t to take Lyrica Eruption 653326154 R21 She states that the hydroxyzin e has not helpedShe does have a long standing history of itching and denies any new detergents or use of soaps or foodsAlso has a small raised slightly tender papule on the L dorsum of hand Refer to dermatolog y Osteoporosis 69557286 M8 1.0 On prolia last 01/08/2023 DeclinesCa n do fosamax, all side effects explained, and the way to take it 08/23/2024 Needs to do ca and vit d Multiple n odules of lung 159407207 R91.8 S/p CT chest 11/20/2020 Ann Lala [employer] CARE WORKER 02/12/2021 , next apt 08/20/2021 , she has now been referred to Dr Barry for ? latent TB Ann Lala [employer] C[employer] WORKER f/u 04/17/2023 Ann Lala [employer] CARE WORKER 09/29/2024 Macrocytosis 465116555 D 75.89 MCV WNL 12/30/2023 Get B12 and folate levels Restless l egs syndrome 07419078 G25.81 Stop ropinirole 1mg dailyStop the gabapentin Get on Lyrica 25mg daily, all side effects explainedA ll side effects explained to her Addendum: 09/06/2024 : Sees cases the Lyrica not helpedWant s tramadol OV 11/22/2024 :On tramadolIs on ropinirole Is to see Dr Martinez 12/13/2024 , is to get MRI OV 02/28/2025 :Did see Dr Nxion to get a MRI LS spine Right inguinal pain [address] Light 09/12/2021 , post op 11/05/2021 Cardiomyopathy 71471888 I42.9 [facility] ER: 11/15/2021 : CTA angio, for SOBAirlift [...] 05/29/2023 : Dr Philip, EF 55% Hyperglycemia 54924422 R 73.9 Get labsDeclin es meds, more diet and exercise is needed Allergic rhinitis 174550 04 J30.9 On claritin, montelukas tNot on flonase Trigeminal neuralgia 316 92806 G50.0 On carbamazep ine 100mg tid, but should be on bid as per neurology Dr Lucero 01/29/2023 , f/u in one year Has seen Dr Garcia and the pain is betterMRI brain 11/14/2020 : Neg Dr Lucero 03/10/2024 , f/u PRN Does well, not taking the carbazepin e Hypoproteinemia 5639772 E88.09 More protein in diet Goiter 1359410 E04.9 US head and neck 07/18/2022 Low back pain 833477988 M54.50 MRI L Spine 06/03/2022 : Dr Gustafson es well now 10/01/2023 , no N/T or weakness in the LE Dr Birch and now is to get a MRI LS Spine 03/02/2025 Chronic ki dney disease 507390027 N18.9 See nephrology Anemia 638101397 D64.9 Can do more iron in diet or OTC ironH/H is stable 11/18/2024 Hypomagnesemia 709950505 E83.42 Mag 11/18/2024 : 2.0 WNL Leukopenia 39901652 D72. 819 Low WBC and mildly low PLTNeeds to see Dr Shay declines any referrals at this timeGet labs Hyponatremia 47022179 E8 7.[address] Peter garrido the CMP Open wound of left lower leg 2954245889 3368460 S81.802A Dr Bush 02/23/2024 , next apt 06/02/2024 , change to Dr Treva [place] 06/28/2024 : No more apts healed Xerostomia 00446112 R68. 2 States that none of the OTC mouth washes/rin ses have worked, she has used Biotene/AC T etcOn Cevimeline , all side effects explained to her, notify if any side effects occur, she verbalized her understand ing of the above Pain of left hand 988371 6745 97668 M79.642 Get on meloxicam 7.5mg po bid as needed PRNAlso get a referral to hand surgery S/p Xray 10/18/2024 : Dr Robertson : OAIs on OT Hemorrhagi c otitis externa 61085751 H60.322 94283452 On mometasone cream L ear ache with visible bleed on the EACNeeds a refill on the cipro dex as the medication did not stay in, will refill and use a cotton ball to plug the EACIf not better, notify and then refer to ENT as she states that Dr Cee 'blew her off' Open wound 069025077 T14 .8XXA [address] Bush 03/01/2025 This is for silvia LE wounds Health Concerns Section Related Observation LastModified by Organization Detai ls LastModified Time None Recorded Concern Status LastModified by Organization Details LastModified Time None Recorded Payers Encounter Date Sequence Insurance Name Policy Number Policy Yap Covered Member ID Yap Member ID Guarantor Name 02/28/2025 1 [place] Juliette Allison [id number] Juliette Allison 02/28/2025 2 [place] [id number] Juliette Allison [id number] Juliette Kay Keegan Notes Date Note Type Note Provider Name and Address Organization Details Recorded Time 02/28/2025 text/html Here to establish carePast Hx:COPDGlaucomaInsomni aChronic painL hip fractureReview social family [...] negativeOV 09/06/2020:Here for her routine aptShe feels Katelynhe is here for her MWVOV 12/13/2020:Here for her routine aptShe feels very wellNo recent labsShe did see Dr Noyola and Ann Lala NPShe has also seen Dr Garcia for her trigeminal neuralgiaOV 04/04/2021:Here for her routine aptShe is doing wellSerlinda did do the labs on 01/29/2021 OV [...] routine apt, she was recently admitted to [facility] for chest pain, s/p cath, s/p veanDiagnosed [...] HHN, she is now going to see Ann Lala OV 12/31/2023: Here for her f/u apt, [...] f/u, was seen in the ER at [facility] and then [facility] for leg pain and headaches, she still [...] no acute trauma, feels it is 'arthritis' OV 02/28/2025: Here for her f/u apt, she is doing well today, she did do the labs, she is here for her MWV also Yanet Felder MD [address], [facility] [address], [place], [address], [employer] 03/19/2025 15:44:01 03/01/2025 text/html ROS as noted in the HPI Patient is 79-year-old female who returns the office for follow-up on lower foot wound and leg wound. Patient overall is doing well she states her pain level is significantly improved. Patient denies any acute signs of infection she continues wound care. Patient denies any other complaints. Nile Bush DPM [address], [facility] [address], [place], [address], [employer] 03/06/2025 09:29:21 03/15/2025 text/html . Patient is 80-year-old female who returns the office for follow-up on left foot wound which is completely healed she denies any further complaints with the foot. Patient still has some minor eschars which continued to heal well she has no acute signs of infection. Patient denies any other complaints. Nile Bush DPM [address] [address], [place], [address], [place] [facility] 03/15/2025 14:15:01 OBGyn Episode No OBEpisode recorded.
--- OUTSIDE RECORDS SUMMARY | 2025-05-23 08:01 | XMS_ITS | Data Portability ---
Author Organization [place] [facility], Main Office Address [address] [place] [address] Care Team Providers Care Head Buyer Tobacco Name Role Phone VERNON FELDER Primary Care Provider VERNON FELDER Referring Provider LUCIO LOUIS Lead Inspector CHRISTELLE LEE Lead Inspector RADHA CEE Branch Specialist SEYMOUR PHILIP Customer Strategy Manager COLLIN THORNE Orthopedic Surgeon ELEANOR DORADO Thread Pulling Machine Attendant JENNIFER, HOMER TSANG Neurologist STEFFEN ALFREDO Steam Cleaner LEAH TRUONG Administrative Intern [phone] JONA MORALES Economic Development Coordinator Assessment Encounter Date Assessment Date Assessment LastModified [...] ER notes reviewed, chart updated, referrals provided [email or web address] Not available 02/28/2025 15:20:42 03/01/2025 03/01/2025 This note is dictated and transcribed by [employer]. Recruiter Manager variances may occur. Despite proofreading, typographical errors may occur. Occasional wrong-word or 'ojqlk-d-cuwq' substitutions may have occurred due to the inherent limitations of voice recording. Read the chart carefully and recognize, using context, where substitutions have occurred. Not available 03/06/2025 09:27:45 03/15/2025 03/15/2025 This note is dictated and transcribed by [employer]. Recruiter Manager variances may occur. Despite proofreading, typographical errors may occur. Occasional wrong-word or 'psdmk-k-fgjl' substitutions may have occurred due to the inherent limitations of voice recording. Read the chart carefully and recognize, using context, where substitutions have occurred. Not available 03/15/2025 14:13:51 03/29/2025 03/29/2025 This note is dictated and transcribed by [employer]. Recruiter Manager variances may occur. Despite proofreading, typographical errors may occur. Occasional wrong-word or 'vhsqz-r-cpfp' substitutions may have occurred due to the inherent limitations of voice recording. Read the chart carefully and recognize, using context, where substitutions have occurred. Not available 03/29/2025 17:19:33 05/04/2025 05/04/2025 08/20/2022: Folate: WNL A1C 5.4 VIT D [...] 12.9/39.7 45 minutes spent with the patient with her various complaints addressed [email or web address] Not available 05/16/2025 18:25:00 Plan of Treatment Reminders Order Date Submit Date Provider Last Modified By Organization Details Last Modified Time Details Appointments Establish ed Patient 15 2024 08:15A M Christelle Lee DPM Not available Not available Not available Any 15 2024 11:00A Jas ocampo MD Not available Not available Not available Lab vitamin B12 + folate, serum or blood [email or web address] (Lab), [address] [place], [address], 05/15/2025 09:30:29 lipid panel, serum [email or web address] (Lab), [address] [place], [address], 05/15/2025 09:30:29 CBC w/ auto diff [address] (Lab), [address] [place], [address], 05/15/2025 09:30:29 CMP, serum or plasma [email or web address] (Lab), [address] [place], [address], 05/15/2025 09:30:29 TSH, serum or plasma [email or web address] (Lab), [address] [place], [address], 05/15/2025 09:30:29 glycohemo globin, total, blood [address] (Lab), [address] [place], [address], 05/15/2025 09:30:28 microalbu min, urine [address] (Lab), [address] [place], [address], 05/15/2025 09:30:28 CMP, serum or plasma [address] (Lab), [address] [place], [address], 05/15/2025 09:30:29 vitamin B12 + folate, serum or blood [address] (Lab), [address] [place], [address], 02/28/2025 15:35:02 lipid panel, serum [address] (Lab), [address] [place], [address], 02/28/2025 15:35:01 CBC w/ auto diff [address] (Lab), [address] [place], [address], 02/28/2025 15:35:02 CMP, serum or plasma [address] (Lab), [address] [place], [address], 02/28/2025 15:35:02 TSH, serum or plasma [address] (Lab), [address] [place], [address], 02/28/2025 15:35:03 glycohemo globin, total, blood [address] (Lab), [address] [place], [address], 02/28/2025 15:35:01 microalbu min, urine [address] (Lab), [address] [place], [address], 02/28/2025 15:35:01 CMP, serum or plasma [address] (Lab), [address] [place], [address], 02/28/2025 15:35:02 Referral otolaryng ologist referral - Yunier jason note: Patient can't wear hearing aids due to ears being clogged. 2024 025 Radha Cee MD, [address], [place], [address], 05/04/2025 14:10:16 dermatolo gist referral - Please call patient to schedule an appointme nt. Thank you. 2024 025 [email or web address] Lorena Aranda MD (Dermatology) , [address] [facility] , [place], [address], 05/04/2025 14:10:16 nephrolog ist referral - Please call patient to schedule an appointme nt. Thank you. 2024 025 [email or web address] [place], [address], [address], [place], [address], 05/04/2025 14:09:32 cardiolog ist referral - Please call pt to schedule appt. Thank you 2024 025 [email or web address] [place], [address], [address], [place], [address], 05/04/2025 14:09:32 otolaryng ologist referral - Cristia l note: Patient can't wear hearing aids due to ears being clogged. 2024 PATRIC Perez MD, [address] [facility] , [address], [place], [address], 05/01/2025 15:19:38 dermatolo gist referral - Please call patient to schedule an appointme nt. Thank you. 2024 025 PATRIC Aranda MD (Dermatology) , [address] [facility] , [address], [place], [address], 03/01/2025 10:20:31 nephrolog ist referral - Please call patient to schedule an appointme nt. Thank you. 2024 025 [place], [address], [address], [place], [address], 03/01/2025 10:28:42 cardiolog ist referral - Please call pt to schedule appt. Thank you 2024 025 [place], [address], [address], [place], [address], 03/01/2025 10:53:20 Procedures None recorded. Surgeries None recorded. Imaging None recorded. Medication Orders cephalexi n 250 mg capsule 2024 [id number], [address] [place], [place], [id number], 05/18/2025 05:02:27 lidocaine 4 % topical cream 2024 [facility][id number], [address] [place], [id number], 03/29/2025 17:21:12 Patient TargetsNo targets recorded. Patient InstructionsNo instructions recorded. Reason for Referral Customer Strategy Manager Referral for Co ronary arteriosclerosis Please call pt to schedule appt. Thank you Referring Physician: Vernon Felder Internal Medicine, Encounter Date: 02/28/2025 Steam Cleaner Referral for Ch ronic kidney disease Please call patient to schedule an appointment. Thank you. Referring Physician: Reba Schwartz Medicine, Encounter Date: 02/28/2025 Human Resources Advisor Referral for E ruption Please call patient to schedule an appointment. Thank you. Referring Physician: Reba Schwartz Medicine, Encounter Date: 02/28/2025 Branch Specialist Referral fo r Mass of thyroid gland Additional note: Patient can't wear hearing aids due to ears being clogged. Referring Physician: Reba Schwartz Medicine, Encounter Date: 02/28/2025 Customer Strategy Manager Referral for Co ronary arteriosclerosis Please call pt to schedule appt. Thank you Referring Physician: Reba Schwartz Medicine, Encounter Date: 05/04/2025 Steam Cleaner Referral for Ch ronic kidney disease Please call patient to schedule an appointment. Thank you. Referring Physician: Reba Schwartz Medicine, Encounter Date: 05/04/2025 Human Resources Advisor Referral for E ruption Please call patient to schedule an appointment. Thank you. Referring Physician: Reba Schwartz Medicine, Encounter Date: 05/04/2025 Branch Specialist Referral fo r Mass of thyroid gland Additional note: Patient can't wear hearing aids due to ears being clogged. Referring Physician: Reba Schwartz Medicine, Encounter Date: 05/04/2025 Results Created Date Observation Date Name Description Value Unit Range Abnormal Flag Note LastModifiedBy Organization Detail LastModifiedTime 02/23/20 25 02/22/2025 CULTU RE WOUND /TISS UE+GR .STAI N [email or web address] ===== ===== ===== ===== ===== ===== ===== ===== ===== ===== ===== ===== ===== ===== ===== ===== ===== ===== ===== ===== ===== ===== ===== ===== Speci men NO.: [id number] Exam Statu s: Final Proce dure: [...] S Genta micin <=4 [place] [address] 3 Beta- Lacta alexandria P Thymi dine- [...] S Nitro furan toin <=32 Not Available [facility] (Lab) [address] [facility], [place], [address], 02/25/2025 07:33:14 Result Notes None recorded. Problems Name Problem SNOMED Code Status Onset Date Resolution Date Notes Provider Name and Address Organization Details Recorded Time Herpes zoster 1744046 Active Not Available [facility] 3 21:10:20 Allergic rhinitis 14145071 Active 2018 Not Available [facility] 3 21:10:20 Nicotine dependence 17617649 Active 2020 Not Available [facility] 3 21:10:20 Inactive tuberculos is 13391767 Active 2020 Not Available [facility] 3 21:10:19 Spinal stenosis of lumbar region 28838447 Active 2021 Not Available [facility] 3 21:10:19 Osteoporos is 94336629 Active 2022 Vernon tamayo MD [address] [facility], [address], [place], [address] , [facility] [employer] [facility] 5 18:14:40 Gastroesop hageal reflux disease without esophagiti s 670715493 Active 2022 Not Available [facility] 3 21:10:20 Glaucoma 34677095 Active 2022 Not Available [facility] 3 21:10:20 Hyperlipid emia 09498155 Active 2022 Not Available [facility] 3 21:10:20 Osteoarthr itis 091815448 Active 2022 Vernon tamayo MD [address], [address], [place], [address] , [facility] 5 18:15:06 Trigeminal neuralgia 78231438 Active 2022 Not Available [facility] 3 21:10:20 Vertigo 323185204 Active 2022 Nettie dickinson, [facility] 3 16:43:34 Mixed anxiety and depressive disorder 419559384 Active 2022 Nettie dickinson, [facility] 3 14:02:55 Dyspnea on exertion 99866091 Active 2023 Gilberto Bonds MD [address], [address], [place], [address] , [facility] 4 12:15:03 Smoker 32955822 Active 2023 Gilberto Bonds MD [address], [address], [place], [address] , [facility] 4 12:16:35 Solitary nodule of lung 422977352 Active 2023 Gilberto Bonds MD [address], [address], [place], [address] , [facility] 4 12:17:26 Moderate chronic obstructiv e pulmonary disease 831912804 Active 2023 Gilberto Bonds MD [address], [address], [place], [address] , [facility] 4 12:17:59 Chronic obstructiv e pulmonary disease 73631424 Active 2023 Vernon tamayo MD [address], [address], [place], [address] , [facility] 4 16:35:29 Insomnia 287089225 Active 2023 Vernon tamayo MD [address], [address], [place], [address] , [place] [facility] 5 14:38:47 Atrophic vaginitis 50460606 Active 2023 Vernon tamayo MD [address], [address], [place], [address] , [place] [facility] 4 16:35:29 Mass of thyroid gland 555411111 Active 2023 Vernon tmaayo MD [address], [address], [place], [address] , [place] [facility] 4 16:35:29 Coronary arterioscl erosis 48158906 Active 2023 Vernon tamayo MD [address], [address], [place], [address] , [place] [facility] 4 16:35:29 Peripheral vascular disease 145020319 Active 2023 Vernon tamayo MD [address], [address], [place], [address] , [place] [facility] 4 16:35:29 Eruption 613555274 Active 2023 Vernon tamayo MD [address], [address], [place], [address] , [place] [facility] 4 16:35:30 Multiple nodules of lung 059487493 Active 2023 Vernon tamayo MD [address], [address], [place], [address] , [place] [facility] 4 16:35:30 Macrocytos is 083897885 Active 2023 Vernon tamayo MD [address], [address], [place], [address] , [place] [facility] 4 16:35:30 Restless legs syndrome 75391700 Active 2023 Vernon tamayo MD [address], [address], [place], [address] , [facility] 4 16:35:30 Right inguinal pain 6372530351897 9109 Active 2023 Vernon tamayo MD [address], [address], [place], [address] , [facility] 4 16:35:30 Cardiomyop athy 48034071 Active 2023 Vernon tamayo MD [address], [address], [place], [address] , [facility] 4 16:35:30 Hyperglyce moon 31621074 Active 2023 Vernon tamayo MD [address], [address], [place], [address] , [facility] 4 16:35:30 Hypoprotei nemia 9521513 Active 2023 Vernon tamayo MD [address], [address], [place], [address] , [facility] 4 16:35:30 Goiter 1123972 Active 2023 Vernon tamayo MD [address], [address], [place], [address] , [facility] 4 16:35:30 Low back pain 770875924 Active 2023 Vernon tamayo MD [address], [address], [place], [address] , [facility] 5 18:14:08 Chronic kidney disease 402665616 Active 2023 Vernon tamayo MD [address], [address], [place], [address] , [facility] 4 16:35:30 Anemia 373006026 Active 2023 Vernon tamayo MD [address], [address], [place], [address] , [facility] 4 16:35:31 Hypomagnes emia 132275359 Active 2023 Vernon tamayo MD [address], [address], [place], [address] , [facility] 4 16:35:31 Upper respirator y infection 63769955 Active 2023 Michelle Noyola MA null, [facility] 4 11:59:32 Thyroid nodule 629403025 Active 2023 Radha Cee MD [address], [address], [place], [address] , [facility] 4 11:26:57 Acute sinusitis 02112895 Active 2023 Yara Del Rosario [facility] null, [facility] 4 16:28:36 Leukopenia 99324194 Active 2023 Vernon tamayo MD [address], [address], [place], [address] , [facility] 4 14:27:53 Hyponatrem ia 75153302 Active 2023 Vernon tamayo MD [address], [address], [place], [address] , [facility] 4 14:34:06 Open wound of left lower leg 7886420939478 9106 Active 2023 Vernon tamayo MD [address], [address], [place], [address] , [facility] 4 14:51:29 Xerostomia 03471517 Active 2023 Vernon tamayo MD [address], [address], [place], [address] , [facility] 4 14:53:50 Pain of left hip joint 4074759350460 00 Active 2023 Crytsal Shaikh [facility], [facility] 4 14:01:20 Trochanter ic bursitis of left hip 0849957065635 03 Active 2023 NUNU Soriano [address], [address], [place], [address] , [facility] 4 14:17:32 Venous stasis ulcer with edema of left lower leg 8283667016267 9101 Active 2023 Christelle Lee DPM [address], [address], [place], [address] , [facility] 4 15:01:02 Venous stasis ulcer with edema of right lower leg 4057665544206 9106 Active 2023 Christelle Lee DPM [address], [address], [place], [address] , [facility] 4 15:01:10 Ankle pain 280233852 Active 2023 Christelle Lee DPM [address], [address], [place], [address] , [facility] 4 15:21:34 Peroneal tendinitis of right lower limb 0500135799163 09 Active 2023 Christelle Lee DPM [address], [address], [place], [address] , [facility] 5 16:45:38 Peripheral venous insufficie ncy 22114160 Active 2023 Christelle Lee DPM [address], [address], [place], [address] , [facility] 4 15:23:41 Headache 60673187 Active 2023 Vernon tamayo MD [address], [address], [place], [address] , [facility] 4 18:42:05 Pain in left foot 3280990439893 07 Active 2023 Vernon tamayo MD [address], [address], [place], [address] , [facility] 4 18:42:25 Edema of lower extremity 405420567 Active 2023 GIBSON Calderon, [facility] 4 18:29:27 Pain in right foot 9853853587898 07 Active 2023 Vernon tamayo MD [address], [address], [place], [address] , [facility] 5 10:24:24 Right foot neuritis 0806990810285 09 Active 2023 Lucio Louis DPM [address], [address], [place], [address] , [facility] 4 09:13:44 Neuropathy 963805404 Active 2023 GIBSON Frias, [facility] 4 13:02:32 Liver enzymes level above reference range 772837148 Active 2024 Vernon tamayo MD [address], [address], [place], [address] , [facility] 5 14:56:47 Pain of left hand 0517276357421 03 Active 2024 Vernon tamayo MD [address], [address], [place], [address] , [facility] 5 14:33:49 Sensorineu ral hearing loss of bilateral ears 924964113 Active 2024 Alyssa Elizabeth RN null, [place] - [facility] 5 12:17:36 Pain of ear 788069634 Active 2024 RADHIKA Carter [address], [address], [place], [address] , [facility] 5 12:45:23 Impacted cerumen in left ear 4635716497949 101 Active 2024 RADHIKA Carter [address], [address], [place], [address] , [facility] 5 12:47:06 Eczema of external auditory canal 85917648 Active 2024 Alyssa Elizabeth RN null, [facility] 5 10:50:53 Hemorrhagi c otitis externa 89013748 Active 2024 Radha Cee MD [address], [address], [place], [address] , [facility] 5 15:46:12 Dysfunctio n of bilateral eustachian tubes 4961566873001 100 Active 2024 Alyssa Elizabeth RN null, [facility] 5 15:31:49 Otitis externa 5989276 Active 2024 Radha Cee MD [address], [address], [place], [address] , [facility] 5 14:10:11 Postmenopa usal osteoporos is 956199666 Active 2024 GIBSON Calderon null, [facility] 5 10:46:35 Chronic pain 80059007 Active 2024 Vernon tamayo MD [address], [address], [place], [address] , [facility] 5 18:40:04 Chronic low back pain 395454195 Active 2024 Vernon tamayo MD [address], [address], [place], [address] , [facility] 5 18:41:44 Injury of foot 418926398 Active 2024 Yara Miguel Ángel GIBSON null, [place] [facility] 5 15:46:04 Open wound of left foot 2191527971351 9105 Active 2024 Christelle Lee DPM [address], [address], [place], [address] , [facility] 5 17:20:07 Spinal stenosis in cervical region 65290744 Active 2024 Yara Miguel Ángel GIBSON null, [place] [facility] 5 11:12:43 Peroneal tendinitis of left lower limb 1005046111454 07 Active 2024 Christelle Lee DPM [address], [address], [place], [address] , [employer] [facility] 5 16:45:30 Wound pain 482854584 Active 2024 Christelle Lee DPM [address], [address], [place], [address] , [facility] 5 16:45:56 Injury of right leg 7049099673923 9102 Active 2024 Christelle Lee DPM [address], [address], [place], [address] , [facility] 5 14:14:25 Open wound 298038367 Active 2024 Vernon tamayo MD [address], [address], [place], [address] , [facility] 5 14:24:51 Notes:Medical History: Globa l brain atrophy Anxiety/Depression Right trigeminal neuralgia Vertigo L>R hearing loss Glaucoma Rhinitis Bilateral thyroid nodules Nicotine use Mod COPD 4 mm RML pulmonary nodule Bilateral Bochdalek hernias Mild CT Hypertension EF 55% Hyperlipidemia Hiatal hernia with GILDA Granulomatous disease (chest, liver, spleen) B12 deficiency RLS Herpes zoster Thoracic DDD Lumbar spondylosis/stenosis Hip osteoporosis Procedure History: Tonsillectomy 1948, 1953 Left corneal transplants 1957, 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 Procedures Surgical History Date Name Laterality Status Provider Name and Address Organization Details Recorded Time 03/29/20 25 Wound Care-Podiatry completed Brandi Vera RN [place] [employer] [facility] 03/29/2025 17:15:30 03/15/20 25 Wound Care-Podiatry completed Brandi Vera RN [place] [employer] [facility] 03/15/2025 12:15:28 03/01/20 25 Wound Care-Podiatry completed Christelle Lee DPM [address], [address], [place], [address], [employer] 03/06/2025 09:27:34 02/23/20 25 Wound Care-Podiatry completed Christelle Lee DPM [address], [address], [place], [address], [employer] 02/22/2025 12:32:43 02/16/20 25 Wound Care-Podiatry completed Brandi Vera RN [place] [employer] [facility] 02/15/2025 17:42:38 02/02/20 25 Wound Care-Podiatry completed Christelle Lee DPM [address], [address], [place], [address], [employer] [facility] 02/01/2025 11:02:00 05/11/20 24 Trigger Point Injection completed Lucio Louis DPM [address], [address], [place], [address], [employer] [facility] 05/12/2024 09:13:29 05/03/20 24 Medicare Wellness CPT Code, subsequent completed Parish Sands LPN [place] [facility] 05/03/2024 08:52:49 01/20/20 24 Wound Care-Podiatry completed Brandi Vera RN [facility] [place] [facility] 01/20/2024 12:01:58 01/06/20 24 Wound Care-Podiatry completed Brandi Vera RN [facility] [place] [facility] 01/06/2024 16:57:53 03/04/20 23 Wound Care-Podiatry completed Elva Collier RN [facility] [place] [facility] 03/04/2023 10:39:47 03/03/20 23 Medicare Wellness CPT Code, subsequent completed Alejandra Roper RN [facility] [place] [facility] 03/03/2023 15:12:19 02/19/20 23 Wound Care-Podiatry completed Elva Collier RN [facility] [place] [facility] 02/18/2023 11:25:43 02/12/20 23 Wound Care-Podiatry completed Elva Collier RN [facility] [place] [facility] 02/11/2023 09:29:58 02/05/20 23 Wound Care-Podiatry completed Elva Collier RN [facility] [place] [facility] 02/04/2023 12:33:33 01/22/20 23 Wound Care-Podiatry completed Elva Collier RN [facility] [place] [facility] 01/21/2023 12:12:49 11/20/19 23 Wound Care-Podiatry completed Christelle Lee DPM [address], [place], [address], [facility] [place] [facility] 11/19/2022 11:53:32 11/13/19 23 Wound Care-Podiatry completed Christelle Lee DPM [address], [place], [address], [facility] [place] [facility] 11/12/2022 10:49:25 10/30/19 23 Wound Care-Podiatry completed Christelle Lee DPM [address], [place], [address], [facility] [place] [facility] 10/29/2022 11:33:18 06/28/19 23 Colonoscopy completed GIBSON Calderon [place] [employer] [facility] 08/26/2022 14:30:37 11/17/19 22 Cardiac Cath completed Not Available [facility] 023 00:43:48 10/29/19 22 Hernia Repair completed Not Available [facility] 2022 00:43:48 08/05/19 19 Orthopedic Surgery completed Not Available [facility] 08/20/2022 00:43:48 07/01/19 19 Most Recent Bone Density completed Not Available [facility] 08/20/2022 00:43:45 12/18/19 16 Treat thigh fracture completed Not Available [facility] 08/20/2022 00:43:48 08/06/19 14 total replacement of hip completed Not Available [facility] 08/20/2022 00:43:48 Eye Surgery completed Not Available [facility] 08/20/2022 00:43:48 Remove tonsils and adenoids completed Alyssa Elizabeth RN [facility] 11/04/2023 10:52:52 Imaging Results None recorded. Procedure Notes None recorded. Medical Equipment None Reported. Allergies Allergen ID Allergen Name Allergen Category Reaction Reaction Severity Criticality Documentation Date Start Date Code Code System Note Provider Name and Address Organization Details Recorded Time 587 rosuvasta tin medicatio n hives Not available Not available 08/20/2022 10016 2 RxNorm Not Available [facility] 00:53:35 Medications Name Sig Start Date Stop [...] mg by injectio n route. 06/28 completed [facility]: [phone] Not Available Not Available Not [...] administ ered by the provider 08/27 completed [facility]: [phone] 6 Not Available Not Available Not Available lidocaine [...] drops USE 1 DROP IN BOTH EYES [facility] 05/21 completed Not Available Not Available Not Available ropivacai ne (PF) 5 mg/mL (0.5 %) injection solution Take 20 mg by injectio n route. 03/03 completed [facility] 98109-47 09-20 Not Available Not Available Not Available [...] Available Not Available Not Available Fluzone High-Dose 8930-5888 (PF) 180 mcg/0.5 mL intramusc ular syringe [...] Updated DateTime 02/28/2025 162.56 cm 14.6 kg/m2 52117.3 5 g 97 [degF] 100/62 mm[Hg] Tawanna Garay MA [facility] [place] [facility] 5 14:51:30 Date Recorded Body height Body temperature Respiratory rate Oxygen saturation Heart rate Systolic And Diastolic Provider Name and Address Organization Details Last Updated DateTime 5 162.56 cm 97.9 [degF] 16 /min 97 % 69 /min 98/49 mm[Hg] Brandi Vera RN [facility] [place] [facility] 5 16:14:26 Date Recorded Body height Heart rate Respiratory rate Body temperature Oxygen saturation Systolic And Diastolic Provider Name and Address Organization Details Last Updated DateTime 5 162.56 cm 64 /min 16 /min 98.9 [degF] 98 % 98/51 mm[Hg] Brandi Vera RN [facility] [place] [facility] 5 11:38:38 Date Recorded Body height Body temperature Respiratory rate Oxygen saturation Heart rate Systolic And Diastolic Provider Name and Address Organization Details Last Updated DateTime 5 162.56 cm 97.4 [degF] 16 /min 95 % 77 /min 111/48 mm[Hg] Brandi Vera RN [facility] [place] [facility] 5 16:49:47 Date Recorded Body height Body temperature Pain severity - 0-10 verbal numeric rating [Score] - Reported Heart rate Oxygen saturation Systolic And Diastolic Provider Name and Address Organization Details Last Updated DateTime 5 162.56 cm 98.2 [degF] 8 115 /min 86 % 100/58 mm[Hg] Tawanna Garay MA [facility] [employer] 09:53:52 Social History Question Answer Notes LastModified by Organization Details LastModified Time Tobacco Smoking Status Current Every Day Smoker LANDON Palacios, [facility] 02/28/2025 14:33:48 Do You Have An Advance Directive? Yes Patient To Bring Copy For Chart. MIGRATION.0301 [id number] Information not available 08/20/2022 Are You Blind Or Do You Have Difficulty Seeing? No MIGRATION.0301 [id number] Information not available 08/20/2022 What Is Your Level Of Caffeine Consumption? Moderate MIGRATION.0301 [id number] Information not available 08/20/2022 How Much Tobacco Do You Chew? None MIGRATION.0301 405602 Information not available 08/20/2022 In The 14 Days Before Symptom Onset, Have You Had Close Contact With A Laboratory-confi rmed COVID-19 While That Case Was Ill? No MIGRATION.0301 [id number] Information not available 08/20/2022 In The 14 Days Before Symptom Onset, Have You Had Close Contact With A Person Who Is Under Investigation For COVID-19 While That Person Was Ill? No MIGRATION.0301 [id number] Information not available 08/20/2022 Are You Deaf Or Do You Have Serious Difficulty Hearing? No MIGRATION.0301 315574 Information not available 08/20/2022 What Type Of Diet Are You Following? REGULAR MIGRATION.0301 586963 Information not available 08/20/2022 Which Illicit Or Recreational Drugs Have You Used? None MIGRATION.0301 298226 Information not available 08/20/2022 Do You Have An Electrostatic Air Filter? No Information not available 09/28/2023 Have There Been Any Changes To Your Family Or Social Situation? No MIGRATION.0301 478389 Information not available 08/20/2022 What Is The Fluoride Status Of Your Home? Unknown MIGRATION.0301 182026 Information not available 08/20/2022 Are There Any Guns Present In Your Home? Yes MIGRATION.0301 136938 Information not available 08/20/2022 Do You Have A Humidifier? No Information not available 09/28/2023 Do You Use Insect Repellent Routinely? No MIGRATION.0301 466900 Information not available 08/20/2022 Where Do You Live? [place] MIGRATION.0301 429501 Information not available 08/20/2022 Do You Have A Medical Power Of Settlement Worker? Yes MIGRATION.0301 462302 Information not available 08/20/2022 Do You Have Moisture Problems In Your Home? No Information not available 09/28/2023 What Was The Date Of Your Most Recent Tobacco Screening? 05/04/2025 Information not available 05/04/2025 What Is Your Current Pack Years? 30ormorepackyears MIGRATION.0301 884427 Information not available 08/20/2022 Have You Ever Been Counseled For Unhealthy Alcohol Use? No MIGRATION.0301 032527 Information not available 08/20/2022 Do You Have Any Pets? Yes MIGRATION.0301 670366 Information not available 08/20/2022 What Is Your Relationship Status? [email or web address] Information not available 07/02/2023 Do You Use Your Seat Belt Or Car Seat Routinely? Yes MIGRATION.0301 854079 Information not available 08/20/2022 Do You Have Smoke And Carbon Monoxide Detectors In Your Home? Yes MIGRATION.0301 380056 Information not available 08/20/2022 At What Age Did You Start Smoking Tobacco? 17 MIGRATION.0301 619742 Information not available 08/20/2022 Are You Passively Exposed To Smoke? Yes MIGRATION.0301 646119 Information not available 08/20/2022 Are There Any Smokers In Your House? No MIGRATION.0301 936176 Information not available 08/20/2022 How Much Tobacco Do You Smoke? 0.5 PPD Information not available 01/08/2023 What Types Of Sporting Activities Do You Participate In? None MIGRATION.0301 408086 Information not available 08/20/2022 Do You Use Sunscreen Routinely? Yes MIGRATION.0301 984236 Information not available 08/20/2022 How Many Years Have You Smoked Tobacco? 58 MIGRATION.0301 592266 Information not available 08/20/2022 Have You Recently Traveled Abroad? No MIGRATION.0301 875543 Information not available 08/20/2022 Do You Have Difficulty Walking Or Climbing Stairs? No MIGRATION.0301 691126 Information not available 08/20/2022 Do You Have Any Dietary Restrictions? No MIGRATION.0301 278640 Information not available 08/20/2022 Sex: Female Functional Status Question Answer Note LastModified by Organizat ion Details LastModified Time Do you or have you ever used smokeless tobacco? Never used smokeless tobacco MIGRATION.72539 96310 Information not available 08/20/2022 Are you currently employed? No Information not available 11/22/2024 Have you been exposed to chemicals or toxins? Not that aware of Information not available 09/28/2023 Do you have transportation difficulties? No MIGRATION.09487 12089 Information not available 08/20/2022 Are you able to care for yourself independently? Yes MIGRATION.16668 60468 Information not available 08/20/2022 Do you have difficulty dressing, bathing, grooming, or toileting? No MIGRATION.27145 66048 Information not available 08/20/2022 Do you or have you ever used e-cigarettes or vape? Never used electronic cigarettes MIGRATION.16296 46961 Information not available 08/20/2022 What is your exercise level? Occasional Patient stated she walks the dog when the weather is nice. MIGRATION.09102 80910 Information not available 08/20/2022 Do you use any illicit or recreational drugs? No MIGRATION.65889 37951 Information not available 08/20/2022 Do you or have you ever used any other forms of tobacco or nicotine? No MIGRATION.79643 04170 Information not available 08/20/2022 What is your level of alcohol consumption? None Information not available 01/08/2023 Are you able to walk independently without assistance or assistive devices? YESWOREST MIGRATION.85326 37990 Information not available 08/20/2022 Do you have difficulty doing errands alone? No MIGRATION.45237 49057 Information not available 08/20/2022 What is your occupation? [employer] MIGRATION.80634 93456 Information not available 08/20/2022 Mental Status Question Answer Note LastModified by Organizat ion Details LastModified Time Do you feel stressed (tense, restless, nervous, or anxious, or unable to sleep at night)? [id number] MIGRATION.[id number] 26 Information not available 08/20/2022 Do you have difficulty concentrating, remembering or making decisions? No MIGRATION.55350842 26 Information not available 08/20/2022 Family History Relationship Description Onset Age of this Age Resolved Age Notes LastModified by Organization Details LastModified Time Father Myocardial infarction MIGRATION.577 [id number] Not available 08/20/2022 00:43:52 Mother Malignant neoplasm of lung MIGRATION.118 [id number] Not available 08/20/2022 00:43:52 Sister Malignant neoplasm of breast MIGRATION.704 0685183 Not available 08/20/2022 00:43:52 Notes:NO ENT Medical [...] N CHRONIC PAIN SYNDROME N HYPOTHYROIDISM N CONSTIPATION N CAROTID BLOCKAGE N BACK / NECK PROBLEMS N ATHEROSCLEROSIS [...] UNSPECIFIED 1 completed Parish Sands LPN null, [facility] [place] [facility] 12/23/2023 14:06:41 SARS-COV-2 (COVID-19) vaccine, UNSPECIFIED 1 completed Parish Sands LPN null, [facility] [place] [facility] 12/23/2023 14:06:41 Influenza, high-dose, trivalent, PF 0 completed Parish Sands LPN null, [facility] [place] [facility] 12/23/2023 14:06:41 Influenza, high-dose, quadrivalent, PF 2 completed Not Available [facility] 07/30/2023 03:20:22 Influenza, high-dose, quadrivalent, PF 1 completed Not Available [facility] 07/30/2023 03:20:22 Influenza, split virus, quadrivalent, PF 9 completed Not Available [facility] 07/30/2023 03:20:22 pneumococcal polysaccharide PPV23 9 completed Not Available [facility] 07/30/2023 03:20:22 Influenza, high-dose, trivalent, PF 8 completed Not Available [facility] 07/30/2023 03:20:22 Influenza, high-dose, trivalent, PF 7 completed Not Available [facility] 07/30/2023 03:20:22 Pneumococcal conjugate PCV 13 6 completed Not Available [facility] 07/30/2023 03:20:22 Influenza, high-dose, trivalent, PF 5 completed Not Available [facility] 07/30/2023 03:20:22 Influenza, split virus, trivalent, preservative 4 [facility] 14:06:41 Influenza, split virus, trivalent, preservative 3 completed Parish Sands LPN null, [facility] 12/23/2023 14:06:41 zoster recombinant 1 completed Parish Sands LPN null, [facility] 12/23/2023 14:06:40 zoster recombinant 0 [facility] 14:06:40 COVID-19, mRNA, LNP-S, PF, 100 mcg/0.5mL dose or 50 mcg/0.25mL dose 1 [facility] 12/23/2023 14:06:41 COVID-19, mRNA, LNP-S, PF, 100 mcg/0.5mL dose or 50 mcg/0.25mL dose 1 completed [facility] 14:06:41 Influenza, high-dose, trivalent, PF 6 completed [facility] 12/23/2023 14:06:41 Influenza, split virus, trivalent, PF 0 completed Parish Sands LPN null, [facility] 12/23/2023 14:06:41 Hep A, adult 0 completed SINCERE Charles, [facility] 12/23/2023 14:06:41 Hep A, adult 0 [facility] 12/23/[facility]23 14:06:41 RSV, bivalent, protein subunit RSVpreF, diluent reconstituted, 0.5 mL, PF 3 completed Yara Del Rosario, RMA null, [place] [facility] 01/23/2025 15:45:12 Influenza, high-dose, quadrivalent, PF 3 completed Yara Del Rosario, RMA null, [place] [facility] 05/12/2023 10:54:27 Influenza, high-dose, trivalent, PF 4 completed Yara Del Rosario, RMA null, [place] [facility] 05/04/2024 10:51:35 Past Encounters Encounter ID Performer Location Encounter Start Date Encounter Closed Date Diagnosis/Indication Diagnosis SNOMED-CT Code Diagnosis ICD10 Code Diagnosis IMO Codes Diagnosis Note [id number] Jona Morales MAORI PHYSIOTHERAPIST[facility] [place] [address] [facility] [address] [place] [address] 08/20/2020 00:00:00 08/20/2020 13:09:33 [id number] Vernon tamayo MD S_[facility]G Internal Med [facility] [address] [place] [address] [address] [place] [address] 09/06/2020 00:00:00 09/06/2020 17:16:13 [id number] NUNU Soriano S_[facility] [address] [facility] [address] [place] [address] 09/18/2020 00:00:00 09/18/2020 11:25:02 [id number] Jossue Noyola MD S_[facility] [place] [address] [place] [address] 09/27/2020 00:00:00 09/27/2020 14:22:12 [id number] Jossue Noyola MD S_[facility] [place] [address] [place] [address] 10/04/2020 00:00:00 10/04/2020 13:40:20 [id number] Jossue Noyola MD S_[facility] [place] [address] [facility] [address] [place] [address] 11/01/2020 00:00:00 11/01/2020 11:56:55 [id number] [facility] [place] [address] [place] [address] 11/29/2020 00:00:00 11/29/2020 15:13:43 [id number] Vernon tamayo MD S_[facility] Internal Med [address] [address] [place] [address] 12/13/2020 00:00:00 12/13/2020 16:42:43 [id number] [facility] [place] [address] [place] [address] 02/12/2021 00:00:00 02/12/2021 14:12:32 [id number] MD KATHERINE Gaines_[facility] [place] [address] [place] [address] 03/21/2021 00:00:00 03/21/2021 14:21:51 [id number] Vernon tamayo MD S_[facility] Internal Med [place] [address] [facility] [address] [place] [address] 04/04/2021 00:00:00 04/15/2021 18:13:49 [id number] Daryl Barry MD _ATHHOLLY_M IGRATION_ DEFAULT_1 _1 , 04/09/2021 00:00:00 04/09/2021 18:29:03 [id number] MD KATHERINE Gaines_[facility] [place] [address] [place] [address] 07/02/2021 00:00:00 07/02/2021 14:23:11 [id number] Radha Cee MD Josette_[facility] E[facility] [place] [address] [place] [address] 07/11/2021 00:00:00 07/11/2021 15:29:45 [id number] MD ANTON BaezS_[facility]G Internal Med [place] [address] [place] [address] 08/01/2021 00:00:00 09/05/2021 18:05:18 [id number] Jossue Noyola MD S_GM [facility] [place] [address] [place] [address] 08/09/2021 00:00:00 08/09/2021 14:59:22 [id number] [facility] [place] [address] [place] [address] 08/20/2021 00:00:00 08/20/2021 14:06:48 [id number] Vernon tamayo MD S_[facility] Internal Med [place] [address] [facility] [address] [address] 08/27/2021 00:00:00 08/27/2021 11:17:30 [id number] Clifford hogan MD S_G General Surgery [address] [facility] [address] [address] 09/12/2021 00:00:00 09/12/2021 13:51:24 [id number] Jossue Noyola MD S[facility] [place] [address] [place] [address] 09/24/2021 00:00:00 09/24/2021 16:18:45 [id number] Clifford hogan MD S_G General Surgery [address] [facility] [address] [address] 11/05/2021 00:00:00 11/05/2021 10:57:03 [id number] [facility] [place] [address] [place] [address] 11/05/2021 00:00:00 11/05/2021 13:51:06 [id number] Vernon tamayo MD S_[facility] Internal Med [place] [address] [facility] [address] [place] [address] 11/26/2021 00:00:00 11/26/2021 17:25:20 [id number] Jossue Noyola MD Josette_[facility] [place] [address] [place] [address] 12/10/2021 00:00:00 12/10/2021 15:59:15 [id number] Vernon tamayo MD [facility] Internal Med [facility] 15 [address] [facility] [address] [place] [address] 01/21/2022 00:00:00 01/21/2022 12:57:02 [id number] Clifford hogan MD [facility] [address] [place] [address] 03/17/2022 00:00:00 03/17/2022 17:31:51 [id number] Clifford hogan MD [facility] [address] [place] [address] 03/24/2022 00:00:00 03/24/2022 18:02:09 [id number] Clifford ohgan MD [facility] [address] [place] [address] 04/14/2022 00:00:00 04/14/2022 16:57:40 [id number] Vernon tamayo MD [facility] Med [facility] 15 [address] [facility] [address] [place] [address] 04/22/2022 00:00:00 04/22/2022 13:26:48 [id number] Jossue Noyola MD [facility] [place] [address] [place] [address] 05/01/2022 00:00:00 05/01/2022 11:34:01 [id number] Jossue Noyola MD [facility] [place] [address] [place] [address] 05/29/2022 00:00:00 05/29/2022 11:27:18 [id number] Jona Morales, [facility] [place] [facility] [place] [address] [place] [address] 08/05/2022 00:00:00 08/05/2022 16:24:45 [id number] Vernon tamayo MD [facility] Internal Med [facility] [address] [facility], [facility] [address] [place] [address] 08/26/2022 14:23:24 08/26/2022 15:33:14 Screening - NAD [id number] Z13.9 C-scope: Cologuard 03/30/19: Neg, ordered 04/22/2022 Mammogram: 05/07/18, neg, get this [id number] /20/19: Neg/05/08 021: Neg 022: Neg PAP: Did see Marium Becker [facility] DEXA: 09/12/2020 : OPDEXA: 07/14/2022 : OP, declined prolia in the past Get yearly flu shotUTD on PCV #13 05/07/16, #23 06/24/18Ge t shingles vaccine and Tdap if not doneUTD on COVID 19 vaccine RTC in 3 monthsGet labsER if worseShe did verbalize her understand ing of the above Chronic ob structive pulmonary disease 14473955 J44.9 CT Chest 11/20/2020 She does see Jona Bartholomew [facility] On ipratropiu mOn montelukas tOn proair Atrophic vaginitis 99575 000 N95.2 On clobetazol does well On hydroxyzin e for itching Insomnia 662056419 G47.0 0 On trazodone 50mg daily, does well Gastroesop hageal reflux disease without esophagitis 666320178 K21.9 On omeprazole Take as neededDoes well on this Glaucoma 58315359 H40.9 L eye blindness is present On brimonidin [place] dorzolamid [place] latanopros t Sees Dr Mayer Mass of thyroid gland [address] scan neck 04/13/18, mass noted ENT Dr Cee 07/28/2019 US thyroid 07/23/2020 : ENT Ti Rads 4, f/u in 1-2 years TSH WNL 01/29/[address] Cee 07/11/2021 US thyroid 07/18/2021 , ordered 04/22/2022 Coronary arteriosclerosis 77887523 I25.10 01/17/2022 : ECHO: [facility] CT chest 11/15/2021 [facility] Dr Philip 10/09/2021 , next in [address] Philip 04/04/2022 , next in 3 months Hyperlipidemia 90396599 E78.5 Cannot tolerate the statin Get on zetia but does not want this yet, declines any meds, needs to see Dr Philip, could try nexlizet, or leqvio Get labs Peripheral vascular disease 038070031 I73.9 See [facility] Dr Philip Osteoarthritis 297305802 M19.90 Dr Noyola 11/01/2020 , f/u as needed Dr Noyola 03/21/2021 , trochantri c bursitis or R hip s/p injection Dr Noyola/Josette Thorne PA 08/09/2021 Dr Noyola 09/24/2021 , s/p injection, L hip, L SI joint Dr Noyola 12/10/2021 Dr Noyola 05/29/2022 MRI L Spine 06/03/2022 : Dr Noyola, is now referred to a neurologis t in [place] as per her history Eruption 154769831 R21 She states that the hydroxyzin e has not helpedShe does have a long standing history of itching and denies any new detergents or use of soaps or foodsAlso has a small raised slightly tender papule on the L dorsum of hand Refer to dermatolog y Osteoporosis 59883923 M8 1.0 On proliaDecl inesNeeds to do ca and vit dRepeat the DEXA Multiple n odules of lung 050595027 R91.8 S/p CT chest 11/20/2020 Jona Morales [facility] 02/12/2021 , next apt 08/20/2021 , she has now been referred to Dr Barry for ? latent TB Jona Morales [facility] 08/05/2022 , next 10/14/2022 Macrocytosis 943708042 D 75.89 Get B12 and folate levels Restless l egs syndrome 19489969 G25.81 On ropinirole All side effects explained to her Right inguinal pain [address] Light 09/12/2021 , post op 11/05/2021 Cardiomyopathy 42772323 I42.9 [facility] ER: 11/15/2021 : CTA angio, for SOBAirlift ed to [facility], s/p coronary angio, diagnosed with Takotsubo CMOn entrestoOn metoprolol ER 25mg 1/2 tab dailyOff the life vest and O2F/u with cardiology Hyperglycemia 37589395 R 73.9 Get labs Allergic rhinitis 955347 04 J30.9 Get on flonase, claritinAl so do dose of medrol dose pack, recently treated with Z-pack Trigeminal neuralgia 316 06050 G50.0 On carbamazep ine 100mg tid Has seen Dr Garcia and the pain is betterMRI brain 11/14/2020 : Neg Hypoproteinemia 2808089 E88.09 More protein in diet Goiter 2307343 E04.9 US head and neck 07/18/2022 Low back pain 431219990 M54.50 MRI L Spine 06/03/2022 : Dr Noyola [id number] Jona Morales, [facility] [place] [address] [place] [address] 10/14/2022 14:07:08 10/14/2022 15:39:31 Chronic obstructive pulmonary disease 84577378 J44.9 FEV1 44% predicted PBD.TLC 130% predicted. DLCO adjusted 74%.Will consider repeat this fall6 minute walk 11/24/18.S he did not require oxygen with activity after walking 600+ feet.RADHA on room air WNL.We have discussed reportable signs and symptoms.C ontinue Spiriva Respimat 2.5 2 puffs dailyInstr ucted on techniqueR X sent todayRTO in 6 months and PRN for concerns. 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 [id number] Christelle Lee DPM [facility] [address] [place] [address] 10/29/2022 10:06:48 10/29/2022 11:22:58 Stasis dermatitis of lower limb due to chronic peripheral venous hypertension 110440330 I87.399 bilateral lower legscontin ue with vascular recommenda tionmild compressio n applied left lower leg Skin eschar 953892369 R2 3.4 x3 left lower legwound care reviewed with the patientMon itor for worsening signs of infection at present seek medical attention immediatel yFollow-up in 2 weeks [id number] Christelle Lee DPM [facility] [address] [place] [address] 11/12/2022 10:21:08 11/12/2022 10:21:38 Stasis dermatitis of lower limb due to chronic peripheral venous hypertension 119023916 I87.399 bilateral lower legscontin ue with vascular recommenda tionmild compressio n applied left lower leg Skin eschar 120094746 R2 3.4 x1 left lower legwound care reviewed with the patientcon tinue gentamicin and nonstick bandages to prevent skin tearMonito r for worsening signs of infection at present seek medical attention immediatel yFollow-up in 1 week [id number] Christelle Lee DPM [facility] [address] [place] [address] 11/19/2022 11:31:04 11/19/2022 11:58:18 Skin eschar 976352381 R23.4 healedfoll ow-up as needed Stasis michelle matitis of lower limb due to chronic peripheral venous hypertension 202205114 I87.399 bilateral lower legscontin ue with vascular recommenda tioncontin ue mild compressio n to prevent recurrence of wounds and swelling [id number] MD ANTON [facility]ae[facility] [place] [address] [facility], [place] [address] [place] [address] 11/25/2022 14:46:15 11/25/2022 16:13:15 Screening - NAD 480029818 Z13.9 C-scope: Cologuard 03/30/19: Neg, ordered 04/22/2022 Mammogram: 05/07/18, neg, get this /20/19: Neg 021: Neg 022: Neg 023: Neg PAP: Did see Marium Becker [employer] [employer] DEXA: 09/12/2020 : OPDEXA: 07/14/2022 : OP, declined prolia in the past Get yearly flu shotUTD on PCV #13 05/07/16, #23 06/24/18Ge t shingles vaccine and Tdap if not doneUTD on COVID 19 vaccine RTC in 3 monthsGet labsER if worseShe did verbalize her understand ing of the above Chronic ob structive pulmonary disease 93655948 J44.9 CT Chest 11/20/2020 She does see Jona Bartholomew [employer] On ipratropiu mOn montelukas tOn proair Atrophic vaginitis 19481 000 N95.2 On clobetazol does well On hydroxyzin e for itching Insomnia 121944301 G47.0 0 On trazodone 50mg daily, does well Gastroesop hageal reflux disease without esophagitis 535947574 K21.9 On omeprazole Take as neededDoes well on this Glaucoma 77913899 H40.9 L eye blindness is present On brimonidin [place] dorzolamid [place] latanopros t Sees Dr Mayer Mass of thyroid gland [address] scan neck 04/13/18, mass noted ENT Dr Cee 07/28/2019 US thyroid 07/23/2020 : ENT Ti Rads 4, f/u in 1-2 years TSH WNL 01/29/[address] Cee 07/11/2021 US thyroid 07/18/2021 , ordered 04/22/2022 Coronary arteriosclerosis 64186684 I25.10 01/17/2022 : ECHO: [facility] CT chest 11/15/[address] Philip 10/09/2021 , next in [address] Philip 04/04/2022 , next in 3 months Hyperlipidemia 07952453 E78.5 Cannot tolerate the statin Get on zetia but does not want this yet, declines any meds, needs to see Dr Philip, could try nexlizet, or leqvio Get labs Peripheral vascular disease 301960537 I73.9 See [facility] Dr Philip Osteoarthritis 900336009 M19.90 Dr Noyola 11/01/2020 , f/u as needed Dr Noyola 03/21/2021 , trochantri c bursitis or R hip s/p injection Dr Noyola/Josette Thorne PA 08/09/2021 Dr Noyola 09/24/2021 , s/p injection, L hip, L SI joint Dr Noyola 12/10/2021 Dr Noyola 05/29/2022 MRI L Spine 06/03/2022 : Dr Noyola, is now referred to a neurologis t in [place] as per her history Eruption 133340335 R21 She states that the hydroxyzin e has not helpedShe does have a long standing history of itching and denies any new detergents or use of soaps or foodsAlso has a small raised slightly tender papule on the L dorsum of hand Refer to dermatolog y Osteoporosis 33540576 M8 1.0 On proliaDecl inesNeeds to do ca and vit dRepeat the DEXA Multiple n odules of lung 142251235 R91.8 S/p CT chest 11/20/2020 Jona Morales [employer] 02/12/2021 , next apt 08/20/2021 , she has now been referred to Dr Barry for ? latent TB Jona Morales [employer] 08/05/2022 , next 10/14/2022 Macrocytosis 225680971 D 75.89 Get B12 and folate levels Restless l egs syndrome 72849895 G25.81 On ropinirole All side effects explained to her Right inguinal pain [address] Light 09/12/2021 , post op 11/05/2021 Cardiomyopathy 83943684 I42.9 [facility] ER: 11/15/2021 : CTA angio, for SOBAirlift ed to CNE, s/p coronary angio, diagnosed with Takotsubo CM On entrestoOn metoprolol ER 25mg 1/2 tab dailyOf lasixOff the life vest and O2 F/u with cardiology Hyperglycemia 97161953 R 73.9 Get labsDeclin es meds, more diet and exercise is needed Allergic rhinitis 631449 04 J30.9 Get on flonase, claritinAl so do dose of medrol dose pack, recently treated with Z-pack Trigeminal neuralgia 316 95877 G50.0 On carbamazep ine 100mg tid Has seen Dr Garcia and the pain is betterMRI brain 11/14/2020 : Neg Hypoproteinemia 6243898 E88.09 More protein in diet Goiter 6236360 E04.9 US head and neck 07/18/2022 Low back pain 235270605 M54.50 MRI L Spine 06/03/2022 : Dr Noyola Chronic ki dney disease 388448448 N18.9 [id number] Jossue Noyola MD [facility] [place] [address] [place] [address] 01/08/2023 14:32:01 01/08/2023 15:16:40 Pain in left sacroiliac joint 9643551971 7293035 M53.3 Pain in ri ght sacroiliac joint 4967891515 2460680 M53.3 Spinal [place] nosis of lumbar region 87979982 M48.062 Low back pain 080398808 M54.50 Pain of le ft hip joint 3314604413 42432 M25.552 Trochanter ic bursitis of left hip 0326032501 54790 M70.62 [id number] Christelle Lee DPM [facility] [address] [place] [address] 01/21/2023 11:30:22 01/21/2023 14:06:39 Ulcer of lower extremity 04476809 L97.212 rx dressing supplies - lucas, 4x4 gauze, and keeley wrapgentia n braxton applied today with mild compressio n dressingRx gentamicin ointment apply 3 times daily with mild compressio n dressingFo llow-up 2 weeks [id number] Christelle eLe DPM [facility] [address] [place] [address] 02/04/2023 11:28:51 02/04/2023 15:26:51 Ulcer of lower extremity 59316381 L97.212 Mild compressio n dressing applied with gentamicin ointment and gentianRx gentamicin ointment apply 3 times daily with mild compressio n dressingFo llow-up 2 weeks [id number] Christelle Lee DPM [facility] [address] [place] [address] 02/11/2023 09:20:48 02/11/2023 10:11:09 Ulcer of lower extremity 28821399 L97.212 Mild compressio n dressing applied with gentamicin ointment and gentianRx gentamicin ointment apply 3 times daily with mild compressio n dressingFo llow-up 1 week [id number] Christelle Lee DPM [facility] [address] [place] [address] 02/18/2023 10:27:12 02/18/2023 11:18:21 Ulcer of lower extremity 81449028 L97.212 Endoform with Mild compressio n dressing appliedRx gentamicin ointment apply 3 times daily with mild compressio n dressingFo llow-up 1 week [id number] Vernon tamayo MD [facility] Internal Med [facility] [address] [facility], [facility] [address] [place] [address] 03/03/2023 14:39:19 03/03/2023 16:12:56 Screening - NAD 790272936 Z13.9 C-scope: Cologuard 03/30/19: Neg, ordered 04/22/2022 Cologuard 05/08/2022 : +veC-scope : 06/27/2022 : Dr Truong Mammogram: 05/07/18, neg, get this [email or web address] /20/19: Neg01// 021: Neg 022: Neg 023: Neg PAP: Did see Marium Becker [employer] [employer] DEXA: 09/12/2020 : OPDEXA: 07/14/2022 : OP, declined prolia in the past Get yearly flu shotUTD on PCV #13 05/07/16, #23 06/24/18UT D shingles vaccineUTD Tdap about 1.5 years ago in 2020UTD on COVID 19 vaccineGet RSV vaccine RTC in 3 monthsApi Healthcare labsER if worseShe did verbalize her understand ing of the above Chronic ob structive pulmonary disease 12380830 J44.9 CT Chest 11/20/2020 She does see Jona Bartholomew [employer] On ipratropiu mOn montelukas tOn proair Atrophic vaginitis 70999 000 N95.2 On clobetazol does well On hydroxyzin e for itching Insomnia 566554670 G47.0 0 On trazodone 50mg daily, does well Gastroesop hageal reflux disease without esophagitis 821344672 K21.9 On omeprazole Take as neededDoes well on this Glaucoma 72856899 H40.9 L eye blindness is present On brimonidin [place] dorzolamid [place] latanopros t Sees Dr Mayer Mass of thyroid gland [address] scan neck 04/13/18, mass noted ENT Dr Cee 07/28/2019 US thyroid 07/23/2020 : ENT Ti Rads 4, f/u in 1-2 years TSH WNL 01/29/[address] Cee 07/11/2021 US thyroid 07/18/2021 US thyroid 07/14/2022 , next in one year Coronary arteriosclerosis 15288330 I25.10 01/17/2022 : ECHO: [facility] CT chest 11/15/2021 [facility] Dr Philip 10/09/2021 , next [facility] [address] Philip 04/04/2022 , next [place] [address] Philip 10/24/2022 Hyperlipidemia 81132704 E78.5 Cannot tolerate the statin Get on zetia but does not want this yet, declines any meds, needs to see Dr Philip, could try nexlizet, or leqvio Get labs Peripheral vascular disease 608226128 I73.9 See [facility] Dr Philip Osteoarthritis 148161956 M19.90 Dr Noyola 11/01/2020 , f/u as [...] of L hip joint, s/p kenalog Eruption 844893715 R21 She states that the hydroxyzin e has not helpedShe does have a long standing history of itching and denies any new detergents or use of soaps or foodsAlso has a small raised slightly tender papule on the L dorsum of hand Refer to dermatolog y Osteoporosis 19243729 M8 1.0 On proliaDecl inesNeeds to do ca and vit d Multiple n odules of lung 437072931 R91.8 S/p CT chest 11/20/2020 Jona Morales [employer] 02/12/2021 , next apt 08/20/2021 , she has now been referred to Dr Barry for ? latent TB Jona Morales [employer] f/u 04/17/2023 Macrocytosis 535906681 D 75.89 Get B12 and folate levels Restless l egs syndrome 01186489 G25.81 On ropinirole 0.5mg daily, will increase to 1mg dailyAll side effects explained to her Right inguinal pain [address] Light 09/12/2021 , post op 11/05/2021 Cardiomyopathy 62222775 I42.9 [facility] ER: 11/15/2021 : CTA angio, for SOBAirlift ed to CNE, s/p coronary angio, diagnosed with Takotsubo CM Off entrestoOn metoprolol ER 25mg 1 tab dailyOn lasix 20mg bid, can do one daily 03/03/2023 Off the life vest and O2 F/u with cardiology Dr Philip Hyperglycemia 74027547 R 73.9 Get labsDeclin es meds, more diet and exercise is needed Allergic rhinitis 467908 04 J30.9 On flonase, claritin Trigeminal neuralgia 316 80285 G50.0 On carbamazep ine 100mg tid, but should be on bid as per neurology Dr Lucero 01/29/2023 , f/u in one year Has seen Dr Garcia and the pain is betterMRI brain 11/14/2020 : Neg Hypoproteinemia 4152194 E88.09 More protein in diet Goiter 8237719 E04.9 US head and neck 07/18/2022 Low back pain 492216438 M54.50 MRI L Spine 06/03/2022 : Dr Noyola Chronic ki dney disease 574168945 N18.9 See nephrology Screening mammography 24 587652 Z12.31 Anemia 480046568 D64.9 Can do more iron in diet or OTC iron Adult heal th examination 015635080 Z00.00 Screening for disorder 868706042 Z13.9 Hypomagnesemia 745399260 E83.42 [id number] Christelle Lee DPM [facility] [address] [place] [address] 03/04/2023 10:22:51 03/04/2023 10:59:08 Ulcer of lower extremity 83154918 L97.212 HealedChro sujit compressio n to prevent recurrence of swelling and woundFollo w-up as needed [id number] Jona Morales, [facility] [place] [address] [place] [address] 04/17/2023 11:38:35 04/17/2023 13:57:37 Chronic obstructive pulmonary disease 94718435 J44.9 FEV1 44% predicted PBD.TLC 130% predicted. [...] 6 months Multiple n odules of lung 377759370 R91.[address] 08/2022 Inactive tuberculosis 11 466234 Z22.7 Has seen ID with workup Dyspnea [...] needed in the future.REp eat CT 08/2023 [id number] Vernon tamayo MD [facility] [address] [facility], [place] [address] [place] [address] 07/02/2023 14:57:11 07/02/2023 15:57:30 Screening - NAD 241568827 Z13.9 C-scope: Cologuard 03/30/19: Neg, ordered 04/22/2022 Cologuard 05/08/2022 : +veC-scope : 06/27/2022 : Dr Truong Mammogram: 05/07/18, neg, get this [email or web address] /20/19: Neg01//2 021: Neg07/18/2 022: Neg 023: Neg PAP: Did see Marium Becker [employer] DEXA: 09/12/2020 : OPDEXA: 07/14/2022 : OP, declined prolia in the past Get yearly flu shotUTD on PCV #13 05/07/16, #23 06/24/18UT D shingles vaccineUTD Tdap about 1.5 years ago in 2020UTD on COVID 19 vaccineGet RSV vaccine RTC in 3 monthsGet labsER if worseShe did verbalize her understand ing of the above Chronic ob structive pulmonary disease 23625853 J44.9 CT Chest 11/20/2020 She does see Jona Bartholomew [employer] On ipratropiu mOn montelukas tOn proairOn spirivaOn stialto Atrophic vaginitis 73195 000 N95.2 On clobetazol does well On hydroxyzin e for itching Insomnia 358576933 G47.0 0 On trazodone 50mg daily, does well Gastroesop hageal reflux disease without esophagitis 032353463 K21.9 On omeprazole Take as neededDoes well on this Glaucoma 34276394 H40.9 L eye blindness is present On brimonidin [place] dorzolamid [place] latanopros t Sees Dr [place] Mass of thyroid gland [address] scan neck 04/13/18, mass noted ENT Dr Cee 07/28/2019 US thyroid 07/23/2020 : ENT Ti Rads 4, f/u in 1-2 years TSH WNL 01/29/[address] Cee 07/11/2021 US thyroid 07/18/2021 US thyroid 07/14/2022 , next in one year Coronary arteriosclerosis 51851302 I25.10 01/17/2022 : ECHO: [facility] CT chest 11/15/2021 [facility] Dr Philip 10/09/2021 , next [place] [address] Philip 04/04/2022 , next [place] [address] Philip 10/24/2022 Hyperlipidemia 80788853 E78.5 Cannot tolerate the statin Get on zetia but does not want this yet, declines any meds, needs to see Dr Philip, could try nexlizet, or leqvio Get labs Peripheral vascular disease 156658242 I73.9 See [facility] Dr Philip Osteoarthritis 428982388 M19.90 Dr Noyola 11/01/2020 , f/u as [...] of L hip joint, s/p kenalog Eruption 411149122 R21 She states that the hydroxyzin e has not helpedShe does have a long standing history of itching and denies any new detergents or use of soaps or foodsAlso has a small raised slightly tender papule on the L dorsum of hand Refer to dermatolog y Osteoporosis 75074727 M8 1.0 On proliaDecl inesNeeds to do ca and vit d Multiple n odules of lung 022231734 R91.8 S/p CT chest 11/20/2020 Jona Morales [employer] 02/12/2021 , next apt 08/20/2021 , she has now been referred to Dr Barry for ? latent TB Jona Morales [employer] f/u 04/17/2023 Macrocytosis 574761890 D 75.89 Get B12 and folate levels Restless l egs syndrome 57669049 G25.81 On ropinirole 0.5mg daily, will increase to 1mg dailyAll side effects explained to her Right inguinal pain [address] Light 09/12/2021 , post op 11/05/2021 Cardiomyopathy 52797137 I42.9 [facility] ER: 11/15/2021 : [facility], s/p coronary angio, diagnosed with Takotsubo CM Off entrestoOn metoprolol ER 25mg 1 tab dailyOn lasix 20mg bid, can do one daily 03/03/2023 Off the life vest and O2 F/u with cardiology Dr Philip TTE ECHO: 05/29/2023 : Dr Philip, EF 55% Hyperglycemia 21449822 R 73.9 Get labsDeclin es meds, more diet and exercise is needed Allergic rhinitis 773621 04 J30.9 On flonase, claritin Trigeminal neuralgia 316 47826 G50.0 On carbamazep ine 100mg tid, but should be on bid as per neurology Dr Lucero 01/29/2023 , f/u in one year Has seen Dr Garcia and the pain is betterMRI brain 11/14/2020 : Neg Hypoproteinemia 6380891 E88.09 More protein in diet Goiter 3694041 E04.9 US head and neck 07/18/2022 Low back pain 025197192 M54.50 MRI L Spine 06/03/2022 : Dr Noyola Chronic ki dney disease 049316732 N18.9 See nephrology Screening mammography 24 241194 Z12.31 Anemia 014458648 D64.9 Can do more iron in diet or OTC iron Hypomagnesemia 216479644 E83.42 Get mag level [id number] Colin Lagunas MD [facility] [address], [address] [place] [address] 08/18/2023 09:46:01 08/18/2023 10:44:11 Pain in left sacroiliac joint 4152502315 1068768 M53.3 Pain in ri ght sacroiliac joint 3004557429 2505183 M53.3 Trochanter ic bursitis of left hip 6890714508 55286 M70.62 Pain of bi lateral hip joints 7805912203 6760925 M25.551 M25.800 [id number] Gilberto Bonds MD [facility] Pulmonolo gy [address] [address] 09/28/2023 10:38:29 09/29/2023 09:01:07 Dyspnea on exertion 72277135 R06.09 R05.3 T78.40XA D89.9 Smoker 35645631 F17.218 F17.219 Z87.891 Solitary n odule of lung 538889652 R91.1 Chronic ob structive pulmonary disease 72651026 J44.9 [id number] Vernon tamayo MD [facility] [address] [address] 10/01/2023 10:39:23 10/01/2023 12:26:33 Screening - NAD 205863659 Z13.9 C-scope: Cologuard 03/30/19: Neg, ordered 04/22/2022 Cologuard 05/08/2022 : +veC-scope : 06/27/2022 : Dr Truong Mammogram: 05/07/18, neg, get this [email or web address] /20/19: Neg01 021: Neg 022: Neg 023: Neg 024: Neg PAP: Did see Marium Becker [employer] DEXA: 09/12/2020 : OPDEXA: 07/14/2022 : OP, [...] the patient Chronic ob structive pulmonary disease 13434239 J44.9 CT Chest 11/20/2020 CT chest 07/30/2023 : Mucus impaction? She does see Jona Bartholomew [employer], did not want to keep her apts with Dr Bonds as he refused to give her HHNs On ipratropiu mOn montelukas tOn proairOn spirivaOn stialtoDr Bonds 09/28/2023 Has noted some cough, 10/01/2023 , will send for z-pack, may need MDP if not better, discussed in detail any alarming symptoms and to proceed to the ER if getting worse Atrophic vaginitis 27704 000 N95.2 On clobetazol does well On hydroxyzin e for itching Insomnia 020659968 G47.0 0 On trazodone 50mg daily, does well Gastroesop hageal reflux disease without esophagitis 454091433 K21.9 On omeprazole Takes as neededDoes well on this Glaucoma 81127236 H40.9 L eye blindness is present On brimonidin [place] dorzolamid [place] latanopros t Sees Dr Mayer Mass of thyroid gland [address] scan neck 04/13/18, mass noted ENT Dr Cee 07/28/2019 US thyroid 07/23/2020 : ENT Ti Rads 4, f/u in 1-2 yearsUS thyroid 07/20/2023 : Now should see ENT again TSH WNL 01/29/[address] Cee 07/11/2021 US thyroid 07/18/2021 US thyroid 07/14/2022 , next in one year Coronary arteriosclerosis 79823442 I25.10 01/17/2022 : ECHO: [facility] CT chest 11/15/[address] [facility] [address] Philip 10/09/2021 , next in [address] Philip 04/04/2022 , next in [address] Philip 10/24/2022 Hyperlipidemia 99599573 E78.5 Cannot tolerate the statin Get on zetia but does not want this yet, declines any meds, needs to see Dr Philip, could try nexlizet, or leqvio Get labs Peripheral vascular disease 370665037 I73.9 See [facility] Dr Philip Osteoarthritis 952198420 M19.90 Dr Noyola 11/01/2020 , f/u as [...] of L hip joint, s/p kenalog Eruption 582886471 R21 She states that the hydroxyzin e has not helpedShe does have a long standing history of itching and denies any new detergents or use of soaps or foodsAlso has a small raised slightly tender papule on the L dorsum of hand Refer to dermatolog y Osteoporosis 30380971 M8 1.0 On proliaDecl inesNeeds to do ca and vit d Multiple n odules of lung 250519922 R91.8 S/p CT chest 11/20/2020 Jona Morales [employer] 02/12/2021 , next apt 08/20/2021 , she has now been referred to Dr Barry for ? latent TB Jona Morales [employer] f/u 04/17/2023 Macrocytosis 036733037 D 75.89 Get B12 and folate levels Restless l egs syndrome 56859028 G25.81 On ropinirole 0.5mg daily, will increase to 1mg dailyAll side effects explained to her Right inguinal pain [address] Light 09/12/2021 , post op 11/05/2021 Cardiomyopathy 81780394 I42.9 [facility] ER: 11/15/2021 : CTA angio, for SOBAirlift ed to CNE, s/p coronary angio, diagnosed with Takotsubo CM Off entrestoOn metoprolol ER 25mg 1 tab dailyOn lasix 20mg bid, can do one daily 03/03/2023 Off the life vest and O2 F/u with cardiology Dr Philip TTE ECHO: 05/29/2023 : Dr Philip, EF 55% Hyperglycemia 95690465 R 73.9 Get labsDeclin es meds, more diet and exercise is needed Allergic rhinitis 538150 04 J30.9 On flonase, claritin Trigeminal neuralgia 316 08659 G50.0 On carbamazep ine 100mg tid, but should be on bid as per neurology Dr Lucero 01/29/2023 , f/u in one year Has seen Dr Garcia and the pain is betterMRI brain 11/14/2020 : Neg Hypoproteinemia 1941626 E88.09 More protein in diet Goiter 1438621 E04.9 US head and neck 07/18/2022 Low back pain 615249413 M54.50 MRI L Spine 06/03/2022 : Dr Gustafson es well now 10/01/2023 , no N/T or weakness in the LE Chronic ki dney disease 437278221 N18.9 See nephrology Anemia 551178222 D64.9 Can do more iron in diet or OTC iron Hypomagnesemia 655160815 E83.42 Get mag level 7193113 Radha Cee MD [facility] [place] [address] [place] [address] 11/04/2023 10:06:51 11/04/2023 13:24:36 Thyroid nodule 136241848 E04.1 [id number] Vernon tamayo MD [facility] Internal Med [facility] [address] [facility], [address] [place] [address] 12/31/2023 14:00:49 12/31/2023 15:00:59 Screening - NAD 097577354 Z13.9 C-scope: Cologuard 03/30/19: Neg, ordered 04/22/2022 Cologuard 05/08/2022 : +veC-scope : 06/27/2022 : Dr Truong Mammogram: 05/07/18, neg, get this [id number] /20/19: Neg01// 021: Neg 022: Neg 023: Neg 024: Neg PAP: Did see Marium Becker [employer] DEXA: 09/12/2020 : OPDEXA: 07/14/2022 : OP, [...] the patient Chronic ob structive pulmonary disease 66290847 J44.9 CT Chest 11/20/2020 CT chest 07/30/2023 : Mucus impaction? She does see Jona Bartholomew [employer], did not want to keep her apts [...] PRN and started on stiolto Atrophic vaginitis 99439 000 N95.2 On clobetazol does well On hydroxyzin e for itching Insomnia 641717351 G47.0 0 On trazodone 50mg daily, does well Gastroesop hageal reflux disease without esophagitis 688890089 K21.9 On omeprazole Takes as neededDoes well on this Glaucoma 00742058 H40.9 L eye blindness is present On brimonidin [place] dorzolamid [place] latanopros t Sees Dr Mayer Mass of thyroid gland [address] scan neck 04/13/18, mass noted ENT Dr Cee 07/28/2019 US thyroid 07/23/2020 : ENT Ti Rads 4, f/u in 1-2 yearsUS thyroid 07/20/2023 : Now should see ENT again TSH WNL 01/29/[address] Cee 07/11/2021 US thyroid 07/18/2021 US thyroid 07/14/2022 , next in one year ENT Dr Cee 11/04/2023 , US thyroid in one year Coronary arteriosclerosis 35994904 I25.10 01/17/2022 : ECHO: [facility] CT chest 11/15/[address] Philip 10/09/2021 , next in [address] Philip 04/04/2022 , next in [address] Philip 10/24/2022 Hyperlipidemia 08990336 E78.5 Cannot tolerate the statin Get on zetia but does not want this yet, declines any meds, needs to see Dr Philip, could try nexlizet, or leqvio Get labs Peripheral vascular disease 753648555 I73.9 See [facility] Dr Philip Osteoarthritis 831590657 M19.90 Dr Noyola 11/01/2020 , f/u as [...] PA 08/18/2023 , next apt 01/07/2024 Eruption 812199647 R21 She states that the hydroxyzin e has not helpedShe does have a long standing history of itching and denies any new detergents or use of soaps or foodsAlso has a small raised slightly tender papule on the L dorsum of hand Refer to dermatolog y Osteoporosis 79100595 M8 1.0 On proliaDecl inesNeeds to do ca and vit d Multiple n odules of lung 453533648 R91.8 S/p CT chest 11/20/2020 Jona Morales [employer] 02/12/2021 , next apt 08/20/2021 , she has now been referred to Dr Barry for ? latent TB Jona Morales [employer] f/u 04/17/2023 Macrocytosis 601166529 D 75.89 MCV WNL 12/30/2023 Get B12 and folate levels Restless l egs syndrome 47432521 G25.81 On ropinirole 0.5mg daily, will increase to 1mg dailyAll side effects explained to her Right inguinal pain [address] Light 09/12/2021 , post op 11/05/2021 Cardiomyopathy 90288333 I42.9 [facility] ER: 11/15/2021 : CTA angio, for SOBAirlift ed to CNE, s/p coronary angio, diagnosed with Takotsubo CM Off entrestoOn metoprolol ER 25mg 1 tab dailyOn lasix 20mg bid, can do one daily 03/03/2023 Off the life vest and O2 F/u with cardiology Dr Philip TTE ECHO: 05/29/2023 : Dr Philip, EF 55% Hyperglycemia 25973214 R 73.9 Get labsDeclin es meds, more diet and exercise is needed Allergic rhinitis 547156 04 J30.9 On flonase, claritin Trigeminal neuralgia 316 89568 G50.0 On carbamazep ine 100mg tid, but should be on bid as per neurology Dr Lucero 01/29/2023 , f/u in one year Has seen Dr Garcia and the pain is betterMRI brain 11/14/2020 : Neg Hypoproteinemia 9844429 E88.09 More protein in diet Goiter 8755887 E04.9 US head and neck 07/18/2022 Low back pain 268303162 M54.50 MRI L Spine 06/03/2022 : Dr Gustafson es well now 10/01/2023 , no N/T or weakness in the LE Chronic ki dney disease 886091256 N18.9 See nephrology Anemia 011319813 D64.9 Can do more iron in diet or OTC iron Hypomagnesemia 923474806 E83.42 Get mag level Leukopenia 34258000 D72. 819 Repeat the CBC in 2 weeks again, may need to see hematology if low WBC Hyponatremia 98840496 E8 7.[address] Peter garrido the CMP Open wound of left lower leg [id number] 9211683 S81.802A Xerostomia 29954665 R68. 2 States that none of the OTC mouth washes/rin ses have worked, she has used Biotene/AC T etcWill start on Cevimeline , all side effects explained to her, notify if any side effects occur, she verbalized her understand ing of the above [id number] [facility] [address] [place] [address] 01/06/2024 16:16:12 01/07/2024 15:15:06 Venous stasis ulcer with edema of left lower leg 6512946664 1477614 L97.929 daily dressingsr ecommend compressio n- Tubigrip dispensedk eep area clean and dryfollow- up one-week Venous sta sis ulcer with edema of right lower leg 9695693946 3872466 L97.919 times 1as above [id number] MD ANTON [facility]ares[facility] [place] [address] [place] [address] 01/07/2024 13:42:00 01/07/2024 14:21:57 Pain of left hip joint 5508197948 48260 M25.552 Trochanter ic bursitis of left hip 3474645406 32276 M70.62 [id number] [facility] [address] [place] [address] 01/20/2024 11:16:36 01/20/2024 12:51:31 Venous stasis ulcer with edema of left lower leg 7877273400 2856473 L97.929 Healedreco mmend chronic compressio n to reduce recurrence of wounds and to protect lower legs due to thin skinFollow -up as needed Venous sta sis ulcer with edema of right lower leg 7989433610 2249866 L97.919 as above [id number] K[facility]E [facility] [place] [address] [facility] [address] [place] [address] 02/23/2024 14:15:15 03/07/2024 14:00:11 Ankle pain 123095761 M25.579 right lateral anklefoot and ankle x-rays are neg for acute fracture Peroneal t endinitis of right lower limb 5278102564 52578 M76.71 tendon pain lateral anklerice therapyace wrap applied to the ankleno strenuous activities Peripheral venous insufficiency 21827823 I87.2 bilateral legsrecomm end mild compressio n sport socks daily [id number] Vernon tamayo MD [facility] Internal Med [facility] [address] [facility], [address] [address] 03/03/2024 09:22:46 03/03/2024 09:59:22 Headache 70925561 R51.9 [facility] ER: 02/18/2024 [facility] ER: 02/18/2024 Addendum: 03/03/2024 :CT Head: 03/03/2024 : Neg, patient notified Pain in left foot 705764 0478 62647 M79.672 [facility] ER: 02/18/2024 [facility] ER: 02/18/2024 Trauma, dropped box of candy, [...] Ruelas Addendum: 03/03/2024 :Xray: Neg: Patient notified [id number] Vernon tamayo MD [facility] Internal Med [facility] [address] [facility], [address] [address] 05/03/2024 11:46:07 05/03/2024 12:57:05 Headache 14992131 R51.9 [facility] ER: 02/18/2024 [facility] ER: 02/18/2024 Addendum: 03/03/2024 :CT Head: 03/03/2024 : Neg, patient notified Pain in left foot 560595 1774 89026 M79.672 [facility] ER: 02/18/2024 [facility] ER: 02/18/2024 Trauma, dropped box of candy, skin tear, also noted to have headacheUS LE: Neg for DVTCelluli tis, treated with keflexAlso treated with morphine and zofranRene wed the oxycodone in VERY limited quantities as per her request 03/03/2024 , needs to keep apt with orthoShe is not at all happy with care from podiatry Dr Lee, so refer to Dr uRelas Addendum: 03/03/2024 :Xray: Neg: Patient notifiedAl so referred to Dr Louis as she does not want to see Dr LeeSh e would like to get on oxycodone and this was renewed in very limited quantities 05/03/2024 Screening - NAD 90888522 3 Z13.9 C-scope: Cologuard 03/30/19: Neg, ordered 04/22/2022 Cologuard 05/08/2022 : +veC-scope : 06/27/2022 : Dr Truong Mammogram: 05/07/18, neg, get this [id number] /20/19: Neg01// 021: Neg 022: Neg 023: Neg 024: Neg PAP: Did see Marium Becker [employer] DEXA: 09/12/2020 : OPDEXA: 07/14/2022 : OP, declined prolia in the past Get yearly flu shotUTD on PCV #13 05/07/16, #23 06/24/18UT D shingles vaccineUTD Tdap about 1.5 years ago in 2020UTD on COVID 19 vaccineGet RSV vaccine RTC in 3 monthsGet labsER if worseShe did verbalize her understand ing of the above Chronic ob structive pulmonary disease 69989684 J44.9 CT Chest 11/20/2020 CT chest 07/30/2023 : Mucus impaction? She does see Jona Bartholomew [employer], did not want to keep her apts [...] PRN and started on stiolto Atrophic vaginitis 87255 000 N95.2 On clobetazol does well On hydroxyzin e for itching Insomnia 283571858 G47.0 0 On trazodone 50mg daily, does well Gastroesop hageal reflux disease without esophagitis 791929088 K21.9 On omeprazole Takes as neededDoes well on this Glaucoma 58153319 H40.9 L eye blindness is present On brimonidin [place] dorzolamid [place] latanopros t Sees Dr Mayer Mass of thyroid gland [address] scan neck 04/13/18, mass noted ENT Dr Cee 07/28/2019 US thyroid 07/23/2020 : ENT Ti Rads 4, f/u in 1-2 yearsUS thyroid 07/20/2023 : Now should see ENT again TSH WNL 01/29/[address] Cee 07/11/2021 US thyroid 07/18/2021 US thyroid 07/14/2022 , next in one year ENT Dr Cee 11/04/2023 , US thyroid in one year Coronary arteriosclerosis 30709406 I25.10 01/17/2022 : ECHO: [facility] CT chest 11/15/2021 [facility] Dr Philip 10/09/2021 , next in [address] Philip 04/04/2022 , next [place] [address] Philip 10/24/2022 [facility] Dr Philip 04/15/2024 , was referred to Dr Lee, then seen in the ER on 04/21/2024 S/p ER Smock ER: for SOB, treated with augmentinS /p ER Dennys 04/21/2024 for LE swelling and treated with lasix, see case on 04/28/2024 Hyperlipidemia 81307117 E78.5 Now on rosuvastat in 5mg daily Dr Philip Get on zetia but does not want this yet, declines any meds, needs to see Dr Philip, could try nexlizet, or leqvio Get labs Peripheral vascular disease 848245286 I73.[address] Philip Osteoarthritis 735412372 M19.90 Dr Noyola 11/01/2020 , f/u as [...] wants to renew, will renew 05/03/2024 Eruption 981236601 R21 She states that the hydroxyzin e has not helpedShe does have a long standing history of itching and denies any new detergents or use of soaps or foodsAlso has a small raised slightly tender papule on the L dorsum of hand Refer to dermatolog y Osteoporosis 42426308 M8 1.0 On proliaDecl inesNeeds to do ca and vit d Multiple n odules of lung 883953139 R91.8 S/p CT chest 11/20/2020 Jona Morales [employer] 02/12/2021 , next apt 08/20/2021 , she has now been referred to Dr Barry for ? latent TB Jona Morales [employer] f/u 04/17/2023 Macrocytosis 613519207 D 75.89 MCV WNL 12/30/2023 Get B12 and folate levels Restless l egs syndrome 16624672 G25.81 On ropinirole 0.5mg daily, will increase to 1mg dailyAll side effects explained to her Right inguinal pain [address] Light 09/12/2021 , post op 11/05/2021 Cardiomyopathy 86052827 I42.9 [facility] ER: 11/15/2021 : CTA angio, for SOBAirlift ed to CNE, s/p coronary angio, diagnosed with Takotsubo CM Off entrestoOn metoprolol ER 25mg 1 tab dailyOn lasix 20mg bid, can do one daily 03/03/2023 On KOff the life vest and O2 F/u with cardiology Dr Philip, but now referred to Dr Bauman [facility] as per her request 05/03/2024 TTE ECHO: 05/29/2023 : Dr Philip, EF 55% Hyperglycemia 18936097 R 73.9 Get labsDeclin es meds, more diet and exercise is needed Allergic rhinitis 302306 04 J30.9 On flonase, claritin Trigeminal neuralgia 316 98423 G50.0 On carbamazep ine 100mg tid, but should be on bid as per neurology Dr Lucero 01/29/2023 , f/u in one year Has seen Dr Garcia and the pain is betterMRI brain 11/14/2020 : Neg Dr Lucero 03/10/2024 , f/u PRN Hypoproteinemia 9071693 E88.09 More protein in diet Goiter 0528486 E04.9 US head and neck 07/18/2022 Low back pain 357909963 M54.50 MRI L Spine 06/03/2022 : Dr Gustafson es well now 10/01/2023 , no N/T or weakness in the LE Chronic ki dney disease 543451077 N18.9 See nephrology Anemia 781105445 D64.9 Can do more iron in diet or OTC iron Hypomagnesemia 431941275 E83.42 Get mag level Leukopenia 55607906 D72. 819 Repeat may need to see hematology if low WBC Hyponatremia 72600900 E8 7.[address] Green t the CMP Open wound of left lower leg 2646605763 4261862 S81.802A Dr Lee 02/23/2024 , next apt 06/02/2024 , change to Dr Louis Xerostomia 31483573 R68. 2 States that none of the OTC mouth washes/rin ses have worked, she has used Biotene/AC T etcOn Cevimeline , all side effects explained to her, notify if any side effects occur, she verbalized her understand ing of the above Adult heal th examination 823497655 Z00.00 Screening for disorder 521156731 Z13.9 Administra tion of influenza vaccine 77300262 Z23 [id number] Lucio oLuis DPM [facility] Pod[facility] [address] [facility], [address] [address] 05/11/2024 09:22:23 05/12/2024 16:39:48 Pain in right foot 1957877228 72372 M79.671 Right foot neuritis 2924 132201 05698 G57.81 Edema of l ower extremity 405866736 R60.0 [id number] Lucio Louis DPM [facility] [address] [facility], [address] [address] 05/17/2024 12:23:26 05/18/2024 13:55:44 Neuropathy 730201412 G62.9 [id number] Vernon tamayo MD [facility] [address] [facility], [address] [address] 06/28/2024 13:55:37 06/28/2024 15:04:35 Headache 51956076 R51.9 [facility] ER: 02/18/2024 [facility] ER: 02/18/2024 Addendum: 03/03/2024 :CT Head: 03/03/2024 : Neg, patient notified OV 06/28/2024 : Resolved, notify if any symptoms occur Pain in left foot 905412 0930 01003 M79.672 [facility] ER: 02/18/2024 [facility] ER: 02/18/2024 Trauma, dropped box of candy, [...] : Does well now Screening - NAD 64203322 3 Z13.9 C-scope: Cologuard 03/30/19: Neg, ordered 04/22/2022 Cologuard 05/08/2022 : +veC-scope : 06/27/2022 : Dr Truong Mammogram: 05/07/18, neg, get this [id number] /20/19: Neg 021: Neg 022: Neg 023: Neg 024: NegNo more mammogram 06/28/2024 PAP: Did see Marium Becker [employer] DEXA: 09/12/2020 : OPDEXA: 07/14/2022 : OP, declined prolia in the past Get yearly flu shotUTD on PCV #13 05/07/16, #23 06/24/18UT D shingles vaccineUTD Tdap about 1.5 years ago in 2020UTD on COVID 19 vaccineUTD on RSV vaccine RTC in 3 monthsGet labsER if worseShe did verbalize her understand ing of the above Chronic ob structive pulmonary disease 70476362 J44.9 CT Chest 11/20/2020 CT chest 07/30/2023 : Mucus impaction? She does see Jona Bartholomew [employer], did not want to keep her apts [...] and started on stioltoNow sees Jona Morales [employer] in 09/2024, is s/p EGD on 06/17/2024 , Dr Laguna Atrophic vaginitis 77151 000 N95.2 On clobetazol does well On hydroxyzin e for itching Insomnia 552792869 G47.0 0 On trazodone 50mg daily, does well Gastroesop hageal reflux disease without esophagitis 666445783 K21.9 On omeprazole Takes as neededDoes well on thisS/p EGD Dr Laguna on 06/17/2024 Glaucoma 75061555 H40.9 L eye blindness is present On brimonidin [place] dorzolamid [place] latanopros tOn neomycin eye drop Sees Dr Mayer, f/u on 07/14/2024 Mass of thyroid gland [address] scan neck 04/13/18, mass noted [...] one yearUS thyroid 06/28/2024 ordered Coronary arteriosclerosis 24666662 I25.10 01/17/2022 : ECHO: [facility] CT chest 11/15/2021 [facility] Dr Philip 10/09/2021 , next in [address] Philip 04/04/2022 , next in [address] Philip 10/24/2022 [facility] Dr Philip 04/15/2024 , was referred to Dr Lee, then seen in the ER on 04/21/2024 S/p ER Smock ER: for SOB, treated with augmentinS /p ER Dennys 04/21/2024 for LE swelling and treated with lasix, see case on 04/28/2024 Does need to see Dr Bauman [facility] Hyperlipidemia 33056339 E78.5 Not on rosuvastat in 5mg daily Dr Philip Does not want and labs are WNL 06/24/2024 Get labs Peripheral vascular disease 509630864 I73.9 See [facility] Dr Bauman [facility] Osteoarthritis 179145767 M19.90 Dr Noyola 11/01/2020 , f/u as needed Dr Noyola 03/21/2021 , trochantri c bursitis or R hip s/p injection Dr Noyola/Josette Thorne PA 08/09/2021 Dr Noyola 09/24/2021 , s/p injection, L hip, L SI joint Dr Noyola 12/10/2021 Dr Noyola 05/29/2022 MRI L Spine 06/03/2022 : Dr Noyola, is now referred to a neurologis t chadd Noyola as per her history Collin Thorne 01/08/2023 [...] OK to renew as needed 06/28/2023 Eruption 312682478 R21 She states that the hydroxyzin e has not helpedShe does have a long standing history of itching and denies any new detergents or use of soaps or foodsAlso has a small raised slightly tender papule on the L dorsum of hand Refer to dermatolog y Osteoporosis 93846903 M8 1.0 On prolia last 01/08/2023 DeclinesNe eds to do ca and vit d Multiple n odules of lung 098416029 R91.8 S/p CT chest 11/20/2020 Jona Morales [employer] 02/12/2021 , next apt 08/20/2021 , she has now been referred to Dr Barry for ? latent TB Jona Morales [employer] f/u 04/17/2023 Macrocytosis 038144141 D 75.89 MCV WNL 12/30/2023 Get B12 and folate levels Restless l egs syndrome 62434944 G25.81 On ropinirole 1mg dailyAlso on gabapentin All side effects explained to her Right inguinal pain [address] Light 09/12/2021 , post op 11/05/2021 Cardiomyopathy 08596206 I42.9 [facility] ER: 11/15/2021 : CTA angio, for SOBAirlift [...] 05/29/2023 : Dr Philip, EF 55% Hyperglycemia 95901933 R 73.9 Get labsDeclin es meds, more diet and exercise is needed Allergic rhinitis 650781 04 J30.9 On claritin, montelukas tNot on flonase Trigeminal neuralgia 316 63592 G50.0 On carbamazep ine 100mg tid, but should be on bid as per neurology Dr Lucero 01/29/2023 , f/u in one year Has seen Dr Garcia and the pain is betterMRI brain 11/14/2020 : Neg Dr Lucero 03/10/2024 , f/u PRN OV 06/28/2024 :Does well, not taking the carbazepin e Hypoproteinemia 2142466 E88.09 More protein in diet Goiter 4418668 E04.9 US head and neck 07/18/2022 Low back pain 256981766 M54.50 MRI L Spine 06/03/2022 : Dr Gustafson es well now 10/01/2023 , no N/T or weakness in the LE Chronic ki dney disease 990177215 N18.9 See nephrology Anemia 728641518 D64.9 Can do more iron in diet or OTC iron Hypomagnesemia 833629905 E83.42 Get mag level Leukopenia 78857526 D72. 819 Repeat may need to see hematology if low WBC Hyponatremia 97159318 E8 7.[address] Peter garrido the CMP Open wound of left lower leg 5909384241 4049952 S81.802A Dr Lee 02/23/2024 , next apt 06/02/2024 , change to Dr Treva PARIS 06/28/2024 : No more apts healed Xerostomia 41954936 R68. 2 States that none of the OTC mouth washes/rin ses have worked, she has used Biotene/AC T etcOn Cevimeline , all side effects explained to her, notify if any side effects occur, she verbalized her understand ing of the above Screening for osteoporosis 287256192 Z13.820 Liver enzy mes level above reference range 254406900 R74.01 Get labs and US liver [id number] Vernon tamayo MD [facility] Internal Med [facility] [address] [facility], [address] [place] [address] 08/23/2024 14:17:34 08/23/2024 15:01:25 Headache 40757554 R51.9 [facility] ER: 02/18/2024 [facility] ER: 02/18/2024 Addendum: 03/03/2024 :CT Head: 03/03/2024 : Neg, patient notified OV 06/28/2024 : Resolved, notify if any symptoms occur Pain in left foot 061281 1225 41045 M79.672 [facility] ER: 02/18/2024 [facility] ER: 02/18/2024 Trauma, dropped box of candy, [...] : Does well now Screening - NAD 21368438 3 Z13.9 C-scope: Cologuard 03/30/19: Neg, ordered 04/22/2022 Cologuard 05/08/2022 : +veC-scope : 06/27/2022 : Dr Truong Mammogram: 05/07/18, neg, get this [id number] /20/19: Neg01// 021: Neg 022: Neg 023: Neg 024: NegNo more mammogram 06/28/2024 PAP: Did see Marium Becker [employer] DEXA: 09/12/2020 : OPDEXA: 07/14/2022 : OP, [...] the above Chronic ob structive pulmonary disease 24069087 J44.9 CT Chest 11/20/2020 CT chest 07/30/2023 : Mucus impaction? She does see Jona Bartholomew [employer], did not want to keep her apts [...] and started on stioltoNow sees Jona Morales [employer] in 09/2024, is s/p EGD on 06/17/2024 , Dr Laguna Atrophic vaginitis 80793 000 N95.2 On clobetazol does well On hydroxyzin e for itching Insomnia 613742653 G47.0 0 On trazodone 50mg daily, does well Gastroesop hageal reflux disease without esophagitis 763088871 K21.9 On omeprazole Takes as neededDoes well on thisS/p EGD Dr Laguna on 06/17/2024 Glaucoma 28118605 H40.9 L eye blindness is present On brimonidin [place] dorzolamid [place] latanopros tOn neomycin eye drop Sees Dr Mayer Mass of thyroid gland [address] scan neck 10/23/18, mass noted ENT Dr Cee 07/28/2019 US thyroid 07/23/2020 : ENT Ti Rads 4, f/u in 1-2 yearsUS thyroid 07/20/2023 : Now should see ENT again TSH WNL 01/29/[address] Cee 07/11/2021 US thyroid 07/18/2021 US thyroid 07/14/2022 , next in one year ENT Dr Cee 11/04/2023 , US thyroid in one yearUS thyroid 06/28/2024 ordered Coronary arteriosclerosis 87082335 I25.10 01/17/2022 : ECHO: [facility] [...] 04/28/2024 Does need to see Dr Bauman [facility] Dr Bauman 06/13/2024 , told to stop metoprolol , and start on lovastatin 20mg daily Hyperlipidemia 96480580 E78.5 Not on rosuvastat in 5mg daily Dr Greco not want and labs are WNL 06/24/2024 Get labs Peripheral vascular disease 722932482 I73.9 See [facility] Dr Bauman [facility] Osteoarthritis 698234658 M19.90 Dr Noyola 11/01/2020 , f/u as needed Dr Noyola 03/21/2021 , trochantri c bursitis or R hip s/p injection Dr Noyola/Josette Thorne PA 08/09/2021 Dr Noyola 09/24/2021 , s/p injection, L hip, L SI joint Dr Noyola 12/10/2021 Dr Noyola 05/29/2022 MRI L Spine 06/03/2022 : Dr Noyola, is now referred to a neurologis t chadd Noyola as per her history Collin Thorne 01/08/2023 [...] , ropinorole , start on lyrica Eruption 135817676 R21 She states that the hydroxyzin e has not helpedShe does have a long standing history of itching and denies any new detergents or use of soaps or foodsAlso has a small raised slightly tender papule on the L dorsum of hand Refer to dermatolog y Osteoporosis 78413486 M8 1.0 On prolia last 01/08/2023 DeclinesCa n do fosamax, all side effects explained, and the way to take it 08/23/2024 Needs to do ca and vit d Multiple n odules of lung 939674895 R91.8 S/p CT chest 11/20/2020 Jona Morales [employer] 02/12/2021 , next apt 08/20/2021 , she has now been referred to Dr Barry for ? latent TB Jona Morales [employer] f/u 04/17/2023 Macrocytosis 525990445 D 75.89 MCV WNL 12/30/2023 Get B12 and folate levels Restless l egs syndrome 09316646 G25.81 Stop ropinirole 1mg dailyStop the gabapentin Get on Lyrica 25mg daily, all side effects explainedA ll side effects explained to her Addendum: 09/06/2024 : Sees cases the Lyrica not helpedWant s tramadol Right inguinal pain [address] Light 09/12/2021 , post op 11/05/2021 Cardiomyopathy 44015150 I42.9 [facility] ER: 11/15/2021 : CTA angio, for SOBAirlift [...] 05/29/2023 : Dr Philip, EF 55% Hyperglycemia 16445025 R 73.9 Get labsDeclin es meds, more diet and exercise is needed Allergic rhinitis 729024 04 J30.9 On claritin, montelukas tNot on flonase Trigeminal neuralgia 316 60244 G50.0 On carbamazep ine 100mg tid, but should be on bid as per neurology Dr Lucero 01/29/2023 , f/u in one year Has seen Dr Garcia and the pain is betterMRI brain 11/14/2020 : Neg Dr Lucero 03/10/2024 , f/u PRN Does well, not taking the carbazepin e Hypoproteinemia 7815059 E88.09 More protein in diet Goiter 4448760 E04.9 US head and neck 07/18/2022 Low back pain 281138412 M54.50 MRI L Spine 06/03/2022 : Dr Gustafson es well now 10/01/2023 , no N/T or weakness in the LE Chronic ki dney disease 032246476 N18.9 See nephrology Anemia 234185961 D64.9 Can do more iron in diet or OTC iron Hypomagnesemia 903704386 E83.42 Get mag level Leukopenia 07624806 D72. 819 Repeat may need to see hematology if low WBC Hyponatremia 21212053 E8 7.[address] Peter garrido the CMP Open wound of left lower leg 5179472055 7825648 S81.802A Dr Lee 02/23/2024 , next apt 06/02/2024 , change to Dr Treva PARIS 06/28/2024 : No more apts healed Xerostomia 07813420 R68. 2 States that none of the OTC mouth washes/rin ses have worked, she has used Biotene/AC T etcOn Cevimeline , all side effects explained to her, notify if any side effects occur, she verbalized her understand ing of the above [id number] Vernon tamayo MD [facility] Internal Med [facility] [address] [facility] [address] [place] [address] 09/27/2024 14:22:54 09/27/2024 14:49:28 Pain of left hand 1710698001 76536 M79.642 Get on meloxicam 7.5mg po bid as needed PRNAlso get a referral to hand surgery [id number] Radha Cee MD [facility] [place] [address] [place] [address] 11/01/2024 11:47:08 11/01/2024 12:48:39 Sensorineural hearing loss of bilateral ears 041979478 H90.3 70041870 Pain of ear 373812456 H9 2.03 13717217 Impacted c erumen in left ear [id number] 284004 H61.22 7420259 Scant cerumen removed with alligator forceps [id number] Radha Cee MD [facility] [place] [address] [place] [address] 11/10/2024 15:31:57 11/11/2024 09:05:55 Hemorrhagic otitis externa 30127058 H60.322 [id number] Vernon tamayo MD [facility] [address], [address] [address] 11/22/2024 13:59:32 11/22/2024 14:44:44 Headache 29383815 R51.9 [facility] ER: 02/18/2024 [facility] ER: 02/18/2024 Addendum: 03/03/2024 :CT Head: 03/03/2024 : Neg, patient notified OV 06/28/2024 : Resolved, notify if any symptoms occur Pain in left foot 823441 4139 59464 M79.672 [facility] ER: 02/18/2024 [facility] ER: 02/18/2024 Trauma, dropped box of candy, [...] : Does well now Screening - NAD 50759458 3 Z13.9 C-scope: Cologuard 03/30/19: Neg, ordered 04/22/2022 Cologuard 05/08/2022 : +veC-scope : 06/27/2022 : Dr Truong Mammogram: 05/07/18, neg, get this /20/19: Neg01// 021: Neg 022: Neg 023: Neg 024: NegNo more mammogram 06/28/2024 PAP: Did see Marium Becker NP DEXA: 09/12/2020 : OPDEXA: 07/14/2022 : OP, [...] the above Chronic ob structive pulmonary disease 47756623 J44.9 CT Chest 11/20/2020 CT chest 07/30/2023 : Mucus impaction? She does see Jona Bartholomew [employer], did not want to keep her apts [...] and started on stioltoNow sees Jona Morales [employer] in 09/2024, is s/p EGD on 06/17/2024 , Dr Jase Morales [employer] 09/29/2024 Atrophic vaginitis 11194 000 N95.2 On clobetazol does well On hydroxyzin e for itching Insomnia 914575996 G47.0 0 31712779 On trazodone 50mg daily, does well Gastroesop hageal reflux disease without esophagitis 298405065 K21.9 On omeprazole Takes as neededDoes well on thisS/p EGD Dr Laguna on 06/17/2024 Glaucoma 28534009 H40.9 L eye blindness is present On brimonidin [place] dorzolamid [place] latanopros tOn neomycin eye drop Sees Dr Mayer Mass of thyroid gland [address] scan neck 04/13/18, mass noted [...] , next in 2 years Coronary arteriosclerosis 27309321 I25.10 01/17/2022 : ECHO: [facility] [...] 04/28/2024 Does need to see Dr Bauman [facility] Dr Bauman 06/13/2024 , told to stop metoprolol , and start on lovastatin 20mg daily Hyperlipidemia 76979766 E78.5 Not on rosuvastat in 5mg daily Dr Greco not want and labs are WNL 06/24/2024 Get labs Peripheral vascular disease 920441208 I73.9 See [facility] Dr Bauman [facility] Osteoarthritis 438287532 M19.90 Dr Noyola 11/01/2020 , f/u as needed Dr Noyola 03/21/2021 , trochantri c bursitis or R hip s/p injection Dr Noyola/Josette EDDY 08/09/2021 Dr Noyola 09/24/2021 , s/p injection, L hip, L SI joint Dr Noyola 12/10/2021 Dr Noyola 05/29/2022 MRI L Spine 06/03/2022 : Dr Noyola, is now referred to a neurologis t chadd Noyola as per her history Collin Thorne 01/08/2023 [...] on tramadolNo t to take Lyrica Eruption 441402641 R21 She states that the hydroxyzin e has not helpedShe does have a long standing history of itching and denies any new detergents or use of soaps or foodsAlso has a small raised slightly tender papule on the L dorsum of hand Refer to dermatolog y Osteoporosis 21770792 M8 1.0 On prolia last 01/08/2023 DeclinesCa n do fosamax, all side effects explained, and the way to take it 08/23/2024 Needs to do ca and vit d Multiple n odules of lung 064909067 R91.8 S/p CT chest 11/20/2020 Jona Morales [employer] [employer] 02/12/2021 , next apt 08/20/2021 , she has now been referred to Dr Barry for ? latent TB Jona Morales [employer] f/u 04/17/2023 Jona Morales [employer] 09/29/2024 Macrocytosis 519777213 D 75.89 MCV WNL 12/30/2023 Get B12 and folate levels Restless l egs syndrome 54161662 G25.81 Stop ropinirole 1mg dailyStop the gabapentin Get on Lyrica 25mg daily, all side effects explainedA ll side effects explained to her Addendum: 09/06/2024 : Sees cases the Lyrica not helpedWant s tramadol OV 11/22/2024 :On tramadolIs on ropinirole Is to see Dr Martinez 12/13/2024 , is to get MRI Right inguinal pain [address] Light 09/12/2021 , post op 11/05/2021 Cardiomyopathy 10310923 I42.9 [facility] ER: 11/15/2021 : CTA angio, for SOBAirlift [...] Philip, but now referred to Dr Mitul ROMREO as per her request 05/03/2024 TTE ECHO: 05/29/2023 : Dr Philip, EF 55% Hyperglycemia 92974284 R 73.9 Get labsDeclin es meds, more diet and exercise is needed Allergic rhinitis 373150 04 J30.9 On claritin, montelukas tNot on flonase Trigeminal neuralgia 316 63835 G50.0 On carbamazep ine 100mg tid, but should be on bid as per neurology Dr Lucero 01/29/2023 , f/u in one year Has seen Dr Garcia and the pain is betterMRI brain 11/14/2020 : Neg Dr Lucero 03/10/2024 , f/u PRN Does well, not taking the carbazepin e Hypoproteinemia 1054047 E88.09 More protein in diet Goiter 9344569 E04.9 US head and neck 07/18/2022 Low back pain 508280020 M54.50 MRI L Spine 06/03/2022 : Dr Gustafson es well now 10/01/2023 , no N/T or weakness in the LE Chronic ki dney disease 997626229 N18.9 See nephrology Anemia 683904129 D64.9 Can do more iron in diet or OTC ironH/H is stable 11/18/2024 Hypomagnesemia 892523160 E83.42 Mag 11/18/2024 : 2.0 WNL Leukopenia 92812325 D72. 819 Low WBC and mildly low PLTNeeds to see Dr Shay declines any referrals at this timeGet labs Hyponatremia 51253801 E8 7.[address] Green t the CMP Open wound of left lower leg 6499313998 9560315 S81.802A Dr Lee 02/23/2024 , next apt 06/02/2024 , change to Dr Treva PARIS 06/28/2024 : No more apts healed Xerostomia 84999783 R68. 2 States that none of the OTC mouth washes/rin ses have worked, she has used Biotene/AC T etcOn Cevimeline , all side effects explained to her, notify if any side effects occur, she verbalized her understand ing of the above Pain of left hand 917643 0207 45106 M79.642 Get on meloxicam 7.5mg po bid as needed PRNAlso get a referral to hand surgery S/p Xray 10/18/2024 : Dr Robertson : OAIs on OT Hemorrhagi c otitis externa 96762762 H60.322 13156819 On mometasone cream L ear ache with visible bleed on the EACNeeds a refill on the cipro dex as the medication did not stay in, will refill and use a cotton ball to plug the EACIf not better, notify and then refer to ENT as she states that Dr Cee 'blew her off' [id number] Radha Cee MD [facility] [place] [address] [place] [address] 12/08/2024 13:44:01 12/09/2024 07:59:00 Otitis externa 2050005 H60.8X2 3338921 [id number] Christelle Lee DPM [facility] [address] [place] [address] 02/01/2025 10:06:44 02/01/2025 13:44:02 Open wound of left foot 8195116990 8639816 S91.302A 0698736 offloading at all timeskeep area clean and dry dailyDress ings dailyMonit or for signs of infection for worsened seek medical attention immediatel yfollow-up 2 weeks [id number] Christelle Lee DPM [facility] [address] [place] [address] 02/15/2025 15:52:38 02/16/2025 10:26:58 Peroneal tendinitis of right lower limb 1480166780 56326 M76.71 1823588 tendon pain lateral anklerice therapyace wrap applied to the ankleno strenuous activities Wound pain 399405448 T14 .8XXA 50102345 left foot dorsallyap ply with dressings Open wound of left foot 7864773681 0438470 S91.302D 7827951 offloading at all timeskeep area clean and dry dailyDress ings dailyMonit or for signs of infection for worsened seek medical attention immediatel yfollow-up 2 weeks [id number] Christelle Lee DPM [facility] [address] [place] [address] 02/22/2025 10:14:01 02/22/2025 16:33:44 Wound pain 643633766 T14.8XXA 92762739 left foot dorsallyco ntinue current therapy Open wound of left foot 4928472379 8535318 S91.302D 3474655 offloading at all timeskeep area clean and dry dailyDress ings dailyMonit or for signs of infection for worsened seek medical attention immediatel yfollow-up 2 weeks Injury of right leg 1186 237903 1596421 S81.801A 03023687 secondary to biopsyoffl oadingWoun d care dailyApply gentamicin [id number] Vernon tamayo MD [facility] [place] [address] [facility], [address] [place] [address] 02/28/2025 14:22:55 02/28/2025 15:35:13 Headache 37393922 R51.9 [facility] ER: 02/18/2024 [facility] ER: 02/18/2024 Addendum: 03/03/2024 :CT Head: 03/03/2024 : Neg, patient notified OV 06/28/2024 : Resolved, notify if any symptoms occur Pain in left foot 151674 3518 22263 M79.672 [facility] ER: 02/18/2024 [facility] ER: 02/18/2024 Trauma, dropped box of candy, [...] : Does well now Screening - NAD 29897569 3 Z13.9 C-scope: Cologuard 03/30/19: Neg, ordered 04/22/2022 Cologuard 05/08/2022 : +veC-scope : 06/27/2022 : Dr Truong Mammogram: 05/07/18, neg, get this [id number] /20/19: Neg01// 021: Neg 022: Neg 023: Neg 024: NegNo more mammogram 06/28/2024 PAP: Did see Marium Bekcer [employer] [employer] DEXA: 09/12/2020 : OPDEXA: 07/14/2022 : OP, [...] the above Chronic ob structive pulmonary disease 98017711 J44.9 CT Chest 11/20/2020 CT chest 07/30/2023 : Mucus impaction? She does see Jona Bartohlomew [employer] [employer], did not want to keep her apts [...] and started on stioltoNow sees Jona Morales [employer] in 09/2024, is s/p EGD on 06/17/2024 , Dr Jase Morales [employer] 09/29/2024 Atrophic vaginitis 14950 000 N95.2 On clobetazol does well On hydroxyzin e for itching Insomnia 776632484 G47.0 0 93275565 On trazodone 50mg daily, does well Gastroesop hageal reflux disease without esophagitis 405827794 K21.9 On omeprazole Takes as neededDoes well on thisS/p EGD Dr Laguna on 06/17/2024 Glaucoma 49951829 H40.9 L eye blindness is present On brimonidin [place] dorzolamid [place] latanopros tOn neomycin eye drop Sees Dr Mayer Mass of thyroid gland [address] scan neck 04/13/18, mass noted [...] , next in 2 years Coronary arteriosclerosis 51352740 I25.10 01/17/2022 : ECHO: [facility] [...] 04/28/2024 Does need to see Dr Bauman [facility] Dr Bauman 06/13/2024 , told to stop metoprolol , and start on lovastatin 20mg daily Get a referral to Dr Mitul ROMERO 02/28/2025 Hyperlipidemia 24502970 E78.5 Not on rosuvastat in 5mg daily Dr SahetaDoes not want and labs are WNL 06/24/2024 Get labs Peripheral vascular disease 564675053 I73.9 See [facility] Dr Bauman [facility] Osteoarthritis 001945916 M19.90 Dr Noyola 11/01/2020 , f/u as needed Dr Noyola 03/21/2021 , trochantri c bursitis or R hip s/p injection Dr Noyola/Josette EDDY 08/09/2021 Dr Noyola 09/24/2021 , s/p injection, L hip, L SI joint Dr Noyola 12/10/2021 Dr Noyola 05/29/2022 MRI L Spine 06/03/2022 : Dr Noyola, is now referred to a neurologis t in [place] as per her history Collin Thorne 01/08/2023 [...] on tramadolNo t to take Lyrica Eruption 047471924 R21 She states that the hydroxyzin e has not helpedShe does have a long standing history of itching and denies any new detergents or use of soaps or foodsAlso has a small raised slightly tender papule on the L dorsum of hand Refer to dermatolog y Osteoporosis 98805152 M8 1.0 On prolia last 01/08/2023 DeclinesCa n do fosamax, all side effects explained, and the way to take it 08/23/2024 Needs to do ca and vit d Multiple n odules of lung 741325003 R91.8 S/p CT chest 11/20/2020 Jona Morales [employer] 02/12/2021 , next apt 08/20/2021 , she has now been referred to Dr Barry for ? latent TB Jona Dai [employer] f/u 04/17/2023 Jona Dai [employer] 09/29/2024 Macrocytosis 575056815 D 75.89 MCV WNL 12/30/2023 Get B12 and folate levels Restless l egs syndrome 64523214 G25.81 Stop ropinirole 1mg dailyStop the gabapentin [...] MRI LS spine Right inguinal pain [address] Light 09/12/2021 , post op 11/05/2021 Cardiomyopathy 90063177 I42.9 [facility] ER: 11/15/2021 : CTA angio, for [facility] ed to CNE, s/p coronary angio, diagnosed [...] request 05/03/2024 TTE ECHO: 05/29/2023 : Dr Pihlip, EF 55% Hyperglycemia 17044375 R 73.9 Get labsDeclin es meds, more diet and exercise is needed Allergic rhinitis 440348 04 J30.9 On claritin, montelukas tNot on flonase Trigeminal neuralgia 316 96057 G50.0 On carbamazep ine 100mg tid, but should be on bid as per neurology Dr Lucero 01/29/2023 , f/u in one year Has seen Dr Garcia and the pain is betterMRI brain 11/14/2020 : Neg Dr Lucero 03/10/2024 , f/u PRN Does well, not taking the carbazepin e Hypoproteinemia 4523863 E88.09 More protein in diet Goiter 8890779 E04.9 US head and neck 07/18/2022 Low back pain 565628994 M54.50 MRI L Spine 06/03/2022 : Dr Gustafson es well now 10/01/2023 , no N/T or weakness in the LE Dr Birch and now is to get a MRI LS Spine 03/02/2025 Chronic ki dney disease 935104552 N18.9 See nephrology Anemia 914161911 D64.9 Can do more iron in diet or OTC ironH/H is stable 11/18/2024 Hypomagnesemia 504270508 E83.42 Mag 11/18/2024 : 2.0 WNL Leukopenia 71174377 D72. 819 Low WBC and mildly low PLTNeeds to see Dr Shay declines any referrals at this timeGet labs Hyponatremia 94695427 E8 7.[address] Green t the CMP Open wound of left lower leg 2259499004 2860190 S81.802A Dr Lee 02/23/2024 , next apt 06/02/2024 , change to Dr Treva PARIS 06/28/2024 : No more apts healed Xerostomia 05724635 R68. 2 States that none of the OTC mouth washes/rin ses have worked, she has used Biotene/AC T etcOn Cevimeline , all side effects explained to her, notify if any side effects occur, she verbalized her understand ing of the above Pain of left hand 134561 2067 19155 M79.642 Get on meloxicam 7.5mg po bid as needed PRNAlso get a referral to hand surgery S/p Xray 10/18/2024 : Dr Robertson : OAIs on OT Hemorrhagi c otitis externa 96180897 H60.322 37587003 On mometasone cream L ear ache with visible bleed on the EACNeeds a refill on the cipro dex as the medication did not stay in, will refill and use a cotton ball to plug the EACIf not better, notify and then refer to ENT as she states that Dr Cee 'blew her off' Open wound 479095400 T14 .8XXA [address] Lee 03/01/2025 This is for silvia LE wounds [id number] Christelle [facility]PM [facility] [address] [place] [address] 03/01/2025 15:42:38 03/06/2025 09:37:52 Open wound of left foot 1581881964 5554623 S91.302D 2199571 Healed with mild maceration Injury of right leg 1186 389836 2873173 S81.801A 27438806 secondary to biopsycont inue daily wound caremonito r for signs of infection at present seek medical attention immediatel yrecommend mild compressio n to the wound areafollow -up 2 weeks Wound pain 700509767 T14 .8XXA 94305680 left foot dorsallyco ntinue current therapy [id number] Christelle Lee DPM [facility] [address] [place] [address] 03/15/2025 10:54:04 03/15/2025 16:38:47 Open wound of left foot 1777135484 9784707 S91.302D 4230396 Healed with mild maceration Injury of right leg 1186 963793 1274461 S81.801D 36465543 secondary to biopsystab le with escharcont inue daily wound caremonito r for signs of infection at present seek medical attention immediatel yrecommend mild compressio n to the wound areafollow -up 2 weeks if not healed [id number] Christelle Lee DPM [facility] [address] [place] [address] 03/29/2025 16:17:22 03/29/2025 17:44:40 Open wound of left foot 6731108395 5748650 S91.302A 7613121 Secondary to injurycont inue gentian braxton and dry dressingke ep clean and covered at all timesfollo w-up in 2 weeks Wound pain 292748998 T14 .8XXA 48752883 left foot dorsallyco ntinue current therapy [id number] Vernon tamayo MD [facility] [address] [place] [address] 05/04/2025 09:47:32 05/04/2025 10:35:22 Headache 30854235 R51.9 [facility] ER: 02/18/2024 [facility] ER: 02/18/2024 Addendum: 03/03/2024 :CT Head: 03/03/2024 : Neg, patient notified OV 06/28/2024 : Resolved, notify if any symptoms occur Pain in left foot 537555 4015 15070 M79.672 [facility] ER: 02/18/2024 [facility] ER: 02/18/2024 Trauma, dropped box of candy, [...] : Does well now Screening - NAD 41870059 3 Z13.9 C-scope: Cologuard 03/30/19: Neg, ordered 04/22/2022 Cologuard 05/08/2022 : +veC-scope : 06/27/2022 : Dr Truong Mammogram: 05/07/18, neg, get this [id number] /20/19: Neg 021: Neg 022: Neg 023: Neg 024: NegNo more mammogram 06/28/2024 PAP: Did see Marium Becker [employer] DEXA: 09/12/2020 : OPDEXA: 07/14/2022 : OP, [...] the above Chronic ob structive pulmonary disease 32690700 J44.9 CT Chest 11/20/2020 CT chest 07/30/2023 : Mucus impaction? She does see Jona Bartholomew [employer], did not want to keep her apts with Dr Bonds as he refused to give her HHNs On albuterol HHNOn albuterolO n ipratropiu mOn montelukas tOn Yuperli On proair renewed as per her request 11/22/2024 [...] and started on stioltoNow sees Jona Morales [employer] in 09/2024, is s/p EGD on 06/17/2024 , Dr Jase Morales [employer] 09/29/2024 Jona Morales [employer] 04/13/2025 Atrophic vaginitis 51331 000 N95.2 On clobetazol does well On hydroxyzin e for itching Insomnia 975315996 G47.0 0 57372424 On trazodone 50mg daily, does well Gastroesop hageal reflux disease without esophagitis 740853057 K21.9 On omeprazole Takes as neededDoes well on thisS/p EGD Dr Laguna on 06/17/2024 Glaucoma 74819787 H40.9 L eye blindness is present On brimonidin [place] dorzolamid [place] latanopros tOn neomycin eye drop Sees Dr Mayer Mass of thyroid gland [address] scan neck 04/13/18, mass noted [...] , next in 2 years Coronary arteriosclerosis 26396835 I25.10 01/17/2022 : ECHO: [facility] CT chest 11/15/2021 [facility] Dr Philip 10/09/2021 , next in [address] Philip 04/04/2022 , next [place] [address] Philip 10/24/2022 [facility] Dr Philip 04/15/2024 , was referred to Dr Lee, then seen in the ER on 04/21/2024 S/p ER [facility] ER: for SOB, treated with augmentinS /p ER Dennys 04/21/2024 for LE swelling and treated with lasix, see case on 04/28/2024 Does need to see Dr Bauman [facility] Dr Bauman 06/13/2024 , told to stop metoprolol , and start on lovastatin 20mg daily Get a referral to Dr Mitul ROMERO 02/28/2025 Hyperlipidemia 59687992 E78.5 Not on rosuvastat in 5mg daily Dr Greco not want and labs are WNL 06/24/2024 Get labs Peripheral vascular disease 002836633 I73.9 See [facility] Dr Bauman [facility] Osteoarthritis 232588474 M19.90 Dr Noyola 11/01/2020 , f/u as needed Dr Noyola 03/21/2021 , trochantri c bursitis or R hip s/p injection Dr Noyola/Josette Thorne PA 08/09/2021 Dr Noyola 09/24/2021 , s/p injection, L hip, L SI joint Dr Noyola 12/10/2021 Dr Noyola 05/29/2022 MRI L Spine 06/03/2022 : Dr Noyola, is now referred to a neurologalthea Noyola as per her history Collin Thorne 01/08/2023 [...] Now on tramadolNo t to take Lyrica OV 05/04/2025 :On tramadol Eruption 804883346 R21 She states that the hydroxyzin e has not helpedShe does have a long standing history of itching and denies any new detergents or use of soaps or foodsAlso has a small raised slightly tender papule on the L dorsum of hand Refer to dermatolog y Osteoporosis 34293613 M8 1.0 On prolia last 01/08/2023 DeclinesCa n do fosamax, all side effects explained, and the way to take it 08/23/2024 Needs to do ca and vit d Multiple n odules of lung 685966184 R91.8 S/p CT chest 11/20/2020 Jona Morales [employer] 02/12/2021 , next apt 08/20/2021 , she has now been referred to Dr Barry for ? latent TB Jona Morales [employer] f/u 04/17/2023 Jona Morales [employer] 09/29/2024 Macrocytosis 119607952 D 75.89 MCV WNL 12/30/2023 Get B12 and folate levels Restless l egs syndrome 70170433 G25.81 Stop ropinirole 1mg dailyStop the gabapentin [...] MRI LS spine Right inguinal pain [address] Light 09/12/2021 , post op 11/05/2021 Cardiomyopathy 69747587 I42.9 [facility] ER: 11/15/2021 : CTA angio, for SOBAirlift [...] 05/29/2023 : Dr Philip, EF 55% Hyperglycemia 47447026 R 73.9 Get labsDeclin es meds, more diet and exercise is needed Allergic rhinitis 635303 04 J30.9 On claritin, montelukas tNot on flonase Trigeminal neuralgia 316 99431 G50.0 On carbamazep ine 100mg tid, but should be on bid as per neurology Dr Lucero 01/29/2023 , f/u in one year Has seen Dr Garcia and the pain is betterMRI brain 11/14/2020 : Neg Dr Lucero 03/10/2024 , f/u PRN Does well, not taking the carbazepin e Hypoproteinemia 9328082 E88.09 More protein in diet Goiter 4543844 E04.9 US head and neck 07/18/2022 Low back pain 878033680 M54.50 MRI L Spine 06/03/2022 : Dr Gustafson es well now 10/01/2023 , no N/T or weakness in the LE Dr Birch and now is to get a MRI LS Spine 03/02/2025 Chronic ki dney disease 590190871 N18.9 See nephrology Anemia 643683626 D64.9 Can do more iron in diet or OTC ironH/H is stable 11/18/2024 Hypomagnesemia 723773940 E83.42 Mag 11/18/2024 : 2.0 WNL Leukopenia 12325751 D72. 819 Low WBC and mildly low PLTNeeds to see Dr Shay declines any referrals at this timeGet labs Hyponatremia 03485606 E8 7.[address] Peter garrido the CMP Open wound of left lower leg 6406405150 7334538 S81.802A Dr Lee 02/23/2024 , next apt 06/02/2024 , change to Dr Treva PARIS 06/28/2024 : No more apts healed Xerostomia 39048541 R68. 2 States that none of the OTC mouth washes/rin ses have worked, she has used Biotene/AC T etcOn Cevimeline , all side effects explained to her, notify if any side effects occur, she verbalized her understand ing of the above Pain of left hand 016164 2100 87609 M79.642 Get on meloxicam 7.5mg po bid as needed PRNAlso get a referral to hand surgery S/p Xray 10/18/2024 : Dr Robertson : OAIs on OT Hemorrhagi c otitis externa 19609402 H60.322 77694195 On mometasone cream L ear ache with visible bleed on the EACNeeds a refill on the cipro dex as the medication did not stay in, will refill and use a cotton ball to plug the EACIf not better, notify and then refer to ENT as she states that Dr Cee 'blew her off' Open wound 880003012 T14 .8XXA [address] Lee 03/01/2025 This is for silvia LE wounds Pain in right foot 31986 80405 67609 M79.671 294299 Cellulitis with redness and tenderness Get on cephalexin DO NOT take the baclofenDo es NOT want to go to the ER, wants to get PO antibiotic sExplained that she MUST proceed to the ER if her symptoms do not get better or worsen and she is very appreciati ve to this plan of care Health Concerns Section Related Observation LastModified by Organization Payton glaser LastModified Time None Recorded Concern Status LastModified by Organization Details LastModified Time None Recorded Advance Directives Directive Y: Patient to bring copy for chart. Payers Insurance Date Sequence Insurance Name Policy Number Policy Yap Covered Member ID Yap Member ID Guarantor Name 02/01/2025 [facility] Juliette Allison BCBS BCBS Juliette Allison 05/23/2025 1 [place] Juliette Allison [id number] Juliette Allison 02/01/2025 2 [place] [id number] Juliette Santosk [id number] Juliette Allison 05/23/2025 [employer] ASSIGNED (MEDICARE DME REGION B) Juliette Allison [id number] Juliette Allison 02/01/2025 2 [place] [id number] Juliette Santosk [id number] Juliette Santosk 05/03/2025 2 [place] [id number] Juliette Santosk [id number] Juliette Allison Notes Date Note Type Note [...] HHN, she is now going to see oJna Morales OV 12/31/2023: Here for her f/u [...] f/u, was [facility] ER [facility] [place] and then [place] for leg pain and headaches, she still [...] she is here for her MWV also Vernon Felder MD [address], [address], [place], [address], [facility] [employer] [facility] 03/19/2025 15:44:01 03/01/2025 text/html ROS as noted in the HPI Patient is 79-year-old female who returns the office for follow-up on lower foot wound and leg wound. Patient overall is doing well she states her pain level is significantly improved. Patient denies any acute signs of infection she continues wound care. Patient denies any other complaints. Christelle Lee DPM [address], [place], [address], [employer] [facility] [employer] [facility] 03/06/2025 09:29:21 03/15/2025 text/html . Patient is 80-year-old female who returns the office for follow-up on left foot wound which is completely healed she denies any further complaints with the foot. Patient still has some minor eschars which continued to heal well she has no acute signs of infection. Patient denies any other complaints. Christelle Lee DPM [address], [place], [address], [facility] [employer] [facility] [employer] [facility] 03/15/2025 14:15:01 03/29/2025 text/html . Patient is 80-year-old female [...] she denies any fever, chills, nausea vomiting. Christelle Lee DPM [address], [place], [address], [place] [facility] 03/29/2025 17:23:18 05/04/2025 text/html Here to establish carePast Hx:COPDGlaucomaInsomni aChronic [...] routine apt, she was recently admitted to [facility] for chest pain, s/p cath, s/p [...] wants to discuss her apt with Dr Bnods, he has decided not to give her [...] f/u, was seen in the ER at [facility] [place] and then [place] for leg pain and headaches, she still [...] she is here for her MWV also Vernon Felder MD [address] [place] [address], [facility] [address], [place], [address], [place] [facility] [employer] 05/16/2025 18:25:05 OBGyn Episode No OBEpisode recorded.
--- OUTSIDE RECORDS SUMMARY | 2025-05-23 08:01 | XMS_ITS | Clinical Summary ---
Author Organization [facility] Address [address] [place] [address] Care Team Providers Care Chief Technician X Ray Name Role Phone Thaddeus Felder MD Primary Care Provide r Eleonora Sparks MD Unavailable [phone] Aren Hayes MD Unavailable [phone] Allergies Active Allergy Reactions Criticality Noted Date Comments Rosuvastatin Hives Medium 01/04/2020 Medications traZODone (DESYREL) 50 mg tablet TK 1 T PO QHS. NO ALCOHOL OR DRIVING WHILE ON MEDICATION, for sleep 0 9 Active timolol (BETIMOL) 0.5 % ophthalmic solution Administer 1 drop into the right eye efficiency manager before breakfast Active latanoprost (XALATAN) 0.005 % ophthalmic solutionIndicat ions:open angle glaucoma Administer 1 drop into the right eye nightly Active brimonidine (ALPHAGAN) 0.2 % ophthalmic solution brimonidine 0.2 % eye drops INSTILL 1 DROP INTO THE RIGHT EYE BID 0 Active clobetasoL (TEMOVATE) 0.05 % cream Active dorzolamide (TRUSOPT) 2 % ophthalmic solution INSTILL 1 DROP INTO THE RIGHT EYE TWICE DAILY 1 Active omeprazole (PriLOSEC) 20 mg capsule Active metoprolol XL (TOPROL-XL) 25 mg extended release tablet Take 0.5 tablets (12.5 mg total) by mouth daily 15 tablet 2 Active rOPINIRole (REQUIP) 0.5 mg tablet Take 1 tablet (0.5 mg total) by mouth nightly at bedtime 2 Active albuterol HFA (PROVENTIL HFA,VENTOLIN HFA,PROAIR HFA) 90 mcg/actuation inhaler Inhale 2 puffs every 6 (six) hours as needed for wheezing Active neomycin-polymy froylan B-dexAMETHasone (MAXITROL) 3.5 mg/g-10,000 unit/g-0.1 % ointment 4 Active furosemide (LASIX) 20 mg tablet Take 1 tablet (20 mg total) by mouth daily for 3 days 3 tablet 4 Active oxyCODONE (ROXICODONE) 5 mg immediate release tablet TAKE 1 TABLET BY MOUTH EVERY DAY FOR 10 DAYS NEEDED 4 Active fexofenadine (GONZALEZ) 60 mg tablet Take 1 tablet (60 mg total) by mouth daily Active meloxicam (MOBIC) 7.5 mg tablet Take 1 tablet (7.5 mg total) by mouth daily 5 Active albuterol 2.5 mg /3 mL (0.083 %) nebulizer solutionIndicat ions:Centrilobu lar emphysema Take 3 mL by nebulization every 4 (four) hours as needed for wheezing or shortness of breath 75 mL 11 5 Active arformoteroL (Brovana) 15 mcg/2 mL nebulizer solutionIndicat ions:Centrilobu lar emphysema Take 2 mL (15 mcg total) by nebulization 2 (two) times a day 360 mL 3 5 10/18/19 26 Active Yupelri 175 mcg/3 mL solution for nebulizationInd ications:Centri lobular emphysema USE 3 ML VIA NEBULIZER DAILY 90 mL 3 5 Active montelukast (SINGULAIR) 10 mg tabletIndicatio ns:Allergic rhinitis, unspecified seasonality, unspecified trigger TAKE 1 TABLET(10 MG) BY MOUTH EVERY NIGHT 30 tablet 11 5 Active alendronate (FOSAMAX) 70 mg tablet Take 1 tablet (70 mg total) by mouth once a week 5 Active baclofen (LIORESAL) 10 mg tablet Take 1 tablet (10 mg total) by mouth 3 (three) times a day 30 tablet 5 Active diazePAM (VALIUM) 5 mg tablet Take 1 tablet (5 mg total) by mouth every 8 (eight) hours as needed for muscle spasms 20 tablet 5 Active Active Problems Problem Noted Date Diagnosed Date Sensorineural hearing loss (SNHL) of both ears 1 07/30/2023 Assessment & Plan (05/29/2024 12:28 PM SLATE ROOFER HELPER): Severe Hearing loss, hearing aids recommended Pneumonia of both lower lobes due to infectious organism 03/22/2024 Assessment & Plan (03/22/2024 3:29 PM CDT): There are concerns for aspiration pneumonia, clinically she has improved. I will follow her CT chest to resolution, ordered today Dysphagia 03/22/2024 Assessment & Plan (05/29/2024 12:28 PM SLATE ROOFER HELPER): EGD referral placed Assessment & Plan (05/27/2024 1:40 PM SLATE ROOFER HELPER): Recent chest imaging reveals concerns for aspiration. In addition she reports difficulty swallowing over the last several months MBS with no evidence of aspiration Unfortunately she did have some esophageal dysmotility as reported by IMMIGRATION CASE MANAGER. This could be a result of esophageal [...] dependence, cigarettes, uncomplicated 1 Assessment & Plan (04/13/2025 2:40 PM CDT): - Smoking cessation counseling and techniques reviewed at length - Avoid triggers and use distraction techniques - Participate in support groups - Information given regarding [place] Tobacco Quit line: [phone]-VRLH-YES for free services - 5 minutes spent discussing cessation I have given her the card to call for free nicotine patches from the [facility] She is not a candidate for LDCT screening Assessment & Plan (09/29/2024 3:44 PM CDT): - Smoking cessation counseling and techniques reviewed at length - Avoid triggers and use distraction techniques - Participate in support groups - Information given regarding [place] Tobacco Quit line: 8-104-KCCE-YES for free services - 5 minutes spent discussing cessation She declines NRT today She is not a candidate for LDCT screening Assessment & Plan (05/27/2024 1:39 PM SLATE ROOFER HELPER): - Smoking cessation counseling and techniques reviewed at length - Avoid triggers and use distraction techniques - Participate in support groups - Information given regarding [place] Tobacco Quit line: 7-702-NJUE-YES for free services - 4 minutes spent discussing cessation She remains pre-contemplative at present. I have encouraged her to cut down Assessment & Plan (03/22/2024 3:32 PM CDT): - Smoking cessation counseling and techniques reviewed at length - Avoid triggers and use distraction techniques - Participate in support groups - Information given regarding [place] Tobacco Quit line: 1-420-KXQI-YES for free services - 5 minutes spent [...] 11/22/2020 Assessment & Plan (05/21/2021 11:31 AM SLATE ROOFER HELPER): Patient has had recent exacerbation and trigeminal [...] MRI of the brain performed through [facility] which she was told both were [...] obstructive pulmonary disease 10/29/2018 Assessment & Plan (04/13/2025 2:39 PM CDT): Maintenance inhaled dual bronchodilator therapy has been unaffordable She filled out the paperwork for financial assistance but was denied She has tried and failed Spiriva, Anoro, and Bevespi. She has the best clinical benefit from Stiolto We have discussed nebulized dual bronchodilation and she agrees I have sent for a new nebulize, hers is greater than 5 years old I have also sent for Yupelri to be used once daily via nebulizer and Brovana to be used twice daily via nebulizer to the [employer] again today, as I am being told again that these nebulized medications are not affordable. Albuterol 2 puffs every 4-6-hours as needed only, we have discussed indications for use We have discussed vaccines She does not exacerbate frequently She does not have historic peripheral eosinophilia We have discussed signs and symptoms that would require earlier evaluation or change to her plan of care Assessment & Plan (09/29/2024 3:43 PM CDT): [...] care Assessment & Plan (05/27/2024 1:38 PM SLATE ROOFER HELPER): She will continue Stiolto 2 puffs daily [...] (08/03/2018): Added automatically from request for surgery [id number] Thyroid nodule 03/31/2017 Encounters Date Type Department Care Team Description 05/02/2025 7:45 PM SLATE ROOFER HELPER - 05/02/2025 8:02 PM SLATE ROOFER HELPER Emergency [facility] Emergency Department [address] [place] [address] Leg cramps (Primary Dx) Discharge Disposition: Discharge to home or self care 04/27/2025 Telephone [facility] Pulmonary at [address] [place] [address] Barb Banks LPN 04/13/2025 10:30 AM CDT Office Visit [facility] at [address] [place] [phone] Ann Lala, MANAGER BIOSTATISTICS Centrilobular emphysema (Primary Dx); Ear pain, bilateral; Nicotine dependence, cigarettes, uncomplicated from Last 3 [...] (heart failure with reduced ejection fract ion) CAD (coronary artery disease) Goiter COPD (chronic obstructive pulmonary disease) Family History Medical History Relation Name Comments Heart attack Father Lung cancer Mother Relation Name Status Comments Father Mother Social History Tobacco Use Types Packs/Day Years Used Date Smoking Tobacco: Every Day Cigarettes 0.5 61.9 Started: 1964 Smokeless Tobacco: Never Alcohol Use [...] making you feel afraid or unsafe? Denies 05/02/2025 Comments No Sex and Gender Information Value Date Recorded Sex Assigned at Not on file Legal Sex Female 3:45 AM SLATE ROOFER HELPER Gender Identity Not on file Sexual Orientation Not on file Last Filed Vital Signs Vital Sign Reading Time Taken Comments Blood Pressure 94/75 05/02/2025 6:14 PM SLATE ROOFER HELPER Pulse 94 05/02/2025 6:14 PM SLATE ROOFER HELPER Temperature 36.1 C (97 F) 05/02/2025 6:14 PM SLATE ROOFER HELPER Respiratory Rate 18 05/02/2025 6:14 PM SLATE ROOFER HELPER Oxygen Saturation 98% 05/02/2025 6:14 PM SLATE ROOFER HELPER Inhaled Oxygen Concentration - - Weight 39.5 kg (87 lb) 05/02/2025 6:14 PM SLATE ROOFER HELPER Height 158.8 cm (5' 2.5) 04/13/2025 10:31 AM CD T Body Mass Index 15.66 04/13/2025 10:31 AM CDT Plan of Treatment Health Maintenance Due Date Last Done Comments Depression Screening 1945 Osteoporosis Screening-Bone Density Scan 1945 DTaP/Tdap/Td Vaccine (1 - Tdap) 1955 Hepatitis B Screening 1962 Well Visit 65+ 2009 Fall Risk Assessment 11/18/2022 11/18/2021 Covid-19 Vaccine (3 - 2024-2 6 season) 2025 09/04/2020, 07/26/2020 Influenza Vaccine (#1) 2025 4, 04/04/2021, 03/14/2020, Additional history exists Pneumococcal vaccine 65+ Completed 06/24/2018, 04/22 Zoster Vaccine Completed 06/27/2020, 03/14/2020 Medical Devices Implanted Type Area Bacon De Rinder Device Identifier Shelf Expiration Date Model / Serial / Lot Other - See Comments Other - see comments Left: Eye Description:Left eye prosthe sis [employer] A-5700.16/1 Aptus 2.5mm 16mm Hexadrive 7 Adaptive Wrist Radius Cortical - S0 - [id number] Implanted:Qty: 2 on 08/05/2018 by Peter Shipley MD at [facility] Screw Right: Radius [employer] A-5700.16 /1 / 0 / [employer] A-5400.15 Aptus 2mm 15mm Hand Cortical Screw Bone Titanium Blue - S0 - [id number] Implanted:Qty: 1 on 08/05/2018 by Peter Shipley MD at [facility] Screw Right: Radius [employer] A-5400.15 / 0 / [employer] A-5750.16 2.5mm 16mm Lock Cortical Screw Bone - S0 - [id number] Implanted:Qty: 3 on 08/05/2018 by Peter Shipley MD at [facility] Screw Right: Radius [employer] A-5750.16 / 0 / [employer] A-5750.12/1 Aptus Trilock 2.5mm 12mm Hexadrive 7 Adaptive Wrist Radius - S0 - [id number] Implanted:Qty: 2 on 08/05/2018 by Peter Shipley MD at [facility] Screw Right: Radius [employer] A-5750.12 /1 / 0 / [employer] A-5700.12 Aptus 2.5mm 12mm Cortical Screw Bone - S0 - [id number] Implanted:Qty: 3 on 08/05/2018 by Peter Shipley MD at [facility] Screw Right: Radius [employer] A-5700.12 / 0 / Angio-Seal Vip 6fr Closere Device [id number] - [id number] Implanted:Qty: 1 on 11/16/2021 by Terence Gray MD at [facility] 09/19/2022 [id number] / / [id number] Explanted Type Area Bacon De Rinder Device Identifier Shelf Expiration Date Model / Serial / Lot [employer] A-5040.41/1 Aptus Mandeep 1.6mm 150mm Trocar Wire Fixation Nonsterile - S0 - [id number] Implanted:Qty: 1 Explanted:Qty: 1 on 08/05/2018 by Peter Shipley MD at [facility] Wire Right: Oly [employer] A-5040.41/1 / 0 / Procedures Procedure Name Priority Date/Time Associated Diagnosis Comments EGFR STAT 05/02/2025 6:19 PM SLATE ROOFER HELPER DIFFERENTIAL AUTO STAT 05/02/2025 6:1 9 PM SLATE ROOFER HELPER MAGNESIUM STAT 05/02/2025 6:19 PM SLATE ROOFER HELPER COMPREHENSIVE METABOLIC PANEL STAT 05/02/2025 6:19 PM SLATE ROOFER HELPER CBC WITH AUTO DIFFERENTIAL STAT 05/02/2025 6:19 PM SLATE ROOFER HELPER from Last 3 Months Results * eGFR (05/02/2025 6:19 PM SLATE ROOFER HELPER) eGFR 65 >=60 mL/min/1. 73 m2 Comment: Interpretive Data Reference Interval Normal >/= 90 mL/min/1.73m2 Mildly decreased* 60 - 89 mL/min/1.73m2 Mildly to moderately decreased 45 - 59 mL/min/1.73m2 Moderately to severely decreased 30 - 44 mL/min/1.73m2 Severely decreased 15 - 29 mL/min/1.73m2 Kidney Failure < 15 mL/min/1.73m2 *Relative to young adult level Estimated glomerular filtration rate is determined by the 2020 CKD-EPI equation recommended by the National Kidney Foundation (A Unifying Approach to GFR Estimation: Recommendations of the NKF-ASK Task Force on Reassessing the Inclusion of Race in Diagnosing Kidney Disease, JASN 2020). The CKD-EPI equation should not be used for patients with unstable renal function and has not been validated in children and those over 70. Current interpretive data was last reviewed 2021. Blood 05/02/2025 6:19 PM SLATE ROOFER HELPER 05/02/2025 6:23 PM SLATE ROOFER HELPER us Radha EDDY LAB BLOOD ORDERABLES Final Resu lt [facility] ([place]) 1 [facility] Department [place] [address] * (ABNORMAL) Differential, auto (05/02/2025 6:19 PM SLATE ROOFER HELPER) Neutrophil abs 10.33(H) 1.50 - 6.50 K/cumm Imm gran abs 0.04 0.00 - 0.10 K/cumm [facility] ([place]) Lymphocyte abs 0.55(L) 0.80 - 3.30 K/cumm [facility] ([place]) Monocyte abs 0.67 0.20 - 0.80 K/cumm [facility] ([place]) Eosinophil abs 0.13 0.00 - 0.50 K/cumm [facility] ([place]) Basophil abs 0.05 0.00 - 0.10 K/cumm [facility] ([place]) Neutrophil pct 87.8 % [facility] ([place]) Comment: Interpretive Data Percent cell count reference ranges are not reported, since discordance with absolute values may lead to misinterpretation of CBC data. Current Interpretive Data was last revised on 2017. Imm gran pct 0.3 % [facility] ([place]) Comment: Interpretive Data Percent cell count reference ranges are not reported, since discordance with absolute values may lead to misinterpretation of CBC data. Current Interpretive Data was last revised on 2017. Lymphocyte pct 4.7 % [facility] ([place]) Comment: Interpretive Data Percent cell count reference ranges are not reported, since discordance with absolute values may lead to misinterpretation of CBC data. Current Interpretive Data was last revised on 2017. Monocyte pct 5.7 % [facility] ([place]) Comment: Interpretive Data Percent cell count reference ranges are not reported, since discordance with absolute values may lead to misinterpretation of CBC data. Current Interpretive Data was last revised on 2017. Eosinophil pct 1.1 % [facility] ([place]) Comment: Interpretive Data Percent cell count reference ranges are not reported, since discordance with absolute values may lead to misinterpretation of CBC data. Current Interpretive Data was last revised on 2017. Basophil pct 0.4 % [facility] ([place]) Comment: Interpretive Data Percent cell count reference ranges are not reported, since discordance with absolute values may lead to misinterpretation of CBC data. Current Interpretive Data was last revised on 2017. Blood 05/02/2025 6:19 PM SLATE ROOFER HELPER 05/02/2025 6:23 PM SLATE ROOFER HELPER us Radha EDDY LAB BLOOD ORDERABLES Final Resu lt [facility] ([place]) 1 [facility] Department [place] [address] * (ABNORMAL) CBC with auto differential (05/02/2025 6:19 PM SLATE ROOFER HELPER) WBC 11.77(H) 3.80 - 9.90 K/cumm Hgb 13.3 11.9 - 15.5 g/dL [facility] ([place]) Hct 39.7 35.6 - 45.5 % [facility] ([place]) Plt 170 150 - 400 K/cumm [facility] ([place]) MPV 9.5 9.1 - 12.3 fL [facility] ([place]) RBC 4.24 3.90 - 5.20 M/cumm [facility] ([place]) MCV 93.6 81.3 - 96.4 fL [facility] ([place]) MCH 31.4 27.1 - 33.3 pg [facility] ([place]) MCHC 33.5 32.3 - 35.7 g/dL [facility] ([place]) RDW CV 12.7 11.1 - 14.9 % [facility] ([place]) RDW SD 43.7 35.7 - 48.1 fL [facility] ([place]) NRBC abs 0.00 0.00 - 0.01 K/cumm [facility] ([place]) Blood 05/02/2025 6:19 PM SLATE ROOFER HELPER 05/02/2025 6:23 PM SLATE ROOFER HELPER Radha Quintana PA LAB BLOOD ORDERABLES Final Resu lt [facility] ([place]) [address] [facility] [address] [place] [address] * Magnesium (05/02/2025 6:19 PM SLATE ROOFER HELPER) Magnesium 2.0 1.4 - 2.5 mg/dL Blood 05/02/2025 6:19 PM SLATE ROOFER HELPER 05/02/2025 6:23 PM SLATE ROOFER HELPER Radha Quintana PA LAB BLOOD ORDERABLES Final Resu lt Performing Organization Address City/[facility]/ZIP Co de Phone Number [facility] ([place]) [address] [place] [address] * (ABNORMAL) Comprehensive metabolic panel (05/02/2025 6:19 PM SLATE ROOFER HELPER) Sodium 135 135 - 145 mmol/L Potassium, pl 4.5 3.3 - 4.9 mmol/L [facility] ([place]) Chloride 103 97 - 110 mmol/L [facility] CO2 26 22 - 32 mmol/L [facility] ([place] Anion gap 6 2 - 15 mmol/L [facility] ([place]) BUN 13 6 - 25 mg/dL [facility] ([place]) Creatinine 0.89 0.60 - 1.10 mg/dL [facility] ([place]) Glucose 95 70 - 199 mg/dL [facility] Comment: Interpretive Data Fasting glucose >/= 126 mg/dl is diagnostic for diabetes. Fasting is defined as no caloric intake for at least 8 hours. Fasting glucose between 100 mg/dl to 125 mg/dl is diagnostic of prediabetes. In a patient with classic symptoms of hyperglycemia or hyperglycemic crisis, a random glucose >/= 200 mg/dl is diagnostic for diabetes. In the absence of unequivocal hyperglycemia, results should be confirmed by repeat testing. The classification and Diagnosis of Diabetes Diabetes Care 2021; 46: S19-S40. Current interpretive data was last revised 2022. Calcium 8.7 8.5 - 10.3 mg/dL [facility] ([place]) Bilirubin, total 0.6 0.1 - 1.2 mg/dL [facility] ([place]) Protein, pl 6.0(L) 6.5 - 8.5 g/dL [facility] ([place]) Albumin 4.1 3.5 - 5.0 g/dL [facility] ([place]) Alk phos 79 40 - 130 Units/L [facility] ([place]) ALT 21 7 - 45 Units/L [facility] ([place]) AST 25 10 - 45 Units/L [facility] ([place]) Blood 05/02/2025 6:19 PM SLATE ROOFER HELPER 05/02/2025 6:23 PM SLATE ROOFER HELPER us Radha EDDY LAB BLOOD ORDERABLES Final Resu lt [facility] ([place]) 1 [facility] Department [place] [address] from Last 3 Months Insurance MEDICARE [facility] BLUE CROSS MEDICARE SUPPLEMENT MEDICARE [facility] MEDICARE [facility] MEDICARE SUPPLEMENT Advance Directives For more information, please contact: [phone] * Full Code (Latest Code Status on File) Date Activated Date Inactivated Comments 06/17/2024 7:02 AM 06/17/2024 12:34 PM * Full Code Date Activated Date Inactivated Comments 06/17/2024 7:02 AM 06/17/2024 7:02 AM * Full Code Date Activated Date Inactivated Comments 11/16/2021 3:46 PM 11/18/2021 8:12 PM Care Teams Chief Technician X Ray Relationship Specialty Start Date End Date Thaddeus Felder MD [address] [address] PCP - General Internal Medicine 08/18/18 Eleonora Sparks MD [address] [place] [address] Fellow General Surgery 11/16/21 Aren Hayes MD [address] [place] [address] Consulting Physician Interventional Cardiology 11/18/21
--- OUTSIDE RECORDS SUMMARY | 2025-05-23 08:02 | XMS_ITS | Continuity of Care Document ---
Author Organization [place] - [facility] [employer], [facility] Address [address] [place] [address] Care Team Providers Care Life Scientists Name Role Phone YANET MORTENSEN Primary Care Provider [phone] YANET MORTENSEN Referring Provider [phone] LUCIO TILLEY Turf Farmer NILE BUSH Turf Farmer RADHA CEE Inspector Insulation SEYMOUR PHILIP Automatic Nailing Machine Feeder COLLIN THORNE Orthopedic Surgeon ELEANOR DORADO Daily Release And Dupe Printer JENNIFER, HOMER SI Neurologist ALESSANDRO BULLARD Return Agent LEAH TRUONG Dogman/Woman ANN LALA Lead Caster Assessment Encounter Date Assessment Date Assessment LastModified by Organization Details LastModified Time 03/01/2025 03/01/2025 This note is dictated and transcribed by [employer]. Garage Laborer variances may occur. Despite proofreading, typographical errors may occur. Occasional wrong-word or '[id number]' substitutions may have occurred due to the inherent limitations of voice recording. Read the chart carefully and recognize, using context, where substitutions have occurred. [email or web address] Not available 03/06/2025 09:27:45 Plan of Treatment Reminders Order Date Submit [...] instructions recorded. Reason for Referral None Reported. Results Created Date Observation Date Name Description Value Unit Range Abnormal Flag Note LastModifiedBy Organization Detail LastModifiedTime 02/23/2002/22/2025 CULTU RE WOUND /TISS UE+GR .STAI N wndtssc ===== ===== ===== ===== ===== ===== ===== ===== ===== ===== ===== ===== ===== ===== ===== ===== ===== ===== ===== ===== ===== ===== ===== ===== Speci men NO.: [id number] Exam Statu s: Final Proce dure: [...] S Genta micin <=4 [place] pe 41319 3 Beta- Lacta alexandria P Thymi dine- [...] S Nitro furan toin <=32 Not Available [facility] ([facility]) [address] [place], [address], 02/25/2025 07:33:14 Result Notes None recorded. Problems Name Problem SNOMED Code Status Onset Date Resolution Date Notes Provider Name and Address Organization Details Recorded Time Herpes zoster 7466338 Active Not Available [facility] 3 21:10:20 Allergic rhinitis 96294602 Active 2018 Not Available [facility] 3 21:10:20 Nicotine dependence 27298242 Active 2020 Not Available [facility] 3 21:10:20 Inactive tuberculos is 88536338 Active 2020 Not Available [facility] 3 21:10:19 Spinal stenosis of lumbar region 58401574 Active 2021 Not Available [facility] 3 21:10:19 Osteoporos is 02940792 Active 2022 Yanet tamayo MD [address] [facility], [address], [place], [address] , [facility] 5 18:14:40 Gastroesop hageal reflux disease without esophagiti s 530205505 Active 2022 Not Available [facility] 3 21:10:20 Glaucoma 66329972 Active 2022 Not Available [facility] 3 21:10:20 Hyperlipid emia 02776421 Active 2022 Not Available [facility] 3 21:10:20 Osteoarthr itis 700979972 Active 2022 Yanet tamayo MD [address], [address], [place], [address] , [facility] 5 18:15:06 Trigeminal neuralgia 42935215 Active 2022 Not Available [facility] 3 21:10:20 Vertigo 066607291 Active 2022 Nettie dickinson, [facility] 3 16:43:34 Mixed anxiety and depressive disorder 850500916 Active 2022 Nettie dickinson, [facility] 3 14:02:55 Dyspnea on exertion 95999810 Active 2023 Gilberto Bonds MD [address], [address], [place], [address] , [facility] 4 12:15:03 Smoker 29451987 Active 2023 Gilberto Bonds MD [address], [address], [place], [address] , [facility] 4 12:16:35 Solitary nodule of lung 666067147 Active 2023 Gilberto Bonds MD [address], [address], [place], [address] , [facility] 4 12:17:26 Moderate chronic obstructiv e pulmonary disease 167120924 Active 2023 Gilberto Bonds MD [address], [address], [place], [address] , [place] [facility] 4 12:17:59 Chronic obstructiv e pulmonary disease 61233039 Active 2023 Yanet tamayo MD [address], [address], [place], [address] , [place] [facility] 4 16:35:29 Insomnia 463498117 Active 2023 Yanet tamayo MD [address], [address], [place], [address] , [place] [facility] 5 14:38:47 Atrophic vaginitis 65778738 Active 2023 Yanet tamayo MD [address], [address], [place], [address] , [place] [facility] 4 16:35:29 Mass of thyroid gland 855924334 Active 2023 Yanet tamayo MD [address], [address], [place], [address] , [place] [facility] 4 16:35:29 Coronary arterioscl erosis 41504287 Active 2023 Yanet tamayo MD [address], [address], [place], [address] , [place] [facility] 4 16:35:29 Peripheral vascular disease 619570645 Active 2023 Yanet tamayo MD [address], [address], [place], [address] , [place] [facility] 4 16:35:29 Eruption 282874955 Active 2023 Yanet tamayo MD [address], [address], [place], [address] , [place] [facility] 4 16:35:30 Multiple nodules of lung 756856062 Active 2023 Yanet tamayo MD [address], [address], [place], [address] , [facility] 4 16:35:30 Macrocytos is 886952935 Active 2023 Yanet tamayo MD [address], [address], [place], [address] , [place] [facility] 4 16:35:30 Restless legs syndrome 07934551 Active 2023 Yanet tamayo MD [address], [address], [place], [address] , [facility] 4 16:35:30 Right inguinal pain 6329870568835 9109 Active 2023 Yanet tamayo MD [address], [address], [place], [address] , [facility] [employer] [facility] 4 16:35:30 Cardiomyop athy 11690364 Active 2023 Yanet tamayo MD [address], [address], [place], [address] , [employer] [facility] 4 16:35:30 Hyperglyce moon 09982887 Active 2023 Yanet tamayo MD [address], [address], [place], [address] , [facility] [employer] [facility] 4 16:35:30 Hypoprotei nemia 6813633 Active 2023 Yanet tamayo MD [address], [address], [place], [address] , [facility] [employer] [facility] 4 16:35:30 Goiter 2414361 Active 2023 Yanet tamayo MD [address], [address], [place], [address] , [facility] [employer] [facility] 4 16:35:30 Low back pain 232898838 Active 2023 Yanet tamayo MD [address], [address], [place], [address] , [facility] 5 18:14:08 Chronic kidney disease 920336773 Active 2023 Yanet tamayo MD [address], [address], [place], [address] , [facility] 4 16:35:30 Anemia 195901384 Active 2023 Yanet tamayo MD [address], [address], [place], [address] , [facility] 4 16:35:31 Hypomagnes emia 777398777 Active 2023 Yanet tamayo MD [address], [address], [place], [address] , [facility] 4 16:35:31 Upper respirator y infection 47197418 Active 2023 Michelle Noyola MA null, [place] - [facility] 4 11:59:32 Thyroid nodule 335332203 Active 2023 Radha Cee MD [address], [address], [place], [address] , [facility] 4 11:26:57 Acute sinusitis 28669087 Active 2023 GIBSON Calderon null, [facility] 4 16:28:36 Leukopenia 92158532 Active 2023 Yanet tamayo MD [address], [address], [place], [address] , [facility] 4 14:27:53 Hyponatrem ia 54953333 Active 2023 Yanet tamayo MD [address], [address], [place], [address] , [place] [facility] 4 14:34:06 Open wound of left lower leg 0508464077162 91 Active 2023 Yanet tamayo MD [address], [address], [place], [address] , [place] [facility] 4 14:51:29 Xerostomia 42931408 Active 2023 Yanet tamayo MD [address], [address], [place], [address] , [place] [facility] 4 14:53:50 Pain of left hip joint 8800782299761 00 Active 2023 Crystal dickinson, [place] [facility] 4 14:01:20 Trochanter ic bursitis of left hip 0267667392137 03 Active 2023 NUNU Soriano [address], [address], [place], [address] , [facility] 4 14:17:32 Venous stasis ulcer with edema of left lower leg 7638888915328 9101 Active 2023 Nile Bush DPM [address], [address], [place], [address] , [place] [facility] 4 15:01:02 Venous stasis ulcer with edema of right lower leg 4872565906885 9106 Active 2023 Nile Bush DPM [address], [address], [place], [address] , [place] [facility] 4 15:01:10 Ankle pain 362888793 Active 2023 Nile Bush DPM [address], [address], [place], [address] , [place] [facility] 4 15:21:34 Peroneal tendinitis of right lower limb 2859693567923 09 Active 2023 Nile Bush DPM [address], [address], [place], [address] , [facility] 5 16:45:38 Peripheral venous insufficie ncy 93516276 Active 2023 Nile Bush DPM [address], [address], [place], [address] , [facility] 4 15:23:41 Headache 33588463 Active 2023 Yanet tamayo MD [address], [address], [place], [address] , [facility] 4 18:42:05 Pain in left foot 7665822016366 07 Active 2023 Yanet tamayo MD [address], [address], [place], [address] , [facility] 4 18:42:25 Edema of lower extremity 418827563 Active 2023 GIBSON Calderon, [place] [facility] 4 18:29:27 Pain in right foot 7360534603105 07 Active 2023 Yanet tamayo MD [address], [address], [place], [address] , [facility] 5 10:24:24 Right foot neuritis 0413975889907 09 Active 2023 Lucio Tilley DPM [address], [address], [place], [address] , [facility] 4 09:13:44 Neuropathy 887227816 Active 2023 GIBSON Frias, [place] [facility] 4 13:02:32 Liver enzymes level above reference range 479286513 Active 2024 Yanet tamayo MD [address], [address], [place], [address] , [facility] 5 14:56:47 Pain of left hand 9776748600303 03 Active 2024 Yanet tamayo MD [address], [address], [place], [address] , [facility] 5 14:33:49 Sensorineu ral hearing loss of bilateral ears 342597932 Active 2024 Alyssa Elizabeth RN null, [place] [facility] 5 12:17:36 Pain of ear 051309787 Active 2024 RADHIKA Carter [address], [address], [place], [address] , [facility] 5 12:45:23 Impacted cerumen in left ear 7947513570397 101 Active 2024 RADHIKA Carter [address], [address], [place], [address] , [facility] 5 12:47:06 Eczema of external auditory canal 79957362 Active 2024 Alyssa Elizabeth RN null, [place] [facility] 5 10:50:53 Hemorrhagi c otitis externa 54021928 Active 2024 Radha Cee MD [address], [address], [place], [address] , [facility] 5 15:46:12 Dysfunctio n of bilateral eustachian tubes 7627390840060 100 Active 2024 Alyssa Elizabeth RN null, [facility] 5 15:31:49 Otitis externa 2144392 Active 2024 Radha Cee MD [address], [address], [place], [address] , [facility] 5 14:10:11 Postmenopa usal osteoporos is 555998393 Active 2024 Yara Del Rosario JNBreanne dickinson, [place] [facility] 5 10:46:35 Chronic pain 69839635 Active 2024 Yanet tamayo MD [address], [address], [place], [address] , [place] [facility] 5 18:40:04 Chronic low back pain 022991661 Active 2024 Yanet tamayo MD [address], [address], [place], [address] , [place] [facility] 5 18:41:44 Injury of foot 124720238 Active 2024 GIBSON Calderon, [place] [facility] 5 15:46:04 Open wound of left foot 8991780525657 9105 Active 2024 Nile Bush DPM [address], [address], [place], [address] , [facility] 5 17:20:07 Spinal stenosis in cervical region 90455390 Active 2024 Yara Del Rosario GIBSON teena, [place] [facility] 5 11:12:43 Peroneal tendinitis of left lower limb 1045906366940 07 Active 2024 Nile Bush DPM [address], [address], [place], [address] , [facility] 5 16:45:30 Wound pain 288256730 Active 2024 iNle Bush DPM [address], [address], [place], [address] , [facility] 5 16:45:56 Injury of right leg 3335519923654 9102 Active 2024 Nile Bush DPM [address], [address], [place], [address] , [facility] [employer] [facility] 14:14:25 Open wound 054443962 Active 2024 Yanet tamayo MD [address], [address], [place], [address] , [facility] [employer] [facility] 14:24:51 Notes:Medical History: Globa l brain atrophy Anxiety/Depression Right trigeminal neuralgia Vertigo L>R hearing loss Glaucoma Rhinitis Bilateral thyroid nodules Nicotine use Mod COPD 4 mm RML pulmonary nodule Bilateral Bochdalek hernias Mild VA Hypertension EF 55% Hyperlipidemia Hiatal hernia with GILDA Granulomatous disease (chest, liver, spleen) B12 deficiency RLS Herpes zoster Thoracic DDD Lumbar spondylosis/stenosis Hip osteoporosis Procedure History: Tonsillectomy 1948, 1953 Left corneal transplants 1957, 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 Procedures Surgical History Date Name Laterality Status Provider Name and Address Organization Details Recorded Time 03/29/20 25 Wound Care-Podiatry completed Brandi Vera RN [facility] [employer] [facility] 03/29/2025 17:15:30 03/15/20 25 Wound Care-Podiatry completed Brandi Vera RN [facility] [employer] [facility] 03/15/2025 12:15:28 03/01/20 25 Wound Care-Podiatry completed Nile Bush DPM [address], [address], [place], [address], [facility] [employer] [facility] 03/06/2025 09:27:34 02/23/20 25 Wound Care-Podiatry completed Nile Bush DPM [address], [address], [place], [address], [facility] [employer] [facility] 02/22/2025 12:32:43 02/16/20 25 Wound Care-Podiatry completed Brandi Vera RN [facility] [employer] [facility] 02/15/2025 17:42:38 02/02/20 25 Wound Care-Podiatry completed Nile Bush DPM [address], [address], [place], [address], [facility] 02/01/2025 11:02:00 05/11/20 24 Trigger Point Injection completed Lucio Tilley DPM [address], [address], [place], [address], [facility] [employer] [facility] 05/12/2024 09:13:29 05/03/20 24 Medicare Wellness CPT Code, subsequent completed Parish Sands LPN [facility] [employer] [facility] 05/03/2024 08:52:49 01/20/20 24 Wound Care-Podiatry completed Brandi Vera RN [facility] [employer] [facility] 01/20/2024 12:01:58 01/06/20 24 Wound Care-Podiatry completed Brandi Vera RN [facility] [employer] [facility] 01/06/2024 16:57:53 03/04/20 23 Wound Care-Podiatry completed Elva Collier RN [facility] [employer] [facility] 03/04/2023 10:39:47 03/03/20 23 Medicare Wellness CPT Code, subsequent completed Alejandra Roper RN [facility] [employer] [facility] 03/03/2023 15:12:19 02/19/20 23 Wound Care-Podiatry completed Elva Collier RN [facility] [employer] [facility] 02/18/2023 11:25:43 02/12/20 23 Wound Care-Podiatry completed Elva Collier RN [facility] [employer] [facility] 02/11/2023 09:29:58 02/05/20 23 Wound Care-Podiatry completed Elva Collier RN [facility] [employer] [facility] 02/04/2023 12:33:33 01/22/20 23 Wound Care-Podiatry completed Elva Collier RN [facility] [employer] [facility] 01/21/2023 12:12:49 11/20/19 23 Wound Care-Podiatry completed Nile Bush DPM [address], [address], [place], [address], [facility] [employer] [facility] 11/19/2022 11:53:32 11/13/19 23 Wound Care-Podiatry completed Nile Bush DPM [address], [address], [place], [address], [employer] [facility] 11/12/2022 10:49:25 10/30/19 23 Wound Care-Podiatry completed Nile Bush DPM [address], [address], [place], [address], [facility] [employer] 10/29/2022 11:33:18 06/28/19 23 Colonoscopy completed GIBSON Calderon [place] [employer] [facility] [employer] 08/26/2022 14:30:37 11/17/19 22 Cardiac Cath completed Not Available [facility] 023 00:43:48 10/29/19 22 Hernia Repair completed Not Available [facility] 2022 00:43:48 08/05/19 19 Orthopedic Surgery completed Not Available [facility] 08/20/2022 00:43:48 07/01/19 19 Most Recent Bone Density completed Not Available [facility] 08/20/2022 00:43:45 12/18/19 16 Treat thigh fracture completed Not Available [facility] 08/20/2022 00:43:48 08/06/19 14 total replacement of hip completed Not Available [facility] 08/20/2022 00:43:48 Eye Surgery completed Not Available [facility] 08/20/2022 00:43:48 Remove tonsils and adenoids completed Alyssa Elizabeth RN [facility] [employer] 11/04/2023 10:52:52 Imaging Results None recorded. Procedure Notes None recorded. Medical Equipment None Reported. Allergies Allergen ID Allergen Name Allergen Category Reaction Reaction Severity Criticality Documentation Date Start Date Code Code System Note Provider Name and Address Organization Details Recorded Time 587 rosuvasta tin medicatio n hives Not available Not available 08/20/2022 04825 2 RxNorm Not Available [facility] 00:53:35 Medications Name Sig Start Date Stop [...] mg by injectio n route. 06/28 completed [facility]: 0003-049 4-20 Not Available Not Available Not [...] administ ered by the provider 08/27 completed [facility]: 0409-427 6-17 Not Available Not Available [...] mg by injectio n route. 03/03 completed [facility] [address]1827-40 09-20 Not Available Not Available Not Available [...] Available Not Available Not Available Fluzone High-Dose 4283-1110 (PF) 180 mcg/0.5 mL intramusc ular syringe [...] 69 /min 98/49 mm[Hg] Brandi Vera RN [employer] 16:14:26 Social History Question Answer Notes LastModified by Organization Details LastModified Time Tobacco Smoking Status Current Every Day Smoker LANDON Palacios, [employer] 02/28/2025 14:33:48 Do You Have An Advance Directive? Yes Patient To Bring Copy For Chart. [id number] Information not available 08/20/2022 Are You Blind Or Do You Have Difficulty Seeing? No [id number] Information not available 08/20/2022 What Is Your Level Of Caffeine Consumption? Moderate [id number] Information not available 08/20/2022 How Much Tobacco Do You Chew? None [id number] Information not available 08/20/2022 In The 14 Days Before Symptom Onset, Have You Had Close Contact With A Laboratory-confi rmed COVID-19 While That Case Was Ill? No [id number] Information not available 08/20/2022 In The 14 Days Before Symptom Onset, Have You Had Close Contact With A Person Who Is Under Investigation For COVID-19 While That Person Was Ill? No [id number] Information not available 08/20/2022 Are You Deaf Or Do You Have Serious Difficulty Hearing? No [id number] Information not available 08/20/2022 What Type Of Diet Are You Following? REGULAR [id number] [id number] Information not available 08/20/2022 Which Illicit Or Recreational Drugs Have You Used? None [id number] Information not available 08/20/2022 Do You Have An Electrostatic Air Filter? No Information not available 09/28/2023 Have There Been Any Changes To Your Family Or Social Situation? No [id number] Information not available 08/20/2022 What Is The Fluoride Status Of Your Home? Unknown MIGRATION.0301 [id number] Information not available 08/20/2022 Are There Any Guns Present In Your Home? Yes MIGRATION.0301 [id number] Information not available 08/20/2022 Do You Have A Humidifier? No Information not available 09/28/2023 Do You Use Insect Repellent Routinely? No MIGRATION.0301 387109 Information not available 08/20/2022 Where Do You Live? [place] MIGRATION.0301 723637 Information not available 08/20/2022 Do You Have A Medical Power Of Gas Line Installer? Yes MIGRATION.0301 057089 Information not available 08/20/2022 Do You Have Moisture Problems In Your Home? No Information not available 09/28/2023 What Was The Date Of Your Most Recent Tobacco Screening? 05/04/2025 Information not available 05/04/2025 What Is Your Current Pack Years? 30ormorepackyears MIGRATION.0301 937843 Information not available 08/20/2022 Have You Ever Been Counseled For Unhealthy Alcohol Use? No MIGRATION.0301 916575 Information not available 08/20/2022 Do You Have Any Pets? Yes MIGRATION.0301 395790 Information not available 08/20/2022 What Is Your Relationship Status? [email or web address] Information not available 07/02/2023 Do You Use Your Seat Belt Or Car Seat Routinely? Yes MIGRATION.0301 658831 Information not available 08/20/2022 Do You Have Smoke And Carbon Monoxide Detectors In Your Home? Yes MIGRATION.0301 215804 Information not available 08/20/2022 At What Age Did You Start Smoking Tobacco? 17 MIGRATION.0301 572960 Information not available 08/20/2022 Are You Passively Exposed To Smoke? Yes MIGRATION.0301 384901 Information not available 08/20/2022 Are There Any Smokers In Your House? No MIGRATION.0301 938397 Information not available 08/20/2022 How Much Tobacco Do You Smoke? 0.5 PPD Information not available 01/08/2023 What Types Of Sporting Activities Do You Participate In? None MIGRATION.0301 639379 Information not available 08/20/2022 Do You Use Sunscreen Routinely? Yes MIGRATION.0301 928259 Information not available 08/20/2022 How Many Years Have You Smoked Tobacco? 58 MIGRATION.0301 790296 Information not available 08/20/2022 Have You Recently Traveled Abroad? No MIGRATION.0301 402077 Information not available 08/20/2022 Do You Have Difficulty Walking Or Climbing Stairs? No MIGRATION.0301 515534 Information not available 08/20/2022 Do You Have Any Dietary Restrictions? No MIGRATION.0301 104484 Information not available 08/20/2022 Sex: Female Functional Status Question Answer Note LastModified by Organizat ion Details LastModified Time Do you or have you ever used smokeless tobacco? Never used smokeless tobacco MIGRATION.61111 15362 Information not available 08/20/2022 Are you currently employed? No Information not available 11/22/2024 Have you been exposed to chemicals or toxins? Not that aware of Information not available 09/28/2023 Do you have transportation difficulties? No MIGRATION.89725 11867 Information not available 08/20/2022 Are you able to care for yourself independently? Yes MIGRATION.80108 10380 Information not available 08/20/2022 Do you have difficulty dressing, bathing, grooming, or toileting? No MIGRATION.02962 25982 Information not available 08/20/2022 Do you or have you ever used e-cigarettes or vape? Never used electronic cigarettes MIGRATION.13874 75766 Information not available 08/20/2022 What is your exercise level? Occasional Patient stated she walks the dog when the weather is nice. MIGRATION.98748 31309 Information not available 08/20/2022 Do you use any illicit or recreational drugs? No MIGRATION.32200 70667 Information not available 08/20/2022 Do you or have you ever used any other forms of tobacco or nicotine? No MIGRATION.40584 38608 Information not available 08/20/2022 What is your level of alcohol consumption? None Information not available 01/08/2023 Are you able to walk independently without assistance or assistive devices? YESWOREST MIGRATION.77727 94647 Information not available 08/20/2022 Do you have difficulty doing errands alone? No MIGRATION.61671 94954 Information not available 08/20/2022 What is your occupation? [employer] MIGRATION.11730 98898 Information not available 08/20/2022 Mental Status Question Answer Note LastModified by Organizat ion Details LastModified Time Do you feel stressed (tense, restless, nervous, or anxious, or unable to sleep at night)? [id number] MIGRATION.06146731 26 Information not available 08/20/2022 Do you have difficulty concentrating, remembering or making decisions? No MIGRATION.67686889 26 Information not available 08/20/2022 Family History Relationship Description Onset Age of this Age Resolved Age Notes LastModified by Organization Details LastModified Time Father Myocardial infarction MIGRATION.647 [id number] Not available 08/20/2022 00:43:52 Mother Malignant neoplasm of lung MIGRATION.677 8087805 Not available 08/20/2022 00:43:52 Sister Malignant neoplasm of breast MIGRATION.375 9405796 Not available 08/20/2022 00:43:52 Notes:NO ENT Medical [...] (COVID-19) vaccine, UNSPECIFIED 1 completed SINCERE Charles goAct [facility] 12/23/2023 14:06:41 SARS-COV-2 (COVID-19) vaccine, UNSPECIFIED 1 completed SINCERE Charles goAct [facility] [employer] [facility] 12/23/2023 14:06:41 Influenza, high-dose, trivalent, PF 0 completed SINCERE Charles [facility] 12/23/2023 14:06:41 Influenza, high-dose, quadrivalent, PF 2 completed Not Available [facility] 07/30/2023 03:20:22 Influenza, high-dose, quadrivalent, PF 1 completed Not Available [facility] 07/30/2023 03:20:22 Influenza, split virus, quadrivalent, PF 9 completed Not Available [facility] 07/30/2023 03:20:22 pneumococcal polysaccharide PPV23 9 completed Not Available [facility] 07/30/2023 03:20:22 Influenza, high-dose, trivalent, PF 8 completed Not Available [facility] 07/30/2023 03:20:22 Influenza, high-dose, trivalent, PF 7 completed Not Available [facility] 07/30/2023 03:20:22 Pneumococcal conjugate PCV 13 6 completed Not Available [facility] 07/30/2023 03:20:22 Influenza, high-dose, trivalent, PF 5 completed Not Available [facility] 07/30/2023 03:20:22 Influenza, split virus, trivalent, preservative 4 completed SINCERE Charles, [facility] 12/23/2023 14:06:41 Influenza, split virus, trivalent, preservative 3 completed SINCERE Charles, [facility] 12/23/2023 14:06:41 zoster recombinant 1 completed Parish Sands LPN null, [facility] 12/23/2023 14:06:40 zoster recombinant 0 completed SINCERE Charles, [facility] 12/23/2023 14:06:40 COVID-19, mRNA, LNP-S, PF, 100 mcg/0.5mL dose or 50 mcg/0.25mL dose 1 completed SINCERE Charles, [facility] 12/23/2023 14:06:41 COVID-19, mRNA, LNP-S, PF, 100 mcg/0.5mL dose or 50 mcg/0.25mL dose 1 completed SINCERE Charles, [facility] 12/23/2023 14:06:41 Influenza, high-dose, trivalent, PF 6 completed Parish Sands LPN teena, [facility] 12/23/2023 14:06:41 Influenza, split virus, trivalent, PF 0 completed Pairsh Sands LPN teena, [facility] 12/23/2023 14:06:41 Hep A, adult 0 completed SINCERE Charles, [facility] 12/23/2023 14:06:41 Hep A, adult 0 completed SINCERE Charles, [facility] 12/23/2023 14:06:41 RSV, bivalent, protein subunit RSVpreF, diluent reconstituted, 0.5 mL, PF 3 completed Yara Del Rosario RMA teena, [facility] 01/23/2025 15:45:12 Influenza, high-dose, quadrivalent, PF 3 completed Yara Del Rosario RMA null, [facility] 05/12/2023 10:54:27 Influenza, high-dose, trivalent, PF 4 completed Yara Del Rosario RMA null, [facility] 05/04/2024 10:51:35 Past Encounters Encounter ID Performer Location Encounter Start Date Encounter Closed Date Diagnosis/Indication Diagnosis SNOMED-CT Code Diagnosis ICD10 Code Diagnosis IMO Codes Diagnosis Note [id number] Nile Bush DPM [facility] [address] [place] [address] 02/01/2025 10:06:44 02/01/2025 13:44:02 Open wound of left foot [id number] 8046054 S91.302A 3989023 offloading at all timeskeep area clean and dry dailyDress ings dailyMonit or for signs of infection for worsened seek medical attention immediatel yfollow-up 2 weeks [id number] Nile Bush DPM [facility] [address] [place] [address] 02/15/2025 15:52:38 02/16/2025 10:26:58 Peroneal tendinitis of right lower limb [id number] 85235 M76.71 5981578 tendon pain lateral anklerice therapyace wrap applied to the ankleno strenuous activities Wound pain 169534200 T14 .8XXA 42489302 left foot dorsallyap ply with dressings Open wound of left foot 6814112069 4773138 S91.302D 2649497 offloading at all timeskeep area clean and dry dailyDress ings dailyMonit or for signs of infection for worsened seek medical attention immediatel yfollow-up 2 weeks [id number] Nile Bush DPM [facility] [address] [place] [address] 02/22/2025 10:14:01 02/22/2025 16:33:44 Wound pain 420428837 T14.8XXA 62143084 left foot dorsallyco ntinue current therapy Open wound of left foot 6851658415 7891040 S91.302D 3717801 offloading at all timeskeep area clean and dry dailyDress ings dailyMonit or for signs of infection for worsened seek medical attention immediatel yfollow-up 2 weeks Injury of right leg 1186 150109 8578369 S81.801A 11367114 secondary to biopsyoffl oadingWoun d care dailyApply gentamicin [id number] Yanet tamayo MD [facility] [address] [facility], [address] [place] [address] 02/28/2025 14:22:55 02/28/2025 15:35:13 Headache 14104695 R51.9 [facility] ER: 02/18/2024 [facility] ER: 02/18/2024 Addendum: 03/03/2024 :CT Head: 03/03/2024 : Neg, patient notified OV 06/28/2024 : Resolved, notify if any symptoms occur Pain in left foot 036325 1430 49124 M79.672 [facility] ER: 02/18/2024 [facility] ER: 02/18/2024 Trauma, dropped box of [...] : Does well now Screening - NAD [id number] 3 Z13.9 C-scope: Cologuard 03/30/19: Neg, ordered 04/22/2022 Cologuard 05/08/2022 : +veC-scope : 06/27/2022 : Dr Truong Mammogram: 05/07/18, neg, get this [id number] /20/19: Neg01// 021: Neg 022: Neg 023: Neg 024: NegNo more mammogram 06/28/2024 PAP: Did see [facility] DEXA: 09/12/2020 : OPDEXA: 07/14/2022 : OP, [...] the above Chronic ob structive pulmonary disease 39630677 J44.9 CT Chest 11/20/2020 CT chest 07/30/2023 : Mucus impaction? She does see Ann [facility]ol[facility], did not want to keep her apts [...] and started on stioltoNow sees Ann Lala [facility] in 09/2024, is s/p EGD on 06/17/2024 , Dr Jase Lala [facility] 09/29/2024 Atrophic vaginitis 28586 000 N95.2 On clobetazol does well On hydroxyzin e for itching Insomnia 762638401 G47.0 0 92202351 On trazodone 50mg daily, does well Gastroesop hageal reflux disease without esophagitis 392848114 K21.9 On omeprazole Takes as neededDoes well on thisS/p EGD Dr Laguna on 06/17/2024 Glaucoma 17428572 H40.9 L eye blindness is present On brimonidin [place] dorzolamid [place] latanopros tOn neomycin eye drop Sees Dr Mayer Mass of thyroid gland [address] scan neck 04/13/18, mass noted [...] , next in 2 years Coronary arteriosclerosis 08133948 I25.10 01/17/2022 : ECHO: [facility] CT chest 11/15/[address] [facility] [address] Philip 10/09/2021 , next in [address] Philip 04/04/2022 , next in [address] Philip 10/24/[address] [facility] [address] Philip 04/15/2024 , was referred to Dr Bush, then seen in the ER on 04/21/2024 S/p ER El ER: for SOB, treated with augmentinS /p ER Dennys 04/21/2024 for LE swelling and treated with lasix, see case on 04/28/2024 [address] Bauman [facility] Dr Bauman 06/13/2024 , told to stop metoprolol , and start on lovastatin 20mg daily Get a referral to Dr Bauman [facility] 02/28/2025 Hyperlipidemia 77617093 E78.5 Not on rosuvastat in 5mg daily Dr Greco not want and labs are WNL 06/24/2024 Get labs Peripheral vascular disease 425826455 I73.[address] [facility] [address] Bauman [facility] Osteoarthritis 835147809 M19.90 Dr Noyola 11/01/2020 , f/u as [...] on tramadolNo t to take Lyrica Eruption 642309033 R21 She states that the hydroxyzin e has not helpedShe does have a long standing history of itching and denies any new detergents or use of soaps or foodsAlso has a small raised slightly tender papule on the L dorsum of hand Refer to dermatolog y Osteoporosis 43230387 M8 1.0 On prolia last 01/08/2023 DeclinesCa n do fosamax, all side effects explained, and the way to take it 08/23/2024 Needs to do ca and vit d Multiple n odules of lung 745249234 R91.8 S/p CT chest 11/20/2020 [facility] 02/12/2021 , next apt 08/20/2021 , she has now been referred to Dr Barry for ? latent TB [facility] f/u 04/17/2023 [facility] 09/29/2024 Macrocytosis 454228643 D 75.89 MCV WNL 12/30/2023 Get B12 and folate levels Restless l egs syndrome 70195694 G25.81 Stop ropinirole 1mg dailyStop the gabapentin [...] MRI LS spine Right inguinal pain [address] Light 09/12/2021 , post op 11/05/2021 Cardiomyopathy 20787560 I42.9 [facility] ER: 11/15/2021 : CTA angio, for [...] 05/29/2023 : Dr Philip, EF 55% Hyperglycemia 59243950 R 73.9 Get labsDeclin es meds, more diet and exercise is needed Allergic rhinitis 455930 04 J30.9 On claritin, montelukas tNot on flonase Trigeminal neuralgia 316 75452 G50.0 On carbamazep ine 100mg tid, but should be on bid as per neurology Dr Lucero 01/29/2023 , f/u in one year Has seen Dr Garcia and the pain is betterMRI brain 11/14/2020 : Neg Dr Lucero 03/10/2024 , f/u PRN Does well, not taking the carbazepin e Hypoproteinemia 2179699 E88.09 More protein in diet Goiter 3379985 E04.9 US head and neck 07/18/2022 Low back pain 878929015 M54.50 MRI L Spine 06/03/2022 : Dr Gustafson es well now 10/01/2023 , no N/T or weakness in the LE Dr Birch and now is to get a MRI LS Spine 03/02/2025 Chronic ki dney disease 556515758 N18.9 See nephrology Anemia 417099946 D64.9 Can do more iron in diet or OTC ironH/H is stable 11/18/2024 Hypomagnesemia 101691351 E83.42 Mag 11/18/2024 : 2.0 WNL Leukopenia 09935808 D72. 819 Low WBC and mildly low PLTNeeds to see Dr Shay declines any referrals at this timeGet labs Hyponatremia 53181172 E8 7.[address] Peter garrido the CMP Open wound of left lower leg 9814673062 5571717 S81.802A Dr Bush 02/23/2024 , next apt 06/02/2024 , change to Dr Treva [place] 06/28/2024 : No more apts healed Xerostomia 51373907 R68. 2 States that none of the OTC mouth washes/rin ses have worked, she has used Biotene/AC T etcOn Cevimeline , all side effects explained to her, notify if any side effects occur, she verbalized her understand ing of the above Pain of left hand 856089 9813 30870 M79.642 Get on meloxicam 7.5mg po bid as needed PRNAlso get a referral to hand surgery S/p Xray 10/18/2024 : Dr Robertson : OAIs on OT Hemorrhagi c otitis externa 20971713 H60.322 51893006 On mometasone cream L ear ache with visible bleed on the EACNeeds a refill on the cipro dex as the medication did not stay in, will refill and use a cotton ball to plug the EACIf not better, notify and then refer to ENT as she states that Dr Cee 'blew her off' Open wound 798085904 T14 .8XXA [address] Bush 03/01/2025 This is for silvia LE wounds [id number] Nile Bush DPM [facility] [address] [place] [address] 03/01/2025 15:42:38 03/06/2025 09:37:52 Open wound of left foot 0901348745 3302752 S91.302D 7875112 Healed with mild maceration Injury of right leg 1186 232328 9510498 S81.801A 42565335 secondary to biopsycont inue daily wound caremonito r for signs of infection at present seek medical attention immediatel yrecommend mild compressio n to the wound areafollow -up 2 weeks Wound pain 831838712 T14 .8XXA 79494131 left foot dorsallyco ntinue current therapy Health Concerns Section Related Observation LastModified by Organization Detkristin glaser LastModified Time None Recorded Concern Status LastModified by Organization Details LastModified Time None Recorded Payers Encounter Date Sequence Insurance Name Policy Number Policy Yap Covered Member ID Yap Member ID Guarantor Name 03/01/2025 1 [place] Juliette Allison [id number] Juliette Allison 03/01/2025 2 [place] [id number] Juliette Kiana Keegan [id number] Juliette Allison Notes Date Note Type Note Provider Name and Address Organization Details Recorded Time 03/01/2025 text/html ROS as noted in the HPI Patient is 79-year-old female who returns the office for follow-up on lower foot wound and leg wound. Patient overall is doing well she states her pain level is significantly improved. Patient denies any acute signs of infection she continues wound care. Patient denies any other complaints. Nile Bush DPM [address] [facility] [address], [place], [address], [facility] [place] [employer] 03/06/2025 09:29:21 OBGyn Episode No OBEpisode recorded.
--- OUTSIDE RECORDS SUMMARY | 2025-05-23 08:02 | XMS_ITS | Continuity of Care Document ---
Author Organization [place] [facility] [employer] [facility] Address [address] [place] [address] Care Team Providers Care Animal Pathology Teacher Name Role Phone YANET MORTENSEN Primary Care Provider YANET MORTENSEN Referring Provider LUCIO TILLEY Massage Operator NILE BUSH Massage Operator RADHA CEE National Business Director SEYMOUR PHILIP Picture Booker COLLIN THORNE Orthopedic Surgeon [phone] ELEANOR DORADO Dry Mixer [phone] JENNIFER, HOMER SI Neurologist ALESSANDRO BULLARD Utility Pipe Layer LEAH TRUONG In Home Sales Consultant ANN LALA Cash On Delivery Clerk Assessment Encounter Date Assessment Date Assessment LastModified by Organization Details LastModified Time 03/15/2025 03/15/2025 This note is dictated and transcribed by [employer]. Injection Molding Engineer variances may occur. Despite proofreading, typographical errors may occur. Occasional wrong-word or '[id number]-[id number]' substitutions may have occurred due to the inherent limitations of voice recording. Read the chart carefully and recognize, using context, where substitutions have occurred. [email or web address] Not available 03/15/2025 14:13:51 Plan of Treatment Reminders Order Date Submit [...] ===== ===== ===== ===== Speci men NO.: [id number] Exam Statu s: Final Proce dure: [...] S Genta micin <=4 S Bioty pe [id number] 3 Beta- Lacta alexandria P Thymi dine- [...] S Nitro furan toin <=32 Not Available [facility] ([facility]) [address] [place], [address], 02/25/2025 07:33:14 Result Notes None recorded. Problems Name Problem SNOMED Code Status Onset Date Resolution Date Notes Provider Name and Address Organization Details Recorded Time Herpes zoster 3675554 Active Not Available [facility] 3 21:10:20 Allergic rhinitis 97340247 Active 2018 Not Available [facility] 3 21:10:20 Nicotine dependence 05117370 Active 2020 Not Available [facility] 3 21:10:20 Inactive tuberculos is 21142775 Active 2020 Not Available [facility] 3 21:10:19 Spinal stenosis of lumbar region 35894954 Active 2021 Not Available [facility] 3 21:10:19 Osteoporos is 16300472 Active 2022 Yanet tamayo MD [address] [facility], [address], [place], [address] , [facility] 5 18:14:40 Gastroesop hageal reflux disease without esophagiti s 255878196 Active 2022 Not Available [facility] 3 21:10:20 Glaucoma 97344292 Active 2022 Not Available [facility] 3 21:10:20 Hyperlipid emia 76500122 Active 2022 Not Available [facility] 3 21:10:20 Osteoarthr itis 196409645 Active 2022 Yanet tamayo MD [address], [address], [place], [address] , [facility] 5 18:15:06 Trigeminal neuralgia 38868219 Active 2022 Not Available [facility] 3 21:10:20 Vertigo 909919078 Active 2022 Nettie dickinson, [facility] 3 16:43:34 Mixed anxiety and depressive disorder 717109102 Active 2022 Nettie dickinson, [facility] 3 14:02:55 Dyspnea on exertion 38209103 Active 2023 Gilberto Bonds MD [address], [address], [place], [address] , [facility] 4 12:15:03 Smoker 89600076 Active 2023 Gilberto Bonds MD [address], [address], [place], [address] , [facility] 4 12:16:35 Solitary nodule of lung 382612705 Active 2023 Gilberto Bonds MD [address], [address], [place], [address] , [facility] 4 12:17:26 Moderate chronic obstructiv e pulmonary disease 325872158 Active 2023 Gilberto Bonds MD [address], [address], [place], [address] , [place] [facility] 4 12:17:59 Chronic obstructiv e pulmonary disease 97006146 Active 2023 Yanet tamayo MD [address], [address], [place], [address] , [place] [facility] 4 16:35:29 Insomnia 624991486 Active 2023 Yanet tamayo MD [address], [address], [place], [address] , [place] [facility] 5 14:38:47 Atrophic vaginitis 91271525 Active 2023 Yanet tamayo MD [address], [address], [place], [address] , [place] [facility] 4 16:35:29 Mass of thyroid gland 118931394 Active 2023 Yanet tamayo MD [address], [address], [place], [address] , [place] [facility] 4 16:35:29 Coronary arterioscl erosis 74627483 Active 2023 Yanet tamayo MD [address], [address], [place], [address] , [place] [facility] 4 16:35:29 Peripheral vascular disease 279982118 Active 2023 Yanet tamayo MD [address], [address], [place], [address] , [place] [facility] 4 16:35:29 Eruption 124869885 Active 2023 Yanet tamayo MD [address], [address], [place], [address] , [place] [facility] 4 16:35:30 Multiple nodules of lung 475446541 Active 2023 Yanet tamayo MD [address], [address], [place], [address] , [facility] 4 16:35:30 Macrocytos is 948788028 Active 2023 Yanet tamayo MD [address], [address], [place], [address] , [place] [facility] 4 16:35:30 Restless legs syndrome 00456169 Active 2023 Yanet tamayo MD [address], [address], [place], [address] , [facility] 4 16:35:30 Right inguinal pain 3195110182202 9109 Active 2023 Yanet tamayo MD [address], [address], [place], [address] , [facility] [employer] [facility] 4 16:35:30 Cardiomyop athy 47299355 Active 2023 Yanet tamayo MD [address], [address], [place], [address] , [employer] [facility] 4 16:35:30 Hyperglyce moon 29807912 Active 2023 Yanet tamayo MD [address], [address], [place], [address] , [facility] [employer] [facility] 4 16:35:30 Hypoprotei nemia 2662322 Active 2023 Yanet tamayo MD [address], [address], [place], [address] , [facility] [employer] [facility] 4 16:35:30 Goiter 3583074 Active 2023 Yanet tamayo MD [address], [address], [place], [address] , [facility] [employer] [facility] 4 16:35:30 Low back pain 093452468 Active 2023 Yanet tamayo MD [address], [address], [place], [address] , [facility] 5 18:14:08 Chronic kidney disease 713419067 Active 2023 Yanet tamayo MD [address], [address], [place], [address] , [facility] 4 16:35:30 Anemia 851684105 Active 2023 Yanet tamayo MD [address], [address], [place], [address] , [facility] 4 16:35:31 Hypomagnes emia 324917099 Active 2023 Yanet tamayo MD [address], [address], [place], [address] , [facility] 4 16:35:31 Upper respirator y infection 95722852 Active 2023 Michelle Noyola MA null, [place] - [facility] 4 11:59:32 Thyroid nodule 925394021 Active 2023 Radha Cee MD [address], [address], [place], [address] , [facility] 4 11:26:57 Acute sinusitis 34112708 Active 2023 GIBSON Calderon null, [facility] 4 16:28:36 Leukopenia 75539346 Active 2023 Yanet tamayo MD [address], [address], [place], [address] , [facility] 4 14:27:53 Hyponatrem ia 46722852 Active 2023 Yanet tamayo MD [address], [address], [place], [address] , [place] [facility] 4 14:34:06 Open wound of left lower leg 9176399712048 91 Active 2023 Yanet tamayo MD [address], [address], [place], [address] , [place] [facility] 4 14:51:29 Xerostomia 60292758 Active 2023 Yanet tamayo MD [address], [address], [place], [address] , [place] [facility] 4 14:53:50 Pain of left hip joint 2585829234179 00 Active 2023 Crystal dickinson, [place] [facility] 4 14:01:20 Trochanter ic bursitis of left hip 6084989475126 03 Active 2023 NUNU Soriano [address], [address], [place], [address] , [facility] 4 14:17:32 Venous stasis ulcer with edema of left lower leg 2283368533647 9101 Active 2023 Nile Bush DPM [address], [address], [place], [address] , [place] [facility] 4 15:01:02 Venous stasis ulcer with edema of right lower leg 4723015209328 9106 Active 2023 Nile Bush DPM [address], [address], [place], [address] , [place] [facility] 4 15:01:10 Ankle pain 657269129 Active 2023 Nile Bush DPM [address], [address], [place], [address] , [place] [facility] 4 15:21:34 Peroneal tendinitis of right lower limb 3126800827193 09 Active 2023 Nile Bush DPM [address], [address], [place], [address] , [facility] 5 16:45:38 Peripheral venous insufficie ncy 12712481 Active 2023 Nile Bush DPM [address], [address], [place], [address] , [facility] 4 15:23:41 Headache 07888194 Active 2023 Yanet tamayo MD [address], [address], [place], [address] , [facility] 4 18:42:05 Pain in left foot 2338326457184 07 Active 2023 Yanet tamayo MD [address], [address], [place], [address] , [facility] - [facility] 4 18:42:25 Edema of lower extremity 080659809 Active 2023 GIBSON Calderon, [place] [facility] 4 18:29:27 Pain in right foot 6104803747829 07 Active 2023 Yanet tamayo MD [address], [address], [place], [address] , [facility] 5 10:24:24 Right foot neuritis 3098872765830 09 Active 2023 Lucio Tilley DPM [address], [address], [place], [address] , [facility] 4 09:13:44 Neuropathy 513219927 Active 2023 GIBSON Frias, [place] [facility] 4 13:02:32 Liver enzymes level above reference range 304399698 Active 2024 Yanet tamayo MD [address], [address], [place], [address] , [facility] 5 14:56:47 Pain of left hand 6357948231837 03 Active 2024 Yanet tamayo MD [address], [address], [place], [address] , [facility] 5 14:33:49 Sensorineu ral hearing loss of bilateral ears 237186395 Active 2024 Alyssa Elizabeth RN null, [place] [facility] 5 12:17:36 Pain of ear 956694175 Active 2024 RADHIKA Carter [address], [address], [place], [address] , [facility] 5 12:45:23 Impacted cerumen in left ear 5580595237332 101 Active 2024 RADHIKA Carter [address], [address], [place], [address] , [facility] 5 12:47:06 Eczema of external auditory canal 08442601 Active 2024 Alyssa Elizabeth RN null, [place] [facility] 5 10:50:53 Hemorrhagi c otitis externa 59012750 Active 2024 Radha Cee MD [address], [address], [place], [address] , [facility] 5 15:46:12 Dysfunctio n of bilateral eustachian tubes 2787419355110 100 Active 2024 Alyssa Elizabeth RN null, [facility] 5 15:31:49 Otitis externa 5833373 Active 2024 Radha Cee MD [address], [address], [place], [address] , [facility] 5 14:10:11 Postmenopa usal osteoporos is 144246361 Active 2024 Yara Del Rosario JNBreanne dickinson, [place] [facility] 5 10:46:35 Chronic pain 48717924 Active 2024 Yanet tamayo MD [address], [address], [place], [address] , [place] [facility] 5 18:40:04 Chronic low back pain 797669130 Active 2024 Yanet tamayo MD [address], [address], [place], [address] , [place] [facility] 5 18:41:44 Injury of foot 293193459 Active 2024 GIBSON Calderon, [place] [facility] 5 15:46:04 Open wound of left foot 1705423792606 9105 Active 2024 Nile Bush DPM [address], [address], [place], [address] , [facility] 5 17:20:07 Spinal stenosis in cervical region 20219559 Active 2024 Yara Del Rosario GIBSON teena, [place] [facility] 5 11:12:43 Peroneal tendinitis of left lower limb 7244788968459 07 Active 2024 Nile Bush DPM [address], [address], [place], [address] , [facility] 5 16:45:30 Wound pain 508796187 Active 2024 Nile Bush DPM [address], [address], [place], [address] , [facility] 5 16:45:56 Injury of right leg 0100605848412 9102 Active 2024 Nile Bush DPM [address], [address], [place], [address] , [facility] [employer] [facility] 14:14:25 Open wound 022867935 Active 2024 Yanet tamayo MD [address], [address], [place], [address] , [facility] [employer] [facility] 14:24:51 Notes:Medical History: Globa l brain atrophy Anxiety/Depression Right trigeminal neuralgia Vertigo L>R hearing loss Glaucoma Rhinitis Bilateral thyroid nodules Nicotine use Mod COPD 4 mm RML pulmonary nodule Bilateral Bochdalek hernias Mild MD Hypertension EF 55% Hyperlipidemia Hiatal hernia with GILDA Granulomatous disease (chest, liver, spleen) B12 deficiency RLS Herpes zoster Thoracic DDD Lumbar spondylosis/stenosis Hip osteoporosis Procedure History: Tonsillectomy 1948, 1953 Left corneal transplants 1957, 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 Procedures Surgical History Date Name Laterality Status Provider Name and Address Organization Details Recorded Time 03/29/20 25 Wound Care-Podiatry completed Brandi Vera RN [facility] [employer] [facility] 03/29/2025 17:15:30 03/15/20 25 Wound Care-Podiatry completed Brandi Vera RN [facility] [employer] [facility] 03/15/2025 12:15:28 03/01/20 25 Wound Care-Podiatry completed Nile Bush DPM [address], [address], [place], [address], [facility] [employer] [facility] 03/06/2025 09:27:34 02/23/20 25 Wound Care-Podiatry completed Nile Bush DPM [address], [address], [place], [address], [facility] [employer] [facility] 02/22/2025 12:32:43 02/16/20 25 Wound Care-Podiatry completed Brandi Vera RN [facility] [employer] [facility] 02/15/2025 17:42:38 02/02/20 25 Wound Care-Podiatry completed Nile Bush DPM [address], [address], [place], [address], [facility] 02/01/2025 11:02:00 05/11/20 24 Trigger Point Injection completed Lucio Tilley DPM [address], [address], [place], [address], [facility] [employer] [facility] 05/12/2024 09:13:29 05/03/20 24 Medicare Wellness CPT Code, subsequent completed Parish Sands LPN [facility] [employer] [facility] 05/03/2024 08:52:49 01/20/20 24 Wound Care-Podiatry completed Brandi Vera RN [facility] [employer] [facility] 01/20/2024 12:01:58 01/06/20 24 Wound Care-Podiatry completed Brandi Vera RN [facility] [employer] [facility] 01/06/2024 16:57:53 03/04/20 23 Wound Care-Podiatry completed Elva Collier RN [facility] [employer] [facility] 03/04/2023 10:39:47 03/03/20 23 Medicare Wellness CPT Code, subsequent completed Alejandra Roper RN [facility] [employer] [facility] 03/03/2023 15:12:19 02/19/20 23 Wound Care-Podiatry completed Elva Collier RN [facility] [employer] [facility] 02/18/2023 11:25:43 02/12/20 23 Wound Care-Podiatry completed Elva Collier RN [facility] [employer] [facility] 02/11/2023 09:29:58 02/05/20 23 Wound Care-Podiatry completed Elva Collier RN [facility] [employer] [facility] 02/04/2023 12:33:33 01/22/20 23 Wound Care-Podiatry completed Elva Collier RN [facility] [employer] [facility] 01/21/2023 12:12:49 11/20/19 23 Wound Care-Podiatry completed Nile Bush DPM [address], [address], [place], [address], [facility] [employer] [facility] 11/19/2022 11:53:32 11/13/19 23 Wound Care-Podiatry completed Nile Bush DPM [address], [address], [place], [address], [employer] [facility] 11/12/2022 10:49:25 10/30/19 23 Wound Care-Podiatry completed Nile Bush DPM [address], [address], [place], [address], [facility] [employer] 10/29/2022 11:33:18 06/28/19 23 Colonoscopy completed GIBSON Calderon [place] [employer] [facility] [employer] 08/26/2022 14:30:37 11/17/19 22 Cardiac Cath completed Not Available [facility] 023 00:43:48 10/29/19 22 Hernia Repair completed Not Available [facility] 2022 00:43:48 08/05/19 19 Orthopedic Surgery completed Not Available [facility] 08/20/2022 00:43:48 07/01/19 19 Most Recent Bone Density completed Not Available [facility] 08/20/2022 00:43:45 12/18/19 16 Treat thigh fracture completed Not Available [facility] 08/20/2022 00:43:48 08/06/19 14 total replacement of hip completed Not Available [facility] 08/20/2022 00:43:48 Eye Surgery completed Not Available [facility] 08/20/2022 00:43:48 Remove tonsils and adenoids completed Alyssa Elizabeth RN [facility] [employer] 11/04/2023 10:52:52 Imaging Results None recorded. Procedure Notes None recorded. Medical Equipment None Reported. Allergies Allergen ID Allergen Name Allergen Category Reaction Reaction Severity Criticality Documentation Date Start Date Code Code System Note Provider Name and Address Organization Details Recorded Time 587 rosuvasta tin medicatio n hives Not available Not available 08/20/2022 48523 2 RxNorm Not Available [facility] 00:53:35 Medications Name Sig Start Date [...] mg by injectio n route. 06/28 completed [facility]: 0003-049 4-20 Not Available Not Available Not [...] administ ered by the provider 08/27 completed [facility]: 0409-427 6-17 Not Available Not Available [...] mg by injectio n route. 03/03 completed [facility] 43257-13 09-20 Not Available Not Available Not Available [...] Available Not Available Not Available Fluzone High-Dose 3031-0145 (PF) 180 mcg/0.5 mL intramusc ular syringe [...] t Available Vitals Date Recorded Body height Heart rate Respiratory rate Body temperature Oxygen saturation Systolic And Diastolic Provider Name and Address Organization Details Last Updated DateTime 5 162.56 cm 64 /min 16 /min 98.9 [degF] 98 % 98/51 mm[Hg] Brandi Vera RN [email or web address] 11:38:38 Social History Question Answer Notes LastModified by Organization Details LastModified Time Tobacco Smoking Status Current Every Day Smoker LANDON Palacios, [email or web address] 02/28/2025 14:33:48 Do You Have An Advance Directive? Yes Patient To Bring Copy For Chart. [email or web address] [id number] Information not available 08/20/2022 Are You Blind Or Do You Have Difficulty Seeing? No [email or web address] [id number] Information not available 08/20/2022 What Is Your Level Of Caffeine Consumption? Moderate [id number] Information not available 08/20/2022 How Much Tobacco Do You Chew? None [id number].[id number] Information not available 08/20/2022 In The 14 Days Before Symptom Onset, Have You Had Close Contact With A Laboratory-confi rmed COVID-19 While That Case Was Ill? No [email or web address].[id number] Information not available 08/20/2022 In The 14 Days Before Symptom Onset, Have You Had Close Contact With A Person Who Is Under Investigation For COVID-19 While That Person Was Ill? No [id number] Information not available 08/20/2022 Are You Deaf Or Do You Have Serious Difficulty Hearing? No [id number] [id number] Information not available 08/20/2022 What Type Of Diet Are You Following? REGULAR [id number].[id number] [id number] Information not available 08/20/2022 Which Illicit Or Recreational Drugs Have You Used? None [email or web address].[id number] [id number] Information not available 08/20/2022 Do You Have An Electrostatic Air Filter? No Information not available 09/28/2023 Have There Been Any Changes To Your Family Or Social Situation? No [id number].[id number] [id number] Information not available 08/20/2022 What Is The Fluoride Status Of Your Home? Unknown [id number].[id number] [id number] Information not available 08/20/2022 Are There Any Guns Present In Your Home? Yes [id number].[id number] [id number] Information not available 08/20/2022 Do You Have A Humidifier? No Information not available 09/28/2023 Do You Use Insect Repellent Routinely? No [id number].[id number] [id number] Information not available 08/20/2022 Where Do You Live? [place] [id number].[id number] [id number] Information not available 08/20/2022 Do You Have A Medical Power Of Application Developer Manager? Yes [email or web address].[id number] [id number] Information not available 08/20/2022 Do You Have Moisture Problems In Your Home? No Information not available 09/28/2023 What Was The Date Of Your Most Recent Tobacco Screening? 05/04/2025 Information not available 05/04/2025 What Is Your Current Pack Years? 30ormorepackyears [email or web address].[id number] [id number] Information not available 08/20/2022 Have You Ever Been Counseled For Unhealthy Alcohol Use? No MIGRATION.0301 [id number] Information not available 08/20/2022 Do You Have Any Pets? Yes MIGRATION.0301 [id number] Information not available 08/20/2022 What Is Your Relationship Status? [email or web address] Information not available 07/02/2023 Do You Use Your Seat Belt Or Car Seat Routinely? Yes MIGRATION.0301 [id number] Information not available 08/20/2022 Do You Have Smoke And Carbon Monoxide Detectors In Your Home? Yes MIGRATION.0301 529483 Information not available 08/20/2022 At What Age Did You Start Smoking Tobacco? 17 MIGRATION.0301 [id number] Information not available 08/20/2022 Are You Passively Exposed To Smoke? Yes MIGRATION.0301 587645 Information not available 08/20/2022 Are There Any Smokers In Your House? No MIGRATION.0301 333025 Information not available 08/20/2022 How Much Tobacco Do You Smoke? 0.5 PPD Information not available 01/08/2023 What Types Of Sporting Activities Do You Participate In? None MIGRATION.0301 456696 Information not available 08/20/2022 Do You Use Sunscreen Routinely? Yes MIGRATION.0301 307058 Information not available 08/20/2022 How Many Years Have You Smoked Tobacco? 58 MIGRATION.0301 341094 Information not available 08/20/2022 Have You Recently Traveled Abroad? No MIGRATION.0301 471222 Information not available 08/20/2022 Do You Have Difficulty Walking Or Climbing Stairs? No MIGRATION.0301 634616 Information not available 08/20/2022 Do You Have Any Dietary Restrictions? No MIGRATION.0301 620254 Information not available 08/20/2022 Sex: Female Functional Status Question Answer Note LastModified by Organizat ion Details LastModified Time Do you or have you ever used smokeless tobacco? Never used smokeless tobacco MIGRATION.03354 80198 Information not available 08/20/2022 Are you currently employed? No Information not available 11/22/2024 Have you been exposed to chemicals or toxins? Not that aware of Information not available 09/28/2023 Do you have transportation difficulties? No MIGRATION.98091 81621 Information not available 08/20/2022 Are you able to care for yourself independently? Yes MIGRATION.57534 31733 Information not available 08/20/2022 Do you have difficulty dressing, bathing, grooming, or toileting? No MIGRATION.42547 68894 Information not available 08/20/2022 Do you or have you ever used e-cigarettes or vape? Never used electronic cigarettes MIGRATION.51032 04778 Information not available 08/20/2022 What is your exercise level? Occasional Patient stated she walks the dog when the weather is nice. MIGRATION.51063 14135 Information not available 08/20/2022 Do you use any illicit or recreational drugs? No MIGRATION.78081 44564 Information not available 08/20/2022 Do you or have you ever used any other forms of tobacco or nicotine? No MIGRATION.30178 29650 Information not available 08/20/2022 What is your level of alcohol consumption? None Information not available 01/08/2023 Are you able to walk independently without assistance or assistive devices? YESWOREST MIGRATION.24826 77188 Information not available 08/20/2022 Do you have difficulty doing errands alone? No MIGRATION.56285 87041 Information not available 08/20/2022 What is your occupation? [employer] MIGRATION.80869 73634 Information not available 08/20/2022 Mental Status Question Answer Note LastModified by Organizat ion Details LastModified Time Do you feel stressed (tense, restless, nervous, or anxious, or unable to sleep at night)? [id number] MIGRATION.[id number] 26 Information not available 08/20/2022 Do you have difficulty concentrating, remembering or making decisions? No MIGRATION.99093435 26 Information not available 08/20/2022 Family History Relationship Description Onset Age of this Age Resolved Age Notes LastModified by Organization Details LastModified Time Father Myocardial infarction MIGRATION.038 [id number] Not available 08/20/2022 00:43:52 Mother Malignant neoplasm of lung MIGRATION.496 [id number] Not available 08/20/2022 00:43:52 Sister Malignant neoplasm of breast MIGRATION.143 [id number] Not available 08/20/2022 00:43:52 Notes:NO ENT Medical History Condition Response NERVE DISEASE Y BLINDNESS N RHEUMATIC FEVER N KIDNEY STONES N BLADDER PROBLEMS N MRSA N OTHER # 1 Y POLIO N LUNG DISEASE/DISORDER Y HISTORY OF DRUG ABUSE N RADIATION / CHEMOTHERAPY N COPD Y Other # 2 N BLOOD DISEASES N EAR OR HEARING PROBLEMS Y MUMPS N SHINGLES N DEPRESSION (INCLUDING POST [...] Brain Problems N HERPES N DEMENTIA N SEIZURES/EPILEPSY N HEADACHES/MIGRAINES Y VASCULAR DISEASE N PACEMAKER N Blood Disorder N DIZZINESS N KIDNEY DISEASE N HEART DISEASE/HEART PROBLEMS Y MULTIPLE SCLEROSIS N CARDIAC ARRHYTHMIA N CANCER: SPECIFY N ANESTHESIA COMPLICATIONS N Gall Stones N ATRIAL FIBRILLATION N PULMONARY EMBOLISM N AUTOIMMUNE DISEASE N [...] (COVID-19) vaccine, UNSPECIFIED 1 completed SINCERE Charles Peek [facility] 12/23/2023 14:06:41 SARS-COV-2 (COVID-19) vaccine, UNSPECIFIED 1 completed SINCERE Charles Peek [facility] Mama [facility] 12/23/2023 14:06:41 Influenza, high-dose, trivalent, PF 0 completed SINCERE Charles [facility] 12/23/2023 14:06:41 Influenza, high-dose, quadrivalent, PF 2 completed Not Available [facility] 07/30/2023 03:20:22 Influenza, high-dose, quadrivalent, PF 1 completed Not Available [facility] 07/30/2023 03:20:22 Influenza, split virus, quadrivalent, PF 9 completed Not Available [facility] 07/30/2023 03:20:22 pneumococcal polysaccharide PPV23 9 completed Not Available [facility] 07/30/2023 03:20:22 Influenza, high-dose, trivalent, PF 8 completed Not Available [facility] 07/30/2023 03:20:22 Influenza, high-dose, trivalent, PF 7 completed Not Available [facility] 07/30/2023 03:20:22 Pneumococcal conjugate PCV 13 6 completed Not Available [facility] 07/30/2023 03:20:22 Influenza, high-dose, trivalent, PF 5 completed Not Available [facility] 07/30/2023 03:20:22 Influenza, split virus, trivalent, preservative 4 completed SINCERE Charles, [facility] 12/23/2023 14:06:41 Influenza, split virus, trivalent, preservative 3 completed SINCERE Charles, [facility] 12/23/2023 14:06:41 zoster recombinant 1 completed Parish Sands LPN null, [facility] 12/23/2023 14:06:40 zoster recombinant 0 completed SINCERE Charles, [facility] 12/23/2023 14:06:40 COVID-19, mRNA, LNP-S, PF, 100 mcg/0.5mL dose or 50 mcg/0.25mL dose 1 completed SINCERE Charles, [facility] 12/23/2023 14:06:41 COVID-19, mRNA, LNP-S, PF, 100 mcg/0.5mL dose or 50 mcg/0.25mL dose 1 completed SINCERE Charles, [facility] 12/23/2023 14:06:41 Influenza, high-dose, trivalent, PF 6 completed SINCERE Charles, [facility] 12/23/2023 14:06:41 Influenza, split virus, trivalent, PF 0 completed Parish Sands LPN teena, [facility] 12/23/2023 14:06:41 Hep A, adult 0 completed SINCERE Charles, [facility] 12/23/2023 14:06:41 Hep A, adult 0 completed SINCERE Charles, [facility] 12/23/2023 14:06:41 RSV, bivalent, protein subunit RSVpreF, diluent reconstituted, 0.5 mL, PF 3 completed Yara Del Rosario RMA teena, [facility] 01/23/2025 15:45:12 Influenza, high-dose, quadrivalent, PF 3 completed Yara Del Rosario RMA null, [facility] 05/12/2023 10:54:27 Influenza, high-dose, trivalent, PF 4 completed Yara Del Rosario RMA null, [facility] 05/04/2024 10:51:35 Past Encounters Encounter ID Performer Location Encounter Start Date Encounter Closed Date Diagnosis/Indication Diagnosis SNOMED-CT Code Diagnosis ICD10 Code Diagnosis IMO Codes Diagnosis Note [id number] Nile Bush DPM [facility] [address] [place] [address] 02/15/2025 15:52:38 02/16/2025 10:26:58 Peroneal tendinitis of right lower limb 3563006751 90306 M76.71 7950306 tendon pain lateral anklerice therapyace wrap applied to the ankleno strenuous activities Wound pain 247536726 T14 .8XXA 78172372 left foot dorsallyap ply with dressings Open wound of left foot 6041716289 6147158 S91.302D 1962542 offloading at all timeskeep area clean and dry dailyDress ings dailyMonit or for signs of infection for worsened seek medical attention immediatel yfollow-up 2 weeks [id number] Nile Bush DPM [facility] [address] [place] [address] 02/22/2025 10:14:01 02/22/2025 16:33:44 Wound pain 910572871 T14.8XXA 43571705 left foot dorsallyco ntinue current therapy Open wound of left foot 6286935071 4865147 S91.302D 2706348 offloading at all timeskeep area clean and dry dailyDress ings dailyMonit or for signs of infection for worsened seek medical attention immediatel yfollow-up 2 weeks Injury of right leg 1186 718392 4768965 S81.801A 26210193 secondary to biopsyoffl Akbar d care dailyApply gentamicin [id number] Yanet tamayo MD [facility] [address] [facility], [facility] [address] [place] [address] 02/28/2025 14:22:55 02/28/2025 15:35:13 Headache 39156740 R51.9 [facility] ER: 02/18/2024 [facility] ER: 02/18/2024 Addendum: 03/03/2024 :CT Head: 03/03/2024 : Neg, patient notified OV 06/28/2024 : Resolved, notify if any symptoms occur Pain in left foot 211656 9136 74231 M79.672 [facility] ER: 02/18/2024 [facility] ER: 02/18/2024 Trauma, dropped box of candy, [...] : Does well now Screening - NAD 23724205 3 Z13.9 C-scope: Cologuard 03/30/19: Neg, ordered 04/22/2022 Cologuard 05/08/2022 : +veC-scope : 06/27/2022 : Dr Truong Mammogram: 05/07/18, neg, get this [id number] /20/19: Neg01// 021: Neg 022: Neg 023: Neg 024: NegNo more mammogram 06/28/2024 PAP: Did see Marium Becker [employer] DEXA: 09/12/2020 : OPDEXA: 07/14/2022 : OP, [...] the above Chronic ob structive pulmonary disease 20718590 J44.9 CT Chest 11/20/2020 CT chest 07/30/2023 : Mucus impaction? She does see Ann Bartholomew [employer], did not want to keep her apts [...] and started on stioltoNow sees Ann Lala [employer] in 09/2024, is s/p EGD on 06/17/2024 , Dr Jase Lala [employer] 09/29/2024 Atrophic vaginitis 25886 000 N95.2 On clobetazol does well On hydroxyzin e for itching Insomnia 094080527 G47.0 0 90070082 On trazodone 50mg daily, does well Gastroesop hageal reflux disease without esophagitis 127881049 K21.9 On omeprazole Takes as neededDoes well on thisS/p EGD Dr Laguna on 06/17/2024 Glaucoma 09418832 H40.9 L eye blindness is present On brimonidin [place] dorzolamid [place] latanopros tOn neomycin eye drop Sees Dr Mayer Mass of thyroid gland [address] scan neck 04/13/18, mass noted [...] , next in 2 years Coronary arteriosclerosis 91558574 I25.10 01/17/2022 : ECHO: [facility] CT chest 11/15/2021 [facility] Dr Philip 10/09/2021 , [facility] [place] [address] [facility] 04/04/2022 , [place] [address] Philip 10/24/[address] Philip 04/15/2024 , was referred to Dr Bush, then seen in the ER on 04/21/2024 S/p ER [facility]: for SOB, treated with augmentinS /p ER Dennys 04/21/2024 for LE swelling and treated with lasix, see case on 04/28/2024 Does need to see Dr Bauman [facility] Dr Bauman 06/13/2024 , told to stop metoprolol , and start on lovastatin 20mg daily Get a referral to Dr Bauman [facility] 02/28/2025 Hyperlipidemia 14271401 E78.5 Not on rosuvastat in 5mg daily Dr Greco not want and labs are WNL 06/24/2024 Get labs Peripheral vascular disease 349104832 I73.9 See [facility] Dr Bauman [facility] Osteoarthritis 358341909 M19.90 Dr Noyola 11/01/2020 , f/u as needed Dr Noyoal 03/21/2021 , trochantri c bursitis or R hip s/p injection Dr Noyola/Josette EDDY 08/09/2021 Dr Noyola 09/24/2021 , s/p injection, L hip, L SI joint Dr Noyola 12/10/2021 Dr Noyola 05/29/2022 MRI L Spine 06/03/2022 : Dr Noyola, is now referred to a neurologis t in [place] as per her history Collin Thorne 01/08/2023 [...] on tramadolNo t to take Lyrica Eruption 333362229 R21 She states that the hydroxyzin e has not helpedShe does have a long standing history of itching and denies any new detergents or use of soaps or foodsAlso has a small raised slightly tender papule on the L dorsum of hand Refer to dermatolog y Osteoporosis 08724718 M8 1.0 On prolia last 01/08/2023 DeclinesCa n do fosamax, all side effects explained, and the way to take it 08/23/2024 Needs to do ca and vit d Multiple n odules of lung 509835356 R91.8 S/p CT chest 11/20/2020 Ann Dai [employer] 02/12/2021 , next apt 08/20/2021 , she has now been referred to Dr Barry for ? latent TB Ann Dai [employer] f/u 04/17/2023 Ann Dai [employer] 09/29/2024 Macrocytosis 851628325 D 75.89 MCV WNL 12/30/2023 Get B12 and folate levels Restless l egs syndrome 12399418 G25.81 Stop ropinirole 1mg dailyStop the gabapentin [...] MRI [place] spine Right inguinal pain [address] Light 09/12/2021 , post op 11/05/2021 Cardiomyopathy 10748375 I42.9 [facility] ER: 11/15/2021 : CTA angio, for [...] 05/29/2023 : Dr Philip, EF 55% Hyperglycemia 94776705 R 73.9 Get labsDeclin es meds, more diet and exercise is needed Allergic rhinitis 495223 04 J30.9 On claritin, montelukas tNot on flonase Trigeminal neuralgia 316 08128 G50.0 On carbamazep ine 100mg tid, but should be on bid as per neurology Dr Lucero 01/29/2023 , f/u in one year Has seen Dr Garcia and the pain is betterMRI brain 11/14/2020 : Neg Dr Lucero 03/10/2024 , f/u PRN Does well, not taking the carbazepin e Hypoproteinemia 1766351 E88.09 More protein in diet Goiter 4843338 E04.9 US head and neck 07/18/2022 Low back pain 560793901 M54.50 MRI L Spine 06/03/2022 : Dr Gustafson es well now 10/01/2023 , no N/T or weakness in the LE Dr Birch and now is to get a MRI LS Spine 03/02/2025 Chronic ki dney disease 897704216 N18.9 See nephrology Anemia 470124681 D64.9 Can do more iron in diet or OTC ironH/H is stable 11/18/2024 Hypomagnesemia 573461078 E83.42 Mag 11/18/2024 : 2.0 WNL Leukopenia 12109166 D72. 819 Low WBC and mildly low PLTNeeds to see Dr Shay declines any referrals at this timeGet labs Hyponatremia 56655260 E8 7.[address] Peter garrido the CMP Open wound of left lower leg 5103961681 4429806 S81.802A Dr Bush 02/23/2024 , next apt 06/02/2024 , change to Dr Treva [place] 06/28/2024 : No more apts healed Xerostomia 25294969 R68. 2 States that none of the OTC mouth washes/rin ses have worked, she has used Biotene/AC T etcOn Cevimeline , all side effects explained to her, notify if any side effects occur, she verbalized her understand ing of the above Pain of left hand 547124 5562 30687 M79.642 Get on meloxicam 7.5mg po bid as needed PRNAlso get a referral to hand surgery S/p Xray 10/18/2024 : Dr Robertson : OAIs on OT Hemorrhagi c otitis externa 86708764 H60.322 07641743 On mometasone cream L ear ache with visible bleed on the EACNeeds a refill on the cipro dex as the medication did not stay in, will refill and use a cotton ball to plug the EACIf not better, notify and then refer to ENT as she states that Dr Cee 'blew her off' Open wound 013713543 T14 .8XXA [address] Bush 03/01/2025 This is for silvia LE wounds [id number] Nile Bush DPM [facility] [address] [place] [address] 03/01/2025 15:42:38 03/06/2025 09:37:52 Open wound of left foot 7606713759 2689669 S91.302D 0232702 Healed with mild maceration Injury of right leg 1186 530848 6158500 S81.801A 96866462 secondary to biopsycont inue daily wound caremonito r for signs of infection at present seek medical attention immediatel yrecommend mild compressio n to the wound areafollow -up 2 weeks Wound pain 644321722 T14 .8XXA 60513801 left foot dorsallyco ntinue current therapy [id number] [facility] [address] [place] [address] 03/15/2025 10:54:04 03/15/2025 16:38:47 Open wound of left foot 5906170872 0030945 S91.302D 5898902 Healed with mild maceration Injury of right leg 1186 402501 6129789 S81.801D 09313146 secondary to biopsystab le with escharcont inue daily wound caremonito r for signs of infection at present seek medical attention immediatel yrecommend mild compressio n to the wound areafollow -up 2 weeks if not healed Health Concerns Section Related Observation LastModified by Organization Detai ls LastModified Time None Recorded Concern Status LastModified by Organization Details LastModified Time None Recorded Payers Encounter Date Sequence Insurance Name Policy Number Policy Yap Covered Member ID Yap Member ID Guarantor Name 03/15/2025 1 [place] Juliette Allison [id number] Juliette Narayanerick 03/15/2025 2 [place] [id number] Juliette Narayanerick [id number] Juliette Mcallister Keegan Notes Date Note Type Note Provider Name and Address Organization Details Recorded Time 03/15/2025 text/html . Patient is 80-year-old female who returns the office for follow-up on left foot wound which is completely healed she denies any further complaints with the foot. Patient still has some minor eschars which continued to heal well she has no acute signs of infection. Patient denies any other complaints. Nile Bush DPM [address] [address], [place], [address], [place] - [facility] [employer] 03/15/2025 14:15:01 OBGyn Episode No OBEpisode recorded.
--- OUTSIDE RECORDS SUMMARY | 2025-05-23 08:02 | XMS_ITS | Clinical Summary ---
Author Organization [facility] Address [address] [place] [address] Care Team Providers Care Tank Pumper Panelboard Name Role Phone Yanet Felder MD Primary Care Provider Allergies Active Allergy Reactions Criticality Noted Date Comments Rosuvastatin Hives Medium 01/04/2020 Medications traMADol (ULTRAM) 50 MG tablet Take 1 tablet (50 mg total) by mouth every 4 (four) hours as needed. 10/07/2024 Active traZODone (DESYREL) 50 MG tablet Take 1 tablet (50 mg total) by mouth nightly at bedtime. Active montelukast (SINGULAIR) 10 MG tablet Take 1 tablet (10 mg total) by mouth nightly at bedtime. 03/22/2024 Active rOPINIRole (REQUIP) 2 MG tabletIndicatio ns:Restless leg syndrome Take 1 tablet (2 mg total) by mouth nightly at bedtime. 90 tablet 3 10/26/2024 Active alendronate (FOSAMAX) 70 MG tablet Take 1 tablet (70 mg total) by mouth once a week. Active torsemide (DEMADEX) 5 MG tablet Take 1 tablet (5 mg total) by mouth daily. 08/02/2024 Active albuterol (PROVENTIL) (2.5 MG/3ML) 0.083% nebulizer solution Take 3 mLs (2.5 mg total) by nebulization . 10/17/2024 Active arformoterol (BROVANA) 15 MCG/2ML Nebu Soln Take 2 mLs (15 mcg total) by nebulization . 10/17/2024 Active meloxicam (MOBIC) 7.5 MG tablet Take 1 tablet (7.5 mg total) by mouth 2 (two) times daily as needed. Active brimonidine (ALPHAGAN) 0.2 % ophthalmic solution INSTILL 1 DROP IN RIGHT EYE TWICE DAILY Active brimonidine-mason olol (COMBIGAN) 0.2-0.5 % ophthalmic solution Active dorzolamide (TRUSOPT) 2 % ophthalmic solution INSTILL 1 DROP INTO RIGHT EYE TWICE DAILY Active cetirizine (ZYRTEC) 5 MG tablet Take 1 tablet (5 mg total) by mouth daily. Active fluticasone propionate (FLONASE) 50 MCG/ACT nasal spray 1 spray by Each Nostril route daily. Active fluticasone-willy meterol (ADVAIR HFA) 115-21 MCG/ACT inhaler Inhale 2 puffs into the lungs 2 (two) times daily. Active Active Problems No known active problems Family History Medical History Relation Comments Heart Attack Father Relation Status Comments Father Social History Tobacco Use Types Packs/Day Years Used Date Smoking Tobacco: Every Day Cigarettes Smokeless Tobacco: Never Tobacco Cessation:Ready to Q uit: Not Asked; Counseling Given: No Alcohol Use Standard Drinks/Week Comments Never 0 (1 standard drink = 0.6 oz pur e alcohol) PHQ-2 Answer Date Recorded Patient Health Questionnaire-2 Score 0 10/26/2024 Comments No Sex and Gender Information Value Date Recorded Sex Assigned at Female 12/28/2024 6:13 AM CDT Legal Sex Female 2:04 PM [employer]INTING ENG[employer] Gender Identity Not on file Sexual Orientation Not on file Last Filed Vital Signs Vital Sign Reading Time Taken Comments Blood Pressure 103/61 01/19/2025 10:03 AM CDT Pulse 65 01/19/2025 10:03 AM CDT Temperature 37.3 C (99.1 F) 01/19/2025 10:03 AM CDT Respiratory Rate 16 01/19/2025 10:03 AM CDT Oxygen Saturation 96% 01/19/2025 10:03 AM CDT Inhaled Oxygen Concentration - - Weight 39.5 kg (87 lb) 01/19/2025 10:03 AM CDT Height 162.6 cm (5' 4) 01/19/2025 10:03 AM CDT Body Mass Index 14.93 01/19/2025 10:03 AM CDT Plan of Treatment Health Maintenance Due Date Last Done Comments DTaP, Tdap and Td Vaccines (1 - Tdap) 1964 Annual Medicare Wellness Visit 2009 Dexa Scan (General) 2009 COVID-19 Vaccine (3 - season) 2025 09/04/2020, 09/04/2020, 07/26/2020, Additional history exists Influenza Adult (#1) 2025 05/04/2024, 05/12/2023, 04/22/2022, Additional history exists Hepatitis A Vaccines Aged Out 01/22/2000, 07/17/19 00 No longer eligible based on patient's age to complete this topic Pneumococcal Vaccine: 50+ Years Completed 06/24/2018, 05/07/2016 Zoster Vaccines Completed 06/27/2020, 03/14/2020 RSV Immunization or 60+ Years Completed 03/03/2023 PHQ-2 (Physician [place]) Completed 10/26/2024 Meningococcal B Vaccine Aged Out No l onger eligible based on patient's age to complete this topic Meningococcal Vaccine Aged Out No avi lloyd eligible based on patient's age to complete this topic RSV Immunizations Under 20 Months Aged Out No longer eligible based on patient's age to complete this topic Insurance MEDICARE [facility] Care Teams Tank Pumper Panelboard Relationship Specialty Start Date End Date Yanet Felder MD [address] [address] PCP - General INTERNAL MEDICINE 10/26/24
--- OUTSIDE RECORDS SUMMARY | 2025-05-23 08:02 | XMS_ITS | Continuity of Care Document ---
Author Organization [place] [facility], [facility] Internal Med [address] [facility], [address] [place] [address] Care Team Providers Care Summer Nanny Name Role Phone YANET FELDER Primary Care Provider [phone] YANET FELDER Referring Provider LUCIO TILLEY Repair Clerk NILE BUSH Repair Clerk RADHA CEE Hybrid Tester SEYMOUR PHILIP Rn Corrections COLLIN THORNE Orthopedic Surgeon [phone] ELEANOR DORADO Entry Level Marketing Assistant [phone] JENNIFER, HOMER SI Neurologist STEFFEN BULLARD Working Supervisor LEAH TROUNG Therapeutic Riding Instructor ANN LALA District Manager Primary Care Sales Assessment Encounter Date Assessment Date Assessment LastModified by Organization Details LastModified Time 05/04/2025 05/04/2025 08/20/2022: Folate: WNL A1C 5.4 [...] the patient with her various complaints addressed [email or web address] Not available 05/16/2025 18:25:00 Plan of Treatment Reminders Order Date Submit Date Provider Last Modified By Organization Details Last Modified Time Details Appointments Establish ed Patient 15 2024 08:15A M Nile Bush DPM Not available Not available Not available Any 15 2024 11:00A Jas ocampo MD Not available Not available Not available Lab vitamin B12 + folate, serum or blood 2024 [email or web address] [facility] (Lab), [address] [place], [address], 05/15/2025 09:30:29 lipid panel, serum 2024 [email or web address] [facility] (Lab), [address] [place], [address], 05/15/2025 09:30:29 CBC w/ auto diff [email or web address] (Lab), [address] [place], [address], 05/15/2025 09:30:29 CMP, serum or plasma [address] [facility] (Lab), [address] [place], [address], 05/15/2025 09:30:29 TSH, serum or plasma [address] (Lab), [address] [place], [address], 05/15/2025 09:30:29 glycohemo globin, total, blood [address] (Lab), [address] [place], [address], 05/15/2025 09:30:28 microalbu min, urine [address] (Lab), [address] [place], [address], 05/15/2025 09:30:28 CMP, serum or plasma [address] (Lab), [address] [place], [address], 05/15/2025 09:30:29 Referral otolaryng ologist referral - Additiona l note: Patient can't wear hearing aids due to ears being clogged. 2024 025 Radha Cee MD, [address], [place], [address], 05/04/2025 14:10:16 dermatolo gist referral - Please call patient to schedule an appointme nt. Thank you. 2024 025 [email or web address] Lorena Aranda MD (Dermatology) , [address], [place], [address], 05/04/2025 14:10:16 nephrolog ist referral - Please call patient to schedule an appointme nt. Thank you. 2024 025 [email or web address] [place], [address], [place], [address], 05/04/2025 14:09:32 cardiolog ist referral - Please call pt to schedule appt. Thank you 2024 025 [place], [address], [address], [place], [address], 05/04/2025 14:09:32 Procedures None recorded. Surgeries None recorded. Imaging None recorded. Medication Orders cephalexi n 250 mg capsule 2024 025 [id number], [address] [place] [address], [id number], 05/18/2025 05:02:27 Patient TargetsNo targets recorded. Patient InstructionsNo instructions recorded. Reason for Referral Rn Corrections Referral for Co ronary arteriosclerosis Please call pt to schedule appt. Thank you Referring Physician: Yanet Felder, Internal Medicine, Encounter Date: 05/04/2025 Working Supervisor Referral for Ch ronic kidney disease Please call patient to schedule an appointment. Thank you. Referring Physician: Yanet Felder, Internal Medicine, Encounter Date: 05/04/2025 Equal Opportunity Specialist Referral for E ruption Please call patient to schedule an appointment. Thank you. Referring Physician: Yanet Felder, Internal Medicine, Encounter Date: 05/04/2025 Hybrid Tester Referral fo r Mass of thyroid gland Additional note: Patient can't wear hearing aids due to ears being clogged. Referring Physician: Yanet Felder, Internal Medicine, Encounter Date: 05/04/2025 Problems Name Problem SNOMED Code Status Onset Date Resolution Date Notes Provider Name and Address Organization Details Recorded Time Herpes zoster 8947276 Active Not Available [facility] 3 21:10:20 Allergic rhinitis 47268252 Active 2018 Not Available [facility] 3 21:10:20 Nicotine dependence 01227830 Active 2020 Not Available [facility] 3 21:10:20 Inactive tuberculos is 63125933 Active 2020 Not Available [facility] 3 21:10:19 Spinal stenosis of lumbar region 85700344 Active 2021 Not Available [facility] 3 21:10:19 Osteoporos is 37206016 Active 2022 Yanet tamayo MD [address], [address], [place], [address] , [facility] 5 18:14:40 Gastroesop hageal reflux disease without esophagiti s 638429843 Active 2022 Not Available [facility] 3 21:10:20 Glaucoma 98214893 Active 2022 Not Available [facility] 3 21:10:20 Hyperlipid emia 37115324 Active 2022 Not Available [facility] 3 21:10:20 Osteoarthr itis 423652171 Active 2022 Yanet tamayo MD [address], [address], [place], [address] , [facility] 5 18:15:06 Trigeminal neuralgia 62668170 Active 2022 Not Available [facility] 3 21:10:20 Vertigo 409080012 Active 2022 Nettie dickinson, [facility] 3 16:43:34 Mixed anxiety and depressive disorder 559174725 Active 2022 Nettie dickinson, [facility] 3 14:02:55 Dyspnea on exertion 07213366 Active 2023 Gilberto Bonds MD [address], [address], [place], [address] , [facility] 4 12:15:03 Smoker 18184609 Active 2023 Gilberto Bonds MD [address], [address], [place], [address] , [facility] 4 12:16:35 Solitary nodule of lung 969909909 Active 2023 Gilberto Bonds MD [address], [address], [place], [address] , [facility] 4 12:17:26 Moderate chronic obstructiv e pulmonary disease 580490844 Active 2023 Gilberto Bonds MD [address], [address], [place], [address] , [facility] 4 12:17:59 Chronic obstructiv e pulmonary disease 58993812 Active 2023 Yanet tamayo MD [address], [address], [place], [address] , [facility] 4 16:35:29 Insomnia 395697440 Active 2023 Yanet tamayo MD [address], [address], [place], [address] , [facility] 5 14:38:47 Atrophic vaginitis 59272202 Active 2023 Yanet tamayo MD [address], [address], [place], [address] , [place] [facility] 4 16:35:29 Mass of thyroid gland 745209197 Active 2023 Yanet tamayo MD [address], [address], [place], [address] , [place] [facility] 4 16:35:29 Coronary arterioscl erosis 96994873 Active 2023 Yanet tamayo MD [address], [address], [place], [address] , [place] [facility] 4 16:35:29 Peripheral vascular disease 244850867 Active 2023 Yanet tamayo MD [address], [address], [place], [address] , [facility] 4 16:35:29 Eruption 032532285 Active 2023 Yanet tamayo MD [address], [address], [place], [address] , [facility] 4 16:35:30 Multiple nodules of lung 122090627 Active 2023 Yanet tamayo MD [address], [address], [place], [address] , [facility] 4 16:35:30 Macrocytos is 525700117 Active 2023 Yanet tamayo MD [address], [address], [place], [address] , [facility] 4 16:35:30 Restless legs syndrome 76327693 Active 2023 Yanet tamayo MD [address], [address], [place], [address] , [place] [facility] 4 16:35:30 Right inguinal pain 4303114487577 9109 Active 2023 Yanet tamayo MD [address], [address], [place], [address] , [facility] 4 16:35:30 Cardiomyop athy 79646318 Active 2023 Yanet tamayo MD [address], [address], [place], [address] , [facility] 4 16:35:30 Hyperglyce moon 51161554 Active 2023 Yanet tamayo MD [address], [address], [place], [address] , [facility] 4 16:35:30 Hypoprotei nemia 2720854 Active 2023 Yanet tamayo MD [address], [address], [place], [address] , [facility] 4 16:35:30 Goiter 3353736 Active 2023 Yanet tamayo MD [address], [address], [place], [address] , [facility] 4 16:35:30 Low back pain 084630246 Active 2023 Yanet tamayo MD [address], [place], [address] , [facility] 5 18:14:08 Chronic kidney disease 096437638 Active 2023 Yanet tamayo MD [address], [place], [address] , [facility] 4 16:35:30 Anemia 797812440 Active 2023 Yanet tamayo MD [address], [place], [address] , [facility] 4 16:35:31 Hypomagnes emia 577648809 Active 2023 Yanet tamayo MD [address], [address], [place], [address] , [facility] 4 16:35:31 Upper respirator y infection 09857412 Active 2023 Michelle Noyola MA null, [facility] 4 11:59:32 Thyroid nodule 354264930 Active 2023 Radha Cee MD [address], [address], [place], [address] , [facility] 4 11:26:57 Acute sinusitis 80703474 Active 2023 GIBSON Calderon null, [facility] 4 16:28:36 Leukopenia 31002267 Active 2023 Yanet tamayo MD [address], [address], [place], [address] , [facility] 4 14:27:53 Hyponatrem ia 11191999 Active 2023 Yanet tamayo MD [address], [address], [place], [address] , [facility] 4 14:34:06 Open wound of left lower leg 7152226779134 9106 Active 2023 Yanet tamayo MD [address], [address], [place], [address] , [facility] 4 14:51:29 Xerostomia 41955440 Active 2023 Yanet tamayo MD [address], [address], [place], [address] , [facility] 4 14:53:50 Pain of left hip joint 6322173303277 00 Active 2023 Crystal Shaikh teena, [place] [facility] 4 14:01:20 Trochanter ic bursitis of left hip 0364579648446 03 Active 2023 NUNU Soriano [address], [address], [place], [address] , [facility] 4 14:17:32 Venous stasis ulcer with edema of left lower leg 1560991877759 9101 Active 2023 Nile Bush DPM [address], [address], [place], [address] , [facility] 4 15:01:02 Venous stasis ulcer with edema of right lower leg 7702578685321 9106 Active 2023 Nile Bush DPM [address], [address], [place], [address] , [facility] 4 15:01:10 Ankle pain 306067316 Active 2023 Nile Bush DPM [address], [address], [place], [address] , [facility] 4 15:21:34 Peroneal tendinitis of right lower limb 2832520826302 09 Active 2023 Nile Bush DPM [address], [address], [place], [address] , [facility] 5 16:45:38 Peripheral venous insufficie ncy 65882704 Active 2023 Nile Bush DPM [address], [address], [place], [address] , [facility] 4 15:23:41 Headache 82283157 Active 2023 Yanet tamayo MD [address], [address], [place], [address] , [facility] 4 18:42:05 Pain in left foot 4371278011204 07 Active 2023 Yanet tamayo MD [address], [address], [place], [address] , [facility] 4 18:42:25 Edema of lower extremity 079868157 Active 2023 GIBSON Calderon null, [facility] 4 18:29:27 Pain in right foot 2340869167443 07 Active 2023 Yanet tamayo MD [address], [address], [place], [address] , [facility] 5 10:24:24 Right foot neuritis 9806145739637 09 Active 2023 Lucio Tilley DPM [address], [address], [place], [address] , [facility] 4 09:13:44 Neuropathy 598886891 Active 2023 GIBSON Frias null, [facility] 4 13:02:32 Liver enzymes level above reference range 998326093 Active 2024 Yanet tamayo MD [address], [address], [place], [address] , [facility] 5 14:56:47 Pain of left hand 0485732484353 03 Active 2024 Yanet tamayo MD [address], [address], [place], [address] , [facility] 5 14:33:49 Sensorineu ral hearing loss of bilateral ears 298112028 Active 2024 Alyssa Elizabeth RN null, [facility] 5 12:17:36 Pain of ear 241231272 Active 2024 RADHIKA Carter [address], [address], [place], [address] , [place] [facility] 5 12:45:23 Impacted cerumen in left ear 0869695179676 101 Active 2024 RADHIKA Carter [address], [address], [place], [address] , [place] [facility] 5 12:47:06 Eczema of external auditory canal 47605345 Active 2024 Alyssa Elizabeth RN null, [facility] 5 10:50:53 Hemorrhagi c otitis externa 34581751 Active 2024 Radha Cee MD [address], [address], [place], [address] , [facility] 5 15:46:12 Dysfunctio n of bilateral eustachian tubes 3499533221124 100 Active 2024 Alyssa Elizabeth RN null, [place] [facility] 5 15:31:49 Otitis externa 5734563 Active 2024 Radha Cee MD [address], [address], [place], [address] , [facility] 5 14:10:11 Postmenopa usal osteoporos is 160794528 Active 2024 GIBSON Calderon null, [facility] 5 10:46:35 Chronic pain 37455696 Active 2024 Yanet tamayo MD [address], [address], [place], [address] , [facility] 5 18:40:04 Chronic low back pain 660840282 Active 2024 Yanet tamayo MD [address], [address], [place], [address] , [facility] 5 18:41:44 Injury of foot 163196826 Active 2024 GIBSON Calderon null, [facility] 5 15:46:04 Open wound of left foot 4792843903378 9105 Active 2024 Nile Bush DPM [address], [address], [place], [address] , [facility] 5 17:20:07 Spinal stenosis in cervical region 99545650 Active 2024 Yara Del RosarioGIBSON null, [place] [facility] 5 11:12:43 Peroneal tendinitis of left lower limb 5780050185099 07 Active 2024 Nile Bush DPM [address], [address], [place], [address] , [facility] 5 16:45:30 Wound pain 482139736 Active 2024 Nile Bush DPM [address], [address], [place], [address] , [facility] 5 16:45:56 Injury of right leg 6556559667152 9102 Active 2024 Nile Bush DPM [address], [address], [place], [address] , [facility] 5 14:14:25 Open wound 374408743 Active 2024 Yante tamayo MD [address], [address], [place], [address] , [facility] 5 14:24:51 Notes:Medical History: Globa l brain atrophy Anxiety/Depression Right trigeminal neuralgia Vertigo L>R hearing loss Glaucoma Rhinitis Bilateral thyroid nodules Nicotine use Mod COPD 4 mm RML pulmonary nodule Bilateral Bochdalek hernias Mild LA Hypertension EF 55% Hyperlipidemia Hiatal hernia with GILDA Granulomatous disease (chest, liver, spleen) B12 deficiency RLS Herpes zoster Thoracic DDD Lumbar spondylosis/stenosis Hip osteoporosis Procedure History: Tonsillectomy 1949, 1954 Left corneal transplants 1957, 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 Procedures Surgical History Date Name Laterality Status Provider Name and Address Organization Details Recorded Time 03/29/20 25 Wound Care-Podiatry completed Brandi Vera RN [facility] 03/29/2025 17:15:30 03/15/20 25 Wound Care-Podiatry completed Brandi Vera RN [facility] 03/15/2025 12:15:28 03/01/20 25 Wound Care-Podiatry completed Nile Bush DPM [address], [address], [place], [address], [facility] 03/06/2025 09:27:34 02/23/20 25 Wound Care-Podiatry completed Nile Bush DPM [address], [address], [place], [address], [facility] 02/22/2025 12:32:43 02/16/20 25 Wound Care-Podiatry completed Brandi Vera RN [facility] 02/15/2025 17:42:38 02/02/20 25 Wound Care-Podiatry completed Nile Bush DPM [address], [address], [place], [address], [facility] [employer] [facility] 02/01/2025 11:02:00 05/11/20 24 Trigger Point Injection completed Lucio Tilley DPM [address], [address], [place], [address], [facility] 05/12/2024 09:13:29 05/03/20 24 Medicare Wellness CPT Code, subsequent completed Parish Sands LPN [facility] 05/03/2024 08:52:49 01/20/20 24 Wound Care-Podiatry completed Brandi Vera RN [facility] 01/20/2024 12:01:58 01/06/20 24 Wound Care-Podiatry completed Brandi Vera RN [facility] 01/06/2024 16:57:53 03/04/20 23 Wound Care-Podiatry completed Elva Collier RN [facility] [employer] 03/04/2023 10:39:47 03/03/20 23 Medicare Wellness CPT Code, subsequent completed Alejandra Roepr RN [facility] [employer] [facility] 03/03/2023 15:12:19 02/19/20 23 Wound Care-Podiatry completed Elva Collier RN [facility] 02/18/2023 11:25:43 02/12/20 23 Wound Care-Podiatry completed Elva Collier RN [facility] 02/11/2023 09:29:58 02/05/20 23 Wound Care-Podiatry completed Elva Collier RN [facility] 02/04/2023 12:33:33 01/22/20 23 Wound Care-Podiatry completed Elva Collier RN [facility] 01/21/2023 12:12:49 11/20/19 23 Wound Care-Podiatry completed Nile Bush DPM [address], [address], [place], [address], [facility] [facility] 11/19/2022 11:53:32 11/13/19 23 Wound Care-Podiatry completed Nile Bush DPM [address], [address], [place], [address], [facility] [facility] 11/12/2022 10:49:25 10/30/19 23 Wound Care-Podiatry completed Nile Bush DPM [address], [address], [place], [address], [facility] [employer] [facility] 10/29/2022 11:33:18 06/28/19 23 Colonoscopy completed GIBSON Calderon [facility] [employer] [facility] 08/26/2022 14:30:37 11/17/19 22 Cardiac Cath completed Not Available [facility] 023 00:43:48 10/29/19 22 Hernia Repair completed Not Available [facility] 2022 00:43:48 08/05/19 19 Orthopedic Surgery completed Not Available [facility] 08/20/2022 00:43:48 07/01/19 19 Most Recent Bone Density completed Not Available [facility] 08/20/2022 00:43:45 12/18/19 16 Treat thigh fracture completed Not Available [facility] 08/20/2022 00:43:48 08/06/19 14 total replacement of hip completed Not Available [facility] 08/20/2022 00:43:48 Eye Surgery completed Not Available [facility] 08/20/2022 00:43:48 Remove tonsils and adenoids completed Alyssa Elizabeth RN [place] [facility] [place] [facility] 11/04/2023 10:52:52 Imaging Results None recorded. Procedure Notes None recorded. Medical Equipment None Reported. Allergies Allergen ID Allergen Name Allergen Category Reaction Reaction Severity Criticality Documentation Date Start Date Code Code System Note Provider Name and Address Organization Details Recorded Time 587 rosuvasta tin medicatio n hives Not available Not available 08/20/2022 67737 2 RxNorm Not Available [facility] 00:53:35 Medications Name Sig Start Date Stop [...] by injectio n route. 06/28 completed [facility] [place] [place]: 0003-049 4-20 Not Available Not Available Not [...] ered by the provider 08/27 completed [facility] [place]: 0409-427 6-17 Not Available Not Available Not [...] drops USE 1 DROP IN [facility] 05/21 completed Not Available Not Available Not Available ropivacai ne (PF) 5 mg/mL (0.5 %) injection solution Take 20 mg by injectio n route. 03/03 completed [facility] [place] [address] 4- Not Available Not Available Not Available Chantix [...] Available Not Available Not Available Fluzone High-Dose 2841-6258 (PF) 180 mcg/0.5 mL intramusc ular syringe [...] Not Available Not Avai lable Fluad Quad 2617-6720 (65yr up)(PF) 60 mcg (15 mcg x 4)/0.5mL IM syringe ADM 0.7ML IM UTD 08/20 completed Not Available Not Available Not Available AsperFlex (lidocain e) 4 % topical cream APPLY 1 APPLICAT ION 3 TIMES A DAY TOPICALL Y NEEDED FOR 30 DAYS FOR WOUND PAIN FOOT active Not Available Not Available No t Available Vitals Date Recorded Body height Body temperature Pain severity - 0-10 verbal numeric rating [Score] - Reported Heart rate Oxygen saturation Systolic And Diastolic Provider Name and Address Organization Details Last Updated DateTime 5 162.56 cm 98.2 [degF] 8 115 /min 86 % 100/58 mm[Hg] Tawanna Garay MA [employer] 5 09:53:52 Social History Question Answer Notes LastModified by Organization Details LastModified Time Tobacco Smoking Status Current Every Day Smoker Tawanna Garay MA null, [employer] 02/28/2025 14:33:48 Do You Have An Advance Directive? Yes Patient To Bring Copy For Chart. MIGRATION.0301 [id number] Information not available 08/20/2022 Are You Blind Or Do You Have Difficulty Seeing? No MIGRATION.0301 033330 Information not available 08/20/2022 What Is Your Level Of Caffeine Consumption? Moderate MIGRATION.0301 684031 Information not available 08/20/2022 How Much Tobacco Do You Chew? None MIGRATION.0301 854400 Information not available 08/20/2022 In The 14 Days Before Symptom Onset, Have You Had Close Contact With A Laboratory-confi rmed COVID-19 While That Case Was Ill? No MIGRATION.0301 004071 Information not available 08/20/2022 In The 14 Days Before Symptom Onset, Have You Had Close Contact With A Person Who Is Under Investigation For COVID-19 While That Person Was Ill? No MIGRATION.0301 404707 Information not available 08/20/2022 Are You Deaf Or Do You Have Serious Difficulty Hearing? No MIGRATION.0301 876608 Information not available 08/20/2022 What Type Of Diet Are You Following? REGULAR MIGRATION.0301 349226 Information not available 08/20/2022 Which Illicit Or Recreational Drugs Have You Used? None MIGRATION.0301 972976 Information not available 08/20/2022 Do You Have An Electrostatic Air Filter? No Information not available 09/28/2023 Have There Been Any Changes To Your Family Or Social Situation? No MIGRATION.0301 924276 Information not available 08/20/2022 What Is The Fluoride Status Of Your Home? Unknown MIGRATION.0301 891578 Information not available 08/20/2022 Are There Any Guns Present In Your Home? Yes MIGRATION.0301 380351 Information not available 08/20/2022 Do You Have A Humidifier? No Information not available 09/28/2023 Do You Use Insect Repellent Routinely? No MIGRATION.0301 190932 Information not available 08/20/2022 Where Do You Live? [place] MIGRATION.0301 972829 Information not available 08/20/2022 Do You Have A Medical Power Of Drum Puller? Yes MIGRATION.0301 674683 Information not available 08/20/2022 Do You Have Moisture Problems In Your Home? No Information not available 09/28/2023 What Was The Date Of Your Most Recent Tobacco Screening? 05/04/2025 Information not available 05/04/2025 What Is Your Current Pack Years? 30ormorepackyears MIGRATION.0301 474011 Information not available 08/20/2022 Have You Ever Been Counseled For Unhealthy Alcohol Use? No MIGRATION.0301 018984 Information not available 08/20/2022 Do You Have Any Pets? Yes MIGRATION.0301 299269 Information not available 08/20/2022 What Is Your Relationship Status? [email or web address] Information not available 07/02/2023 Do You Use Your Seat Belt Or Car Seat Routinely? Yes MIGRATION.0301 977121 Information not available 08/20/2022 Do You Have Smoke And Carbon Monoxide Detectors In Your Home? Yes MIGRATION.0301 696116 Information not available 08/20/2022 At What Age Did You Start Smoking Tobacco? 17 MIGRATION.0301 145811 Information not available 08/20/2022 Are You Passively Exposed To Smoke? Yes MIGRATION.0301 412930 Information not available 08/20/2022 Are There Any Smokers In Your House? No MIGRATION.0301 214558 Information not available 08/20/2022 How Much Tobacco Do You Smoke? 0.5 PPD Information not available 01/08/2023 What Types Of Sporting Activities Do You Participate In? None MIGRATION.0301 214357 Information not available 08/20/2022 Do You Use Sunscreen Routinely? Yes MIGRATION.0301 396974 Information not available 08/20/2022 How Many Years Have You Smoked Tobacco? 58 MIGRATION.0301 026467 Information not available 08/20/2022 Have You Recently Traveled Abroad? No MIGRATION.0301 707729 Information not available 08/20/2022 Do You Have Difficulty Walking Or Climbing Stairs? No MIGRATION.0301 985584 Information not available 08/20/2022 Do You Have Any Dietary Restrictions? No MIGRATION.0301 580261 Information not available 08/20/2022 Sex: Female Functional Status Question Answer Note LastModified by Organizat ion Details LastModified Time Do you or have you ever used smokeless tobacco? Never used smokeless tobacco MIGRATION.88872 62309 Information not available 08/20/2022 Are you currently employed? No Information not available 11/22/2024 Have you been exposed to chemicals or toxins? Not that aware of Information not available 09/28/2023 Do you have transportation difficulties? No MIGRATION.84783 33866 Information not available 08/20/2022 Are you able to care for yourself independently? Yes MIGRATION.12859 45134 Information not available 08/20/2022 Do you have difficulty dressing, bathing, grooming, or toileting? No MIGRATION.60100 20195 Information not available 08/20/2022 Do you or have you ever used e-cigarettes or vape? Never used electronic cigarettes MIGRATION.92013 33214 Information not available 08/20/2022 What is your exercise level? Occasional Patient stated she walks the dog when the weather is nice. MIGRATION.09955 14943 Information not available 08/20/2022 Do you use any illicit or recreational drugs? No MIGRATION.94924 02593 Information not available 08/20/2022 Do you or have you ever used any other forms of tobacco or nicotine? No MIGRATION.98056 12198 Information not available 08/20/2022 What is your level of alcohol consumption? None Information not available 01/08/2023 Are you able to walk independently without assistance or assistive devices? YESWOREST MIGRATION.33593 10271 Information not available 08/20/2022 Do you have difficulty doing errands alone? No MIGRATION.87037 64585 Information not available 08/20/2022 What is your occupation? [employer] MIGRATION.62075 63537 Information not available 08/20/2022 Mental Status Question Answer Note LastModified by Organizat ion Details LastModified Time Do you feel stressed (tense, restless, nervous, or anxious, or unable to sleep at night)? [id number] MIGRATION.40984094 26 Information not available 08/20/2022 Do you have difficulty concentrating, remembering or making decisions? No MIGRATION.75699065 26 Information not available 08/20/2022 Family History Relationship Description Onset Age of this Age Resolved Age Notes LastModified by Organization Details LastModified Time Father Myocardial infarction MIGRATION.278 [id number] Not available 08/20/2022 00:43:52 Mother Malignant neoplasm of lung MIGRATION.028 6047055 Not available 08/20/2022 00:43:52 Sister Malignant neoplasm of breast MIGRATION.731 8107063 Not available 08/20/2022 00:43:52 Notes:NO ENT Medical [...] (COVID-19) vaccine, UNSPECIFIED 1 completed SINCERE Charles, [facility] [facility] 12/23/2023 14:06:41 SARS-COV-2 (COVID-19) vaccine, UNSPECIFIED 1 completed SINCERE Charles, [facility] [employer] [facility] 12/23/2023 14:06:41 Influenza, high-dose, trivalent, PF 0 completed SINCERE Charles [facility] [employer] [facility] 12/23/2023 14:06:41 Influenza, high-dose, quadrivalent, PF 2 completed Not Available [facility] 07/30/2023 03:20:22 Influenza, high-dose, quadrivalent, PF 1 completed Not Available [facility] 07/30/2023 03:20:22 Influenza, split virus, quadrivalent, PF 9 completed Not Available [facility] 07/30/2023 03:20:22 pneumococcal polysaccharide PPV23 9 completed Not Available [facility] 07/30/2023 03:20:22 Influenza, high-dose, trivalent, PF 8 completed Not Available [facility] 07/30/2023 03:20:22 Influenza, high-dose, trivalent, PF 7 completed Not Available [facility] 07/30/2023 03:20:22 Pneumococcal conjugate PCV 13 6 completed Not Available [facility] 07/30/2023 03:20:22 Influenza, high-dose, trivalent, PF 5 completed Not Available [facility] 07/30/2023 03:20:22 Influenza, split virus, trivalent, preservative 4 completed Parish Sands LPN null, [facility] 12/23/2023 14:06:41 Influenza, split virus, trivalent, preservative 3 completed Parish Sands LPN null, [facility] 12/23/2023 14:06:41 zoster recombinant 1 completed Parish Sands LPN null, [facility] 12/23/2023 14:06:40 zoster recombinant 0 completed Parish Sands LPN null, [facility] 12/23/2023 14:06:40 COVID-19, mRNA, LNP-S, PF, 100 mcg/0.5mL dose or 50 mcg/0.25mL dose 1 completed Parish Sands LPN null, [facility] 12/23/2023 14:06:41 COVID-19, mRNA, LNP-S, PF, 100 mcg/0.5mL dose or 50 mcg/0.25mL dose 1 completed Parish Sands LPN null, [facility] 12/23/2023 14:06:41 Influenza, high-dose, trivalent, PF 6 completed Parish Sands LPN null, [facility] 12/23/2023 14:06:41 Influenza, split virus, trivalent, PF 0 completed Parish Sands LPN null, [facility] 12/23/2023 14:06:41 Hep A, adult 0 completed Parish Sands LPN null, [facility] 12/23/2023 14:06:41 Hep A, adult 0 completed Parish Sands LPN null, [facility] 12/23/2023 14:06:41 RSV, bivalent, protein subunit RSVpreF, diluent reconstituted, 0.5 mL, PF 3 completed Yara Del Rosario RMA null, [facility] 01/23/2025 15:45:12 Influenza, high-dose, quadrivalent, PF 3 completed Yara Del Rosario RMA null, [facility] 05/12/2023 10:54:27 Influenza, high-dose, trivalent, PF 4 completed Yara Del Rosario RMA null, [facility] 05/04/2024 10:51:35 Past Encounters Encounter ID Performer Location Encounter Start Date Encounter Closed Date Diagnosis/Indication Diagnosis SNOMED-CT Code Diagnosis ICD10 Code Diagnosis IMO Codes Diagnosis Note [id number] Yanet tamayo MD [facility] 15 [address]43 [facility], [facility] 15 [place] [address] 05/04/2025 09:47:32 05/04/2025 10:35:22 Headache 97525764 R51.9 [facility] ER: 02/18/2024 [facility] ER: 02/18/2024 Addendum: 03/03/2024 :CT Head: 03/03/2024 : Neg, patient notified OV 06/28/2024 : Resolved, notify if any symptoms occur Pain in left foot 215069 7677 64047 M79.672 [facility] ER: 02/18/2024 [facility] ER: 02/18/2024 Trauma, dropped box of candy, [...] : Does well now Screening - NAD 21587527 3 Z13.9 C-scope: Cologuard 03/30/19: Neg, ordered 04/22/2022 Cologuard 05/08/2022 : +veC-scope : 06/27/2022 : Dr Truong Mammogram: 05/07/18, neg, get this [id number] /20/19: Neg01/05/08 021: Neg 022: Neg 023: Neg 024: NegNo more mammogram 06/28/2024 PAP: Did see Marium Becker UPHOLSTERY MECHANIC DEXA: 09/12/2020 : OPDEXA: 07/14/2022 : OP, declined prolia in the pastDEXA: 07/15/2023 : OP, cannot do prolia, d/t cost, will do fosamax, also do ca and vit d Get yearly flu shotUTD on PCV #13 05/07/16, #23 06/24/18UT D shingles vaccineUTD Tdap about 1.5 years ago in 2020UTD on COVID 19 vaccineUTD on RSV vaccine RTC in 3 monthsGet labsER if armidaShe did verbalize her understand ing of the above Chronic ob structive pulmonary disease 18199352 J44.9 CT Chest 11/20/2020 CT chest 07/30/2023 : Mucus impaction? She does see Ann Bartholomew UPHOLSTERY MECHANIC, did not want to keep her apts with Dr Bonds as he refused to give her HHNs On albuterol HHNOn albuterolO n ipratropiu mOn montelukas Rosa Bondsrafatjulissa On proair renewed as per her request [...] and started on stioltoNow sees Ann Lala UPHOLSTERY MECHANIC in 09/2024, is s/p EGD on 06/17/2024 , Dr Jase Lala UPHOLSTERY MECHANIC 09/29/2024 Ann Lala UPHOLSTERY MECHANIC 04/13/2025 Atrophic vaginitis 75221 000 N95.2 On clobetazol does well On hydroxyzin e for itching Insomnia 672950585 G47.0 0 09990954 On trazodone 50mg daily, does well Gastroesop hageal reflux disease without esophagitis 194223317 K21.9 On omeprazole Takes as neededDoes well on thisS/p EGD Dr Laguna on 06/17/2024 Glaucoma 62640442 H40.9 L eye blindness is present On brimonidin [place] dorzolamid [place] latanopros tOn neomycin eye drop Sees Dr Mayer Mass of thyroid gland [address] scan neck 04/13/18, mass noted [...] , next in 2 years Coronary arteriosclerosis 49636355 I25.10 01/17/2022 : ECHO: [facility] CT chest 11/15/[address] Philip 10/09/2021 [...] Does need to see Dr Bauman [facility] Dr Bauman 06/13/2024 , told to stop metoprolol , and start on lovastatin 20mg daily Get a referral to Dr Bauman [facility] 02/28/2025 Hyperlipidemia 43290125 E78.5 Not on rosuvastat in 5mg daily Dr Greco not want and labs are WNL 06/24/2024 Get labs Peripheral vascular disease 641914088 I73.9 See [facility] Dr Bauman [facility] Osteoarthritis 799243769 M19.90 Dr Noyola 11/01/2020 , f/u as needed Dr Noyola 03/21/2021 , trochantri c bursitis or R hip s/p injection Dr Noyola/Maya EDDY 08/09/2021 Dr Noyola 09/24/2021 , s/p injection, L hip, L SI joint Dr Noyola 12/10/2021 Dr Noyola 05/29/2022 MRI L Spine 06/03/2022 : Dr Noyola, is now referred to a neurologis t in [place] as per her history Collin Thorne 01/08/2023 [...] take Lyrica OV 05/04/2025 :On tramadol Eruption 176131937 R21 She states that the hydroxyzin e has not helpedShe does have a long standing history of itching and denies any new detergents or use of soaps or foodsAlso has a small raised slightly tender papule on the L dorsum of hand Refer to dermatolog y Osteoporosis 91560409 M8 1.0 On prolia last 01/08/2023 DeclinesCa n do fosamax, all side effects explained, and the way to take it 08/23/2024 Needs to do ca and vit d Multiple n odules of lung 427223265 R91.8 S/p CT chest 11/20/2020 Ann Lala UPHOLSTERY MECHANIC 02/12/2021 , next apt 08/20/2021 , she has now been referred to Dr Barry for ? latent TB Ann Lala UPHOLSTERY MECHANIC f/u 04/17/2023 Ann Lala UPHOLSTERY MECHANIC 09/29/2024 Macrocytosis 524020254 D 75.89 MCV WNL 12/30/2023 Get B12 and folate levels Restless l egs syndrome 05296923 G25.81 Stop ropinirole 1mg dailyStop the gabapentin [...] MRI LS spine Right inguinal pain [address] Light 09/12/2021 , post op 11/05/2021 Cardiomyopathy 70587151 I42.9 [facility] ER: 11/15/2021 : CTA angio, [...] 05/29/2023 : Dr Philip, EF 55% Hyperglycemia 43187933 R 73.9 Get labsDeclin es meds, more diet and exercise is needed Allergic rhinitis 744084 04 J30.9 On claritin, montelukas tNot on flonase Trigeminal neuralgia 316 24612 G50.0 On carbamazep ine 100mg tid, but should be on bid as per neurology Dr Lucero 01/29/2023 , f/u in one year Has seen Dr Garcia and the pain is betterMRI brain 11/14/2020 : Neg Dr Lucero 03/10/2024 , f/u PRN Does well, not taking the carbazepin e Hypoproteinemia 0415621 E88.09 More protein in diet Goiter 1234085 E04.9 US head and neck 07/18/2022 Low back pain 276596494 M54.50 MRI L Spine 06/03/2022 : Dr Gustafson es well now 10/01/2023 , no N/T or weakness in the LE Dr Birch and now is to get a MRI LS Spine 03/02/2025 Chronic ki dney disease 113896927 N18.9 See nephrology Anemia 719931470 D64.9 Can do more iron in diet or OTC ironH/H is stable 11/18/2024 Hypomagnesemia 801671289 E83.42 Mag 11/18/2024 : 2.0 WNL Leukopenia 32630755 D72. 819 Low WBC and mildly low PLTNeeds to see Dr hSay declines any referrals at this timeGet labs Hyponatremia 09405363 E8 7.[address] Green t the CMP Open wound of left lower leg 8523766730 3063586 S81.802A Dr Bush 02/23/2024 , next apt 06/02/2024 , change to Dr Treva PARIS 06/28/2024 : No more apts healed Xerostomia 19992488 R68. 2 States that none of the OTC mouth washes/rin ses have worked, she has used Biotene/AC T etcOn Cevimeline , all side effects explained to her, notify if any side effects occur, she verbalized her understand ing of the above Pain of left hand 008807 4789 55272 M79.642 Get on meloxicam 7.5mg po bid as needed PRNAlso get a referral to hand surgery S/p Xray 10/18/2024 : Dr Robertson : OAIs on OT Hemorrhagi c otitis externa 11011024 H60.322 07593975 On mometasone cream L ear ache with visible bleed on the EACNeeds a refill on the cipro dex as the medication did not stay in, will refill and use a cotton ball to plug the EACIf not better, notify and then refer to ENT as she states that Dr Cee 'blew her off' Open wound 127781996 T14 .8XXA [address] Bush 03/01/2025 This is for silvia LE wounds Pain in right foot 40916 69564 83562 M79.671 932797 Cellulitis with redness and tenderness Get on [...] Member ID Yap Member ID Guarantor Name 05/04/2025 1 [place] Juliette Allison [id number] Juliette Allison 05/04/2025 2 [place] [id number] Juliette Allison [id number] Juliette Allison Notes Date Note Type Note Provider Name and Address Organization Details Recorded Time 05/04/2025 text/html Here to establish carePast Hx:COPDGlaucomaInsomni [...] to have surgery, but is doing very wellSerlinda also has OP but does not want [...] routine apt, she was recently admitted to [facility] for chest pain, s/p cath, s/p [...] f/u, was seen in the ER at [facility] and then [facility] for leg pain and headaches, she still [...] for her MWV also Yanet Felder MD [address] [place] [address] Sveta, [facility] [address], [place], [address], [place] [facility] 05/16/2025 18:25:05 OBGyn Episode No OBEpisode recorded.
--- OUTSIDE RECORDS SUMMARY | 2025-05-23 08:02 | XMS_ITS | Clinical Summary ---
Author Organization [facility] Facility Address [address] [place] [address] Care Team Providers Care Yarder Operator Name Role Phone Yanet Felder MD Primary Care Provider [phone] Medications citalopram (CeleXA) 20 MG tablet Take 1 tablet (20 mg total) by mouth 1 (one) time each day 90 tablet 1 09/22/2023 Active torsemide (DEMADEX) 5 MG tablet TAKE 1 TABLET(5 MG) BY MOUTH 1 TIME EACH DAY IN THE MORNING 90 tablet 1 02/09/2025 Active Encounters Date Type Department Care Team Description 04/04/2025 3:15 PM CDT Office Visit [employer], [facility] [address] [phone] Steffen Alfredo DO Stage 3 chronic kidney disease, not otherwise specified (HCC) (Primary Dx); Hyponatremia; Other emphysema (HCC); Dilated cardiomyopathy (HCC); Coronary artery disease due to calcified coronary lesion; Peripheral vascular disease (HCC); Pure hypercholesterolemia, not otherwise specified; Tobacco use 04/03/2025 Documentation Only [employer] [employer] [facility], [address] [address] Steffen Alfredo DO 04/03/2025 Documentation Only [facility], [address] [phone] Steffen Alfredo DO 03/01/2025 Documentation Only [facility], [facility] [address] [facility] [address] [place] [phone] Steffen Alfredo DO from Last 3 Months [...] st Contact Info) Description 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 Office Visit [facility], [facility] [address] [facility] [address] [place] [address] Steffen Alfredo DO [address] [facility] [address] [place] [address] Health Maintenance Due Date Last Done Comments Influenza Vaccine (#1) 2025 4, 04/04/2021, 03/14/2020, Additional history exists Pneumococcal Vaccine: 50+ Years Completed 06/24/2018, 05/07/2016 Hepatitis B Vaccine Aged Out No longe r eligible based on patient's age to complete this topic Insurance Medicare [facility] [place] Advance Directives Documents on File Type Date Recorded 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, [address] [place] [address] PCP - General Internal Medicine 03/06/23
--- OUTSIDE RECORDS SUMMARY | 2025-05-23 08:02 | XMS_ITS | Encounter Summary ---
Author Organization [facility] Address [address] [place] [address] Care Team Providers Care Veterinary Medicine Doctor Name Role Phone Yanet Felder MD Primary Care Provider Encounter Details Date Type Department Care Team (Late st Contact Info) Description 12/22/2024 Pre-Procedure Call [facility] Pre-Admission Testing [address] [place], [place] [address] Kerrie Martinez MD [address] [place] [address] Anesthesia Record Procedure Summary Procedure Name Responsible Anesthesiologist Anesthesia Start Time Anesthesia Stop Time MRI CERV SPINE WO CONY Corrales MD 12/28/24 0812 12/28/24 0930 Events Date Time Event Comment 12/28/2024 0658 0658 AN Anesthesia Prepped 0812 An Start Patient ID and consent checked and patient reassessed. 2 CRNAs d/t Jen first time to MRI here. 0815 An Start Data 0815 Face Mask Applied 0819 An Induction The patient was reevaluated immediately before moderate or deep sedation use and before anesthesia induction. 0820 Anesthesia Ready 0830 Quick Note Oral airway ins erted 0913 An Emergence 0915 an stop data 0926 Post Anesthetic Care Handoff I completed my handoff to the receiving nurse during which we: 1. Identified the patient 2. Identified the responsible provider 3. Reviewed the pertinent medical history 4. Discussed the surgical course 5. Reviewed intra-op anesthesia management and issues during anesthesia 6. Set expectations for post-procedure period 7. Allowed opportunity for questions and acknowledgement of understanding. 0930 An Stop Meds * Agents No agents on file. * Blood No blood administrations on file. Lines, Drains, and Airways Type Details Placement Removal Peripheral IV Placement Date: 03/16; Placement Time: 0700; Placed Outside of This Facility?: No; Size: 20 G; Orientation: Right; Location: Forearm; Site Prep: Chlorhexidine; Local Anesthetic: None; Inserted By: Lynne Truong RN; Insertion attempts: 1; Ultrasound-guided Placement?: No; Removal Date: 12/28/24; Removal Time: 1050; Removal Reason: Patient Discharged 12/28/24 07 by Lynne Truong RN 12/28/24 1050 by Susan Dozier RN documented in this encounter Social History Tobacco Use Types Packs/Day Years Used Date Smoking Tobacco: Every Day Cigarettes Smokeless Tobacco: Never Alcohol Use Standard Drinks/Week Comments Never 0 (1 standard drink = 0.6 oz pur e alcohol) PHQ-2 Answer Date Recorded Patient Health Questionnaire-2 Score 0 10/26/2024 Comments Unknown Sex and Gender Information Value Date Recorded Sex Assigned at Female 12/28/2024 6:13 AM CDT Legal Sex Female 2:04 PM [employer]ER[employer] Gender Identity Not on file Sexual Orientation Not on file documented as of this encounter Last Filed Vital Signs Vital Sign Reading Time Taken Comments Blood Pressure - - Pulse - - Temperature - - Respiratory Rate - - Oxygen Saturation - - Inhaled Oxygen Concentration - - Weight 38.6 kg (85 lb) 12/22/2024 11:22 AM CDT Height 162.6 cm (5' 4) 12/22/2024 11:22 AM CDT Body Mass Index 14.59 12/22/2024 11:22 AM CDT documented in this encounter Progress Notes * Kya Polanco RN - 12/22/2024 11:06 AM CDT Patient has severe restless leg and cannot lay still. States she had MRI in the past a long time ago (open) and still failed with medication. Can you climb 2 flights of stairs without CP or extreme SOB? Yes, denies CP or extreme SOB. Still active and still plays golf weekly Are you physically able to do the same things today that you could 6 months ago? 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 98/60 Any recent heart testing? (EKG, stress test, Echo?) 2023 Do you see a pipe bender? Who is it? Mitul at [facility] I called for office note and testing. They will fax office notes and tesitng Dx with broken heart syn 2019ish Patient is a current tobacco user. They were instructed to hold any tobacco use after midnight the night before the surgical procedure. Patient understood instructions and provided consent. 0600 arrival, one of her kids will drive her home and roxanne will spend the night. NPO after midnight documented in this encounter OR Notes * OR PreOp - RADHIKA Araiza - 12/27/2024 1:30 PM CDT Chart initially reviewed by SILVIA Amado and updated cardiac records/testing were requested. Updated office note and Echo received, and available in Media. EF improved since prior Echo. Echo 05/29/22 Normal LV systolic function, size, and wall thickness. E to A wave reversal consistent with impaired LV relaxation. LVEF 55% Normal RV size and systolic function PV is not well visualized, normal velocities. Mild [place]. No significant valvular abnormalities * OR PreOp - Genevieve Amado, SIERRA - 12/22/2024 11:41 AM CDT Chart reviewed. Per phone interview, patient denies any SOB/CP with 2 FOS or recent changes in activity tolerance in past 6 months. Plays golf weekly, only reduced by neuropathy in legs. Patient seescardiologist Dr. Bauman 2/2 takotsubo's cardiomyopathy and previous cardiac testing copied. Please request most recent office note per Dr. Bauman and any testing available since 2021. Hx PONV EKG 03/05/24 SINUS RHYTHM LEFT AXIS DEVIATION [QRS AXIS < -30] ANTERIOR MYOCARDIAL INFARCTION , OF INDETERMINATE AGE [40+ ms Q WAVE AND/OR ST/T ABNORMALITY IN V3/V4] ABNORMAL ECG Compared to prior EKG T-wave inversion anterior leads has improved Rate 81 Echo 11/17/21 Normal left ventricular size. Normal left ventricular wall thickness. Diastolic dysfunction is present. Ejection fraction is visually estimated at 35 %. Wall motion abnormalities consistent with takotsubo cardiomyopathy. Aortic cusps appear mildly sclerotic. Trileaflet valve . Estimated peak RVSP is 55 mmHg. Mild to moderate tricuspid regurgitation. Cardiac cath 11/16/21 1. 40% to 50% stenosis of the mid left anterior descending. 2. Severe cardiomyopathy with ejection fraction of 10% consistent with takotsubo syndrome. 3. Elevated right and left heart filling pressure. 4. Depressed cardiac output. documented in this encounter Plan of Treatment Not on file documented as of this encounter Visit Diagnoses Not on filedocumented in this encounter Care Teams Veterinary Medicine Doctor Relationship Specialty Start Date End Date Yanet Felder MD [address] [address] PCP - General INTERNAL MEDICINE 10/26/24 documented as of this encounter
--- OUTSIDE RECORDS SUMMARY | 2025-05-23 08:02 | XMS_ITS | Clinical Summary ---
Author Organization [facility] Address [address] [address] Care Team Providers Care World Language Teacher Name Role Phone Yanet Felder MD Primary Care Provider Dawson Mayer MD Unavailable [phone] 1 Source Comments [facility],non-owned Affiliates and Associated Physician Practices is amultiple site organization consisting of ambulatory clinics and hospital sitesin [place], [place], [place] and [place]. This disclosure is being madepursuant to the Care Everywhere program and may not contain all information available regarding this patient. Last updated 18.[facility] Allergies No known active allergies Medications * [...] fluticasone propionate (FLONASE) 50 MCG/ACT nasal spray [place] 1 spray into each nostril once daily [...] yrs (1 - 1-dose 75+ series) 2019 DEPRESSION SCREENING 06/22/2024 COVID-19 VACCINE (1 - 2024-2 6 season) 2025 INFLUENZA VACCINE (#1) 2025 HEPATITIS B VACCINE Aged Out No [...] this topic Insurance MEDICARE ANTH Care Teams World Language Teacher Relationship Specialty Start Date End Date Yanet Felder MD [address] [facility] [address] [place] [id number] PCP - General 03/25/18 Dawson Mayer MD [address] [place] [id number] Physician 04/23/18
== END 2025-05-23 07:56 | disposition home or self-care (01) ==
LOC: ANHAUDIO 07:56
PROVIDERS: PCP Internal Medicine; Visit Provider Otolaryngology
DX: H91.90 Unspecified hearing loss, unspecified ear (principal)
CPT/HCPCS: 99199